=== PATIENT | male | born 1945 | race Caucasian/White ===

== ENCOUNTER 2021-05-08 09:06 | Outpatient (CLI) | payer MEDICARE, SELFPAY ==
[2021-05-08 12:09] LABS: Basophils % 0.2 %; Eosinophils # 0.1 10^3/uL (0.0-0.8); Eosinophils % 0.8 %; Lymphocytes # 1.7 10^3/uL (0.8-4.8); Lymphocytes % 17.9 %; Mean Corpuscular HGB Conc 31.6 g/dL (30.0-36.0); Mean Corpuscular Hemoglobin 34.8 pg (28.0-34.0); Mean Corpuscular Volume 110.1 fl (80-94); Mean Platelet Volume 11.7 fL (7.4-10.4); Monocytes # 0.9 10^3/uL (0.2-0.9); Monocytes % 9.6 %; Neutrophils # 6.79 10^3/uL (1.8-7.7); Neutrophils % 71.1 %; Nucleated Red Blood Cells % 0 %; Platelet Count 167 10^3/cmm (130-400); Red Blood Count 3.45 10^6/uL (4.1-5.3); Red Cell Distribution Width 13.3 % (12.1-15.1); Reticulocyte % 1.1 % (0.5-2.0); White Blood Count 9.6 10^3/uL (4.0-10.0)
[2021-05-08 12:31] LABS: Ferritin 80 ng/mL (30-400); Homocysteine 5.92; Iron 46 ug/dL (59-158); Lactate Dehydrogenase 130 U/L (135-225); Percent Saturation 13.1 % (20-50); Thyroid Stimulating Hormone 1.13 uIU/mL (0.27-4.20); Total Iron Binding Capacity 350 mcg/dl; Unsaturated Iron Binding 304 ug/dL (112-347)
[2021-05-08 12:39] LABS: Folate Level 14.7 ng/mL (4.5-32.2)
[2021-05-08 12:42] LABS: Alanine Aminotransferase 14 U/L (0-41); Albumin Level 4.4 g/dL (3.5-5.2); Alkaline Phosphatase 58 IU/L (40-130); Anion Gap 12.4 (5-19); Aspartate Amino Transferase 18 U/L (0-40); Blood Urea Nitrogen 19 mg/dL (8-23); Calcium 9.4 mg/dL (8.5-10.5); Carbon Dioxide 30 mmol/L (22-29); Chloride 104 mmol/L (98-107); Globulin 2.9 g/dL (1.3-4.6); Glucose 85 mg/dL (65-115); Osmolality Calculated 296 mOsm/kg (285-295); Potassium 4.4 mmol/L (3.5-5.1); Sodium 142 mmol/L (136-145); Total Bilirubin 0.2 mg/dL (0.15-1.2); Total Protein 7.3 g/dL (6.6-8.7); Vitamin B12 1746 pg/mL (232-1245)
[2021-05-08 12:51] LABS: LAB Peripheral Smear Sent for Review
--- NOTE | 2021-05-08 14:17 | ONC CON_ITS ---
Dr. Gregorio New Patient Note Patient: Sherwin Dalton Unit #: [id number]: 1945 Dicatated By: Ronny Gregorio M.D.Date of Visit: May 08, 2021 Onc MED New Patient/Consult Referring Physician: Dr. Pawel Ordoñez M.D. Chief Complaint: Anemia. History of Present Illness: This is a 75-year-old man with macrocytic anemia and mild leukocytosis. He has multiple medical illnesses including hypertension, hyperlipidemia, and coronary artery disease. He has had previous myocardial infarction, and he has had previous coronary artery bypass surgery and subsequent angioplasty/stent placement on 2 occasions. He has oxygen dependent COPD with associated chronic respiratory failure and pulmonary hypertension, and he also has degenerative arthritis. There is a reported history of B12 deficiency, for which he has been on and oral B12 supplement. He has been seeing Dr. Ordoñez for primary care. I am asked to see him in regard to macrocytic anemia and mild leukocytosis. The available records include CBC from 03/24/2021 which showed mildly decreased hemoglobin at 12.7 g with hematocrit 39.2%. The red cell indices were macrocytic with MCV 108.0 and MCH 35.0. The white blood cell count was 11,700 with the differential showing 76% neutrophils, 14% lymphocytes, and 8% monocytes. The platelet count was normal at 254,000. Comprehensive metabolic profile showed normal renal function with BUN 25 and creatinine 0.59 mg/dL. The bilirubin and liver enzymes were normal. The serum iron studies showed low serum iron at 37 mcg/dL with transferrin saturation also low at 14%. His B12 level was greater than 2000 pg/mL and the folate level was 23.1 ng/mL. He has felt generally weak and he has had very limited activity. His appetite had not been too good, though recently it has improved a little. He has had a significant weight loss. At one time he weighed as much is 240 pounds. Sometime during the past 1 to 2 years his weight was down to 160 lbs., and it has since then further declined to under 130 lbs. He has not had fever or night sweats. He is short of breath with activity, and he is on continuous oxygen. He does not complain of cough and he has not been having chest pain. He has no GI or complaints. He has bad arthritis, especially in the hips and knees. He also has lower back pain, which is chronic. He does not complain of headache or dizziness. He has numbness in a couple of fingers related to previous injury. He has no other focal neurologic symptoms. Past Medical History: His medical history includes chronic obstructive pulmonary disease, chronic respiratory failure, coronary artery disease, degenerative arthritis, hyperlipidemia, hypertension, pulmonary hypertension, and vitamin B12 deficiency. Past Surgical History: His surgical/procedural history includes bilateral cataract excisions, coronary angioplasty/stent placement x 2, and coronary artery bypass. Medications: Adult Aspirin Regimen 1 Tablet (of 81 mg) Tablet, enteric coated Oral daily, Albuterol Sulfate HFA 2 Puff(s) (of 108 (90 base) mcg/act) Aerosol, solution Inhalation q 6 hours PRN, amLODIPine Besylate 1 Tablet (of 5 mg) Oral daily, Atenolol 0.5 Tablet (of 25 mg) Oral daily, B-12 1 Tablet (of 500 mcg) Oral daily, Budesonide-Formoterol Fumarate 2 Puff(s) (of 160-4.5 mcg/act) Aerosol Inhalation b.i.d., Cholecalciferol Capsule Oral, Cyproheptadine HCl 0.5 Tablet (of 4 mg) Oral b.i.d., Ferrous Sulfate 1 Tablet (of 325 (65 fe) mg) Oral daily, Folic Acid 1 Tablet (of 800 mcg) Oral daily, Gemfibrozil 1 Tablet (of 600 mg) Oral b.i.d., oxyCODONE-Acetaminophen 1 Tablet (of 10-325 mg) Oral q 6 hours PRN, Pravastatin Sodium 1.5 Tablet (of 40 mg) Oral daily Allergies: Cyclobenzaprine HCl, Sulfa Antibiotics, and Tetracycline HCl. Social History: Mr. Dalton is . He has a history of smoking for 40 years, but within the past 1 to 2 years he cut down to just 1 cigarette/day. He chews a can of tobacco every 2 weeks. He currently does not drink alcohol. He has had some alcohol use in the past, but never heavy. Family History: Father of blood cancer , I suspect myelodysplastic syndrome, as he had been transfusion dependent. His mother, his brother, and his 4 sisters all with heart disease. A son with complications after surgery for colon or bladder cancer. Review Of Symptoms: Constitutional - He has generally weak and he has limited activity. His appetite has not been good. He has had gradual weight loss. He had previously weight is much is 240 pounds. Over the past year or 2 he has gone down from 160 pounds to under 130 pounds. He does not have fever or night sweats. ECOG score is 2, Eyes - He had cataract surgery in August, [facility] - No hearing loss or tinnitus. No sinus congestion, but he complains that his nose runs a lot. No mouth sores. No sore throat or difficulty swallowing, Hematologic/Lymphatic - He has easy bruising, Respiratory - He has shortness of breath with activity. He is on continuous oxygen. No cough. No pleuritic pain or hemoptysis, Cardiovascular - No angina pain. No palpitations, Gastrointestinal - No nausea or vomiting. No heartburn or acid reflux. No diarrhea or constipation. No blood in the stool or black stools. He has never had a colonoscopy, Genitourinary (M) - No dysuria or hematuria. No urinary frequency. No urgency or incontinence, Musculoskeletal - He has pretty bad arthritis, particularly in the hips and knees. He also complains that his lower back really hurts, but that is chronic, Integumentary - No skin rash or other skin changes, Neurologic - No headache. He has very occasional dizzy spells. He has numbness in his left ring finger and in his right middle finger. No other focal neurologic symptoms, Psychiatric - No anxiety or depression. No insomnia. Vital Signs: Performed on May 08, 2021 10:20: 6, 5, 18.41, 1.77 sq.m, 71 in, 93 % (LOW), 110 /min (HIGH), 20 /min, 163/78 mm(hg) (HIGH), 98.6 F, and 132 lbs (HIGH). Physical Examination: Constitutional - He appears chronically ill, Eyes - Sclerae nonicteric. Conjunctivae clear, ENMT - No lesions noted in the oral cavity, Neck - No mass or thyromegaly, Hematologic/Lymphatic - No cervical, clavicular, or axillary adenopathy, Respiratory - Lungs sound clear with diminished air movement bilaterally, Cardiovascular - Heart rhythm is regular. There is no murmur, gallop, or rub noted, Abdomen - Soft. Liver and spleen are not enlarged. There is no abdominal mass or ascites noted and there is no inguinal adenopathy, Back/Spine - No spine or CVA tenderness noted, Extremities - No edema. Posterior tibial pulses are palpable bilaterally, Integumentary - No rashes. No suspicious skin lesions noted, Neurologic - No focal neurologic deficits noted. Problem List: 1. Macrocytic anemia and mild leukocytosis. 2. Hypertension. 3. Hyperlipidemia. 4. Coronary artery disease. 5. COPD with chronic respiratory failure and pulmonary hypertension. 6. Degenerative arthritis. Problems Addressed with this Encounter and Plan: Patient with mild macrocytic anemia and mild leukocytosis. Based on the serum iron studies, he may have a component of iron deficiency contributing to the anemia, but that obviously would not be consistent with the other findings. The main concern would be the possibility of an underlying myeloproliferative/myelodysplastic disorder. The laboratory findings and clinical implications were reviewed with the patient. He will have additional laboratory studies today to include CBC, comprehensive metabolic profile, reticulocyte count, LDH level, haptoglobin level, serum iron studies and ferritin, sed rate, serum protein electrophoresis, and serum free light chain assay. I also will recheck the B12 and folate levels, and I will review the blood smear. He will have further evaluation as indicated. Ultimately, he may require bone marrow aspiration/biopsy. Signed By: Ronny Gregorio M.D. <<Signature on File>>
[2021-05-09 08:21] LABS: PROTEIN, TOTAL 6.8 g/dL (6.1-8.1)
[2021-05-11 11:04] LABS: Erythrocyte Sedimentation Rate 34 mm/hr (0-10)
[2021-05-11 14:58] LABS: ALPHA 1 GLOBULIN 0.4 g/dL (0.2-0.3); ALPHA 2 GLOBULIN 0.9 g/dL (0.5-0.9); BETA 1 GLOBULIN 0.4 g/dL (0.4-0.6); BETA 2 GLOBULIN 0.3 g/dL (0.2-0.5); GAMMA GLOBULIN 0.8 g/dL (0.8-1.7)
[2021-05-11 15:13] LABS: KAPPA LIGHT CHAIN, FREE, SERUM 38.8 mg/L (3.3-19.4); KAPPA/LAMBDA LIGHT CHAINS FREE 2.04 (0.26-1.65)
[2021-05-12 04:12] LABS: Methylmalonic Acid 235 nmol/L (87-318)
== END 2021-05-08 09:07 | disposition home or self-care (01) ==
LOC: ONCMED 09:11
PROVIDERS: PCP Family Medicine; Visit Provider Internal Medicine Medical Oncology
DX: D53.9 Nutritional anemia, unspecified (principal); D72.829 Elevated white blood cell count, unspecified; I10 Essential (primary) hypertension; E78.5 Hyperlipidemia, unspecified; I25.10 Atherosclerotic heart disease of native coronary artery without angina pectoris; M19.90 Unspecified osteoarthritis, unspecified site; Z79.899 Other long term (current) drug therapy; Z79.51 Long term (current) use of inhaled steroids; Z79.891 Long term (current) use of opiate analgesic
CPT/HCPCS: 36415; 80053; 82607; 82728; 82746; 83010; 83090; 83540; 83550; 83615; 83883; 83921; 84155; 84165; 84443; 85025; 85045; 85651; 99204

== ENCOUNTER 2021-06-15 14:19 | Outpatient (CLI) | payer MEDICARE, SELFPAY ==
[2021-06-15 14:53] LABS: Basophils # 0.1 10^3/uL (0.0-0.1); Basophils % 0.6 %; Eosinophils % 0.2 %; Hematocrit 40.2 % (42.0-52.0); Hemoglobin 12.6 g/dL (11.7-16.6); Lymphocytes # 2.5 10^3/uL (0.8-4.8); Lymphocytes % 28.5 %; Mean Corpuscular HGB Conc 31.3 g/dL (30.0-36.0); Mean Corpuscular Hemoglobin 34.5 pg (28.0-34.0); Mean Corpuscular Volume 110.1 fl (80-94); Mean Platelet Volume 10.9 fL (7.4-10.4); Monocytes # 0.8 10^3/uL (0.2-0.9); Monocytes % 9.7 %; Neutrophils # 5.27 10^3/uL (1.8-7.7); Neutrophils % 60.8 %; Nucleated Red Blood Cells % 0 %; Platelet Count 189 10^3/cmm (130-400); Red Blood Count 3.65 10^6/uL (4.1-5.3); Red Cell Distribution Width 12.8 % (12.1-15.1); White Blood Count 8.7 10^3/uL (4.0-10.0)
[2021-06-15 15:11] LABS: Alanine Aminotransferase 14 U/L (0-41); Albumin Level 4.5 g/dL (3.5-5.2); Alkaline Phosphatase 60 IU/L (40-130); Aspartate Amino Transferase 18 U/L (0-40); Blood Urea Nitrogen 18 mg/dL (8-23); Carbon Dioxide 32 mmol/L (22-29); Chloride 99 mmol/L (98-107); Ferritin 71 ng/mL (30-400); Globulin 2.9 g/dL (1.3-4.6); Glucose 90 mg/dL (65-115); Iron 62 ug/dL (59-158); Osmolality Calculated 291 mOsm/kg (285-295); Percent Saturation 19.7 % (20-50); Sodium 140 mmol/L (136-145); Total Bilirubin 0.2 mg/dL (0.15-1.2); Total Iron Binding Capacity 314 mcg/dl; Total Protein 7.4 g/dL (6.6-8.7); Unsaturated Iron Binding 252 ug/dL (112-347)
[2021-06-15 15:13] LABS: Anion Gap 13.1 (5-19); Potassium 4.1 mmol/L (3.5-5.1)
--- NOTE | 2021-06-19 18:42 | ONC FU_ITS ---
Dr. Gregorio Patient Follow-Up Note Patient: Sherwin Dalton Unit #: [id number]: 1945 Dicatated By: Ronny Gregorio M.D.Date of Visit:Jun 15, 2021 Onc Med Follow-up/Prog Note Chief Complaint: Anemia. History of Present Illness: This is a 75-year-old man with macrocytic anemia and mild leukocytosis. He has multiple medical illnesses including hypertension, hyperlipidemia, and coronary artery disease. He has had previous myocardial infarction, and he has had previous coronary artery bypass surgery and subsequent angioplasty/stent placement on 2 occasions. He has oxygen dependent COPD with associated chronic respiratory failure and pulmonary hypertension, and he also has degenerative arthritis. There is a reported history of B12 deficiency, for which he has been on and oral B12 supplement. He has been seeing Dr. Ordoñez for primary care. The available records included a CBC from 03/24/2021 which showed mildly decreased hemoglobin at 12.7 g with hematocrit 39.2%. The red cell indices were macrocytic with MCV 108.0 and MCH 35.0. The white blood cell count was 11,700 with the differential showing 76% neutrophils, 14% lymphocytes, and 8% monocytes. The platelet count was normal at 254,000. Comprehensive metabolic profile showed normal renal function with BUN 25 and creatinine 0.59 mg/dL. The bilirubin and liver enzymes were normal. The serum iron studies showed low serum iron at 37 mcg/dL with transferrin saturation also low at 14%. His B12 level was greater than 2000 pg/mL and the folate level was 23.1 ng/mL. I had seen him initially on 05/08/2021. His CBC showed hemoglobin borderline low at 12.0 g and hematocrit 38.0%. The red cell indices were significantly macrocytic with MCV 110 and MCH 34. The white blood cell count was normal at 9600 and the platelet count was 167,000. The uncorrected reticulocyte count was 1.1%. Haptoglobin was slightly elevated to 222.0 mg/L with LDH normal at 130 U/L. Sed rate was slightly elevated at 34 mm/h. Renal function was normal and the bilirubin and liver enzymes were normal. His serum iron studies showed low transferrin saturation at 13.1% with ferritin in normal range at 80 ng/mL. B12 level is again high at 1746 pg/mL. Methylmalonic acid and homocysteine levels were normal. His protein electrophoresis showed no monoclonal protein. The serum free light chain assay showed slightly elevated kappa/lambda ratio 2.04. Overall, the laboratory findings were nonspecific, though suggestive of possible iron deficiency. As his hemoglobin is just borderline low, I had just recommended observation/expectant management. He is seen now for a follow-up visit. He says his energy is fair. His activity, though, is very limited. He is up and around, he does not attempt any work activity. His ECOG score is 2. His appetite has been a little better. He has been drinking Ensure, and his weight is up 8 pounds. He does not have fever or night sweats. He is short of breath, and he is on continuous oxygen. He does not complain of cough and he has not been having chest pain. He has no GI or complaints. He has chronic pain in his back, hips, and legs. He does not complain of headache or dizziness, and he has no focal neurologic symptoms. Medications: Adult Aspirin Regimen 1 Tablet (of 81 mg) Tablet, enteric coated Oral daily, Albuterol Sulfate HFA 2 Puff(s) (of 108 (90 base) mcg/act) Aerosol, solution Inhalation q 6 hours PRN, amLODIPine Besylate 1 Tablet (of 5 mg) Oral daily, Atenolol 0.5 Tablet (of 25 mg) Oral daily, B-12 1 Tablet (of 500 mcg) Oral daily, Budesonide-Formoterol Fumarate 2 Puff(s) (of 160-4.5 mcg/act) Aerosol Inhalation b.i.d., Cholecalciferol Capsule Oral, Cyproheptadine HCl 0.5 Tablet (of 4 mg) Oral b.i.d., Ferrous Sulfate 1 Tablet (of 325 (65 fe) mg) Oral daily, Folic Acid 1 Tablet (of 800 mcg) Oral daily, Gemfibrozil 1 Tablet (of 600 mg) Oral b.i.d., oxyCODONE-Acetaminophen 1 Tablet (of 10-325 mg) Oral q 6 hours PRN, Pravastatin Sodium 1.5 Tablet (of 40 mg) Oral daily Allergies: Cyclobenzaprine HCl, Sulfa Antibiotics, and Tetracycline HCl. Vital Signs: Performed on Jun 15, 2021 15:49 Height - 71.00 in Weight - 140.2 lbs (HIGH) BSA - 1.81 sq.m BMI - 19.55 Temperature - 97.8 F (LOW) Pulse - 123 /min (HIGH) Respiration - 18 /min BP - 182/84 mm(hg) (HIGH) O2 Sat - 96 % Pain - 7 Fatigue - 8 Physical Examination: Constitutional - He appears chronically ill, Eyes - Sclerae nonicteric. Conjunctivae clear, ENMT - No lesions noted in the oral cavity, Hematologic/Lymphatic - No cervical, clavicular, or axillary adenopathy, Respiratory - Lungs sound clear with diminished air movement bilaterally, Cardiovascular - Heart rhythm is regular with tachycardia. There is no murmur, gallop, or rub noted, Abdomen - Soft. Liver and spleen are not enlarged. There is no abdominal mass or ascites noted and there is no inguinal adenopathy, Extremities - No edema, Neurologic - No focal neurologic deficits noted. Lab/Imaging: Test performed on Jun 15, 2021 14:41 Ferritin 71 ng/mL Iron 62 mcg/dL Sodium 140 mmol/L Iron Binding Capacity (TIBC) 314 mcg/dl Potassium 4.1 mmol/L % Iron Saturation 19.7 % Chloride 99 mmol/L CO2 32 mmol/L UIBC 252 mcg/dL Anion Gap 13.1 BUN 18 mg/dL Creatinine 0.5 mg/dL Cr Clearance (Est) 113.06 mL/min Glucose 90 mg/dL Osmolality - Calculated 291 mOsm/kg Calcium 9.0 mg/dL Protein, Total 7.4 g/dL Albumin 4.5 g/dL Globulin 2.9 g/dL Bilirubin, Total 0.2 mg/dL ALT (SGPT) 14 U/L AST (SGOT) 18 U/L Alkaline Phosphatase 60 IU/L WBC 8.7 10 3/uL RBC 3.65 10 6/uL HGB 12.6 g/dL HCT 40.2 % MCV 110.1 fl MCH 34.5 pg MCHC 31.3 g/dL RDW 12.8 % Platelet Count 189 10 3/cmm MPV 10.9 fL Neutrophils 5.27 10 3/uL Lymphocytes 2.5 10 3/uL Monocytes 0.8 10 3/uL Eosinophils 0.0 10 3/uL Basophils 0.1 10 3/uL Neutrophil % 60.8 % Lymphocyte % 28.5 % Monocyte % 9.7 % Eosinophil % 0.2 % Basophils % 0.6 % NRBC % 0 % Problem List: 1. Macrocytic anemia and mild leukocytosis. 2. Hypertension. 3. Hyperlipidemia. 4. Coronary artery disease. 5. COPD with chronic respiratory failure and pulmonary hypertension. 6. Degenerative arthritis. Problems Addressed with this Encounter and Plan: Patient with mild macrocytic anemia and mild leukocytosis. Based on the serum iron studies, he may have had a component of iron deficiency contributing to the anemia, but that obviously would not be consistent with the macrocytosis. The main concern otherwise was the possibility of an underlying myeloproliferative/myelodysplastic disorder. Since his initial visit, his CBC findings have basically been stable, other than his white blood cell count has been in the upper normal range. He continues to have significantly macrocytic red cell indices, but with just borderline low hemoglobin/hematocrit levels. In the absence of B12 or folate deficiency, this is concerning for a myelodysplastic syndrome. However, as long as his hemoglobin/hematocrit levels remain adequate, there would be no indication for treatment. As such, he will continue expectant management. At least for now, he prefers to continue his regular follow-up with Dr. Ordoñez. He would suggest checking blood counts every 3 to 6-month intervals. If there is a significant decline in his hemoglobin/hematocrit levels, he will need to undergo bone marrow aspiration/biopsy. I will plan to see him again as needed. Signed By: Ronny Gregorio M.D. <<Signature on File>>
== END 2021-06-15 14:20 | disposition home or self-care (01) ==
PROVIDERS: PCP Family Medicine; Visit Provider Internal Medicine Medical Oncology
DX: D50.9 Iron deficiency anemia, unspecified (principal); D70.9 Neutropenia, unspecified; D53.9 Nutritional anemia, unspecified
CPT/HCPCS: 36415; 80053; 82728; 83540; 83550; 85025; 99214

== ENCOUNTER 2022-01-16 02:02 | Emergency (ER) | payer MEDICARE, SELFPAY ==
[2022-01-16 02:07] VITALS: BP 130/61; PULSE 91; RESP 18; TEMP 36.6; O2SAT 95; BMI 19.5
--- NOTE | 2022-01-16 02:11 | ECG_ITS ---
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 Measurements Intervals [place] Rate: 92 P: 73 [place]: 168 QRS: 46 QRSD: 89 T: 65 QT: 322 QTc: 400 Interpretive Statements SINUS RHYTHM ST depression and T wave inversion leads V1 through V6, consider ischemia No previous ECG available for comparison Electronically Signed On 01-16-2022 9:23:39 CDT by Pj Chandra M.D. [id number]
--- NOTE | 2022-01-16 02:11 | XRR_ITS ---
PROCEDURE INFORMATION: Exam: XR Chest Exam date and time: 01/16/2022 2:20 AM Age: 76 years old Clinical indication: Chest pressure; Prior surgery; Surgery type: Cabg. Coronary stents. Patient HX: C/O chest pain. ; Additional info: Cp TECHNIQUE: Imaging protocol: XR of the chest. Views: 1 view. COMPARISON: No relevant prior studies available. FINDINGS: Lungs: Phase opacities in the mid right lung. Background of emphysema. Pleural spaces: Unremarkable. No pleural effusion. No pneumothorax. Heart/Mediastinum: Changes of prior CABG. Bones/joints: Unremarkable. XR/XR chest 1V portable [id number] IMPRESSION: Faint opacities in the mid right lung may reflect scarring or atelectasis, though infection is not entirely excluded.
[2022-01-16 02:22] LABS: Basophils % 0.2 %; Eosinophils # 0.2 10^3/uL (0.0-0.8); Eosinophils % 1.1 %; Hematocrit 34.2 % (42.0-52.0); Hemoglobin 10.9 g/dL (11.7-16.6); Lymphocytes # 1.1 10^3/uL (0.8-4.8); Lymphocytes % 6.3 %; Mean Corpuscular HGB Conc 31.9 g/dL (30.0-36.0); Mean Corpuscular Hemoglobin 34.5 pg (28.0-34.0); Mean Corpuscular Volume 108.2 fl (80-94); Mean Platelet Volume 10.7 fL (7.4-10.4); Monocytes # 1.5 10^3/uL (0.2-0.9); Monocytes % 8.3 %; Neutrophils # 14.97 10^3/uL (1.8-7.7); Neutrophils % 83.6 %; Nucleated Red Blood Cells % 0 %; Platelet Count 222 10^3/cmm (130-400); Red Blood Count 3.16 10^6/uL (4.1-5.3); Red Cell Distribution Width 13.1 % (12.1-15.1); White Blood Count 17.9 10^3/uL (4.0-10.0)
[2022-01-16 02:37] LABS: Troponin(5th) Baseline 13 ng/L (0-15)
[2022-01-16 02:39] VITALS: RESP 17
[2022-01-16] MEDS: ondansetron 2 mg/ML SDV 2 mL 4 MG IVP (02:39)
[2022-01-16] MEDS: morphine 4 mg/mL SDV 1 mL IVP (02:39)
[2022-01-16 02:46] LABS: Alanine Aminotransferase 8 U/L (0-41); Albumin Level 3.8 g/dL (3.5-5.2); Alkaline Phosphatase 61 IU/L (40-130); Aspartate Amino Transferase 11 U/L (0-40); Blood Urea Nitrogen 24 mg/dL (8-23); Calcium 8.6 mg/dL (8.5-10.5); Carbon Dioxide 30 mmol/L (22-29); Chloride 101 mmol/L (98-107); Creatine Phosphokinase 43 U/L (39-308); Globulin 2.4 g/dL (1.3-4.6); Glucose 162 mg/dL (65-115); NT Pro B Type Natriuretic Pept 532 pg/mL (0-450); Osmolality Calculated 302 mOsm/kg (285-295); Sodium 142 mmol/L (136-145); Total Bilirubin 0.2 mg/dL (0.15-1.2); Total Protein 6.2 g/dL (6.6-8.7)
[2022-01-16 02:59] LABS: INR 1.06 (0.8-1.2); Partial Thromboplastin Time 36.5 SECONDS (23.9-36.7)
[2022-01-16 05:33] LABS: Troponin 5 2HR 162.9 ng/L (0-15); Troponin 5 2HR Delta 149.9 ABS# (0-10)
--- NOTE | 2022-01-16 05:43 | ED_ITS ---
HPI - Chest Pain General: Chief Complaint: Chest Pain Stated Complaint: CP Time Seen by Provider: 01/16/22 02:11 History of Present Illness: 76-year-old gentleman with a history of coronary disease. He notes that he had a CABG in the , followed by stent placement in the early . No intervention since. He presents with chest pain since 11 PM or so. He was not active at the time. His nitroglycerin were . He has had 2 nitroglycerin via EMS, aspirin in route to the hospital. His pain is improved but not gone. He was short of breath with the discomfort. Course Vital Signs: Vital signs: Vital Signs Temperature 98 F 01/16/22 02:07 Pulse Rate 91 01/16/22 02:07 Respiratory Rate 17 01/16/22 02:39 Blood Pressure 130/61 01/16/22 02:07 Pulse Oximetry 95 01/16/22 02:07 MDM - Chest Pain Medical Decision Making 76-year-old gentleman with anginal type chest pain. His pain is resolved currently. Initial EKG showed ST depression in the anterior precordial leads. At 2 hours, with resolution of his pain, his ST segments are back to baseline, and his EKG looks essentially normal. However, his first troponin was 13, but with a delta of 150, confirming subendocardial injury. Discussed these findings with the patient. Discussed with him that he has had a heart attack, and will require admission to the hospital for a coronary angiogram. The patient adamantly refused the angiogram. He states maybe I will think about it for a few days and call and make an appointment . I stressed to him that with the changes in his EKG, and the rise in his troponin, that it would be necessary for him to be treated for his heart attack. I also stressed that if he goes home, and this happens again, that he could , and may not make it back to the hospital. He understands this. He still refuses. He will sign an AMA form. Lab Data : 01/16/22 02:11 01/16/22 02:11 Radiology Impressions Chest X-Ray 01/16/22 02:11 IMPRESSION: Faint opacities in the mid right lung may reflect scarring or atelectasis, though infection is not entirely excluded. Laboratory Results WBC 17.9 10^3/uL (4.0-10.0) H 01/16/22 02:11 RBC 3.16 10^6/uL (4.1-5.3) L 01/16/22 02:11 Hgb 10.9 g/dL (11.7-16.6) L 01/16/22 02:11 Hct 34.2 % (42.0-52.0) L 01/16/22 02:11 MCV 108.2 fl (80-94) H 01/16/22 02:11 MCH 34.5 pg (28.0-34.0) H 01/16/22 02:11 MCHC 31.9 g/dL (30.0-36.0) 01/16/22 02:11 RDW 13.1 % (12.1-15.1) 01/16/22 02:11 Plt Count 222 10^3/cmm (130-400) 01/16/22 02:11 MPV 10.7 fL (7.4-10.4) H 01/16/22 02:11 Neut % (Auto) 83.6 % 01/16/22 02:11 Lymph % (Auto) 6.3 % 01/16/22 02:11 [place] % (Auto) 8.3 % 01/16/22 02:11 Eos % (Auto) 1.1 % 01/16/22 02:11 Baso % (Auto) 0.2 % 01/16/22 02:11 Neut # (Auto) 14.97 10^3/uL (1.8-7.7) H 01/16/22 02:11 Lymph # (Auto) 1.1 10^3/uL (0.8-4.8) 01/16/22 02:11 [place] # (Auto) 1.5 10^3/uL (0.2-0.9) H 01/16/22 02:11 Eos # (Auto) 0.2 10^3/uL (0.0-0.8) 01/16/22 02:11 Baso # (Auto) 0.0 10^3/uL (0.0-0.1) 01/16/22 02:11 Nucleated RBC % (auto) 0 % 01/16/22 02:11 Nucleated RBCs # 0.0 /100WBC 01/16/22 02:11 PT 14.10 SECONDS (12.1-14.9) 01/16/22 02:30 INR 1.06 (0.8-1.2) 01/16/22 02:30 APTT 36.5 SECONDS (23.9-36.7) 01/16/22 02:30 Sodium 142 mmol/L (136-145) 01/16/22 02:11 Potassium 4.0 mmol/L (3.5-5.1) 01/16/22 02:11 Chloride 101 mmol/L (98-107) 01/16/22 02:11 Carbon Dioxide 30 mmol/L (22-29) H 01/16/22 02:11 Anion Gap 15.0 (5-19) 01/16/22 02:11 BUN 24 mg/dL (8-23) H 01/16/22 02:11 Creatinine 0.8 mg/dL (0.7-1.2) 01/16/22 02:11 GFR Calculation Not Reportable 01/16/22 02:11 Glucose 162 mg/dL (65-115) H 01/16/22 02:11 Calculated Osmolality 302 mOsm/kg (285-295) H 01/16/22 02:11 Calcium 8.6 mg/dL (8.5-10.5) 01/16/22 02:11 Total Bilirubin 0.2 mg/dL (0.15-1.2) 01/16/22 02:11 AST 11 U/L (0-40) 01/16/22 02:11 ALT 8 U/L (0-41) 01/16/22 02:11 Alkaline Phosphatase 61 IU/L (40-130) 01/16/22 02:11 Creatine Kinase 43 U/L (39-308) 01/16/22 02:11 Troponin T Baseline 13 ng/L (0-15) 01/16/22 02:11 Troponin T 120 Minute 162.9 ng/L (0-15) H 01/16/22 04:50 Delta Troponin T 149.9 ABS# (0-10) H* 01/16/22 04:50 NT-Pro-B Natriuret Pep 532 pg/mL (0-450) H 01/16/22 02:11 Total Protein 6.2 g/dL (6.6-8.7) L 01/16/22 02:11 Albumin 3.8 g/dL (3.5-5.2) 01/16/22 02:11 Globulin 2.4 g/dL (1.3-4.6) 01/16/22 02:11 Discharge Plan Discharge Patient Disposition: Left Against Medical Advice Clinical Impression: Chest pain, Non-ST elevated myocardial infarction (non-STEMI) Condition: Stable Prescriptions: New nitroglycerin 0.4 mg tablet, sublingual 0.4 mg sublingual Q5M PRN (Reason: chest pain) Qty: 10 0RF Rx Instructions: do not exceed 3 doses per episode Referrals: Pawel Ordoñez [Primary Care Provider] - Activity Restrictions/Additional Instructions: Your tests show that you have likely had a heart attack. You have chosen to not be admitted to the hospital, and have refused potential coronary angiogram and further treatment. Return for any return of your chest discomfort, shortness of breath, any other symptoms. Coding Level of Care Code ED Printing Services Coordinator for Taz Levine
[2022-01-16 05:46] VITALS: BP 141/60; PULSE 86; RESP 18; O2SAT 96
[2022-01-16 06:09] VITALS: BP 139/90; PULSE 78; RESP 18
--- NOTE | 2022-01-16 06:58 | PC.NURSE ---
I have explained to patient and family that it is very dangerous for him to leave the ER. I have explained to family that they need not be afraid to bring him back in if he is experiencing any pain or any other cardiac symptoms.
== END 2022-01-16 06:58 | disposition left against medical advice (07) ==
PROVIDERS: Emergency Provider Emergency Medicine; PCP Family Medicine
DX: I21.4 Non-ST elevation (NSTEMI) myocardial infarction (principal); Z53.29 Procedure and treatment not carried out because of patient's decision for other reasons; I25.10 Atherosclerotic heart disease of native coronary artery without angina pectoris; Z95.1 Presence of aortocoronary bypass graft; Z95.5 Presence of coronary angioplasty implant and graft
CPT/HCPCS: 71045; 80053; 82550; 83880; 84484; 85025; 85610; 85730; 93005; 96374; 96375; 99285; J2270; J2405

== ENCOUNTER 2022-01-16 12:14 | Inpatient (IN) | payer MEDICARE, SELFPAY ==
[2022-01-16] VITALS (58 sets, daily range): BP systolic 81–144; BP diastolic 46–74; PULSE 74–120; RESP 15–29; TEMP 36.7–36.8; O2SAT 3–100; BMI 18.9
--- NOTE | 2022-01-16 12:28 | ECG_ITS ---
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 Measurements Intervals [place] Rate: 112 P: 76 [place]: 132 QRS: 42 QRSD: 92 T: 54 QT: 338 QTc: 463 Interpretive Statements SINUS TACHYCARDIA NONSPECIFIC ST & T-WAVE ABNORMALITY ABNORMAL RHYTHM ECG Compared to ECG 01/16/2022 02:05:14 Sinus rhythm no longer present ST (T wave) deviation no longer present Possible ischemia no longer present T-wave abnormality still present Electronically Signed On 01-17-2022 9:20:04 CDT by Pj Chandra M.D. [id number] f
--- NOTE | 2022-01-16 12:28 | XRR_ITS ---
PROCEDURE INFORMATION: Exam: XR Chest Exam date and time: 01/16/2022 12:45 PM Age: 76 years old Clinical indication: Pain; Chest pressure; Additional info: Chest pain TECHNIQUE: Imaging protocol: XR of the chest. Views: 1 view. COMPARISON: CR (CHEST, ) 01/16/2022 2:20 AM FINDINGS: Lungs: Emphysematous changes with diffuse lung coarsening and scattered scarring with hyperinflation. No consolidation. Pleural spaces: No pleural effusion. No pneumothorax. Heart/Mediastinum: No cardiomegaly. Bones/joints: Sternotomy wires noted. Visualized osseous structures are intact. XR/XR chest 1V portable [id number] IMPRESSION: No acute findings.
[2022-01-16 12:56] LABS: Basophils % 0.2 %; Eosinophils # 0.1 10^3/uL (0.0-0.8); Eosinophils % 0.4 %; Hematocrit 35.7 % (42.0-52.0); Hemoglobin 11.2 g/dL (11.7-16.6); Lymphocytes # 0.8 10^3/uL (0.8-4.8); Lymphocytes % 3.8 %; Mean Corpuscular HGB Conc 31.4 g/dL (30.0-36.0); Mean Corpuscular Volume 111.6 fl (80-94); Mean Platelet Volume 10.8 fL (7.4-10.4); Monocytes # 1.2 10^3/uL (0.2-0.9); Monocytes % 5.8 %; Neutrophils # 17.59 10^3/uL (1.8-7.7); Neutrophils % 89.4 %; Nucleated Red Blood Cells % 0 %; Platelet Count 209 10^3/cmm (130-400); White Blood Count 19.7 10^3/uL (4.0-10.0)
--- NOTE | 2022-01-16 12:58 | PC.NURSE ---
While at bedside patient is resting in bed. Patient denies any needs at this time. Assumed care of patient.
--- NOTE | 2022-01-16 13:03 | PC.NURSE ---
While at bedside patient is on continuous SPO2, NIBP, and cardiac monitoring.
[2022-01-16 13:08] LABS: INR 1.05 (0.8-1.2)
[2022-01-16 13:10] LABS: Partial Thromboplastin Time 31.4 SECONDS (23.9-36.7)
--- NOTE | 2022-01-16 13:20 | USCV_ITS ---
Sha Sherwin Age: 76 Gender: M : 1945 Exam Date: 01/16/2022 15:50 Ordering Phys: Ministerio Johnson DO Technologist: DOMINGA Exam Location: [facility] Indication: Nstemi BP: 116 / 53 HR: 88 Rhythm: Sinus Technical Quality: Poor MEASUREMENTS (Male / Female) Normal Values 2D ECHO LV Diastolic Diameter PLAX 4.2 cm 4.2 - 5.9 / 3.9 - 5.3 cm LV Systolic Diameter PLAX 3.1 cm IVS Diastolic Thickness 1.3 cm 0.6 - 1.0 / 0.6 - 0.9 cm IVS Systolic Thickness 1.6 cm LVPW Diastolic Thickness 1.4 cm 0.6 - 1.0 / 0.6 - 0.9 cm LVPW Systolic Thickness 1.4 cm RV Chamber Size 1.7 cm LVOT Diameter 2.0 cm LV Ejection Fraction 2D Teich 52.8 % LV Ejection Fraction MOD 2C 62.8 % LV Ejection Fraction 2C AL 63.8 % LA Diameter 2.9 cm LA Width 2.9 cm LA Height 3.5 cm RA Width 2.4 cm RA Height 3.0 cm Aorta at Sinotubular Diameter 2.7 cm IVC Diameter 1.4 cm M-MODE Aortic Annulus Diameter 3.2 cm LA Ao Ratio MM 0.9 MV E Point Septal Separation 1.1 cm DOPPLER AV Peak Velocity 133.0 cm/s LVOT Peak Velocity 103.0 cm/s AV Area Cont Eq vti 2.1 cm squared AV Area Cont Eq pk 2.5 cm squared MV Area PHT 5.0 cm squared Mitral E to A Ratio 0.6 MV E' Velocity 28.0 cm/s Mitral E to MV E' Ratio 4.3 Mitral E to LV E' Lateral Ratio 4.8 Mitral E to LV E' Septal Ratio 3.9 TR Peak Velocity 329.7 cm/s TR Peak Gradient 43.5 mmHg Right Atrial Pressure 3.0 mmHg Pulmonary Artery Systolic Pressu 46.5 mmHg PV Peak Velocity 85.0 cm/s RV Acceleration Time 0.1 s RV Ejection Time 0.3 s RV AcT/ET 0.4 FINDINGS Left Ventricle The ventricle is poorly seen. The apical view is best. LV size is probably normal. Moderate global hypokinesis with EF about 35%. No obvious RWMA but no other view to corroborate. Grade II/IV diastolic dysfunction, moderately elevated filling pressures. Right Ventricle Normal right ventricular size and systolic function. Mild pulmonary hypertension, RVSP 46.5 mmHg. Right Atrium The right atrium is normal in size. Left Atrium The left atrium is normal in size. Mitral Valve Structurally normal mitral valve. Mitral valve not well visualized. Mild-moderate mitral valve regurgitation. Aortic Valve Structurally normal aortic valve without significant sclerosis or stenosis. There is no aortic regurgitation. Tricuspid Valve Tricuspid valve not well visualized. Mild tricuspid valve regurgitation. Pulmonic Valve Pulmonic valve not well visualized. Pericardium Normal pericardium without effusion. Aorta Normal ascending aorta dimension. IVC The inferior vena cava pulmonary and hepatic veins appear normal. CONCLUSIONS The ventricle is poorly seen. The apical view is best. LV size is probably normal. Moderate global hypokinesis with EF about 35%. No obvious RWMA but no other view to corroborate. Grade II/IV diastolic dysfunction, moderately elevated filling pressures. Normal right ventricular size and systolic function. Mild pulmonary hypertension, RVSP 46.5 mmHg. Structurally normal mitral valve. Mitral valve not well visualized. Mild-moderate mitral valve regurgitation. Dr. Pj Chandra MD (Electronically Signed) Final Date: 17 January 2022 07:14 S
[2022-01-16] MEDS: heparin 5,000 unit/mL INJ 1 mL IV (13:25)
[2022-01-16 13:27] LABS: Alanine Aminotransferase 15 U/L (0-41); Albumin Level 3.7 g/dL (3.5-5.2); Alkaline Phosphatase 58 IU/L (40-130); Anion Gap 16.9 (5-19); Aspartate Amino Transferase 81 U/L (0-40); Blood Urea Nitrogen 21 mg/dL (8-23); Carbon Dioxide 30 mmol/L (22-29); Chloride 100 mmol/L (98-107); Creatinine Clr Calc Pharmacy 67.4723; Globulin 3.3 g/dL (1.3-4.6); Glucose 129 mg/dL (65-115); NT Pro B Type Natriuretic Pept 2042 pg/mL (0-450); Osmolality Calculated 301 mOsm/kg (285-295); Potassium 3.9 mmol/L (3.5-5.1); Sodium 143 mmol/L (136-145); Total Bilirubin 0.2 mg/dL (0.15-1.2)
[2022-01-16] MEDS: heparin drip 25,000 UNIT/500 ML PREMIX 17.27 UNIT IV (13:31)
--- NOTE | 2022-01-16 13:32 | PC.NURSE ---
While at bedside patient condition is unchanged. Patient and family deny any needs at this time.
[2022-01-16 13:46] LABS: Troponin(5th) Baseline 1230 ng/L (0-15)
[2022-01-16 13:47] LABS: Creatine Phosphokinase 657 U/L (39-308)
--- NOTE | 2022-01-16 13:48 | PC.NURSE ---
Critical Troponin 1,230 and CK-[address] Johnson.
--- NOTE | 2022-01-16 13:55 | ED_ITS ---
HPI - Chest Pain General: Chief Complaint: Chest Pain Stated Complaint: CHEST PAIN; SOB Time Seen by Provider: 01/16/22 12:28 Source: patient Mode of arrival: EMS Limitations: no limitations History of Present Illness: 76-year-old male returns to the emergency room with worsening shortness of breath. Patient was seen earlier today and had a delta troponin of 150 however he refused to stay and left AMA. After returning home he became more more short of breath his insisted to him that he return for reevaluation ambulance was called and he returned to the emergency room he denies having any chest pain at this time. Earlier today he had evidence of subendocardial NV with ST depression in V2-6, as well as into 3 and aVF. This actually improved after nitrates. He was given nitrates in route which significantly lowered his blood pressure and then he was given albuterol and duo nebs which increased his heart rate on arrival here his heart rate is in the 130s blood pressure is in 83 systolic he is not having any chest discomfort yet however. MD complaint: chest heaviness and chest discomfort Pertinent past history: coronary artery disease Onset (ago): hour(s) Timing of current episode: episodic Prior episodes: Yes Onset: during rest Pain location: substernal and left chest Pain radiation: right arm, left arm and neck Quality: tightness and heaviness Relieving factors: nitroglycerin Associated symptoms: Reports diaphoresis and dyspnea; Deny abdominal pain, fever(s), leg edema, nausea, palpitations, sense of impending doom, syncope or vomiting Treatment prior to arrival: nitroglycerin Review of Systems Const: Reports: diaphoresis; Denies: fever(s) ENMT: Denies: throat pain, ear or mastoid pain, nasal discharge or nasal congestion Card: Denies: palpitations or syncope Resp: Reports: dyspnea GI: Denies: abdominal pain, nausea or vomiting : Denies: flank pain, dysuria, urinary frequency or urinary urgency Skin/Breast: Denies: rash or pruritus [facility] ED PFSH: Medical History Anemia CAD (coronary artery disease) Congestive heart failure due to cardiomyopathy Ischemic cardiomyopathy Surgical History Hx of CABG Physical Exam Const: COMMON NORMALS: no acute distress GENERAL APPEARANCE: cooperative and comfortable ORIENTATION/CONSCIOUSNESS: Yes awake, Yes oriented to person, Yes oriented to place and Yes oriented to time HENMT: COMMON NORMALS: normocephalic and atraumatic HEAD & SCALP: norm ocephalic and atraumatic Resp: AUSCULTATION: crackles Cardio: COMMON NORMALS: regular rhythm PALPATION: abnormal PMI (Displaced to the left upper chest, is visible on the chest wall) RATE: tachycardic RHYTHM: regular rhythm GI: COMMON NORMALS: Soft to palpation and No hepatosplenomegaly present AUSCULTATION: Yes normoactive bowel sounds PALPATION: Yes Soft to palpation, No Tenderness to palpation present (GI), No Guarding due to palpation present (GI) and Yes No hepatosplenomegaly present Extremity: COMMON NORMALS: normal to inspection, capillary refill normal and no calf tenderness GENERAL: Yes edema Neuro: SENSORIUM/ORIENTATION: Yes oriented to person, Yes oriented to place and Yes oriented to time Skin: COMMON NORMALS: no rashes or lesions noted GENERAL SKIN EXAM: no rashes or lesions noted Course Vital Signs: Vital signs: Vital Signs Temperature 98.4 F 01/20/22 14:49 Pulse Rate 64 01/20/22 14:49 Respiratory Rate 16 01/20/22 14:49 Blood Pressure 120/62 01/20/22 14:49 Pulse Oximetry 97 01/20/22 14:49 MDM - Chest Pain Medical Decision Making Patient returns after previously here this morning with a non-ST elevation NV he appears to be in florid congestive heart failure at this time. Cardiology consulted. Will admit orders written. Medical Records I reviewed the patient's medical records. Lab Data I reviewed the patient's lab results. : 01/18/22 04:43 01/20/22 02:57 Radiology Impressions Chest X-Ray 01/16/22 12:28 IMPRESSION: No acute findings. Abdomen/Pelvis CT 01/18/22 20:20 IMPRESSION: 1. Bilateral inguinal hernias are larger on the right and containing nonobstructed bowel. 2. No pneumatosis or perforation. 3. 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 4. Other chronic and incidental findings as described COMMENTS: Consistent with the [employer]'s Incidental Findings Committee white paper (J Am Angela Radiol 2018): Any incidental renal lesion less than 1 cm or classified as too small to characterize, or any incidental cystic renal lesion characterized as simple-appearing, is likely benign. No follow-up imaging is recommended for these lesions per consensus recommendations based on imaging criteria. Laboratory Results WBC 19.7 10^3/uL (4.0-10.0) H 01/16/22 12:35 RBC 3.20 10^6/uL (4.1-5.3) L 01/16/22 12:35 Hgb 11.2 g/dL (11.7-16.6) L 01/16/22 12:35 Hct 35.7 % (42.0-52.0) L 01/16/22 12:35 MCV 111.6 fl (80-94) H 01/16/22 12:35 MCH 35.0 pg (28.0-34.0) H 01/16/22 12:35 MCHC 31.4 g/dL (30.0-36.0) 01/16/22 12:35 RDW 13.0 % (12.1-15.1) 01/16/22 12:35 Plt Count 209 10^3/cmm (130-400) 01/16/22 12:35 MPV 10.8 fL (7.4-10.4) H 01/16/22 12:35 Neut % (Auto) 89.4 % 01/16/22 12:35 Lymph % (Auto) 3.8 % 01/16/22 12:35 Rice % (Auto) 5.8 % 01/16/22 12:35 Eos % (Auto) 0.4 % 01/16/22 12:35 Baso % (Auto) 0.2 % 01/16/22 12:35 Neut # (Auto) 17.59 10^3/uL (1.8-7.7) H 01/16/22 12:35 Lymph # (Auto) 0.8 10^3/uL (0.8-4.8) 01/16/22 12:35 Rice # (Auto) 1.2 10^3/uL (0.2-0.9) H 01/16/22 12:35 Eos # (Auto) 0.1 10^3/uL (0.0-0.8) 01/16/22 12:35 Baso # (Auto) 0.0 10^3/uL (0.0-0.1) 01/16/22 12:35 Nucleated RBC % (auto) 0 % 01/16/22 12:35 Nucleated RBCs # 0.0 /100WBC 01/16/22 12:35 PT 14.00 SECONDS (12.1-14.9) 01/16/22 12:35 INR 1.05 (0.8-1.2) 01/16/22 12:35 APTT 31.4 SECONDS (23.9-36.7) 01/16/22 12:35 Sodium 143 mmol/L (136-145) 01/16/22 12:35 Potassium 3.9 mmol/L (3.5-5.1) 01/16/22 12:35 Chloride 100 mmol/L (98-107) 01/16/22 12:35 Carbon Dioxide 30 mmol/L (22-29) H 01/16/22 12:35 Anion Gap 16.9 (5-19) 01/16/22 12:35 BUN 21 mg/dL (8-23) 01/16/22 12:35 Creatinine 0.6 mg/dL (0.7-1.2) L 01/16/22 12:35 GFR Calculation Not Reportable 01/16/22 12:35 Glucose 129 mg/dL (65-115) H 01/16/22 12:35 Estimat Average Glucose 103 01/16/22 12:35 Hemoglobin A1c 5.2 % (4.0-6.0) 01/16/22 12:35 Calculated Osmolality 301 mOsm/kg (285-295) H 01/16/22 12:35 Calcium 9.0 mg/dL (8.5-10.5) 01/16/22 12:35 Total Bilirubin 0.2 mg/dL (0.15-1.2) 01/16/22 12:35 AST 81 U/L (0-40) H 01/16/22 12:35 ALT 15 U/L (0-41) 01/16/22 12:35 Alkaline Phosphatase 58 IU/L (40-130) 01/16/22 12:35 Creatine Kinase 657 U/L (39-308) H* D 01/16/22 12:35 CK-MB (CK-2) 99.7 ng/mL (0-10.4) H 01/16/22 12:35 CK-MB (CK-2) Rel Index 15.1 % (0.0-5.3) H 01/16/22 12:35 Troponin T Baseline 1230 ng/L (0-15) H* 01/16/22 12:35 Troponin T 120 Minute 1093 ng/L (0-15) H 01/16/22 14:44 Delta Troponin T -137 ABS# (0-10) L 01/16/22 14:44 NT-Pro-B Natriuret Pep 2042 pg/mL (0-450) H 01/16/22 12:35 Total Protein 7.0 g/dL (6.6-8.7) 01/16/22 12:35 Albumin 3.7 g/dL (3.5-5.2) 01/16/22 12:35 Globulin 3.3 g/dL (1.3-4.6) 01/16/22 12:35 Triglycerides 67 mg/dL (0-150) 01/16/22 14:44 Cholesterol 163 mg/dL (0-200) 01/16/22 14:44 LDL Cholesterol, Calc 104 mg/dL (50-129) 01/16/22 14:44 HDL Cholesterol 46 mg/dL (60-100) L 01/16/22 14:44 LDL/HDL Ratio 2.26 RATIO (0.00-3.22) 01/16/22 14:44 Cholesterol/HDL Ratio 3.54 mg/dL (1.0-5.00) 01/16/22 14:44 TSH 0.26 uIU/mL (0.27-4.20) L 01/16/22 14:44 Discharge Plan Discharge Patient Disposition: Admitted As Inpatient Admit Provider: Kimberly Dow Clinical Impression: Non-ST elevation NV (NSTEMI), CAD (coronary artery disease), Congestive heart failure, Hypertension, COPD (chronic obstructive pulmonary disease) Condition: Stable Discharge Diet: Cardiac Discharge Activity: Resume usual activity and Oxygen as instructed Coding Level of Care Code ED Concrete Curer for Sangeetag Abner
[2022-01-16 14:28] LABS: CKMB 99.7 ng/mL (0-10.4); CKMB Relative Index 15.1 % (0.0-5.3)
--- NOTE | 2022-01-16 14:28 | ECG_ITS ---
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 Measurements Intervals [place] Rate: 97 P: 81 DC: 164 QRS: 38 QRSD: 85 T: 66 QT: 334 QTc: 425 Interpretive Statements SINUS RHYTHM NONSPECIFIC ST & T-WAVE ABNORMALITY Compared to ECG 01/16/2022 12:20:27 Sinus tachycardia no longer present T-wave abnormality still present Electronically Signed On 01-17-2022 9:25:51 CDT by Pj Chandra M.D. [id number]
--- NOTE | 2022-01-16 15:22 | P.HP_ITS ---
Providers/Chief Complaint Admitting Physician: Kimberly Dow MD Primary Care Provider: Pawel Ordoñez Chief Complaint: CHEST PAIN; SOB History of Present Illness Sherwin Dalton is a 76 year old male with past medical history of hypertension, hyperlipidemia, coronary artery disease, previous MS, CABG, PCI with stent placement x2, oxygen dependent COPD, pulmonary hypertension, degenerative arthritis presented to the hospital today initially with chest pain that started yesterday night around 11:00. He was not active at the time. Chest pain occurred at rest. His nitroglycerin tablets had and therefore he came to the hospital. He did get 2 nitroglycerin via EMS and aspirin in route to the hospital. He states the pain improved but was not completely gone. He was also short of breath with discomfort. Initial EKG showed ST depression in anterior precordial leads. 2 hours after resolution of pain ST segments back to baseline. Delta troponin 150 confirming subendocardial injury. Patient was advised to be admitted to the hospital for coronary angiogram. Patient refused angiogram and said that he will think about it for few days and call and make an appointment. 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 He came back to the hospital this afternoon with worsening shortness of breath. His insisted him to come to the hospital. EMS brought him in. He was given nitrates in route which significantly lowered his blood pressure and then he was given albuterol and DuoNeb which increases heart rate on arrival. Heart rate was 130s on presentation to ER and blood pressure 80 systolic. He denied having any chest discomfort or chest heaviness at that time. Cardiology was called who will see the patient. Patient was recommended admission to ICU for non-ST elevation MS. 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 Patient states that he is not really interested in an angiogram if it was offered at this point. And he feels fine at this time. He came to the hospital because his asked him to come in. Blood pressure now 112/62, respiratory 26, pulse 105, pulse ox 95% saturation. Patient was started on a heparin drip. Medications/Allergies Home Medications Medication Instructions Recorded Confirmed Last Taken Type aspirin 325 mg tablet 325 mg PO DAILY 01/16/22 01/16/22 01/15/22 History atenolol 25 mg tablet 25 mg PO DAILY 01/16/22 01/16/22 01/15/22 History gemfibrozil 600 mg tablet 600 mg PO BID 01/16/22 01/16/22 01/15/22 History nitroglycerin 0.4 mg sublingual 0.4 mg SUBLINGUAL Q5M PRN #10 tab 01/16/22 01/16/22 01/16/22 Rx tablet oxycodone-acetaminophen 10 mg-325 1 tab PO Q6H PRN 01/16/22 01/16/22 Unknown History mg tablet pravastatin 40 mg tablet 60 mg PO DAILY 01/16/22 01/16/22 01/15/22 History Allergies Allergy/AdvReac Type Severity Reaction Status Date / Time tetracycline Allergy ALGY-Rash Verified 01/16/22 12:30 PFSH Acute PFSH: Medical History Anemia CAD (coronary artery disease) Vitals/I&O/Wt Last Vital Signs Pulse 82 01/16/22 14:26 Resp 18 01/16/22 14:26 BP 107/57 01/16/22 14:26 Pulse Ox 100 01/16/22 14:26 Weight last 48 hrs Weight 61.689 kg Physical Exam Narrative: General: Alert oriented x3, patient seen laying in bed appearing comfortable on 3 L nasal cannula which is his baseline. HEENT: Normocephalic, atraumatic, EOMI, breathing normally no acute respiratory distress. Cardio: Regular rate rhythm, normal S1-S2, no murmurs rubs Respiratory: Good bilateral air entry, no wheezes no rhonchi appreciated, clear to auscultation GI: Abdomen soft, nontender, nondistended, bowel sounds + Very large right inguinal hernia going into the scrotum. Unable to visualize phallus. Nurses had trouble placing Cortez catheter. Behavior: Appropriate and cooperative Extremities: Pulses 2+, no edema, no cyanosis Data : 01/17/22 01:25 01/17/22 01:25 A&P Assessment and plan (1) Non-ST elevated myocardial infarction (non-STEMI): Status: Acute (2) Chest pain: Status: Acute (3) Hypertension: Status: Acute (4) Hyperlipidemia: Status: Acute (5) Hx of CABG: Status: Acute (6) History of coronary artery stent placement: Status: Acute (7) COPD (chronic obstructive pulmonary disease): Status: Acute (8) Pulmonary hypertension: Status: Acute (9) Arthritis: Status: Acute (10) Oxygen dependent: Status: Acute Plan #Non-ST elevation MS #History of coronary artery disease status post PCI x2, history of CABG early 1999 #Hypertension #Hyperlipidemia -Aspirin 81, atorvastatin 80. Continue heparin drip, Plavix 75 ? Pressures on soft side. We will hold off on starting lisinopril. -We will keep n.p.o. in case of angiogram today. Further management as per cardiology ? Check echo ? We will avoid Nitro since patient's blood pressure dropped a lot with tablet given in route. #COPD, oxygen dependent #Pulmonary hypertension #Degenerative arthritis -DuoNeb as needed ? Apply oxygen nasal cannula and titrate as needed #Large right inguinal hernia extending into the scrotum ? We will consult Dr. Gallego for Cortez catheter placement DVT prophylaxis: On heparin drip Attestations Medical Necessity Statement*: Will cross 48-hour stay for management of NSTEMI. Requires ICU level care. Coding Level of Care Code Acute Circular Gang Saw Operator for g Fwd Diagnoses Non-ST elevated myocardial infarction (non-STEMI) I21.4 Chest pain R07.9 Hypertension I10 Hyperlipidemia E78.5 Hx of CABG Z95.1 History of coronary artery stent placement Z95.5 COPD (chronic obstructive pulmonary disease) J44.9 Pulmonary hypertension I27.20 Arthritis M19.90 Oxygen dependent Z99.81
[2022-01-16 15:45] LABS: Troponin 5 2HR 1093 ng/L (0-15)
--- NOTE | 2022-01-16 15:48 | PM.CONSULT ---
Providers/Reason For Consult Consulting Physician/Specialty*: Cardiovascular medicine Reason for Consult*: Non-ST segment elevation [place] Requesting Physician: Hospitalist Attending Physician: Kimberly Dow MD Primary Care Provider: Pawel Ordoñez History of Present Illness History of Present Illness Sherwin Dalton is a 76 year old male who has a prior history of coronary artery disease. He had bypass surgery in [place] back in the early s. All he remembers is he had 4 vessels bypassed. Previously he was using the [facility] in [place] as his follow-up for cardiology. At the beginning of the COVID epidemic he stopped going. He has not seen anyone for at least 2 years. He also has a history of hypertension, COPD which is oxygen dependent, degenerative joint disease, dyslipidemia and mild pulmonary hypertension. He has chronic respiratory failure from COPD. He has seen Dr. Gregorio for anemia. He came into the emergency room last night because he could not breathe. He was having some mild chest discomfort. His EKG was abnormal with ST segment depression in leads V1 through V6. His troponin was elevated. The delta troponin was 163. It was suggested by the emergency room physician that he stay in the hospital but he declined and signed out AGAINST MEDICAL ADVICE. Was not long after he got home that he became more short of breath. He did not have any more chest pain but his apparently forced him to come back to the emergency room. His EKG has resolved and is now normal but his first troponin was 1230 and his second was 1093. His BNP is 2042. He states that he is comfortable at rest and is not short of breath. He is not having any chest pain at this time. He has been placed on heparin. He is also on aspirin and a statin. An echo has been ordered. Review of Systems Narrative: In general he states that he is doing okay and that his review of systems is negative. He is not very talkative. Medications/Allergies Home Medications Medication Instructions Recorded Confirmed Last Taken Type aspirin 325 mg tablet 325 mg PO DAILY 01/16/22 01/16/22 01/15/22 History atenolol 25 mg tablet 25 mg PO DAILY 01/16/22 01/16/22 01/15/22 History gemfibrozil 600 mg tablet 600 mg PO BID 01/16/22 01/16/22 01/15/22 History nitroglycerin 0.4 mg sublingual 0.4 mg SUBLINGUAL Q5M PRN #10 tab 01/16/22 01/16/22 01/16/22 Rx tablet oxycodone-acetaminophen 10 mg-325 1 tab PO Q6H PRN 01/16/22 01/16/22 Unknown History mg tablet pravastatin 40 mg tablet 60 mg PO DAILY 01/16/22 01/16/22 01/15/22 History Allergies Allergy/AdvReac Type Severity Reaction Status Date / Time tetracycline Allergy ALGY-Rash Verified 01/16/22 12:30 Current Medications Generic Name Dose Route Start Last Admin Trade Name Freq PRN Reason Stop Dose Admin Heparin Sodium (Porcine) 0 unit 01/16/22 13:04 01/16/22 13:25 Heparin 5,000 Unit/Ml Inj 1 Ml IV 4,000 unit PRN PRN Administration Heparin weight-base protocol Protocol Heparin Sodium/Sodium Chloride 25,000 unit in 500 mls @ 0 mls/hr 01/16/22 13:15 01/16/22 13:31 Heparin Drip IV 14 unit/kg/hr .Q0M JESSICA 17.27 mls/hr Administration Protocol Per Protocol PFSH Acute PFSH: Medical History (Updated 01/16/22 @ 15:56 by Pj Chandra MD) Anemia CAD (coronary artery disease) Vitals/I&O/Wt Last Vital Signs Temp 98.1 F 01/16/22 15:25 Pulse 90 01/16/22 15:30 Resp 20 H 01/16/22 15:30 BP 133/74 01/16/22 15:30 Pulse Ox 93 01/16/22 15:30 Weight last 48 hrs Weight 136 lb Physical Exam Narrative: GENERAL: In general he appears comfortable. He offers no complaint. HEENT: Exam within normal limits. NECK: Supple without jugular vein distention. The carotid upstroke is normal without bruits. BACK: Exam normal. LUNGS: Clear. HEART: Regular rate and rhythm. ABDOMEN: Benign without organomegaly or tenderness. He has a very large inguinal hernia which extends down into his scrotum. EXTREMITIES: No edema. NEUROLOGIC: Exam normal. SKIN: Unremarkable. Pale Data : 01/16/22 12:35 01/16/22 12:35 Micro: Microbiology 01/16/22 12:35 Blood Culture - Preliminary Blood SPECIMEN COLLECTED A&P Assessment and plan (1) Non-ST elevated myocardial infarction (non-STEMI): Status: Acute (2) Chest pain: Status: Acute (3) Hypertension: Status: Acute (4) Hyperlipidemia: Status: Acute (5) Hx of CABG: Status: Acute (6) History of coronary artery stent placement: Status: Acute (7) COPD (chronic obstructive pulmonary disease): Status: Acute (8) Pulmonary hypertension: Status: Acute (9) Arthritis: Status: Acute (10) Oxygen dependent: Status: Acute (11) CAD (coronary artery disease): Status: Acute (12) Anemia: Status: Acute Plan Currently stable. His EKG is back to normal. He is obviously had a non-ST segment elevation AZ. Under normal circumstances he would need coronary angiography. We will try to get the operative report from [place]. The inguinal hernia is going to make groin access difficult. We cannot use the wrist because of his bypass surgery. He told me that the last time somebody tried to go in there they could not get in on the right and struggled to get in on the left. Right now he is not interested in angiography and wants to try to treat this medically. We will see how things go. The echo is pending. Consult Attestations Medical Necessity Statement: Will need hospitalization for 48 hours and at a minimum for treatment of a non-ST segment elevation AZ. Coding Level of Care Code New Pt Acute Valve Machine Operator for dru Levine Patient Type New History Detailed Exam Detailed Medical Decision Making Moderate Complexity Diagnoses Non-ST elevated myocardial infarction (non-STEMI) I21.4 Chest pain R07.9 Hypertension I10 Hyperlipidemia E78.5 Hx of CABG Z95.1 History of coronary artery stent placement Z95.5 COPD (chronic obstructive pulmonary disease) J44.9 Pulmonary hypertension I27.20 Arthritis M19.90 Oxygen dependent Z99.81 CAD (coronary artery disease) I25.10 Anemia D64.9 Time Spent (min) 38
[2022-01-16 15:57] LABS: Chol HDL Ratio 3.54 mg/dL (1.0-5.00); Cholesterol 163 mg/dL (0-200); HDL Cholesterol 46 mg/dL (60-100); LDL Cholesterol Calculated 104 mg/dL (50-129); LDL HDL Ratio 2.26 RATIO (0.00-3.22); Thyroid Stimulating Hormone 0.26 uIU/mL (0.27-4.20); Triglycerides 67 mg/dL (0-150)
[2022-01-16 16:00] LABS: Estmated Average Glucose 103; Hemoglobin A1C 5.2 % (4.0-6.0)
[2022-01-16] MEDS: pantoprazole 40 mg SDV IVP (16:50)
--- NOTE | 2022-01-16 17:01 | PC.NURSE ---
Patient arrived to unit via stretcher with minimal c/o pain to lower back. Denies SOB or chest pain currently. Pulses good to bilateral radial and dorsalis. Left foot swollen and bruised from recent fall. Moisture damage to right groin with innerdry placed. Severe hernia to groin making damian placement difficulty. C/o of chills and is pale. and daughter at bedside. SCDs placed. Room clean and clutter free with call light in reach. Educated on frequent turns and telemetry. Patient wants to eat and declining angiogram to physician at bedside. Wears 2.5LNC baseline at home. Needs UA and Sputem culture still.
--- NOTE | 2022-01-16 18:07 | PM.CONSULT ---
Providers/Reason For Consult Consulting Physician/Specialty*: Gallego/urology Reason for Consult*: Inability to place Cortez catheter Requesting Physician: Hospitalist service: Dr. Dow Attending Physician: Kimberly Dow MD Primary Care Provider: Pawel Ordoñez History of Present Illness History of Present Illness Sherwin Dalton is a 76 year old male who I evaluated for the first time today at the request of Dr. Dow hospitalist service. Patient was admitted with a myocardial infarction. Initially he left AMA earlier today and returned later with increasing shortness of breath. Chart reviewed. Please see cardiology and admission notes. Patient was felt to require a Cortez catheter for volume management. Reasonable attempts by the nursing staff were unsuccessful in placing a catheter. I was consulted for evaluation and treatment. Patient has a history of a very large scrotal hernia that apparently has been chosen not to be repaired. He reports that his voiding at baseline is not bad although messy because of the hidden penis due to the large scrotal hernia. He denies transurethral section of the prostate gland previously. He believes that he has had catheters in the past with prior surgeries (had a CABG historically). His family is not aware of difficulty with catheter placement in the past. Physical findings revealed a large scrotal hernia. The phallus was hidden in the mass. Phallus was not able to be exposed. Creatinine 0.6 Procedure: Difficult Cortez catheter placement (altered anatomy) The large scrotal hernia was partially manually reduced to expose the phallus. The whole phallus could not be exposed but enough of the preputial skin could be retracted to see the meatus. Penis was then prepped and a 16 Dutch catheter was advanced. There was some narrowing in the fossa navicularis area but the catheter could be manipulated through this into the bladder. Clear urine was returned. Balloon inflated with 10 cc and the catheter placed to dependent drainage. He tolerated the procedure well. Turned back over to nursing staff for routine care. Catheter management per routine protocol for cardiac condition. No special care required. Review of Systems Const: Reports: fatigue and malaise; Denies: fever(s) or chills Eyes: Denies: eye discharge Resp: Reports: dyspnea; Denies: productive cough or stridor GI: Denies: abdominal pain, nausea or vomiting : Reports: scrotal swelling; Denies: flank pain Musc: Reports: muscle weakness Neuro: Denies: Slurred speech present Maurilio/Lymph: Denies: enlarged lymph nodes All/Imm: Denies: acute wheezing Medications/Allergies Home Medications Medication Instructions Recorded Confirmed Last Taken Type aspirin 325 mg tablet 325 mg PO DAILY 01/16/22 01/16/22 01/15/22 History atenolol 25 mg tablet 25 mg PO DAILY 01/16/22 01/16/22 01/15/22 History gemfibrozil 600 mg tablet 600 mg PO BID 01/16/22 01/16/22 01/15/22 History nitroglycerin 0.4 mg sublingual 0.4 mg SUBLINGUAL Q5M PRN #10 tab 01/16/22 01/16/22 01/16/22 Rx tablet oxycodone-acetaminophen 10 mg-325 1 tab PO Q6H PRN 01/16/22 01/16/22 Unknown History mg tablet pravastatin 40 mg tablet 60 mg PO DAILY 01/16/22 01/16/22 01/15/22 History Allergies Allergy/AdvReac Type Severity Reaction Status Date / Time tetracycline Allergy ALGY-Rash Verified 01/16/22 12:30 Current Medications Generic Name Dose Route Start Last Admin Trade Name Freq PRN Reason Stop Dose Admin Heparin Sodium (Porcine) 0 unit 01/16/22 13:04 01/16/22 13:25 Heparin 5,000 Unit/Ml Inj 1 Ml IV 4,000 unit PRN PRN Administration Heparin weight-base protocol Protocol Heparin Sodium/Sodium Chloride 25,000 unit in 500 mls @ 0 mls/hr 01/16/22 13:15 01/16/22 13:31 Heparin Drip IV 14 unit/kg/hr .Q0M JESSICA 17.27 mls/hr Administration Protocol Per Protocol Pantoprazole Sodium 40 mg 01/16/22 16:30 01/16/22 16:50 Pantoprazole 40 Mg Sdv IVP 40 mg Q24H JESSICA Administration PFSH Acute PFSH: Medical History Anemia CAD (coronary artery disease) Other PFSH information: Supplemental PFSH Information: No history of prostate surgery or urethral problems. Vitals/I&O/Wt Last Vital Signs Temp 98.3 F 01/16/22 16:10 Pulse 100 01/16/22 17:40 Resp 19 H 01/16/22 17:40 BP 110/52 01/16/22 17:40 Pulse Ox 93 01/16/22 17:40 01/16/22 01/16/22 01/16/22 06:59 14:59 22:59 Intake Total 240 / 240 Output Total 0 / 0 Balance 240 / 240 Weight last 48 hrs Weight 136 lb Physical Exam Const: COMMON NORMALS: no acute distress, alert and well nourished GENERAL APPEARANCE: well developed HENMT: COMMON NORMALS: normocephalic and atraumatic HEAD & SCALP: normocephalic and atraumatic Eye: COMMON NORMALS: conjunctivae normal and no scleral icterus CONJUNCTIVA: Yes conjunctivae normal Neck/C-Spine: COMMON NORMALS: full ROM GENERAL: Yes normal visual inspection Lymph: LYMPHATIC: no lymphadenopathy noted (No inguinal lymphadenopathy.) and no lymphedema noted Resp: COMMON NORMALS: normal respiratory effort EFFORT & INSPECTION: No labored and No Actively coughing GI: OTHER: Soft, nontender, bladder not distended. Large inguinal hernia on the right with massive extension into the scrotum. See HPI. Partially reducible. : OTHER: Huge scrotal swelling related to large right inguinal hernia. Phallus not readily visible but after exposure (see HPI) he had some phimosis but meatus could be exposed. Appear to be normal. Mild balanitis. Testicles were both palpable and felt normal. No perineal abnormality. Rectal exam not performed. 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 Status: Acute (2) Phimosis: Secondary to chronic balanitis but not severe. Status: Acute (3) Urethral stricture: Bypassable with catheter placement with mild restriction Status: Acute (4) Incomplete bladder emptying: Status: Acute (5) CAD (coronary artery disease): Status: Acute Consult Attestations Medical Necessity Statement: See attending Coding Level of Care Code Acute Database Administration Manager for Chg Fwd Diagnoses Phimosis N47.1 Urethral stricture N35.919 Incomplete bladder emptying R33.9 CAD (coronary artery disease) I25.10 Hidden penis Q55.64
[2022-01-16 18:18] LABS: Add Urine Microscopic? NO; Charge for UA Resulting for Rev
[2022-01-16 18:27] LABS: Bilirubin Urine 1+ (Negative); Blood Urine Neg (Negative); Glucose Urine UA Norm (Normal); Ketones Urine Negative (Negative); Leukocyte Esterase Urine Negative (Negative); Nitrate Urine Negative (Negative); Protein Urine Neg (Negative); Urine Appearance Clear (CLEAR); Urine Color Yellow (Yellow); Urobilinogen Urine Norm (Negative); pH Urine 5 (5-7)
--- NOTE | 2022-01-16 18:28 | ECG_ITS ---
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 Measurements Intervals [place] Rate: 97 P: 69 WA: 156 QRS: 36 QRSD: 86 T: 55 QT: 345 QTc: 438 Interpretive Statements SINUS RHYTHM NONSPECIFIC ST & T-WAVE ABNORMALITY Compared to ECG 01/16/2022 12:20:27 Sinus tachycardia no longer present T-wave abnormality still present Electronically Signed On 01-17-2022 9:25:55 CDT by Pj Chandra M.D. [id number]
[2022-01-16 19:24] LABS: Partial Thromboplastin Time 92.5 SECONDS (23.9-36.7)
--- NOTE | 2022-01-16 20:26 | PC.NURSE ---
At 1930 during shift assessment, it was noted that patient had chewing tobacco in his mouth, on his chin and chest, and cup with spit out chewing tobacco. It was explained to the patient and his son that he could not have that here in the hospital. It was also stated that the son would need to take the patient's wallet with large bills home when visiting hours have ended
[2022-01-16] MEDS: atorvastatin 40 mg Tablet 80 MG PO (21:15)
[2022-01-16] MEDS: acetaminophen 325 mg Tablet 650 MG PO (21:15)
[2022-01-16] MEDS: morphine 4 mg/mL SDV 1 mL 2 MG IVP (21:50)
[2022-01-17] VITALS (30 sets, daily range): BP systolic 86–163; BP diastolic 44–88; PULSE 61–109; RESP 15–27; TEMP 36.6–36.8; O2SAT 86–99
[2022-01-17] MEDS: oxyCODONE-APAP 10-325 mg Tablet 1 TAB PO ×4 (00:41→18:36)
[2022-01-17 01:46] LABS: Basophils % 0.1 %; Eosinophils # 0.1 10^3/uL (0.0-0.8); Eosinophils % 0.4 %; Hematocrit 28.2 % (42.0-52.0); Hemoglobin 9.1 g/dL (11.7-16.6); Lymphocytes # 0.7 10^3/uL (0.8-4.8); Lymphocytes % 5.4 %; Mean Corpuscular HGB Conc 32.3 g/dL (30.0-36.0); Mean Corpuscular Hemoglobin 34.5 pg (28.0-34.0); Mean Corpuscular Volume 106.8 fl (80-94); Mean Platelet Volume 11.6 fL (7.4-10.4); Monocytes # 0.9 10^3/uL (0.2-0.9); Monocytes % 6.3 %; Neutrophils # 11.99 10^3/uL (1.8-7.7); Neutrophils % 87.5 %; Nucleated Red Blood Cells % 0 %; Platelet Count 141 10^3/cmm (130-400); Red Blood Count 2.64 10^6/uL (4.1-5.3); White Blood Count 13.7 10^3/uL (4.0-10.0)
[2022-01-17 01:57] LABS: Partial Thromboplastin Time 45.8 SECONDS (23.9-36.7)
[2022-01-17 02:05] LABS: Blood Urea Nitrogen 24 mg/dL (8-23); Calcium 8.8 mg/dL (8.5-10.5); Carbon Dioxide 30 mmol/L (22-29); Chloride 105 mmol/L (98-107); Creatinine Clr Calc Pharmacy 67.4723; Glucose 99 mg/dL (65-115); Osmolality Calculated 300 mOsm/kg (285-295); Sodium 143 mmol/L (136-145)
[2022-01-17 02:06] LABS: Anion Gap 12.4 (5-19); Potassium 4.4 mmol/L (3.5-5.1)
[2022-01-17] MEDS: heparin 5,000 unit/mL INJ 1 mL 1200 UNIT IVP (02:29)
[2022-01-17] MEDS: morphine 4 mg/mL SDV 1 mL 2 MG IVP (04:40)
[2022-01-17 08:22] LABS: Partial Thromboplastin Time 108.7 SECONDS (23.9-36.7)
--- NOTE | 2022-01-17 08:26 | P.PN_ITS ---
Subjective Subjective: Sherwin is basically unchanged from yesterday. No chest pain. He is still short of breath but this is chronic. It has not worsened. His ejection fraction is about 35% by echo though it was a poor quality study. Dr. Gallego was consulted yesterday to place the Cortez due to the large hernia. Grant nathan has declined to have this repaired in the past. As of today, we have been unable to obtain the previous coronary bypass surgery report. The initial troponin was 1230, the second 1093 and the third 987. His EKG initially during his first emergency room admission showed significant ST segment depression in the anterior precordial leads, and the second EKG on his second ER admission yesterday morning had normalized. Vitals/I&O/Wt Last Vital Signs Temp 98.3 F 01/17/22 04:00 Pulse 80 01/17/22 05:36 Resp 20 H 01/17/22 07:55 BP 120/49 01/17/22 04:00 Pulse Ox 96 01/17/22 07:55 01/16/22 01/17/22 01/17/22 22:59 06:59 14:59 Intake Total 585.059 / 585.059 222.25 / 807.309 Output Total 780 / 780 150 / 930 Balance -194.941 / -194.941 72.25 / -122.691 Weight last 48 hrs Weight 136 lb Physical Exam Narrative: GENERAL: In general he looks comfortable but mildly short of breath at rest. No chest pain. HEENT: Exam within normal limits. NECK: Supple without jugular vein distention. The carotid upstroke is normal without bruits. BACK: Exam normal. LUNGS: Clear. HEART: Regular rate and rhythm. ABDOMEN: Benign without organomegaly or tenderness. There is a large inguinal hernia which extends down into the scrotum obscuring both femoral arteries. EXTREMITIES: No edema. NEUROLOGIC: Exam normal. SKIN: Unremarkable. Urinary Catheter Management: Cortez: Cath Placed During This Visit: yes Reason for Continuing Indwelling Catheter: Accurate Measurement of Urinary Output in Critically Ill Patients Urinary Catheter Date of Insertion: 01/16/22 Urinary Catheter Time of Insertion: 18:16 Data : 01/17/22 01:25 01/17/22 01:25 Micro: Microbiology 01/16/22 18:51 Blood Culture - Preliminary Blood SPECIMEN COLLECTED 01/16/22 12:35 Blood Culture - Preliminary Blood SPECIMEN COLLECTED A&P Assessment and plan (1) Chest pain: Status: Acute (2) Non-ST elevated myocardial infarction (non-STEMI): Status: Acute (3) Hypertension: Status: Acute (4) Hyperlipidemia: Status: Acute (5) Hx of CABG: Status: Acute (6) History of coronary artery stent placement: Status: Acute (7) COPD (chronic obstructive pulmonary disease): Status: Acute (8) Pulmonary hypertension: Status: Acute (9) Oxygen dependent: Status: Acute (10) CAD (coronary artery disease): Status: Acute (11) Anemia: Status: Acute Plan This remains a difficult situation. We are unable to use the wrist due to the history of bypass surgery. I am fearful of puncturing the bowel by trying to do the coronary angiography procedure via the groin. Therefore, for now we will try to treat him medically. If he remains stable we will continue in this fashion. Only if he were unstable would we have to try via the groin. I explained the risk to him and he agrees to medical treatment for now. I will adjust his medications today as necessary. Attestations Medical Necessity Statement*: Needs continued hospitalization for a non-ST segment elevation [place]. Coding Level of Care Code Acute Laborer/Grade Check for g Fwd History Detailed Exam Detailed Medical Decision Making Moderate Complexity Diagnoses Chest pain R07.9 Non-ST elevated myocardial infarction (non-STEMI) I21.4 Hypertension I10 Hyperlipidemia E78.5 Hx of CABG Z95.1 History of coronary artery stent placement Z95.5 COPD (chronic obstructive pulmonary disease) J44.9 Pulmonary hypertension I27.20 Oxygen dependent Z99.81 CAD (coronary artery disease) I25.10 Anemia D64.9
[2022-01-17] MEDS: aspirin 81 mg EC Tablet PO (08:41)
[2022-01-17] MEDS: enoxaparin 60 mg/0.6 mL Syringe SUBCUT ×2 (09:31→21:28)
[2022-01-17] MEDS: isosorbide mononitrate ER 30 mg Tablet PO (09:32)
[2022-01-17] MEDS: metoprolol tartrate 25 mg Tablet PO ×2 (09:33→17:41)
[2022-01-17] MEDS: acetaminophen 325 mg Tablet 650 MG PO ×2 (12:30→21:28)
--- NOTE | 2022-01-17 15:45 | PM.PN ---
Subjective Subjective: Seen this morning. Patient denies any chest pain, shortness of breath. He is resting comfortably in bed. No acute events overnight. Dr. Gallego was able to get a Cortez catheter placed yesterday evening. Family not present at bedside today. However they were updated yesterday at bedside by myself. Vitals/I&O/Wt Last Vital Signs Temp 98.3 F 01/17/22 04:00 Pulse 68 01/17/22 14:00 Resp 20 H 01/17/22 13:08 BP 117/57 01/17/22 12:00 Pulse Ox 99 01/17/22 13:08 01/17/22 01/17/22 01/17/22 06:59 14:59 22:59 Intake Total 222.25 / 807.309 610.15 / 610.15 Output Total 150 / 930 Balance 72.25 / -122.691 610.15 / 610.15 Weight last 48 hrs Weight 61.689 kg Physical Exam Narrative: General: Alert oriented x3, patient seen laying in bed appearing comfortable on 3 L nasal cannula which is his baseline. HEENT: Normocephalic, atraumatic, EOMI, breathing normally no acute respiratory distress. Cardio: Regular rate rhythm, normal S1-S2, no murmurs rubs Respiratory: Good bilateral air entry, no wheezes no rhonchi appreciated, clear to auscultation GI: Abdomen soft, nontender, nondistended, bowel sounds + Very large right inguinal hernia going into the scrotum.? Cortez catheter in place Behavior: Appropriate and cooperative Extremities: Pulses 2+, no edema, no cyanosis ? Urinary Catheter Management: Cortez: Cath Placed During This Visit: yes Reason for Continuing Indwelling Catheter: Accurate Measurement of Urinary Output in Critically Ill Patients Urinary Catheter Date of Insertion: 01/16/22 Urinary Catheter Time of Insertion: 18:16 Data : 01/17/22 01:25 01/17/22 01:25 Micro: Microbiology 01/16/22 12:35 Blood Culture - Preliminary Blood NEGATIVE TO DATE 01/16/22 18:51 Blood Culture - Preliminary Blood SPECIMEN COLLECTED A&P Assessment and plan (1) Chest pain: Status: Acute (2) Non-ST elevated myocardial infarction (non-STEMI): Status: Acute (3) Hypertension: Status: Acute (4) Hyperlipidemia: Status: Acute (5) Hx of CABG: Status: Acute (6) History of coronary artery stent placement: Status: Acute (7) COPD (chronic obstructive pulmonary disease): Status: Acute (8) Pulmonary hypertension: Status: Acute (9) Arthritis: Status: Acute (10) Oxygen dependent: Status: Acute (11) CAD (coronary artery disease): Status: Acute Plan #Non-ST elevation [place] #History of coronary artery disease status post PCI x2, history of CABG early 1999 #Hypertension #Hyperlipidemia -Aspirin 81, atorvastatin 80.? Continue Plavix 75. Add lisinopril, beta-mahnaz. Stop heparin drip. Continue on therapeutic Lovenox. -Due to large scrotal inguinal hernia angiogram could not be performed since there is higher risk of puncturing bowel. Patient is not interested in having hernia repaired upon his talk with cardiology and myself. ? Echo showed moderate global hypokinesis with EF 35%. Grade 3 x 4 diastolic dysfunction. Mild pulmonary hypertension. Mild to moderate mitral valve regurgitation. ? Cardiology following. Will follow recommendations. Patient is also not interested in angiogram at this time. We will continue to medically manage. -Awaiting on operative report from [facility]. CABG was done in 1991. Unsure if they have records. #COPD, oxygen dependent #Pulmonary hypertension #Degenerative arthritis -DuoNeb as needed ? Continue 3 to nasal cannula which is his baseline. #Large right inguinal hernia extending into the scrotum ? Dr. Gallego consulted for Cortez catheter placement. Appreciate him seeing the patient ? Patient not interested in any kind of surgery or intervention for his scrotal hernia at this time. DVT prophylaxis: On therapeutic Lovenox Attestations Medical Necessity Statement*: Continued on ACS protocol for NSTEMI. Will require another 24-hour stay. Coding Level of Care Code Acute Bakery Decorator for [facility] Fwd Diagnoses Chest pain R07.9 Non-ST elevated myocardial infarction (non-STEMI) I21.4 Hypertension I10 Hyperlipidemia E78.5 Hx of CABG Z95.1 History of coronary artery stent placement Z95.5 COPD (chronic obstructive pulmonary disease) J44.9 Pulmonary hypertension I27.20 Arthritis M19.90 Oxygen dependent Z99.81 CAD (coronary artery disease) I25.10
[2022-01-17] MEDS: pantoprazole 40 mg SDV IVP (16:21)
[2022-01-17] MEDS: atorvastatin 40 mg Tablet 80 MG PO (21:27)
[2022-01-18] VITALS (28 sets, daily range): BP systolic 97–164; BP diastolic 50–85; PULSE 69–117; RESP 16–27; TEMP 36.6–37; O2SAT 94–99
[2022-01-18] MEDS: oxyCODONE-APAP 10-325 mg Tablet 1 TAB PO ×4 (00:39→20:10)
[2022-01-18 05:16] LABS: Basophils # 0.1 10^3/uL (0.0-0.1); Basophils % 0.5 %; Eosinophils # 0.4 10^3/uL (0.0-0.8); Eosinophils % 4.1 %; Hematocrit 29.9 % (42.0-52.0); Hemoglobin 9.5 g/dL (11.7-16.6); Lymphocytes # 1.2 10^3/uL (0.8-4.8); Lymphocytes % 11.6 %; Mean Corpuscular HGB Conc 31.8 g/dL (30.0-36.0); Mean Corpuscular Hemoglobin 34.4 pg (28.0-34.0); Mean Corpuscular Volume 108.3 fl (80-94); Monocytes % 8.9 %; Neutrophils # 7.93 10^3/uL (1.8-7.7); Neutrophils % 74.5 %; Nucleated Red Blood Cells % 0 %; Platelet Count 182 10^3/cmm (130-400); Red Blood Count 2.76 10^6/uL (4.1-5.3); Red Cell Distribution Width 12.9 % (12.1-15.1); White Blood Count 10.6 10^3/uL (4.0-10.0)
[2022-01-18 05:30] LABS: Anion Gap 9.5 (5-19); Blood Urea Nitrogen 24 mg/dL (8-23); Calcium 8.7 mg/dL (8.5-10.5); Carbon Dioxide 32 mmol/L (22-29); Chloride 104 mmol/L (98-107); Glucose 91 mg/dL (65-115); Osmolality Calculated 298 mOsm/kg (285-295); Potassium 3.5 mmol/L (3.5-5.1); Sodium 142 mmol/L (136-145)
[2022-01-18 05:31] LABS: Creatinine Clr Calc Pharmacy 67.4723
--- NOTE | 2022-01-18 08:17 | PM.PN ---
Subjective Subjective: No problems overnight. Sherwin is fast asleep this morning. Still mildly short of breath with no chest pain. His heart rate is still running in the low 100s. I added a beta-mahnaz yesterday, stopped the heparin, added Lovenox and a long-acting nitrate, and added an SHANTA inhibitor. He is also on low-dose aspirin. Medications: Reviewed: Yes Vitals/I&O/Wt Last Vital Signs Temp 98.6 F 01/18/22 04:00 Pulse 95 01/18/22 07:30 Resp 18 01/18/22 07:41 BP 129/59 01/18/22 07:30 Pulse Ox 94 01/18/22 07:41 01/17/22 01/18/22 01/18/22 22:59 06:59 14:59 Intake Total 720 / 1330.15 240 / 1570.15 Output Total 400 / 400 200 / 600 Balance 320 / 930.15 40 / 970.15 Weight last 48 hrs Weight 136 lb Physical Exam Narrative: GENERAL: In general he is sleeping this morning. HEENT: Exam within normal limits. NECK: Supple without jugular vein distention. The carotid upstroke is normal without bruits. BACK: Exam normal. LUNGS: Clear. HEART: Regular rate and rhythm. ABDOMEN: Benign without organomegaly or tenderness. EXTREMITIES: No edema. NEUROLOGIC: Exam normal. SKIN: Unremarkable. Urinary Catheter Management: Cortez: Cath Placed During This Visit: yes Reason for Continuing Indwelling Catheter: Acute Urinary Retention or Obstruction Urinary Catheter Date of Insertion: 01/16/22 Urinary Catheter Time of Insertion: 18:16 Data : 01/18/22 04:43 01/18/22 04:43 Micro: Microbiology 01/16/22 18:51 Blood Culture - Preliminary Blood NEGATIVE TO DATE 01/16/22 12:35 Blood Culture - Preliminary Blood NEGATIVE TO DATE A&P Assessment and plan (1) Chest pain: Status: Acute (2) Non-ST elevated myocardial infarction (non-STEMI): Status: Acute (3) Hypertension: Status: Acute (4) Hyperlipidemia: Status: Acute (5) Hx of CABG: Status: Acute (6) History of coronary artery stent placement: Status: Acute (7) Pulmonary hypertension: Status: Acute (8) COPD (chronic obstructive pulmonary disease): Status: Acute (9) Oxygen dependent: Status: Acute (10) CAD (coronary artery disease): Status: Acute (11) H/O macrocytic anemia: Status: Acute Plan Given the large hernia and the inability to access his graft via the arm, we will continue to treat him medically. This is also his request. Attestations Medical Necessity Statement*: Could go out of the ICU. Needs hospital stay for management of acute [place]. Coding Level of Care Code Acute Associate Professor Of Music for g Fwd Diagnoses Chest pain R07.9 Non-ST elevated myocardial infarction (non-STEMI) I21.4 Hypertension I10 Hyperlipidemia E78.5 Hx of CABG Z95.1 History of coronary artery stent placement Z95.5 Pulmonary hypertension I27.20 COPD (chronic obstructive pulmonary disease) J44.9 Oxygen dependent Z99.81 CAD (coronary artery disease) I25.10 H/O macrocytic anemia Z86.2
[2022-01-18] MEDS: aspirin 81 mg EC Tablet PO (09:09)
[2022-01-18] MEDS: lisinopril 2.5 mg Tablet PO (09:09)
[2022-01-18] MEDS: enoxaparin 60 mg/0.6 mL Syringe SUBCUT ×2 (09:09→20:09)
[2022-01-18] MEDS: clopidogrel 75 mg Tablet PO (09:09)
[2022-01-18] MEDS: isosorbide mononitrate ER 30 mg Tablet PO (09:09)
[2022-01-18] MEDS: metoprolol tartrate 25 mg Tablet PO ×2 (09:09→17:09)
--- NOTE | 2022-01-18 10:05 | PC.CHAP ---
Pastoral Care Encounter/Spiritual Assessment Type of Contact [] Declined interior design coordinator visit [] Patient/Family/Request visit [] Outpatient visit [] Follow-up visit [] Physician referral [] Code/Alert [x] Routine visit [] Staff referral [] Actively dying [] Patient sleeping [x] Family support [] [] Out of room [] Palliative care [] [] Receiving care in room [] Pre-surgical visit [] Trauma [] Long length of stay [x] ICU visit [] Other: Relational/Emotional Strength [] Patient feels connected with others/family/visitors/staff [] Distress [] Loneliness/isolation [] Abandonment Spirituality of Patient [] Person of Brandy [] Attends Amish of their Brandy [] Believes in Prayer [] Reads Bible or Yarsani materials [] There are Spiritual issues to be addressed Wire Border Assembler Interventions [x] Prayer [x] Active listening [x] Non-anxious presence [x] Spiritual/emotional support [] Crisis/trauma care [] Spiritual counseling [] Bereavement support [] Provided bereavement packet [] Provided Bible/devotional materials [] Provided toy/stuffed animal, coloring book to patient or family member [] Provided Communion [] Anointing/[place] [] Salvation [x] Completed spiritual assessment [] Other: Impact on Illness or Injury [] Angry [] Fearful [] Anxious [] Often cries [] Exhaustion [] Unable to work [] Unable to attend hindu [] Unable to walk/stand [] Unable to read [] Unable to drive [] Unable to eat/drink [] Unable to sleep [] Unable to be with family [] Patient intubated [] Other: Summary patient is weak... didnt rest well. Time spent with patient 5 min
--- NOTE | 2022-01-18 15:21 | P.PN_ITS ---
Subjective Subjective: Seen this morning. He states that he would like to speak to a surgeon to discuss options regarding his inguinal hernia. Otherwise no chest pain or shortness of breath. He states that the hernia does not really bother him but it would not be a bad idea to see if it can be fixed. Vitals/I&O/Wt Last Vital Signs Temp 98.6 F 01/18/22 04:00 Pulse 105 H 01/18/22 11:00 Resp 19 H 01/18/22 14:03 BP 108/60 01/18/22 11:00 Pulse Ox 95 01/18/22 14:03 01/18/22 01/18/22 01/18/22 06:59 14:59 22:59 Intake Total 240 / 1570.15 480 / 480 Output Total 200 / 600 Balance 40 / 970.15 480 / 480 Physical Exam Narrative: General: Alert oriented x3, patient seen laying in bed appearing comfortable on 3 L nasal cannula which is his baseline. HEENT: Normocephalic, atraumatic, EOMI, breathing normally no acute respiratory distress. Cardio: Regular rate rhythm, normal S1-S2, no murmurs rubs Respiratory: Good bilateral air entry, no wheezes no rhonchi appreciated, clear to auscultation GI: Abdomen soft, nontender, nondistended, bowel sounds + Very large right inguinal hernia going into the scrotum.? Cortez catheter in place Behavior: Appropriate and cooperative Extremities: Pulses 2+, no edema, no cyanosis Urinary Catheter Management: Cortez: Cath Placed During This Visit: yes Reason for Continuing Indwelling Catheter: Acute Urinary Retention or Obstruction Urinary Catheter Date of Insertion: 01/16/22 Urinary Catheter Time of Insertion: 18:16 Data : 01/18/22 04:43 01/18/22 04:43 Micro: Microbiology 01/16/22 18:51 Blood Culture - Preliminary Blood NEGATIVE TO DATE 01/16/22 12:35 Blood Culture - Preliminary Blood NEGATIVE TO DATE A&P Assessment and plan (1) Chest pain: Status: Acute (2) Non-ST elevated myocardial infarction (non-STEMI): Status: Acute (3) Hypertension: Status: Acute (4) Hyperlipidemia: Status: Acute (5) Hx of CABG: Status: Acute (6) History of coronary artery stent placement: Status: Acute (7) COPD (chronic obstructive pulmonary disease): Status: Acute Plan #Non-ST elevation TN #History of coronary artery disease status post PCI x2, history of CABG early 1999 #Hypertension #Hyperlipidemia -Aspirin 81, atorvastatin 80.? Continue Plavix 75.? Add lisinopril, beta- mahnaz.? Stop heparin drip.? Continue on therapeutic Lovenox. -Due to large scrotal inguinal hernia angiogram could not be performed since there is higher risk of puncturing bowel.? Patient is not interested in having hernia repaired upon his talk with cardiology and myself. ? Echo showed moderate global hypokinesis with EF 35%.? Grade 3 x 4 diastolic dysfunction.? Mild pulmonary hypertension.? Mild to moderate mitral valve regurg itation. ? Cardiology following.? Will follow recommendations.? Patient is also not interested in angiogram at this time.? We will continue to medically manage. -Awaiting on operative report from [facility].? CABG was done in 1991.? Unsure if they have records. -Can transfer out of ICU today. #COPD, oxygen dependent #Pulmonary hypertension #Degenerative arthritis -DuoNeb as needed ? Continue 3 to nasal cannula which is his baseline. #Large right inguinal hernia extending into the scrotum ? Dr. Gallego consulted for Cortez catheter placement.? Appreciate him seeing the patient ? Patient not interested in any kind of surgery or intervention for his scrotal hernia at this time. -Consult general surgery. Patient would like to talk to the surgeon alone as I will want anyone else in the home and discussion regarding his hernia. DVT prophylaxis: On therapeutic Lovenox Attestations Medical Necessity Statement*: Possible discharge tomorrow possible discharge tomorrow. Continue to manage for NSTEMI in the hospital for another day and monitor patient. Coding Level of Care Code Acute Electrical Power Station Technician for g Fwd Diagnoses Chest pain R07.9 Non-ST elevated myocardial infarction (non-STEMI) I21.4 Hypertension I10 Hyperlipidemia E78.5 Hx of CABG Z95.1 History of coronary artery stent placement Z95.5 COPD (chronic obstructive pulmonary disease) J44.9
[2022-01-18] MEDS: pantoprazole 40 mg SDV IVP (15:57)
--- NOTE | 2022-01-18 18:11 | P.CONIM_ITS ---
Providers/Reason For Consult Consulting Physician/Specialty*: Dr. Yanick Jimenez, DO Reason for Consult*: Large Right inguinal hernia Attending Physician: Kimberly Dow MD Primary Care Provider: Pawel Ordoñez History of Present Illness History of Present Illness Sherwin Dalton is a 76 year old male who is currently in the hospital for a non- STEMI. He was found to have a large right inguinal hernia and general surgery was consulted for evaluation. He reports that he has had this hernia for at least 7 years. It does not really cause him any problems however. He denies significant pain at the site although he does get some dull constant pressure with long time standing. The pain does not radiate. Laying down makes the pain better. He is mostly asymptomatic however. Denies N, emesis, diarrhea, constipation, hematochezia or melena. He is a complicated cardiac history including this current NSTEMI as well as history of cardiac stents and CABG. Review of Systems General: Reports: 10 or more systems reviewed and unremarkable except in HPI and below Medications/Allergies Home Medications Medication Instructions Recorded Confirmed Last Taken Type aspirin 325 mg tablet 325 mg PO DAILY 01/16/22 01/16/22 01/15/22 History atenolol 25 mg tablet 25 mg PO DAILY 01/16/22 01/16/22 01/15/22 History gemfibrozil 600 mg tablet 600 mg PO BID 01/16/22 01/16/22 01/15/22 History nitroglycerin 0.4 mg sublingual 0.4 mg SUBLINGUAL Q5M PRN #10 tab 01/16/22 01/16/22 01/16/22 Rx tablet oxycodone-acetaminophen 10 mg-325 1 tab PO Q6H PRN 01/16/22 01/16/22 Unknown History mg tablet pravastatin 40 mg tablet 60 mg PO DAILY 01/16/22 01/16/22 01/15/22 History Allergies Allergy/AdvReac Type Severity Reaction Status Date / Time tetracycline Allergy ALGY-Rash Verified 01/16/22 12:30 Current Medications Generic Name Dose Route Start Last Admin Trade Name Freq PRN Reason Stop Dose Admin Acetaminophen 650 mg 01/16/22 14:31 01/17/22 21:28 Acetaminophen 325 Mg Tablet PO 650 mg Q6H PRN Administration Mild/Mod Pain Or Temp >/= 101 Aspirin 81 mg 01/17/22 09:00 01/18/22 09:09 Aspirin 81 Mg Ec Tablet PO 81 mg DAILY JESSICA Administration Atorvastatin Calcium 80 mg 01/16/22 21:00 01/17/22 21:27 Atorvastatin 40 Mg Tablet PO 80 mg BEDTIME JESSICA Administration Clopidogrel Bisulfate 75 mg 01/18/22 09:00 01/18/22 09:09 Clopidogrel 75 Mg Tablet PO 75 mg DAILY JESSICA Administration Enoxaparin Sodium 60 mg 01/17/22 09:30 01/18/22 09:09 Enoxaparin 60 Mg/0.6 Ml Syringe SUBCUT 60 mg Q12H JESSICA Administration Isosorbide Mononitrate 30 mg 01/17/22 09:00 01/18/22 09:09 Isosorbide Mononitrate Er 30 Mg Tablet PO 30 mg DAILY JESSICA Administration Lisinopril 2.5 mg 01/18/22 09:00 01/18/22 09:09 Lisinopril 2.5 Mg Tablet PO 2.5 mg DAILY JESSICA Administration Metoprolol Tartrate 25 mg 01/17/22 09:00 01/18/22 17:09 Metoprolol Tartrate 25 Mg Tablet PO 25 mg BID JESSICA Administration Morphine Sulfate 2 mg 01/16/22 14:31 01/17/22 04:40 Morphine 4 Mg/Ml Sdv 1 Ml IVP 2 mg Q4H PRN Administration SEVERE PAIN Oxycodone/Acetaminophen 1 tab 01/17/22 00:17 01/18/22 14:03 Oxycodone-Apap 10-325 Mg Tablet PO 1 tab Q6H PRN Administration MODERATE PAIN Pantoprazole Sodium 40 mg 01/16/22 16:30 01/18/22 15:57 Pantoprazole 40 Mg Sdv IVP 40 mg Q24H JESSICA Administration PFSH Acute PFSH: Medical History Anemia CAD (coronary artery disease) Surgical History Hx of CABG Vitals/I&O/Wt Last Vital Signs Temp 98.6 F 01/18/22 04:00 Pulse 93 01/18/22 15:00 Resp 20 H 01/18/22 15:00 BP 97/58 01/18/22 15:00 Pulse Ox 98 01/18/22 15:00 01/18/22 01/18/22 01/18/22 06:59 14:59 22:59 Intake Total 240 / 1570.15 480 / 480 Output Total 200 / 600 Balance 40 / 970.15 480 / 480 Physical Exam Narrative: General : Patient is well developed , no acute distress, oriented x3 Head : Normal cephalic, a-traumatic. Ears : Pinnae and external canal are normal. Hearing is normal. Eyes : PERRLA, Sclera and injection are normal. No conjunctival discharge. Nose : Mucous membranes are without erythema. Throat : buccal mucosa is normal, gums are without significant recession or hypertrophy. Lungs : Equal chest rise bilaterally, no use of accessory muscles, trachea is midline. Cor : Rate and rhythm are normal. Abdomen : Soft, ND, NT, no g/r/m there is a large reducible right inguinal hernia going down into his scrotum Extremities : No edema, no cyanosis or clubbing, dorsalis pedis pulses are present bilaterally, non-tender to palpation of calves. Upper extremities are normal bilaterally. Back : non-tender to palpation, no CVA tenderness. Neuro : CN II - XII intact, Upper and lower extremities have equal and full strength Urinary Catheter Management: Crotez: Cath Placed During This Visit: yes Reason for Continuing Indwelling Catheter: Acute Urinary Retention or Obstruction Urinary Catheter Date of Insertion: 01/16/22 Urinary Catheter Time of Insertion: 18:16 Data : 01/18/22 04:43 01/18/22 04:43 Micro: Microbiology 01/16/22 18:51 Blood Culture - Preliminary Blood NEGATIVE TO DATE 01/16/22 12:35 Blood Culture - Preliminary Blood NEGATIVE TO DATE A&P Assessment and plan (1) Hx of CABG: Status: Inactive (2) Non-ST elevated myocardial infarction (non-STEMI): Status: Acute (3) Inguinal hernia of right side without obstruction or gangrene: Status: Acute Plan CT of the abdomen pelvis with contrast to evaluate this hernia. He is mostly asymptomatic of his hernia and he is very high risk for surgery due to his cardiac status. He would like to avoid surgery at this time. However we will go forward with CT for now. Medical management per hospitalist Thank you for this consultation Coding Level of Care Code Acute Telephone Sex Worker for [facility] Fwsarah beth Diagnoses Hx of CABG Z95.1 Non-ST elevated myocardial infarction (non-STEMI) I21.4 Inguinal hernia of right side without obstruction or gangrene K40.90
[2022-01-18] MEDS: atorvastatin 40 mg Tablet 80 MG PO (20:10)
--- NOTE | 2022-01-18 20:20 | CTR_ITS ---
PROCEDURE INFORMATION: Exam: CT Abdomen And Pelvis With Contrast Exam date and time: 01/19/2022 12:36 AM Age: 76 years old Clinical indication: Other: Large right inguinal hernia into scrotum TECHNIQUE: Imaging protocol: Computed tomography of the abdomen and pelvis with contrast. Radiation optimization: All CT scans at this facility use at least one of these dose optimization techniques: automated exposure control; mA and/or kV adjustment per patient size (includes targeted exams where dose is matched to clinical indication); or iterative reconstruction. Contrast material: OMNI 300; Contrast volume: 95 ml; Contrast route: INTRAVENOUS (IV); COMPARISON: CR XR chest 1V portable [id number] 01/16/2022 12:45 PM RADIATION DOSE METRICS: Total DLP (mGy-cm): 809.26 FINDINGS: Tubes, catheters and devices: The urinary bladder is decompressed by a catheter. The bladder is decompressed but appears to have a thickened wall. Lungs: There is centrilobular emphysema in the lower lobes. Right basilar atelectasis or fibrosis. Liver: Normal. No mass. Gallbladder and bile ducts: Normal. No calcified stones. No ductal dilation. Pancreas: Normal. No ductal dilation. Spleen: Normal. No splenomegaly. Adrenal glands: Normal. No mass. Kidneys and ureters: Bilateral simple renal cysts measure up to 4.7 cm on the left. Stomach and bowel: Distal colonic diverticula are not inflamed. Moderate fecal loading throughout the colon without obstructive or inflammatory change. Appendix: No evidence of appendicitis. Intraperitoneal space: Unremarkable. No free air. No significant fluid collection. Vasculature: Extensive calcified plaque in the abdominal aorta and branch vessels. 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 The vessel reconstitutes in its midportion. 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 The right common femoral artery is occluded by calcified plaque but reconstitutes. Lymph nodes: Unremarkable. No enlarged lymph nodes. Urinary bladder: See Tubes, catheters and devices finding. Reproductive: Unremarkable as visualized. Bones/joints: There are chronic degenerative changes in both hips. Soft tissues: A large right inguinal hernia measures at least 14 cm and extends beyond the limits of the scan and extends into the scrotum. This hernia contains the cecum and terminal ileum but is not obstructed. A left inguinal hernia is smaller, measuring 6 cm and contains a nonobstructed loop of distal small bowel. CT/CT abdomen pelvis w con* [id number] IMPRESSION: 1. Bilateral inguinal hernias are larger on the right and containing nonobstructed bowel. 2. No pneumatosis or perforation. 3. 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 4. Other chronic and incidental findings as described COMMENTS: Consistent with the [employer]'s Incidental Findings Committee white paper (J Am Angela Radiol 2018): Any incidental renal lesion less than 1 cm or classified as too small to characterize, or any incidental cystic renal lesion characterized as simple-appearing, is likely benign. No follow-up imaging is recommended for these lesions per consensus recommendations based on imaging criteria.
[2022-01-18] MEDS: acetaminophen 325 mg Tablet 650 MG PO (20:59)
[2022-01-19] VITALS (28 sets, daily range): BP systolic 76–174; BP diastolic 42–82; PULSE 60–113; RESP 16–31; TEMP 36.6–36.8; O2SAT 89–100
[2022-01-19] MEDS: iohexol 300 mg/mL 100 mL Btl IV (00:36)
[2022-01-19] MEDS: oxyCODONE-APAP 10-325 mg Tablet 1 TAB PO ×4 (02:38→20:42)
[2022-01-19 04:36] LABS: Anion Gap 8.6 (5-19); Blood Urea Nitrogen 22 mg/dL (8-23); Calcium 8.8 mg/dL (8.5-10.5); Carbon Dioxide 34 mmol/L (22-29); Chloride 103 mmol/L (98-107); Glucose 87 mg/dL (65-115); Osmolality Calculated 297 mOsm/kg (285-295); Potassium 3.6 mmol/L (3.5-5.1); Sodium 142 mmol/L (136-145)
[2022-01-19 04:39] LABS: Creatinine Clr Calc Pharmacy 67.4723
--- NOTE | 2022-01-19 07:20 | P.PN_ITS ---
Subjective Subjective: He is unchanged from yesterday. He still is not very talkative. He says he is mildly short of breath at times. No chest pain. General surgery saw him yesterday. A CT scan was obtained which reveals the expected bilateral inguinal hernia. 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 His heart failure is compensated. He still declines cardiac catheterization and surgery for the hernia. Vitals/I&O/Wt Last Vital Signs Temp 97.8 F 01/19/22 03:00 Pulse 96 01/19/22 06:00 Resp 21 H 01/19/22 03:00 BP 91/53 01/19/22 03:00 Pulse Ox 96 01/19/22 03:00 01/18/22 01/19/22 01/19/22 22:59 06:59 14:59 Intake Total 240 / 720 Output Total 400 / 400 400 / 800 Balance -160 / 320 -400 / -80 Physical Exam Narrative: GENERAL: In general he is comfortable HEENT: Exam within normal limits. NECK: Supple without jugular vein distention. The carotid upstroke is normal without bruits. BACK: Exam normal. LUNGS: Clear. HEART: Regular rate and rhythm. ABDOMEN: Benign without organomegaly or tenderness. Large bilateral inguinal hernia reaching into the scrotum. EXTREMITIES: No edema. NEUROLOGIC: Exam normal. SKIN: Unremarkable. Urinary Catheter Management: Cortez: Cath Placed During This Visit: yes Reason for Continuing Indwelling Catheter: Accurate Measurement of Urinary Output in Critically Ill Patients Urinary Catheter Date of Insertion: 01/16/22 Urinary Catheter Time of Insertion: 18:16 Data : 01/18/22 04:43 01/19/22 03:09 A&P Assessment and plan (1) Chest pain: Status: Acute (2) Non-ST elevated myocardial infarction (non-STEMI): Status: Acute (3) Hypertension: Status: Acute (4) Hyperlipidemia: Status: Acute (5) History of coronary artery stent placement: Status: Acute (6) COPD (chronic obstructive pulmonary disease): Status: Acute (7) Pulmonary hypertension: Status: Acute (8) Oxygen dependent: Status: Acute (9) CAD (coronary artery disease): Status: Acute (10) Anemia: Status: Acute (11) Ischemic cardiomyopathy: Status: Acute (12) Congestive heart failure due to cardiomyopathy: Status: Acute Plan We continue to treat him medically. I would agree with general surgery he is high risk for any type of intra-abdominal procedure given his underlying coronary disease, left ventricular dysfunction and recent non-ST segment elev ation MS. His bypass surgery was way back in 1991 and he most certainly has disease of the grafts as his ejection fraction has declined over time. We still do not have access to the bypass surgery report. He also has underlying lung disease and is oxygen dependent increasing his surgical risk further. His heart rate is still running a little high. I will increase the beta-mahnaz. I am also going to discontinue the Lovenox. Attestations Medical Necessity Statement*: Hospitalization required to manage heart failure, acute MS. Coding Level of Care Code Established Pt Acute Dependency Counselor for Taz Levine Patient Type Established History Detailed Exam Detailed Medical Decision Making Moderate Complexity Diagnoses Chest pain R07.9 Non-ST elevated myocardial infarction (non-STEMI) I21.4 Hypertension I10 Hyperlipidemia E78.5 History of coronary artery stent placement Z95.5 COPD (chronic obstructive pulmonary disease) J44.9 Pulmonary hypertension I27.20 Oxygen dependent Z99.81 CAD (coronary artery disease) I25.10 Anemia D64.9 Ischemic cardiomyopathy I25.5 Congestive heart failure due to cardiomyopathy I50.9; I42.9
[2022-01-19] MEDS: clopidogrel 75 mg Tablet PO (08:04)
[2022-01-19] MEDS: aspirin 81 mg EC Tablet PO (08:04)
[2022-01-19] MEDS: metoprolol tartrate 25 mg Tablet PO (08:04)
[2022-01-19] MEDS: isosorbide mononitrate ER 30 mg Tablet PO (08:04)
[2022-01-19] MEDS: lisinopril 2.5 mg Tablet PO (08:04)
[2022-01-19] MEDS: enoxaparin 60 mg/0.6 mL Syringe SUBCUT (08:05)
--- NOTE | 2022-01-19 09:51 | PC.CHAP ---
Pastoral Care Encounter/Spiritual Assessment Type of Contact [] Declined gas systems worker visit [] Patient/Family/Request visit [] Outpatient visit [] Follow-up visit [] Physician referral [] Code/Alert [x] Routine visit [] Staff referral [] Actively dying [] Patient sleeping [x] Family support [] [] Out of room [] Palliative care [] [] Receiving care in room [] Pre-surgical visit [] Trauma [] Long length of stay [x] ICU visit [] Other: Relational/Emotional Strength [] Patient feels connected with others/family/visitors/staff [] Distress [] Loneliness/isolation [] Abandonment Spirituality of Patient [] Person of Brandy [] Attends Scientologist of their Brandy [] Believes in Prayer [] Reads Bible or Scientology materials [] There are Spiritual issues to be addressed Hospital Corpsman Interventions [x] Prayer [x] Active listening [x] Non-anxious presence [x] Spiritual/emotional support [] Crisis/trauma care [] Spiritual counseling [] Bereavement support [] Provided bereavement packet [] Provided Bible/devotional materials [] Provided toy/stuffed animal, coloring book to patient or family member [] Provided Communion [] Anointing/[place] [] Salvation [x] Completed spiritual assessment [] Other: Impact on Illness or Injury [] Angry [] Fearful [] Anxious [] Often cries [] Exhaustion [] Unable to work [] Unable to attend samaritan [] Unable to walk/stand [] Unable to read [] Unable to drive [] Unable to eat/drink [] Unable to sleep [] Unable to be with family [] Patient intubated [] Other: Summary patient coloring looked better.. still experiencing pain in back and hips... we prayed for healing and strength Time spent with patient 10min
--- NOTE | 2022-01-19 11:20 | PM.PN ---
Subjective Subjective: No new complaints. Positive BM/flatus. Reports no pain in his groin. Vitals/I&O/Wt Last Vital Signs Temp 98.1 F 01/19/22 07:28 Pulse 97 01/19/22 08:00 Resp 16 01/19/22 08:00 BP 125/50 01/19/22 07:28 Pulse Ox 97 01/19/22 08:00 01/18/22 01/19/22 01/19/22 22:59 06:59 14:59 Intake Total 240 / 720 Output Total 400 / 400 400 / 800 Balance -160 / 320 -400 / -80 Physical Exam Narrative: Gen: NAD, AAOx3 Abd: S, NT, ND, there are large reducible bilateral inguinal hernias down into the scrotum Urinary Catheter Management: Cortez: Cath Placed During This Visit: yes Reason for Continuing Indwelling Catheter: Accurate Measurement of Urinary Output in Critically Ill Patients Urinary Catheter Date of Insertion: 01/16/22 Urinary Catheter Time of Insertion: 18:16 Data : 01/18/22 04:43 01/19/22 03:09 A&P Assessment and plan (1) Hx of CABG: Status: Inactive (2) Non-ST elevated myocardial infarction (non-STEMI): Status: Acute (3) Inguinal hernia of right side without obstruction or gangrene: Status: Acute (4) Inguinal hernia of left side without obstruction or gangrene: Status: Acute Plan CT of the abdomen pelvis identified a 14 cm hernia defect in the right groin containing cecum and terminal ileum. There is also a large left inguinal hernia containing small bowel. CT also showed extensive vascular disease. He is mostly asymptomatic of his hernia and he is very high risk for surgery due to his cardiac status. He would like to avoid surgery at this time. Given his cardiac status, expectant management of these hernias is reasonable. If he desires repair I recommend general surgery consultation at a tertiary care facility No acute surgical intervention Medical management per hospitalist Attestations Medical Necessity Statement*: Further hospitalization per hospitalist Coding Level of Care Code Acute Health Plan Advisor for Chg Fwd Diagnoses Hx of CABG Z95.1 Non-ST elevated myocardial infarction (non-STEMI) I21.4 Inguinal hernia of right side without obstruction or gangrene K40.90 Inguinal hernia of left side without obstruction or gangrene K40.90
--- NOTE | 2022-01-19 16:50 | PM.PN ---
Subjective Subjective: Seen this AM. no acute events overnight. slightly tachy, BB dose increased by cards Vitals/I&O/Wt Last Vital Signs Temp 98.3 F 01/19/22 11:00 Pulse 97 01/19/22 11:00 Resp 16 01/19/22 11:00 BP 125/50 01/19/22 11:00 Pulse Ox 97 01/19/22 11:00 01/19/22 01/19/22 01/19/22 06:59 14:59 22:59 Output Total 400 / 800 Balance -400 / -80 Physical Exam Narrative: General: Alert oriented x3, patient seen laying in bed appearing comfortable on 3 L nasal cannula which is his baseline. HEENT: Normocephalic, atraumatic, EOMI, breathing normally no acute respiratory distress. Cardio: Regular rate rhythm, normal S1-S2, no murmurs rubs Respiratory: Good bilateral air entry, no wheezes no rhonchi appreciated, clear to auscultation GI: Abdomen soft, nontender, nondistended, bowel sounds + Very large right inguinal hernia going into the scrotum.? Damian catheter in place Behavior: Appropriate and cooperative Extremities: Pulses 2+, no edema, no cyanosis Urinary Catheter Management: Damian: Cath Placed During This Visit: yes Reason for Continuing Indwelling Catheter: Accurate Measurement of Urinary Output in Critically Ill Patients Urinary Catheter Date of Insertion: 01/16/22 Urinary Catheter Time of Insertion: 18:16 Data : 01/18/22 04:43 01/19/22 03:09 A&P Assessment and plan (1) Inguinal hernia of left side without obstruction or gangrene: Status: Acute (2) Congestive heart failure due to cardiomyopathy: Status: Acute (3) Ischemic cardiomyopathy: Status: Acute (4) Chest pain: Status: Acute (5) Non-ST elevated myocardial infarction (non-STEMI): Status: Acute (6) Hypertension: Status: Acute (7) Hyperlipidemia: Status: Acute (8) History of coronary artery stent placement: Status: Acute (9) COPD (chronic obstructive pulmonary disease): Status: Acute Plan #Non-ST elevation [place] #History of coronary artery disease status post PCI x2, history of CABG early 1999 #Hypertension #Hyperlipidemia -Aspirin 81, atorvastatin 80.? Continue Plavix 75.? Add lisinopril, beta-mahnaz.? Stop heparin drip.? Continue on therapeutic Lovenox. -Due to large scrotal inguinal hernia angiogram could not be performed since there is higher risk of puncturing bowel.? Patient is not interested in having hernia repaired upon his talk with cardiology and myself. ? Echo showed moderate global hypokinesis with EF 35%.? Grade 3 x 4 diastolic dysfunction.? Mild pulmonary hypertension.? Mild to moderate mitral valve regurgitation. ? Cardiology following.? Will follow recommendations.? Patient is also not interested in angiogram at this time.? We will continue to medically manage. -Awaiting on operative report from [facility].? CABG was done in 1991.? Unsure if they have records. -Can transfer out of ICU today.? - Continue on medical mgmt. DC in AM most likely if pt continues to do well. #COPD, oxygen dependent #Pulmonary hypertension #Degenerative arthritis -DuoNeb as needed ? Continue 3 to nasal cannula which is his baseline. #Large right inguinal hernia extending into the scrotum #Urinary retention ? Dr. Gallego consulted for Damian catheter placement.? Appreciate him seeing the patient ? Patient not interested in any kind of surgery or intervention for his scrotal hernia at this time. -Consult general surgery.? Patient would like to talk to the surgeon alone as I will want anyone else in the home and discussion regarding his hernia. - Pt high risk for surgery. After discussion with gen surg, we declined any intervention at time. - Will send on damian. Will need to follow with dr gallego as outpt DVT prophylaxis: lovenox 40 daily Attestations Medical Necessity Statement*: continue medical mgmt of NSTEmi monitor in hospital today. dC in AM Coding Level of Care Code Acute Seating And Mobility Technologist for Chg Fwd Diagnoses Inguinal hernia of left side without obstruction or gangrene K40.90 Congestive heart failure due to cardiomyopathy I50.9; I42.9 Ischemic cardiomyopathy I25.5 Chest pain R07.9 Non-ST elevated myocardial infarction (non-STEMI) I21.4 Hypertension I10 Hyperlipidemia E78.5 History of coronary artery stent placement Z95.5 COPD (chronic obstructive pulmonary disease) J44.9
--- NOTE | 2022-01-19 16:51 | PC.SOCIAL ---
IMM Update pg 2 of IMM updated and reviewed w/ patient. Copy provided and Copy placed in chart.
[2022-01-19] MEDS: acetaminophen 325 mg Tablet 650 MG PO (17:32)
[2022-01-19] MEDS: metoprolol tartrate 50 mg Tablet PO (17:32)
[2022-01-19] MEDS: pantoprazole 40 mg SDV IVP (17:32)
[2022-01-19] MEDS: atorvastatin 40 mg Tablet 80 MG PO (20:42)
[2022-01-20] VITALS (12 sets, daily range): BP systolic 97–159; BP diastolic 48–70; PULSE 57–101; RESP 15–24; TEMP 36.9; O2SAT 95–99
[2022-01-20] MEDS: morphine 4 mg/mL SDV 1 mL 2 MG IVP ×2 (00:17→06:17)
[2022-01-20] MEDS: oxyCODONE-APAP 10-325 mg Tablet 1 TAB PO ×3 (03:00→15:10)
[2022-01-20 04:21] LABS: Anion Gap 10.7 (5-19); Blood Urea Nitrogen 27 mg/dL (8-23); Calcium 8.7 mg/dL (8.5-10.5); Carbon Dioxide 32 mmol/L (22-29); Chloride 104 mmol/L (98-107); Glucose 87 mg/dL (65-115); Magnesium 2.2 mg/dL (1.7-2.3); Osmolality Calculated 300 mOsm/kg (285-295); Potassium 3.7 mmol/L (3.5-5.1); Sodium 143 mmol/L (136-145)
[2022-01-20 04:22] LABS: Creatinine Clr Calc Pharmacy 67.4723
--- NOTE | 2022-01-20 06:45 | P.PN_ITS ---
Subjective Subjective: Sherwin is complaining of bilateral hip pain this morning. It seems worse today than it has been. Cardiac acosta, he is doing okay. No chest pain. His shortness of breath is unchanged. I increased his beta-mahnaz yesterday. His heart rate is now in the high 90s. I also discontinued the Lovenox. Vitals/I&O/Wt Last Vital Signs Temp 98.3 F 01/19/22 15:00 Pulse 84 01/20/22 06:00 Resp 23 H 01/20/22 06:00 BP 120/62 01/20/22 06:00 Pulse Ox 98 01/20/22 06:00 01/19/22 01/19/22 01/20/22 14:59 22:59 06:59 Intake Total 240 / 240 Output Total 800 / 800 Balance -560 / -560 Physical Exam Narrative: GENERAL: In general he is somewhat uncomfortable laying on his side. HEENT: Exam within normal limits. NECK: Supple without jugular vein distention. The carotid upstroke is normal without bruits. BACK: Exam normal. LUNGS: Clear. HEART: Regular rate and rhythm. ABDOMEN: Benign without organomegaly or tenderness. EXTREMITIES: No edema. NEUROLOGIC: Exam normal. SKIN: Unremarkable. Urinary Catheter Management: Cortez: Cath Placed During This Visit: yes Reason for Continuing Indwelling Catheter: Accurate Measurement of Urinary Output in Critically Ill Patients Urinary Catheter Date of Insertion: 01/16/22 Urinary Catheter Time of Insertion: 18:16 Data : 01/18/22 04:43 01/20/22 02:57 A&P Assessment and plan (1) Congestive heart failure due to cardiomyopathy: Status: Acute (2) Ischemic cardiomyopathy: Status: Acute (3) Inguinal hernia of right side without obstruction or gangrene: Status: Acute (4) Chest pain: Status: Acute (5) Non-ST elevated myocardial infarction (non-STEMI): Status: Acute (6) Hypertension: Status: Acute (7) Hyperlipidemia: Status: Acute (8) History of coronary artery stent placement: Status: Acute (9) COPD (chronic obstructive pulmonary disease): Status: Acute (10) Pulmonary hypertension: Status: Acute (11) Oxygen dependent: Status: Acute (12) CAD (coronary artery disease): Status: Acute (13) Anemia: Status: Acute Plan No changes for today. Medical therapy. I am not sure this fellow can go home safely. We probably should have a physical therapy evaluation to see if he will be safe in the home. I do not think his is all that capable either. Attestations Medical Necessity Statement*: Hospital care for management of non-ST segment elevation [place]. 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
[2022-01-20] MEDS: acetaminophen 325 mg Tablet 650 MG PO ×2 (07:06→12:39)
[2022-01-20] MEDS: clopidogrel 75 mg Tablet PO (08:47)
[2022-01-20] MEDS: metoprolol tartrate 50 mg Tablet PO (08:47)
[2022-01-20] MEDS: isosorbide mononitrate ER 30 mg Tablet PO (08:47)
[2022-01-20] MEDS: lisinopril 2.5 mg Tablet PO (08:47)
[2022-01-20] MEDS: aspirin 81 mg EC Tablet PO (08:47)
--- NOTE | 2022-01-20 10:08 | PC.CHAP ---
Pastoral Care Encounter/Spiritual Assessment Type of Contact [] Declined makeup artistry instructor visit [] Patient/Family/Request visit [] Outpatient visit [] Follow-up visit [] Physician referral [] Code/Alert [x] Routine visit [] Staff referral [] Actively dying [] Patient sleeping [] Family support [] [] Out of room [] Palliative care [] [x] Receiving care in room [] Pre-surgical visit [] Trauma [] Long length of stay [x] ICU visit [x] Other: physical therapy Relational/Emotional Strength [] Patient feels connected with others/family/visitors/staff [] Distress [] Loneliness/isolation [] Abandonment Spirituality of Patient [] Person of Brandy [] Attends Rastafarian of their Brandy [] Believes in Prayer [] Reads Bible or Lutheran materials [] There are Spiritual issues to be addressed Emergency Medicine Nurse Practitioner Interventions [x] Prayer [x] Active listening [x] Non-anxious presence [x] Spiritual/emotional support [] Crisis/trauma care [] Spiritual counseling [] Bereavement support [] Provided bereavement packet [] Provided Bible/devotional materials [] Provided toy/stuffed animal, coloring book to patient or family member [] Provided Communion [] Anointing/[place] [] Salvation [x] Completed spiritual assessment [] Other: Impact on Illness or Injury [] Angry [] Fearful [] Anxious [] Often cries [] Exhaustion [] Unable to work [] Unable to attend caodaism [] Unable to walk/stand [] Unable to read [] Unable to drive [] Unable to eat/drink [] Unable to sleep [] Unable to be with family [] Patient intubated [] Other: Summary Time spent with patient
--- NOTE | 2022-01-20 12:56 | P.DS_ITS ---
Discharge Providers Date of Admission: 01/16/22 15:08 Date of Discharge: January 20, 2022 Attending Provider at Admission: Kimberly Dow MD Attending Provider at Discharge: Kimberly Dow MD Primary Care Provider: Pawel Ordoñez Diagnoses at Discharge Discharge Diagnosis (1) Congestive heart failure due to cardiomyopathy: Status: Acute (2) Ischemic cardiomyopathy: Status: Acute (3) Inguinal hernia of right side without obstruction or gangrene: Status: Acute (4) Chest pain: Status: Resolved (5) Non-ST elevated myocardial infarction (non-STEMI): Status: Resolved (6) Hypertension: Status: Acute (7) Hyperlipidemia: Status: Acute (8) History of coronary artery stent placement: Status: Acute (9) COPD (chronic obstructive pulmonary disease): Status: Acute (10) Pulmonary hypertension: Status: Acute (11) Oxygen dependent: Status: Acute (12) CAD (coronary artery disease): Status: Acute (13) Anemia: Status: Resolved Reason for Visit Reason for Visit: CHEST PAIN; SOB Brief History: Sherwin Dalton is a 76 year old male with past medical history of hypertension, hyperlipidemia, coronary artery disease, previous [place], CABG, PCI with stent placement x2, oxygen dependent COPD, pulmonary hypertension, degenerative arthritis presented to the hospital today initially with chest pain that started yesterday night around 11:00.? He was not active at the time.? Chest pain occurred at rest.? His nitroglycerin tablets had and therefore he came to the hospital.? He did get 2 nitroglycerin via EMS and aspirin in route to the hospital.? He states the pain improved but was not completely gone.? He was also short of breath with discomfort.? Initial EKG showed ST depression in anterior precordial leads.? 2 hours after resolution of pain ST segments back to baseline.? Delta troponin 150 confirming subendocardial injury.? Patient was advised to be admitted to the hospital for coronary angiogram.? Patient refused angiogram and said that he will think about it for few days and call and make an appointment.? 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 He came back to the hospital this afternoon with worsening shortness of breath.? His insisted him to come to the hospital.? EMS brought him in.? He was given nitrates in route which significantly lowered his blood pressure and then he was given albuterol and DuoNeb which increases heart rate on arrival.? Heart rate was 130s on presentation to ER and blood pressure 80 systolic.? He denied having any chest discomfort or chest heaviness at that time.? Cardiology was called who will see the patient.? Patient was recommended admission to ICU for non-ST elevation [place].? BNP 2000, baseline troponin 1200 at this time with a delta of 1000 compared to his troponin when he left the hospital process environmental technician today.? Patient states that he is not really interested in an angiogram if it was offered at this point.? And he feels fine at this time.? He came to the hospital because his asked him to come in. Blood pressure now 112/62, respiratory 26, pulse 105, pulse ox 95% saturation.? Patient was started on a heparin drip. Hospital Course Hospital Course Patient was admitted for NSTEMI. He also had a large scrotal inguinal hernia therefore angiogram could not be performed since there was high risk of puncturing bowel. He was also not interested in having hernia repaired. It was decided to manage patient medically. Also we were unable to obtain his CABG report from 1991. He was monitored in the ICU and then discharged home safely. Dr. Gallego was also consulted during hospital stay for urinary retention and difficult Cortez placement by nurses. Dr. Gallego placed a Cortez. Patient was sent home with Cortez catheter to follow-up with Dr. Gallego as an outpatient. Patient was seen by physical therapy day of discharge and needed further evaluation. He was sent home in stable condition with family. was updated over the phone. He will follow-up with primary care and cardiology as an outpatient. Physical Exam Narrative: General: Alert oriented x3, patient seen laying in bed appearing comfortable on 3 L nasal cannula which is his baseline. HEENT: Normocephalic, atraumatic, EOMI, breathing normally no acute respiratory distress. Cardio: Regular rate rhythm, normal S1-S2, no murmurs rubs Respiratory: Good bilateral air entry, no wheezes no rhonchi appreciated, clear to auscultation GI: Abdomen soft, nontender, nondistended, bowel sounds + Very large right inguinal hernia going into the scrotum.? Cortez catheter in place Behavior: Appropriate and cooperative Extremities: Pulses 2+, no edema, no cyanosis Urinary Catheter Management: Cortez: Cath Placed During This Visit: yes Reason for Continuing Indwelling Catheter: Accurate Measurement of Urinary Output in Critically Ill Patients Urinary Catheter Date of Insertion: 01/16/22 Urinary Catheter Time of Insertion: 18:16 Discharge Data Studies Completed and Pending Completed Studies During Hospitalization Category Date Time Status CT abdomen pelvis w con* [id number] Routine Cat Scan 01/18/22 20:20 Completed XR chest 1V portable [id number] Stat Exams 01/16/22 12:28 Completed US echo complete [CV. echo complete* [id number]] Routine Ultrasound 01/16/22 13:20 Completed Pending at discharge Category Date Time Status Blood Culture Stat Lab 01/16/22 18:51 Results Sputum Culture and Gram Stain Stat Lab 01/16/22 15:35 Uncollected Radiology Impressions Chest X-Ray 01/16/22 12:28 IMPRESSION: No acute findings. Abdomen/Pelvis CT 01/18/22 20:20 IMPRESSION: 1. Bilateral inguinal hernias are larger on the right and containing nonobstructed bowel. 2. No pneumatosis or perforation. 3. 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 4. Other chronic and incidental findings as described COMMENTS: Consistent with the [employer]'s Incidental Findings Committee white paper (J Am Angela Radiol 2018): Any incidental renal lesion less than 1 cm or classified as too small to characterize, or any incidental cystic renal lesion characterized as simple-appearing, is likely benign. No follow-up imaging is recommended for these lesions per consensus recommendations based on imaging criteria. Laboratory Results WBC 10.6 10^3/uL (4.0-10.0) H 01/18/22 04:43 RBC 2.76 10^6/uL (4.1-5.3) L 01/18/22 04:43 Hgb 9.5 g/dL (11.7-16.6) L 01/18/22 04:43 Hct 29.9 % (42.0-52.0) L 01/18/22 04:43 MCV 108.3 fl (80-94) H 01/18/22 04:43 MCH 34.4 pg (28.0-34.0) H 01/18/22 04:43 MCHC 31.8 g/dL (30.0-36.0) 01/18/22 04:43 RDW 12.9 % (12.1-15.1) 01/18/22 04:43 Plt Count 182 10^3/cmm (130-400) 01/18/22 04:43 MPV 11.0 fL (7.4-10.4) H 01/18/22 04:43 Neut % (Auto) 74.5 % 01/18/22 04:43 Lymph % (Auto) 11.6 % 01/18/22 04:43 [place] % (Auto) 8.9 % 01/18/22 04:43 Eos % (Auto) 4.1 % 01/18/22 04:43 Baso % (Auto) 0.5 % 01/18/22 04:43 Neut # (Auto) 7.93 10^3/uL (1.8-7.7) H 01/18/22 04:43 Lymph # (Auto) 1.2 10^3/uL (0.8-4.8) 01/18/22 04:43 [place] # (Auto) 1.0 10^3/uL (0.2-0.9) H 01/18/22 04:43 Eos # (Auto) 0.4 10^3/uL (0.0-0.8) 01/18/22 04:43 Baso # (Auto) 0.1 10^3/uL (0.0-0.1) 01/18/22 04:43 Nucleated RBC % (auto) 0 % 01/18/22 04:43 Nucleated RBCs # 0.0 /100WBC 01/18/22 04:43 PT 14.00 SECONDS (12.1-14.9) 01/16/22 12:35 INR 1.05 (0.8-1.2) 01/16/22 12:35 APTT 108.7 SECONDS (23.9-36.7) H D 01/17/22 07:53 Sodium 143 mmol/L (136-145) 01/20/22 02:57 Potassium 3.7 mmol/L (3.5-5.1) 01/20/22 02:57 Chloride 104 mmol/L (98-107) 01/20/22 02:57 Carbon Dioxide 32 mmol/L (22-29) H 01/20/22 02:57 Anion Gap 10.7 (5-19) 01/20/22 02:57 BUN 27 mg/dL (8-23) H 01/20/22 02:57 Creatinine 0.5 mg/dL (0.7-1.2) L 01/20/22 02:57 GFR Calculation Not Reportable 01/20/22 02:57 Glucose 87 mg/dL (65-115) 01/20/22 02:57 Estimat Average Glucose 103 01/16/22 12:35 Hemoglobin A1c 5.2 % (4.0-6.0) 01/16/22 12:35 Calculated Osmolality 300 mOsm/kg (285-295) H 01/20/22 02:57 Calcium 8.7 mg/dL (8.5-10.5) 01/20/22 02:57 Magnesium 2.2 mg/dL (1.7-2.3) 01/20/22 02:57 Total Bilirubin 0.2 mg/dL (0.15-1.2) 01/16/22 12:35 AST 81 U/L (0-40) H 01/16/22 12:35 ALT 15 U/L (0-41) 01/16/22 12:35 Alkaline Phosphatase 58 IU/L (40-130) 01/16/22 12:35 Creatine Kinase 657 U/L (39-308) H* D 01/16/22 12:35 CK-MB (CK-2) 99.7 ng/mL (0-10.4) H 01/16/22 12:35 CK-MB (CK-2) Rel Index 15.1 % (0.0-5.3) H 01/16/22 12:35 Troponin T Baseline 1230 ng/L (0-15) H* 01/16/22 12:35 Troponin T 120 Minute 1093 ng/L (0-15) H 01/16/22 14:44 Delta Troponin T -137 ABS# (0-10) L 01/16/22 14:44 Troponin T Hi Sens 6Hr 987.0 ng/L (0-15) H 01/16/22 18:51 Troponin T Hi Sens 6Hr Delta -243.0 ng/L (0-12) L 01/16/22 18:51 NT-Pro-B Natriuret Pep 2042 pg/mL (0-450) H 01/16/22 12:35 Total Protein 7.0 g/dL (6.6-8.7) 01/16/22 12:35 Albumin 3.7 g/dL (3.5-5.2) 01/16/22 12:35 Globulin 3.3 g/dL (1.3-4.6) 01/16/22 12:35 Triglycerides 67 mg/dL (0-150) 01/16/22 14:44 Cholesterol 163 mg/dL (0-200) 01/16/22 14:44 LDL Cholesterol, Calc 104 mg/dL (50-129) 01/16/22 14:44 HDL Cholesterol 46 mg/dL (60-100) L 01/16/22 14:44 LDL/HDL Ratio 2.26 RATIO (0.00-3.22) 01/16/22 14:44 Cholesterol/HDL Ratio 3.54 mg/dL (1.0-5.00) 01/16/22 14:44 TSH 0.26 uIU/mL (0.27-4.20) L 01/16/22 14:44 Urine Color Yellow (Yellow) 01/16/22 18:10 Urine Appearance Clear (CLEAR) 01/16/22 18:10 Urine pH 5 (5-7) 01/16/22 18:10 Ur Specific [place] 1.020 (1.005-1.030) 01/16/22 18:10 Urine Protein Neg (Negative) 01/16/22 18:10 Urine Glucose (UA) Norm (Normal) 01/16/22 18:10 Urine Ketones Negative (Negative) 01/16/22 18:10 Urine Blood Neg (Negative) 01/16/22 18:10 Urine Nitrate Negative (Negative) 01/16/22 18:10 Urine Bilirubin 1+ (Negative) H 01/16/22 18:10 Urine Urobilinogen Norm mg/dL (Negative) 01/16/22 18:10 Ur Leukocyte Esterase Negative (Negative) 01/16/22 18:10 Vitals Last Vital Signs Temp 98.4 F 01/20/22 10:00 Pulse 64 01/20/22 10:00 Resp 16 01/20/22 10:00 BP 120/62 01/20/22 10:00 Pulse Ox 97 01/20/22 10:00 Discharge Plan Discharge Patient Disposition: Home Condition: Stable Prescriptions: New atorvastatin 40 mg Tablet 80 mg PO BEDTIME 30 Days Qty: 30 0RF isosorbide mononitrate 30 mg Tablet Extended Release 24 Hr 30 mg PO DAILY 30 Days Qty: 30 0RF clopidogrel 75 mg Tablet 75 mg PO DAILY 30 Days Qty: 30 0RF aspirin 81 mg Tablet,Delayed Release (Dr/Ec) 81 mg PO DAILY 30 Days Qty: 30 0RF metoprolol tartrate 50 mg Tablet 50 mg PO BID 30 Days Qty: 60 0RF lisinopril 2.5 mg Tablet 2.5 mg PO DAILY 30 Days Qty: 30 0RF Continued oxycodone-acetaminophen 10-325 mg tablet 1 tab PO Q6H PRN (Reason: Pain) 0RF nitroglycerin 0.4 mg tablet, sublingual 0.4 mg sublingual Q5M PRN (Reason: chest pain) 30 Days Qty: 10 0RF Rx Instructions: do not exceed 3 doses per episode Discontinued aspirin 325 mg Tablet 325 mg PO DAILY 0RF pravastatin 40 mg tablet 60 mg PO DAILY 0RF atenolol 25 mg tablet 25 mg PO DAILY 0RF gemfibrozil 600 mg tablet 600 mg PO BID 0RF Discharge Orders: Discharge Order (Routine); Ordered 01/20/22 Ordered By: Kimberly Dow Referrals: [facility] [Outside] jP Chandra MD [Physician] - 2 weeks ( appointment February at time of 12:15 pm) Sergio Gallego MD [Physician] - 1 week (This appointment has been called in to clinic ,Clinic will respond back with appointment time and date . Will contact you .) Pawel Ordoñez [Primary Care Provider] - 4-7 days (This appointment has been scheduled for following date of Tuesday at time of 11:00 am ) Yuni Barillas FNP [Nurse Practitioner] - 1 week (Yuni Barillas appointment Saturday January 29, 2022 at time of 09:45 am ) Discharge Diet: Cardiac Discharge Activity: Resume usual activity and Oxygen as instructed Patient Instructions: Metoprolol (By mouth), Lisinopril (By mouth), Aspirin (By mouth), Isosorbide Mononitrate (By mouth), Atorvastatin (By mouth), Heart Attack (DC), Heart Healthy Diet (DC), Cortez Catheter Placement and Care (DC), CHF Stoplight, COPD Stoplight, Opioid Safety, Post Heart Attack Stoplight Activity Restrictions/Additional Instructions: Please follow-up with urology for management of your Cortez catheter. Please follow-up with your primary care doctor within 4 to 7 days of discharge. Follow-up with cardiology outpatient as well. If you have chest pain again, increasing shortness of breath, lightheadedness please come back to the ER for evaluation. Discharge Attestations Time Spent in Discharge Care*: other Quality Metrics Clinical Quality Measures [ Acute Myocardial Infaction { Clinical Trial Participant: No; Contraindication to aspirin: None; Aspirin prescribed; Contraindication to statin: None; Statin prescribed; Contraindication to PCI: Refusal of treatment by patient;}] Coding Level of Care Code Acute Chg FW DC note Diagnoses Congestive heart failure due to cardiomyopathy I50.9; I42.9 Ischemic cardiomyopathy I25.5 Inguinal hernia of right side without obstruction or gangrene K40.90 Chest pain R07.9 Non-ST elevated myocardial infarction (non-STEMI) I21.4 Hypertension I10 Hyperlipidemia E78.5 History of coronary artery stent placement Z95.5 COPD (chronic obstructive pulmonary disease) J44.9 Pulmonary hypertension I27.20 Oxygen dependent Z99.81 CAD (coronary artery disease) I25.10 Anemia D64.9
== END 2022-01-20 17:14 | disposition home health service (06) | DRG 280 ==
LOC: ER 13:59 → ICU 14:27
PROVIDERS: Family Medicine; Admitting Provider Internal Medicine; Emergency Provider Family Medicine; PCP Family Medicine; Visit Provider Internal Medicine
DX: I21.4 Non-ST elevation (NSTEMI) myocardial infarction (principal); K55.069 Acute infarction of intestine, part and extent unspecified; I50.23 Acute on chronic systolic (congestive) heart failure; I11.0 Hypertensive heart disease with heart failure; E78.5 Hyperlipidemia, unspecified; I25.10 Atherosclerotic heart disease of native coronary artery without angina pectoris; Z95.1 Presence of aortocoronary bypass graft; Z95.5 Presence of coronary angioplasty implant and graft; I25.2 Old myocardial infarction; Z99.81 Dependence on supplemental oxygen; J44.9 Chronic obstructive pulmonary disease, unspecified; I27.20 Pulmonary hypertension, unspecified; M19.90 Unspecified osteoarthritis, unspecified site; K40.20 Bilateral inguinal hernia, without obstruction or gangrene, not specified as recurrent; D53.9 Nutritional anemia, unspecified; N47.1 Phimosis; N48.1 Balanitis; N35.919 Unspecified urethral stricture, male, unspecified site; R33.9 Retention of urine, unspecified; Z79.891 Long term (current) use of opiate analgesic; M25.552 Pain in left hip; M25.551 Pain in right hip; I25.5 Ischemic cardiomyopathy
CPT/HCPCS: 36415; 51702; 71045; 74177; 80048; 80053; 80061; 81003; 82550; 82553; 83036; 83735; 83880; 84443; 84484; 85025; 85610; 85730; 87040; 93005; 93306; 94664; 96365; 96372; 96374; 96375; 97110; 97161; 99285; C9113; J1644; J1650; J2270; J2405; Q9967

== ENCOUNTER → 2022-01-29 09:02 | Outpatient (BNVA) | payer MEDICARE, SELFPAY | PROVIDERS: PCP Family Medicine; Visit Provider Nurse Practitioner Family | DX: I25.2 Old myocardial infarction (principal); Z95.1 Presence of aortocoronary bypass graft; Z87.891 Personal history of nicotine dependence; Z79.82 Long term (current) use of aspirin | CPT/HCPCS: 99213 ==

== ENCOUNTER → 2022-02-08 08:59 | Outpatient (BNVA) | payer MEDICARE, SELFPAY | PROVIDERS: PCP Family Medicine; Visit Provider Nurse Practitioner Family | DX: R33.9 Retention of urine, unspecified (principal); N35.919 Unspecified urethral stricture, male, unspecified site; N47.1 Phimosis; N40.1 Benign prostatic hyperplasia with lower urinary tract symptoms | CPT/HCPCS: 99213 ==

== ENCOUNTER → 2022-02-17 11:10 | Outpatient (BNVA) | payer MEDICARE, SELFPAY | PROVIDERS: PCP Family Medicine; Visit Provider Internal Medicine Cardiovascular Disease | DX: Z09 Encounter for follow-up examination after completed treatment for conditions other than malignant neoplasm (principal); I11.0 Hypertensive heart disease with heart failure; I50.9 Heart failure, unspecified; E78.5 Hyperlipidemia, unspecified; Z95.5 Presence of coronary angioplasty implant and graft; J44.9 Chronic obstructive pulmonary disease, unspecified; I27.20 Pulmonary hypertension, unspecified; Z99.81 Dependence on supplemental oxygen; I25.10 Atherosclerotic heart disease of native coronary artery without angina pectoris; I25.5 Ischemic cardiomyopathy; K40.90 Unilateral inguinal hernia, without obstruction or gangrene, not specified as recurrent; I25.2 Old myocardial infarction; Z95.1 Presence of aortocoronary bypass graft; Z87.891 Personal history of nicotine dependence | CPT/HCPCS: 99214 ==

== ENCOUNTER → 2022-05-18 16:48 | Outpatient (BNVA) | payer MEDICARE, SELFPAY | PROVIDERS: PCP Family Medicine; Visit Provider Internal Medicine | DX: Z53.9 Procedure and treatment not carried out, unspecified reason (principal) | CPT/HCPCS: 99213 ==

== ENCOUNTER 2022-12-09 20:15 | Inpatient (IN) | payer MEDICARE, SELFPAY ==
[2022-12-09 20:22] VITALS: BP 131/107; PULSE 128; RESP 20; TEMP 36.6; O2SAT 80; BMI 17.5
--- NOTE | 2022-12-09 20:28 | PC.NURSE ---
Addendum entered by Afshan Barker RN 12/09/22 20:30: PROVIDER NOTIFIED. Original Note: PATIENT SATURATION 82% ON RA. PATIENT PLACED ON NASAL CANNULA AT 6 L IMPROVED TO 90%.
--- NOTE | 2022-12-09 20:31 | XRR_ITS ---
PROCEDURE INFORMATION: Exam: XR Chest Exam date and time: 12/09/2022 8:56 PM Age: 77 years old Clinical indication: Shortness of breath; Additional info: SOB TECHNIQUE: Imaging protocol: Radiologic exam of the chest. Views: 1 view. COMPARISON: CR XR chest 1V portable [id number] 01/16/2022 12:45 PM FINDINGS: Lungs: Stable marked emphysematous changes with hyperinflation in the lungs. No focal consolidation. No pulmonary edema. 2 new irregular nodular opacities in the lateral right upper lobe, pulmonary nodules cannot be ruled out. Pleural spaces: No pleural effusion. No pneumothorax. Heart/Mediastinum: The cardiac silhouette and mediastinal contours are unremarkable. Vasculature: Stable vascular calcifications in the aorta. Bones/joints: Unremarkable for age. XR/XR chest 1V portable [id number] IMPRESSION: 1. 2 new irregular nodular opacities in the lateral right upper lobe, pulmonary nodules cannot be ruled out. CT scan of the chest with contrast on a nonemergent basis is recommended for further evaluation. 2. No acute cardiopulmonary process. 3. Incidental/nonacute findings are listed in the report.
--- NOTE | 2022-12-09 20:49 | W.ED.SOB ---
HPI - SOB/Dyspnea General: Chief Complaint: Shortness of Breath/Dyspnea Stated Complaint: RESP DISTRESS Time Seen by Provider: 12/09/22 20:22 Source: patient and EMS Mode of arrival: EMS Limitations: no limitations History of Present Illness: HPI Narrative: 77-year-old male has a history of COPD along with CHF he is on 3 L of oxygen at baseline states for last 4 days he had increasing shortness of breath he is requiring 6 L currently he has had a slight cough he has had some wheezing he denies any chest pain denies any fevers has not had any sick contacts. Associated symptoms: Deny abdominal pain, chest pain, fever(s), nausea or vomiting Review of Systems Const: Denies: fever(s), chills, body aches or change in appetite Eyes: Denies: eye discomfort ENMT: Denies: throat pain or dental pain Card: Denies: chest pain Resp: Reports: dyspnea and non-productive cough GI: Denies: abdominal pain, nausea, vomiting or diarrhea : Denies: dysuria Musc: Denies: neck pain or back pain Skin/Breast: Denies: rash Neuro: Denies: headache(s) PFSH ED PFSH: Medical History Anemia BPH loc w urin obs/LUTS CAD (coronary artery disease) Congestive heart failure due to cardiomyopathy Ischemic cardiomyopathy Surgical History Hx of CABG Family History Father , AT 94 Cancer Mother , AT 83 Heart disease Social History Smoking and tobacco status: former smoker (7-8 years ago) Alcohol intake: former Substance/Drug Use: never Marital status: Single Current occupational status: retired and disabled Physical Exam Const: COMMON NORMALS: patient oriented x3 GENERAL APPEARANCE: ill appearing HENMT: COMMON NORMALS: normocephalic and atraumatic HEAD & SCALP: normocephalic and atraumatic Eye: COMMON NORMALS: conjunctivae normal CONJUNCTIVA: Yes conjunctivae normal Neck/C-Spine: COMMON NORMALS: full ROM and supple Chest: COMMONS NORMALS: normal inspection of the chest and normal palpation of entire chest wall Resp: COMMON NORMALS: No retractions and No use of accessory muscles AUSCULTATION: rales and wheezes Cardio: COMMON NORMALS: regular rhythm and No murmurs present (Cardio) RATE: tachycardic RHYTHM: regular rhythm GI: COMMON NORMALS: Normal to inspection, nondistended, normoactive bowel sounds present, Soft to palpation, non-tender and no masses PALPATION: Yes Soft to palpation Extremity: COMMON NORMALS: normal to inspection and full ROM Neuro: COMMON NORMALS: patient oriented x3, moves all extremities and no focal motor deficits Psych: COMMON NORMALS: mental status grossly normal, Normal thought process present and cooperative THOUGHT PROCESS: Normal thought process present Skin: COMMON NORMALS: no rashes or lesions noted and no wounds GENERAL SKIN EXAM: no rashes or lesions noted Course Vital Signs: Vital signs: Vital Signs Temperature 97.9 F 12/09/22 20:22 Pulse Rate 110 H 12/09/22 23:59 Respiratory Rate 22 H 12/09/22 23:03 Blood Pressure 131/107 12/09/22 20:22 Pulse Oximetry 97 12/09/22 23:59 Oxygen Delivery Me thod Nasal Cannula 12/09/22 23:03 Oxygen Flow Rate 5 12/09/22 23:03 Fraction of Inspir ed Oxygen 45 12/09/22 23:59 MDM - SOB/Dyspnea Medical Decision Making Patient presents here with shortness of breath he does have hypercapnia with respiratory failure he does have a pneumonia as well placed him on BiPAP due to his hypercarbia. Placed on antibiotics as well spoke with the hospitalist and will admit to the ICU at this point. Lab Data 12/09/22 21:04 12/09/22 21:04 Labs/Radiology: Radiology Impressions Chest X-Ray 12/09/22 20:31 IMPRESSION: 1. 2 new irregular nodular opacities in the lateral right upper lobe, pulmonary nodules cannot be ruled out. CT scan of the chest with contrast on a nonemergent basis is recommended for further evaluation. 2. No acute cardiopulmonary process. 3. Incidental/nonacute findings are listed in the report. ADDENDUM: 12/09/222129 Results were discussed with ASHLEY Dobbins on 12/09/2022 at 9:28 PM CDT. Chest CTA 12/09/22 22:14 IMPRESSION: 1. Bronchial wall thickening diffusely in both lungs with reticulonodular interstitial thickening in the right and left lower lobes. Findings are suspicious for bronchopneumonia, including atypical organisms. Recommend clinical correlation. Recommend followup chest imaging to insure resolution of these findings. 2. No evidence for pulmonary embolism. 3. Debris layering in the mid/distal trachea. This may represent bronchial secretions. 4. Marked centrilobular and paraseptal emphysematous changes in the lungs with bulla formation in the right upper lobe. 5. Multiple areas of pleural-parenchymal scarring in the lateral right lung, the 2 largest areas appear to correspond to the findings on the prior chest radiograph. 6. Noncalcified nodules in both lungs. For patients at low risk (minimal or absent history of smoking and of other known risk factors), recommend CT Chest at 3-6 months, then consider CT Chest at 18-24 months. For patients at high risk (history of smoking or of other known risk factors), recommend CT Chest at 3-6 months, then CT Chest at 18-24 months. (Reference: Tosha) 7. Nonobstructing left renal stone. 8. Interval development of diffuse enlargement of the visualized right and left adrenal glands that may be due to the an acute illness. 9. Incidental/nonacute findings are listed in the report. COMMENTS: Consistent with the [employer]'s Incidental Findings Committee white paper (J Am Angela Radiol 2018): Any incidental renal lesion less than 1 cm or classified as too small to characterize, or any incidental cystic renal lesion characterized as simple-appearing, is likely benign. No follow-up imaging is recommended for these lesions per consensus recommendations based on imaging criteria. REFERENCES: Tosha Parra, et al. Guidelines for Management of Incidental Pulmonary Nodules Detected on CT Images: From the Fleischner Society 2017. Radiology. 2017;284(1):228-243. Laboratory Results WBC 10.1 10^3/uL (4.0-10.0) H 12/09/22 21:04 RBC 2.87 10^6/uL (4.1-5.3) L 12/09/22 21:04 Hgb 10.1 g/dL (11.7-16.6) L 12/09/22 21:04 Hct 33.0 % (42.0-52.0) L 12/09/22 21:04 MCV 115.0 fl (80-94) H 12/09/22 21:04 MCH 35.2 pg (28.0-34.0) H 12/09/22 21:04 MCHC 30.6 g/dL (30.0-36.0) 12/09/22 21:04 RDW 13.6 % (12.1-15.1) 12/09/22 21:04 Plt Count 144 10^3/cmm (130-400) 12/09/22 21:04 MPV 10.7 fL (7.4-10.4) H 12/09/22 21:04 Neut % (Auto) 84.8 % 12/09/22 21:04 Lymph % (Auto) 2.7 % 12/09/22 21:04 [place] % (Auto) 11.0 % 12/09/22 21:04 Eos % (Auto) 0.0 % 12/09/22 21:04 Baso % (Auto) 0.8 % 12/09/22 21:04 Neut # (Auto) 8.57 10^3/uL (1.8-7.7) H 12/09/22 21:04 Lymph # (Auto) 0.3 10^3/uL (0.8-4.8) L 12/09/22 21:04 [place] # (Auto) 1.1 10^3/uL (0.2-0.9) H 12/09/22 21:04 Eos # (Auto) 0.0 10^3/uL (0.0-0.8) 12/09/22 21:04 Baso # (Auto) 0.1 10^3/uL (0.0-0.1) 12/09/22 21:04 Nucleated RBC % (auto) 0 % 12/09/22 21:04 Nucleated RBCs # 0.0 /100WBC 12/09/22 21:04 PT 13.20 SECONDS (12.1-14.9) 12/09/22 21:04 INR 0.97 (0.8-1.2) 12/09/22 21:04 Specimen Type Arterial 12/09/22 23:05 Sample Site Brachial, left 12/09/22 23:05 ABG pH 7.24 (7.35-7.45) L 12/09/22 23:05 ABG pCO2 79.6 mmHg (35-45) H* 12/09/22 23:05 ABG pO2 84.5 mmHg (80.0-100.0) 12/09/22 23:05 ABG HCO3 34.3 mmol/L (22-26) H 12/09/22 23:05 ABG Base Excess 5.1 mmol/L (-2.0-2.0) H 12/09/22 23:05 Mohit Test N/a 12/09/22 23:05 Hematocrit 32.6 % (42-52) L 12/09/22 23:05 Hgb O2 Saturation 92.9 % (95-100) L 12/09/22 23:05 Carboxyhemoglobin 0.7 %THgb (0.4-20.1) 12/09/22 23:05 Methemoglobin 1.0 % (0.4-1.5) 12/09/22 23:05 Total Hemoglobin 10.6 g/dL (14-18) L 12/09/22 23:05 O2 Delivery Device Nc 12/09/22 23:05 O2 Liters/Min 5.0 % 12/09/22 23:05 FiO2 40.0 % 12/09/22 23:05 Art Glass Designer ID Alewe 12/09/22 23:05 Sodium 141 mmol/L (136-145) 12/09/22 21:04 Potassium 4.7 mmol/L (3.5-5.1) 12/09/22 21:04 Chloride 98 mmol/L (98-107) 12/09/22 21:04 Carbon Dioxide 34 mmol/L (22-29) H 12/09/22 21:04 Anion Gap 13.7 (5-19) 12/09/22 21:04 BUN 33 mg/dL (8-23) H 12/09/22 21:04 Creatinine 0.5 mg/dL (0.7-1.2) L 12/09/22 21:04 GFR Calculation Not Reportable 12/09/22 21:04 Glucose 153 mg/dL (65-115) H 12/09/22 21:04 Calculated Osmolality 302 mOsm/kg (285-295) H 12/09/22 21:04 Calcium 9.3 mg/dL (8.5-10.5) 12/09/22 21:04 Total Bilirubin 0.2 mg/dL (0.15-1.2) 12/09/22 21:04 AST 20 U/L (0-40) 12/09/22 21:04 ALT 15 U/L (0-41) 12/09/22 21:04 Alkaline Phosphatase 51 U/L (40-130) 12/09/22 21:04 Troponin T Baseline 77 ng/L (0-15) H 12/09/22 21:04 NT-Pro-B Natriuret Pep 1894 pg/mL (0-450) H 12/09/22 21:04 Total Protein 7.1 g/dL (6.6-8.7) 12/09/22 21:04 Albumin 3.6 g/dL (3.5-5.2) 12/09/22 21:04 Globulin 3.5 g/dL (1.3-4.6) 12/09/22 21:04 Coronavirus 229E (PCR) Not detected (NOT DETECT) 12/09/22 20:57 SARS-CoV-2 (PCR) Not detected (NOT DETECT) 12/09/22 20:57 Critical Care Time Critical Care Time: Critical Care Time: Yes Total Critical Care Time: 50 Attestation: The high probability of a clinically significant, sudden or life threatening deterioration of the patient's resp system(s) required my full and direct attention, intervention and personal management. The critical care time is as shown. This time is in addition to time spent performing any reported procedures but includes the following: [x] Data and vital sign review and interpretation [x] Patient assessment, examination and intervention [x] Documentation [x] Medication orders and management Discharge Plan Discharge Patient Disposition: Admitted As Inpatient Clinical Impression: Community acquired pneumonia, Acute exacerbation of chronic obstructive airways disease, Acute respiratory failure with hypoxemia Condition: Stable Prescriptions: No Action albuterol sulfate [Proventil HFA] 90 mcg/actuation HFA aerosol inhaler 2 puff inhalation Q6H PRN vitamin B79-rmaib acid 500-400 mcg tablet 1 tab PO DAILY Rx Instructions: administer with a meal tamsulosin 0.4 mg capsule 0.4 mg PO .at bedtime Qty: 30 12RF cholecalciferol (vitamin D3) 1,250 mcg (50,000 unit) capsule PO roflumilast 250 mcg tablet 250 mcg PO DAILY oxycodone-acetaminophen 10-325 mg tablet 1 tab PO Q6H PRN (Reason: Pain) nitroglycerin 0.4 mg tablet, sublingual 0.4 mg sublingual Q5M PRN (Reason: chest pain) 30 Days Qty: 10 0RF Rx Instructions: do not exceed 3 doses per episode Referrals: Pawel Ordoñez [Primary Care Provider] - Coding Level of Care Code ED Commercial Announcer for Taz Levine
[2022-12-09 21:14] LABS: Basophils # 0.1 10^3/uL (0.0-0.1); Basophils % 0.8 %; Hemoglobin 10.1 g/dL (11.7-16.6); Lymphocytes # 0.3 10^3/uL (0.8-4.8); Lymphocytes % 2.7 %; Mean Corpuscular HGB Conc 30.6 g/dL (30.0-36.0); Mean Corpuscular Hemoglobin 35.2 pg (28.0-34.0); Mean Platelet Volume 10.7 fL (7.4-10.4); Monocytes # 1.1 10^3/uL (0.2-0.9); Neutrophils # 8.57 10^3/uL (1.8-7.7); Neutrophils % 84.8 %; Nucleated Red Blood Cells % 0 %; Platelet Count 144 10^3/cmm (130-400); Red Blood Count 2.87 10^6/uL (4.1-5.3); Red Cell Distribution Width 13.6 % (12.1-15.1); White Blood Count 10.1 10^3/uL (4.0-10.0)
--- NOTE | 2022-12-09 21:18 | ECG_ITS ---
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 Measurements Intervals [place] Rate: 114 P: 70 IN: 161 QRS: 58 QRSD: 81 T: 69 QT: 275 QTc: 379 Interpretive Statements SINUS TACHYCARDIA NONSPECIFIC ST & T-WAVE ABNORMALITY ABNORMAL RHYTHM ECG Compared to ECG 01/16/2022 15:38:12 Sinus rhythm no longer present T-wave abnormality still present Electronically Signed On 12-11-2022 16:29:55 CDT by Kalyani Lawrence M.D. [email or web address]/store/[id number]
[2022-12-09 21:24] LABS: INR 0.97 (0.8-1.2)
[2022-12-09] MEDS: HYDROcodone-acetaminophen 5-325 mg Tablet 1 TAB PO (21:35)
[2022-12-09 21:36] LABS: Slide Review Slide Review Perform
[2022-12-09 21:39] LABS: Alanine Aminotransferase 15 U/L (0-41); Albumin Level 3.6 g/dL (3.5-5.2); Alkaline Phosphatase 51 U/L (40-130); Aspartate Amino Transferase 20 U/L (0-40); Blood Urea Nitrogen 33 mg/dL (8-23); Calcium 9.3 mg/dL (8.5-10.5); Carbon Dioxide 34 mmol/L (22-29); Chloride 98 mmol/L (98-107); Globulin 3.5 g/dL (1.3-4.6); Glucose 153 mg/dL (65-115); NT Pro B Type Natriuretic Pept 1894 pg/mL (0-450); Osmolality Calculated 302 mOsm/kg (285-295); Sodium 141 mmol/L (136-145); Total Bilirubin 0.2 mg/dL (0.15-1.2); Total Protein 7.1 g/dL (6.6-8.7)
[2022-12-09] MEDS: sodium chloride 0.9% 1,000 ML 999 ML IV (21:39)
[2022-12-09 21:42] LABS: Anion Gap 13.7 (5-19); Potassium 4.7 mmol/L (3.5-5.1)
--- NOTE | 2022-12-09 22:14 | CTR_ITS ---
PROCEDURE INFORMATION: Exam: CTA Chest With Contrast Exam date and time: 12/09/2022 10:29 PM Age: 77 years old Clinical indication: Shortness of breath; Prior surgery; Surgery type: Cabg; Patient HX: SOB with hypoxia. TECHNIQUE: Imaging protocol: Computed tomographic angiography of the chest with contrast. 3D rendering (Not supervised by radiologist): MIP and/or 3D reconstructed images were created by the technologist. Radiation optimization: All CT scans at this facility use at least one of these dose optimization techniques: automated exposure control; mA and/or kV adjustment per patient size (includes targeted exams where dose is matched to clinical indication); or iterative reconstruction. Contrast material: OMNI 350; Contrast volume: 64 ml; Contrast route: INTRAVENOUS (IV); REPORTING DATA: Count of CT and Cardiac NM exams in prior 12 months: This patient has received [address] and 0 known cardiac nuclear medicine studies in the 12 months prior to the current study. COMPARISON: CR (CHEST, ) 12/09/2022 8:56 PM RADIATION DOSE METRICS: Total DLP (mGy-cm): 217.14 FINDINGS: Pulmonary arteries: No filling defects in the pulmonary arteries to suggest pulmonary embolism. Aorta: Moderate atherosclerotic changes in the visualized arteries. No evidence for aortic aneurysm or aortic dissection. Tracheobronchial tree: Debris layering in the mid/distal trachea. This may represent bronchial secretions. Lungs: Marked centrilobular and paraseptal emphysematous changes in the lungs with bulla formation in the right upper lobe. Bronchial wall thickening diffusely in both lungs with reticulonodular interstitial thickening in the right and left lower lobes. Multiple areas of pleural-parenchymal scarring in the lateral right lung, the 2 largest areas appear to correspond to the findings on the prior chest radiograph. Noncalcified nodule in the right lower lobe with an average measurement of 5 mm (series 8, image 480). Three noncalcified nodules in the left lower lobe, the larger has an average measurement of 7 mm (series 8, images 434, 441, and 451). Scattered calcified granulomas in both lungs.Multilevel degenerative changes of varying severity in the visualized spine. Pleural spaces: See Lungs finding. Heart: Mild enlargement of the heart. Coronary arteries: Extensive atherosclerotic calcification in the coronary arteries. Mediastinal space: No mediastinal hematoma. No pneumomediastinum. Lymph nodes: No lymphadenopathy. Liver: Multiple calcified granulomas in the liver. Gallbladder and bile ducts: No dilatation of the visualized bile ducts. Spleen: Multiple calcified granulomas in the spleen. The visualized spleen is unremarkable. Adrenal glands: Interval development of diffuse enlargement of the visualized right and left adrenal glands that may be due to an acute illness. Kidneys and ureters: Multiple cysts in the visualized left kidney. The largest parapelvic cyst is partially visualized and measures at least 5.5 cm. Nonobstructing stone in the left kidney measuring 2.9 mm. The visualized right kidney is unremarkable. Bones/joints: Calcification of the anterior longitudinal ligament at multiple levels in the thoracic spine, possibly representing diffuse idiopathic skeletal hyperostosis (DISH). Poststernotomy changes in the chest. Soft tissues: Sebaceous cyst in the left chest wall measuring 1.5 cm. No acute abnormality in the extrathoracic soft tissues. CT/CT angio chest PE protcl [id number] IMPRESSION: 1. Bronchial wall thickening diffusely in both lungs with reticulonodular interstitial thickening in the right and left lower lobes. Findings are suspicious for bronchopneumonia, including atypical organisms. Recommend clinical correlation. Recommend followup chest imaging to insure resolution of these findings. 2. No evidence for pulmonary embolism. 3. Debris layering in the mid/distal trachea. This may represent bronchial secretions. 4. Marked centrilobular and paraseptal emphysematous changes in the lungs with bulla formation in the right upper lobe. 5. Multiple areas of pleural-parenchymal scarring in the lateral right lung, the 2 largest areas appear to correspond to the findings on the prior chest radiograph. 6. Noncalcified nodules in both lungs. For patients at low risk (minimal or absent history of smoking and of other known risk factors), recommend CT Chest at 3-6 months, then consider CT Chest at 18-24 months. For patients at high risk (history of smoking or of other known risk factors), recommend CT Chest at 3-6 months, then CT Chest at 18-24 months. (Reference: Tosha) 7. Nonobstructing left renal stone. 8. Interval development of diffuse enlargement of the visualized right and left adrenal glands that may be due to the an acute illness. 9. Incidental/nonacute findings are listed in the report. COMMENTS: Consistent with the [employer] [employer]'s Incidental Findings Committee white paper (J Am Angela Radiol 2018): Any incidental renal lesion less than 1 cm or classified as too small to characterize, or any incidental cystic renal lesion characterized as simple-appearing, is likely benign. No follow-up imaging is recommended for these lesions per consensus recommendations based on imaging criteria. REFERENCES: Tosha Parra, et al. Guidelines for Management of Incidental Pulmonary Nodules Detected on CT Images: From the Fleischner Society 2017. Radiology. 2017;284(1):228-243.
--- NOTE | 2022-12-09 22:44 | ECG_ITS ---
[facility] Test Date: 2022-12-09 Pat Name: Sherwin Dalton Department: Room: Gender: Male Director Child: : 1945 Requested By: Shiv Weaver Order Number: [id number] Bhumi MD: Kalyani Lawrence M.D. Measurements Intervals [place] Rate: 118 P: 77 AL: 161 QRS: 61 QRSD: 93 T: 259 QT: 278 QTc: 390 Interpretive Statements SINUS TACHYCARDIA SEPTAL MYOCARDIAL INFARCTION , PROBABLY OLD [40+ ms Q WAVE IN V1/V2] ST DEVIATION AND MODERATE T-WAVE ABNORMALITY, CONSIDER LATERAL ISCHEMIA [-0.1+ mV T-WAVE IN I/aVL/V5/V6] ST DEVIATION AND MODERATE T-WAVE ABNORMALITY, CONSIDER INFERIOR ISCHEMIA [-0.1+ mV T-WAVE IN II/aVF] Compared to ECG 12/09/2022 21:18:12 Myocardial infarct finding now present Possible ischemia now present T-wave abnormality still present Electronically Signed On 12-11-2022 16:30:06 CDT by Kalyani Lawrence M.D. [id number]
[2022-12-09] MEDS: iohexol 350 mg/mL 500 mL Btl (per mL) IV (22:47)
[2022-12-09 22:49] LABS: Adenovirus Not Detected (NOT DETECT); Chlamydia Pneumoniae Not Detected (NOT DETECT); Coronavirus 229E,HKU1,NL63,OC4 Not Detected (NOT DETECT); Human Metapneumovirus Not Detected (NOT DETECT); Human Rhinovirus/Enterovirus Not Detected (NOT DETECT); Influenza A Not Detected (NOT DETECT); Influenza A H1 Not Detected (NOT DETECT); Influenza A H1-2009 Not Detected (NOT DETECT); Influenza A H3 Not Detected (NOT DETECT); Influenza B Not Detected (NOT DETECT); Mycoplasma Pneumoniae Not Detected (NOT DETECT); Parainfluenza Virus Type 1 Not Detected (NOT DETECT); Parainfluenza Virus Type 2 Not Detected (NOT DETECT); Parainfluenza Virus Type 3 Not Detected (NOT DETECT); Parainfluenza Virus Type 4 Not Detected (NOT DETECT); Respiratory Syncytial Virus A Not Detected (NOT DETECT); Respiratory Syncytial Virus B Not Detected (NOT DETECT); SARS-COV-2 Not Detected (NOT DETECT)
[2022-12-09] MEDS: albuterol 2.5 mg/3 mL Neb INHALATION (22:56)
[2022-12-09] MEDS: ipratropium 0.5 mg/2.5 mL Neb INHALATION (22:56)
[2022-12-09 22:57] VITALS: PULSE 118; RESP 21; O2SAT 97
[2022-12-09] MEDS: morphine 4 mg/mL SDV 1 mL IVP (23:00)
[2022-12-09] MEDS: ondansetron 2 mg/ML SDV 2 mL 4 MG IVP (23:01)
[2022-12-09 23:03] VITALS: PULSE 118; RESP 22; O2SAT 95
[2022-12-09 23:03] LABS: Troponin(5th) Baseline 77 ng/L (0-15)
[2022-12-09] MEDS: aspirin 81 mg Chew Tablet 324 MG PO (23:08)
[2022-12-09] MEDS: nitroglycerin 0.4 mg sublingual Tablet SUBLINGUAL (23:09)
[2022-12-09 23:18] LABS: ABG PCO2 79.6 mmHg (35-45); ABG PH Result 7.24 (7.35-7.45); Arterial Blood Gas Hematocrit 32.6 % (42-52); Base Excess ABG 5.1 mmol/L (-2.0-2.0); Blood Gas Sample Site Brachial, left; Blood Gas Sample Type Arterial; Carboxyhemoglobin 0.7 %THgb (0.4-20.1); HCO3 ABG 34.3 mmol/L (22-26); HGB O2 Sat 92.9 % (95-100); Oxygen Device NC; PO2 ABG 84.5 mmHg (80.0-100.0); Total Hemoglobin 10.6 g/dL (14-18)
[2022-12-09] MEDS: LORazepam 2 mg/mL INJ 1 mL 0.5 MG IVP (23:46)
[2022-12-09 23:59] VITALS: PULSE 110; RESP 19; O2SAT 97
[2022-12-10] VITALS (95 sets, daily range): BP systolic 90–157; BP diastolic 47–105; PULSE 69–152; RESP 15–39; TEMP 36.6–37.2; O2SAT 71–100; BMI 16.7
[2022-12-10 00:57] LABS: Troponin 5 2HR 65.36 ng/L (0-15)
[2022-12-10 01:03] LABS: Troponin 5 2HR Delta -11.64 ABS# (0-10)
--- NOTE | 2022-12-10 01:04 | ECG_ITS ---
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 Measurements Intervals [place] Rate: 109 P: 69 SD: 132 QRS: 61 QRSD: 85 T: -58 QT: 311 QTc: 420 Interpretive Statements SINUS TACHYCARDIA NONSPECIFIC ST & T-WAVE ABNORMALITY Compared to ECG 12/09/2022 22:51:00 Myocardial infarct finding no longer present Possible ischemia no longer present T-wave abnormality still present Electronically Signed On 12-11-2022 16:48:31 CDT by Kalyani Lawrence M.D. [id number]
[2022-12-10] MEDS: cefTRIAXone 1,000 MG in sodium chloride 0.9% (plus) 50 ML 100 MG IV (01:07)
[2022-12-10] MEDS: sodium chloride 0.9% 1,000 ML 999 ML IV (01:08)
--- NOTE | 2022-12-10 01:10 | P.HP_ITS ---
Providers/Chief Complaint Admitting Physician: Dameon Garcia MD Primary Care Provider: Pawel Ordoñez Chief Complaint: RESP DISTRESS History of Present Illness Sherwin Dalton is a 77 year old male presenting to the emergency department with complaints of productive cough, increasing shortness of breath over the last 4 to 5 days. He has known severe lung disease, and is on chronic oxygen at 3 L. He has vomited on occasion. No diarrhea. No fever. Overall his health is decl ined with his lung disease greatly in the last 6 months. I obtained this history from the ER physician, as well as patient's family. Patient himself is on BiPAP, received Ativan, and cannot give me history currently. Review of Systems General: Reports: ROS unobtainable due to mental status Medications/Allergies Home Medications Medication Instructions Recorded Confirmed Last Taken Type oxycodone-acetaminophen 10 mg-325 1 tab PO Q6H PRN Pain 01/16/22 11/15/22 Unknown History mg tablet nitroglycerin 0.4 mg sublingual 0.4 mg sublingual Q5M PRN chest 01/20/22 11/15/22 Unknown Rx tablet pain 30 days #10 tabs albuterol sulfate 90 mcg/actuation 2 puff inhalation Q6H PRN 02/08/22 11/15/22 Unknown History aerosol inhaler (Proventil HFA) tamsulosin 0.4 mg capsule 0.4 mg PO .at bedtime #30 caps 02/08/22 11/15/22 Unknown Rx vitamin B12 500 mcg-folic acid 400 1 tab PO DAILY 02/08/22 11/15/22 Unknown History mcg tablet cholecalciferol (vitamin D3) 1,250 PO 05/17/22 11/15/22 Unknown History mcg (50,000 unit) capsule roflumilast 250 mcg tablet 250 mcg PO DAILY 11/15/22 11/15/22 Unknown History Allergies Allergy/AdvReac Type Severity Reaction Status Date / Time tetracycline Allergy ALGY-Rash Verified 12/09/22 20:28 PFSH Acute PFSH: Medical History Anemia BPH loc w urin obs/LUTS CAD (coronary artery disease) Congestive heart failure due to cardiomyopathy COPD (chronic obstructive pulmonary disease) Ischemic cardiomyopathy Scrotal hernia Surgical History Hx of CABG Family History Father , AT 94 Cancer Mother , AT 83 Heart disease Social History Smoking and tobacco status: former smoker (7-8 years ago) Alcohol intake: former Substance/Drug Use: never Marital status: Single Current occupational status: retired and disabled Vitals/I&O/Wt Last Vital Signs Temp 97.9 F 12/09/22 20:22 Pulse 110 H 12/09/22 23:59 Resp 22 H 12/09/22 23:03 BP 131/107 12/09/22 20:22 Pulse Ox 97 12/09/22 23:59 O2 Del Method Nasal Cannula 12/09/22 23:03 O2 Flow Rate 5 12/09/22 23:03 FiO2 45 12/09/22 23:59 Weight last 48 hrs Weight 57.153 kg Physical Exam Narrative: General exam is a white male, sleepy, on BiPAP with an oxygen saturation of 94%. Settings reviewed. Current FiO2 around 55%. HEENT: Atraumatic and normocephalic. BiPAP is noted Neck is supple no lymphadenopathy thyromegaly Cardiovascular slightly tachycardic, no murmur Lungs markedly diminished breath sounds bilaterally. Occasional faint expiratory wheeze Abdomen is soft nontender. No obvious hepatosplenomegaly exam demonstrates a right inguinal hernia, reducible Extremities no cyanosis clubbing edema, cap refill brisk Skin no rash Neuro no obvious focal deficits Data 12/09/22 21:04 12/09/22 21:04 Other Labs: INR 0.97 ABG demonstrates pH 7.24, PCO2 of 80, PO2 of 84 on 40% FiO2 at that time by juan carlos al cannula Calcium 9.3 LFTs normal Troponin 77 with repeat of 65 BNP of 1894 COVID PCR negative Chest x-ray COPD. No obvious infiltrate. I reviewed this myself CTA demonstrates no PE. Bronchopneumonia is noted. Marked emphysematous changes Blood cultures were collected EKG which I reviewed demonstrates sinus tachycardia, normal axis, significant flipped ST waves inferior and precordial. Repeat EKG shows improvement Echocardiogram in January demonstrated an EF of 35%, moderate global hypokinesis, mild pulmonary hypertension, 2/4 diastolic dysfunction Micro: Microbiology 12/09/22 00:44 Blood Culture - Preliminary Blood SPECIMEN COLLECTED 12/09/22 00:40 Blood Culture - Preliminary Blood SPECIMEN COLLECTED A&P Assessment and plan (1) Pneumonia: Patient with evidence of pneumonia per CT Initiate vancomycin and Zosyn Sputum culture and blood culture Wean BiPAP as tolerated Check MRSA PCR COVID PCR negative (2) COPD with acute exacerbation: Solu-Medrol 60 mg every 8 hours IV DuoNeb every 4 hours Budesonide twice daily (3) Elevated troponin: EKG is abnormal. Patient with elevated troponin, though no significant trend. Continue to follow closely Aspirin Statin Note that he was evaluated previously by cardiology in January 2022, for his ischemic cardiomyopathy. Secondary to issues with access it was thought to treated medically at that time. Consider full anticoagulation if develops chest discomfort, or significant troponin trend (4) Acute respiratory failure with hypoxia and hypercapnia: Continue BiPAP See notations above Wean BiPAP as tolerated Plan Multiple other medical problems as outlined in past medical history Full code currently although family is considering if he should be made allow natural Lovenox for DVT prophylaxis Attestations Medical Necessity Statement*: Will require greater than 2 midnight stay for evaluation and treatment of acute COPD exacerbation with pneumonia and respiratory failure. Critical Care Time: The high probability of a clinically significant, sudden or life threatening deterioration of the patient's [pulmonary, cardiac] system(s) required my full and direct attention, intervention and personal management. The critical care time is as shown. This time is in addition to time spent performing any reported procedures but includes the following: [x] Data and vital sign review and interpretation [x] Patient assessment, examination and intervention [x] Documentation [x] Medication orders and management Critical Care Time (min): 62 Coding Level of Care Code Critical Care >/= 30 minutes Diagnoses Pneumonia J18.9 COPD with acute exacerbation J44.1 Elevated troponin R77.8 Acute respiratory failure with hypoxia and hypercapnia J96.01; J96.02 Time Spent (min) 62
[2022-12-10 02:56] LABS: ABG PH Result 7.27 (7.35-7.45); Arterial Blood Gas Hematocrit 30.5 % (42-52); Base Excess ABG 7.1 mmol/L (-2.0-2.0); Blood Gas Sample Site Brachial, right; Blood Gas Sample Type Arterial; HCO3 ABG 35.9 mmol/L (22-26); Oxygen Device BIPAP
[2022-12-10 02:58] LABS: ABG PCO2 78.7 mmHg (35-45)
[2022-12-10] MEDS: azithromycin 500 MG in sodium chloride 0.9% 250 ML 250 MG IV (03:36)
[2022-12-10 03:49] LABS: Troponin 5 6HR 70.98 ng/L (0-15)
[2022-12-10 03:50] LABS: Troponin 5 6HR Delta -6.02 ng/L (0-12)
--- NOTE | 2022-12-10 04:18 | PC.PHAR ---
Initial Vanc Dosing Goal Vanc Trough: 15-20 (High trough requested) Plan: Initial dose of 1000 mg Q12H Vanc trough to be scheduled for prior to 4th dose and will reassess
[2022-12-10] MEDS: ipratropium-albuterol 3 mL Neb INHALATION ×5 (04:35→19:48)
--- NOTE | 2022-12-10 04:44 | ECG_ITS ---
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 Measurements Intervals [place] Rate: 119 P: 77 TX: 146 QRS: 57 QRSD: 87 T: -23 QT: 286 QTc: 403 Interpretive Statements Multifocal atrial tachycardia LEFT VENTRICULAR HYPERTROPHY AND ST-T CHANGE [VOLTAGE CRITERIA PLUS ST/T ABNORMALITY] Compared to ECG 12/10/2022 01:04:29 Left ventricular hypertrophy now present ST (T wave) deviation now present T-wave abnormality no longer present Electronically Signed On 12-11-2022 16:49:41 CDT by Kalyani Lawrence M.D. [id number]
[2022-12-10] MEDS: vancomycin 1,000 MG in sodium chloride 0.9% 250 ML 250 MG IV ×2 (05:31→17:04)
[2022-12-10] MEDS: piperacillin-tazobactam 3.375 GM in sodium chloride 0.9% (plus) 50 ML IV ×3 (05:32→19:37)
[2022-12-10] MEDS: enoxaparin 40 mg/0.4 mL Syringe SUBCUT (05:32)
[2022-12-10] MEDS: ondansetron 2 mg/ML SDV 2 mL 4 MG IVP (06:32)
[2022-12-10 06:44] LABS: Blood Urine Trace (Negative); Glucose Urine UA Norm (Normal); Ketones Urine Negative (Negative); Protein Urine 1+ (Negative); Urine Appearance Clear (CLEAR); Urine Color Yellow (Yellow); pH Urine 5 (5-7)
[2022-12-10 06:45] LABS: Bilirubin Urine Neg (Negative); Leukocyte Esterase Urine Trace (Negative); Nitrate Urine Negative (Negative); Urobilinogen Urine Neg (Negative)
[2022-12-10 06:54] LABS: Add Urine Culture? No; Amorphous Sediment Urine TRACE /hpf; Bacteria Urine TRACE /hpf; Hyaline Casts Urine 0-4 /lpf; Mucus Urine TRACE /hpf; RBC Urine 0-4 /hpf (0-2); Squamous Epithelial Cell Urine 0-4 /hpf (0-5)
[2022-12-10 07:44] LABS: Blood Gas Allen Test Pos; Blood Gas Operator Identificat CAK; Blood Gas Sample Type Arterial; Ionized Calcium Level - ABG 1.3 mmol/L (1.1-1.4); Oxygen Device BIPAP
[2022-12-10 07:53] LABS: ABG PH Result 7.33 (7.35-7.45); Alveolar-Arterial Oxygen Gradi 17.2 mmHg (5-10); Base Excess ABG 6.5 mmol/L (-2.0-2.0); Blood Gas Sample Site Brachial, left; Carboxyhemoglobin 0.3 %THgb (0.4-20.1); HCO3 ABG 33.8 mmol/L (22-26); HGB O2 Sat 96.1 % (95-100); Oxygen Saturation ABG 97.4; Potassium Level - ABG 4.5 mmol/L (3.5-5.0); Total Hemoglobin 9.8 g/dL (14-18)
[2022-12-10 07:54] LABS: ABG PCO2 64.3 mmHg (35-45)
[2022-12-10] MEDS: oxyCODONE-APAP 5-325 mg Tablet 1 TAB PO ×3 (07:54→21:39)
[2022-12-10] MEDS: dilTIAZem 30 mg Tablet PO ×3 (07:54→19:37)
[2022-12-10] MEDS: budesonide 0.5 mg/2 mL Neb INHALATION ×2 (08:06→19:49)
[2022-12-10] MEDS: pantoprazole 40 mg SDV IVP (09:47)
[2022-12-10] MEDS: aspirin 325 mg Tablet PO (09:48)
--- NOTE | 2022-12-10 11:14 | PM.MISC ---
Miscellaneous Note Note: This patient carries history of coronary disease, CABG, PCI with stent placement, oxygen dependent COPD primary hypertension, lives with her son at home presented with COPD exacerbation with pneumonia This morning patient is on BiPAP Tidal volume 600 Able to follow commands Awake and alert Sinus tachycardia Abdomen soft Cachectic, malnourished Muscle mass loss Inguinal hernia Plan Requested another ABG which showed improvement in PCO2 Hypercapnia improving I have asked patient to stay on BiPAP for at least 2-3 more hours and then we will give him a break for meals I have tried to get in touch with his son and :- it is going straight to voicemail Please note patient could not go for coronary angiogram because of hernia in the past Patient has a loop recorder to detect irregular heart rhythm for his palpitations For now he is in sinus tachycardia Reduced ejection fraction grade 2 diastolic dysfunction EF 35% no acute congestive heart failure/decompensated signs Patient is losing weight Muscle mass loss He is full code Continue antibiotics for pneumonia I will let him have mechanical soft diet She has received ceftriaxone and azithromycin in the ER, currently on vancomycin and Zosyn Might be able to de-escalate antibiotics by tomorrow if he remains clinically stable, will follow up with MRSA nares Troponin trending down No active chest pain Patient carries guarded prognosis
[2022-12-10] MEDS: roflumilast 500 mcg Tablet 250 MCG PO (12:04)
[2022-12-10] MEDS: morphine 4 mg/mL SDV 1 mL 2 MG IVP (12:40)
--- NOTE | 2022-12-10 12:48 | ECG_ITS ---
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 Measurements Intervals [place] Rate: 122 P: 79 [place]: 149 QRS: 47 QRSD: 90 T: 89 QT: 260 QTc: 371 Interpretive Statements SINUS TACHYCARDIA WITH OCCASIONAL VENTRICULAR PREMATURE COMPLEXES LEFT VENTRICULAR HYPERTROPHY AND ST-T CHANGE [VOLTAGE CRITERIA PLUS ST/T ABNORMALITY] POSSIBLE SEPTAL MYOCARDIAL INFARCTION , PROBABLY OLD [30 ms Q WAVE IN V1/V2] Compared to ECG 12/10/2022 04:46:28 Ventricular premature complex(es) now present Myocardial infarct finding now present ST (T wave) deviation still present Electronically Signed On 12-11-2022 16:32:37 CDT by Kalyani Lawrence M.D. [id number]
[2022-12-10] MEDS: ketorolac 30 mg/mL INJ 15 MG IVP (13:08)
[2022-12-10] MEDS: lidocaine 2% viscous 15 ML, aluminum-mag hydrox-simethicon 30 ML, sucralfate oral liq 1 GM PO (13:13)
--- NOTE | 2022-12-10 13:52 | PC.NURSE ---
At 1240, patient started reporting chest pain, 7/10. NUrse alerted Dr hanson and recived orders for an EKG and 2mg morphine. After morphine adminstration, patient did not get any pain relief, reports pain now 10/10 and radiating to arms. Nurse received additional orders for toradol, GO cocktail and increase lovenox dose.
--- NOTE | 2022-12-10 15:16 | USCV_ITS ---
Sherwin Dalton Age: 77 Gender: M : 1945 Exam Date: 12/10/2022 19:02 Ordering Phys: Markus Case MD Technologist: CORINNE [place] [facility] [place]ST [place]IN BP: 123 / 59 HR: 105 Rhythm: Atrial fibrillation Technical Quality: Suboptimal MEASUREMENTS (Male / Female) Normal Values 2D ECHO LVOT Diameter 2.0 cm LV Ejection Fraction MOD 2C 21.6 % LV Ejection Fraction 2C AL 22.7 % LA Diameter 2.9 cm LA Width 3.1 cm LA Height 3.3 cm RA Width 2.7 cm RA Height 3.1 cm Aorta at Sinotubular Diameter 2.9 cm IVC Diameter 1.3 cm M-MODE Aortic Annulus Diameter 3.2 cm LA Ao Ratio MM 0.8 MV E Point Septal Separation 0.7 cm DOPPLER AV Peak Velocity 146.0 cm/s LVOT Peak Velocity 92.0 cm/s AV Area Cont Eq vti 2.3 cm squared AV Area Cont Eq pk 1.9 cm squared MV Peak Velocity 137.0 cm/s MV Area PHT 6.3 cm squared MV E' Velocity 66.0 cm/s Mitral E to MV E' Ratio 6.8 Mitral E to LV E' Lateral Ratio 6.9 Mitral E to LV E' Septal Ratio 6.7 TR Peak Velocity 214.1 cm/s TR Peak Gradient 18.3 mmHg TR Mean Velocity 182.1 cm/s TR Mean Gradient 13.7 mmHg TR Velocity Time Integral 67.5 cm TV Peak E Velocity 72.0 cm/s Right Atrial Pressure 3.0 mmHg Pulmonary Artery Systolic Pressu 21.3 mmHg RV Acceleration Time 0.1 s RV Ejection Time 0.3 s RV AcT/ET 0.2 FINDINGS Left Ventricle Mildly increased left ventricular cavity size. Severe diffuse hypokinesia of the septum, anteroseptum and the left-ventricular apex. LV ejection fraction is around 28%( MOD 4 Chamber) Right Ventricle Normal right ventricular size and systolic function. Right Atrium The right atrium is normal in size. Left Atrium The left atrium is normal in size. Mitral Valve Mild mitral valve regurgitation. Mild-moderate mitral valve regurgitation. Aortic Valve Thickened aortic valve. Tricuspid Valve Mild tricuspid valve regurgitation. Pulmonic Valve No gross abnormalities noted Pericardium No pericardial effusion. Aorta Normal aortic annulus size. IVC The inferior vena cava appears normal. CONCLUSIONS Mildly increased left ventricular cavity size. Severe diffuse hypokinesia of the septum, anteroseptum and the left-ventricular apex. LV ejection fraction is around 28%( MOD 4 Chamber). Mild mitral valve regurgitation. Mild-moderate mitral valve regurgitation. Thickened aortic valve. Mild tricuspid valve regurgitation. Estimated pulmonary artery peak systolic pressure 21 mmHg. There is no pericardial effusion. There are no intracardiac masses. Compared to the study from 01/16/2022, there is no worsening of the LV systolic function from 35% to 28% Dr Kalyani Lawrence MD [facility] (Electronically Signed) Final Date: 11 December 2022 08:52 S
[2022-12-10] MEDS: enoxaparin 60 mg/0.6 mL Syringe 50 MG SUBCUT (15:34)
[2022-12-10 16:13] LABS: Troponin(5th) Baseline 198 ng/L (0-15)
[2022-12-10 16:48] LABS: Blood Gas Allen Test Pos; Blood Gas Operator Identificat CAK; Blood Gas Sample Site Brachial, left; Blood Gas Sample Type Arterial; Oxygen Device BIPAP
[2022-12-10 16:50] LABS: ABG PCO2 36.6 mmHg (35-45); Arterial Blood Gas Hematocrit 23.6 % (42-52); Base Excess ABG 11.3 mmol/L (-2.0-2.0); HCO3 ABG 34.1 mmol/L (22-26)
[2022-12-10 16:52] LABS: ABG PH Result 7.58 (7.35-7.45)
--- NOTE | 2022-12-10 17:39 | PC.NURSE ---
Addendum entered by Shreyas Lechuga RN 12/10/22 17:59: Shift SUmmary: Patient has rested in bed throughout the day, refused to get up to the chair but agreed to try tommorow. Off of bipap for meals. Around 1pm, patient experienced radiating chest pain rated 10/10. experienced relief after morphine, toradol, and a gi cocktail. Lovenox dosing increased. EKG was unremarkable. Dr hanson will follow up with cardiology due to baseline troponin of 198 Original Note: Shift SUmmary: Patient has rested in bed throughout the day, refused to get up to the chair but agreed to try tommorow. Off of bipap for meals. Around 1pm, patient experienced radiating chest pain rated 10/10. experienced relief after morphine, toradol, and a gi cocktail. EKG was unremarkable. Dr hanson will follow up with cardiology due to baseline troponin of 198
[2022-12-10 18:02] LABS: Troponin 5 2HR 302.5 ng/L (0-15); Troponin 5 2HR Delta 104.5 ABS# (0-10)
[2022-12-10] MEDS: atorvastatin 40 mg Tablet PO (19:57)
[2022-12-10 21:52] LABS: Troponin 5 6HR 364.3 ng/L (0-15); Troponin 5 6HR Delta 166.3 ng/L (0-12)
[2022-12-11] VITALS (82 sets, daily range): BP systolic 93–159; BP diastolic 47–82; PULSE 63–130; RESP 9–255; TEMP 36.5; O2SAT 82–99
[2022-12-11] MEDS: ipratropium-albuterol 3 mL Neb INHALATION ×6 (00:03→19:50)
[2022-12-11] MEDS: dilTIAZem 30 mg Tablet PO ×4 (01:25→19:32)
[2022-12-11] MEDS: oxyCODONE-APAP 5-325 mg Tablet 1 TAB PO ×4 (03:29→19:32)
[2022-12-11] MEDS: vancomycin 1,000 MG in sodium chloride 0.9% 250 ML 250 MG IV ×2 (03:30→17:14)
[2022-12-11] MEDS: enoxaparin 60 mg/0.6 mL Syringe 50 MG SUBCUT ×2 (03:31→17:14)
[2022-12-11] MEDS: piperacillin-tazobactam 3.375 GM in sodium chloride 0.9% (plus) 50 ML IV ×3 (04:32→19:32)
[2022-12-11 04:50] LABS: Hematocrit 28.5 % (42.0-52.0); Hemoglobin 8.6 g/dL (11.7-16.6); Mean Corpuscular HGB Conc 30.2 g/dL (30.0-36.0); Mean Corpuscular Hemoglobin 34.4 pg (28.0-34.0); Mean Platelet Volume 11.4 fL (7.4-10.4); Platelet Count 143 10^3/cmm (130-400); Red Cell Distribution Width 13.7 % (12.1-15.1); White Blood Count 10.3 10^3/uL (4.0-10.0)
[2022-12-11 05:02] LABS: Alanine Aminotransferase 19 U/L (0-41); Albumin Level 3.1 g/dL (3.5-5.2); Alkaline Phosphatase 43 U/L (40-130); Anion Gap 11.5 (5-19); Aspartate Amino Transferase 54 U/L (0-40); Blood Urea Nitrogen 33 mg/dL (8-23); Calcium 9.1 mg/dL (8.5-10.5); Carbon Dioxide 33 mmol/L (22-29); Chloride 103 mmol/L (98-107); Glucose 129 mg/dL (65-115); Magnesium 2.3 mg/dL (1.7-2.3); Osmolality Calculated 305 mOsm/kg (285-295); Potassium 4.5 mmol/L (3.5-5.1); Sodium 143 mmol/L (136-145); Total Bilirubin 0.2 mg/dL (0.15-1.2); Total Protein 6.1 g/dL (6.6-8.7)
[2022-12-11 05:03] LABS: Creatinine Clr Calc Pharmacy 58.5889
[2022-12-11] MEDS: nitroglycerin 0.4 mg sublingual Tablet SUBLINGUAL ×2 (08:00→08:15)
--- NOTE | 2022-12-11 08:00 | PC.NURSE ---
Chest Pain 10/10, nitro sublingual given at 0800. HR 131, 150/112, RR 30, [address] Swartz notified.
--- NOTE | 2022-12-11 08:15 | PM.PN ---
Subjective Subjective: Patient is reporting chest pain this morning. Was given nitro and his symptoms have been improving. He does have a cardiology consult pending. He is tachycardic and somewhat short of breath this morning. His pressures have been a little bit high this morning. Vitals/I&O/Wt Last Vital Signs Temp 98.9 F 12/10/22 17:30 Pulse 130 H 12/11/22 08:00 Resp 33 H 12/11/22 08:00 BP 121/53 12/11/22 08:00 Pulse Ox 98 12/11/22 08:00 O2 Del Method Nasal Cannula 12/11/22 08:00 O2 Flow Rate 4 12/11/22 08:00 FiO2 4 12/11/22 08:00 12/10/22 12/11/22 12/11/22 22:59 06:59 14:59 Intake Total 790 / 840 420 / 1260 Output Total 250 / 700 Balance 790 / 390 170 / 560 Weight last 48 hrs Weight 125 lb 10.616 oz Weight 120 lb Weight 120 lb 2.431 oz Weight 126 lb Physical Exam Narrative: General: Cooperative patient in no apparent distress. Mildly tachypneic. HEENT: Normocephalic, Atraumatic. External ears normal. Nasal passages patent without drainage. MMM. Heart: Tachycardic. Resp: Diminished air movement throughout the lungs. There are mild wheezes and fine crackles present Abd: Soft, non-tender. Non-distended. Very large inguinal hernia. Extremities: No edema or clubbing. Skin: No rash or lesions on exposed areas. Neuro: No focal motor or sensory deficits. Data 12/11/22 04:05 12/11/22 04:05 Micro: Microbiology 12/09/22 00:44 Blood Culture - Preliminary Blood 12/09/22 00:40 Blood Culture - Preliminary Blood NEGATIVE TO DATE A&P Assessment and plan (1) Pneumonia: Patient with evidence of pneumonia per CT Continue vancomycin and Zosyn empirically at this time. Sputum culture and blood culture pending. Blood cultures +1/4 bottles with GPC in clusters. Wean BiPAP as tolerated. Check MRSA PCR -pending. COVID PCR negative (2) COPD with acute exacerbation: Solu-Medrol 60 mg every 8 hours IV DuoNeb every 4 hours Budesonide twice daily (3) Elevated troponin: Having chest pain this morning. Did improve with administration of nitro. Cardiology is consulted. He had a delta troponin yesterday of over 100. He was started on ACS protocol with Lovenox, Plavix, aspirin, statin, O2. He does wish to remain full code. Note that he was evaluated previously by cardiology in January 2022, for his ischemic cardiomyopathy. Secondary to issues with access it was thought to treated medically at that time. (4) Acute respiratory failure with hypoxia and hypercapnia: Continue BiPAP as needed. See notations above. Wean BiPAP as tolerated Plan Code Status: Full IVF: None DVT PPx: Lovenox GI PPx: Protonix ABx: Vanco, Zosyn Diet: Soft mechanical Discharge plan: TBD Attestations Medical Necessity Statement*: Will need continued inpatient monitoring for IV antibiotics, cultures, cardiac work-up. Coding Level of Care Code Critical Care >/= 30 minutes Diagnoses Pneumonia J18.9 COPD with acute exacerbation J44.1 Elevated troponin R77.8 Acute respiratory failure with hypoxia and hypercapnia J96.01; J96.02
[2022-12-11 08:57] LABS: Absolute Segmented Neutrophil 5.9 10/cmm (1.6-7.1); Anisocytosis 1+; Band Neutrophils Absolute 3.5 10^3/cmm (0.0-1.2); Eosinophils 0 %; Lymphocytes 6 %; Lymphocytes Absolute 0.6 10^3/cmm (1.2-3.4); Macrocytosis 1+; Monocytes Absolute 0.2 10^3/cmm (0.1-0.6); Segmented Neutrophils 57 %; Total Cells Counted 100 (0-100)
[2022-12-11 08:58] LABS: Absolute Neutrophil 9.4 10^3/cmm (1.4-6.5); Platelet Estimate Normal (Normal); Smudge Cells Trace
--- NOTE | 2022-12-11 09:00 | PM.CONSULT ---
Providers/Reason For Consult Consulting Physician/Specialty*: EDINSON Lawrence MD/cardiology Reason for Consult*: Patient with a history of coronary disease, coronary artery bypass surgery, presenting with a COPD exacerbation. Elevated troponin T suggesting non-ST elevation myocardial infarction Requesting Physician: Dr. Pawel Maier Attending Physician: Pawel Swartz DO Primary Care Provider: Pawel Ordoñez History of Present Illness History of Present Illness Sherwin Dalton is a 77 year old male with history of coronary artery disease, severe COPD, ischemic cardiomyopathy, was admitted to hospital yesterday with complaints of progressive shortness of breath. He is being treated for COPD exacerbation and pneumonia. He started complaining of increasing episodes of chest pain since the hospital admission. He is complaining of pain in the mid substernal area, radiating across the chest. Intensity is moderate. Sublingual nitroglycerin seems to be helping the pain. He was found to have elevated troponin T with a significant delta. Cardiology consult is requested for further cardiac evaluation recommendations. This patient is known to have coronary artery disease and apparently had a four-vessel coronary artery bypass surgery in 1991 at the [facility]. He used to be followed by a shell trim tool setter in [place] up until couple of years ago. He had few angiograms and PCI's since the bypass surgery. But the details are not known. He has been taking Plavix chronically. In January of last year, he was admitted to the hospital with a COPD exacerbation. He had a markedly elevated troponin T in the 1000 range. He was evaluated by my cardiology colleague at that time. Patient apparently has a large bilateral inguinal hernia. 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 The decision was to pursue a non- invasive/non interventional approach because of the patient's very fragile condition, difficulty in arterial access and the patient's desire not to undergo through any aggressive measures. So it was decided to optimize medical treatment. According the patient, for the last few months, he was having increasing shortness of breath and also increasing episodes of chest pains. He may have chest pains once or twice a week. Usually responds to 1 sublingual nitro. According to the patient, if there is any delay in taking the sublingual nitro, the pain may linger around for longer.. His requirement for oxygen was increasing. He used to be taking 2 L of oxygen by nasal cannula. Prior to the hospital admission, his requirement went up to 5 L/min by nasal cannula. Currently he has no fever or chills. Has a cough. Denies any palpitation, dizziness or syncopal episodes. Review of Systems Narrative: CONSTITUTIONAL: No fever or chills. EYES: No blurring of vision or other visual disturbances lately. ENT: No hoarseness of voice, auditory disturbances or sore throat. CARDIOVASCULAR: As mentioned above. RESPIRATORY: Cough and shortness of breath as mentioned above GASTROINTESTINAL: History of constipation and mesenteric ischemia? Occlusion of the SMA GENITOURINARY: No dysuria or hematuria. INTEGUMENTARY: No skin rashes or history of skin cancer. NEURO: No transient ischemic attacks or amaurosis. PSYCHIATRIC: No history of psychosis or major depression. HEMATOLOGIC: Chronic anemia ENDOCRINE: No history of polyuria or polydipsia. MUSCULOSKELETAL: No recent joint pain or swelling. ALLERGY/IMMUNOLOGY: As mentioned above. Medications/Allergies Home Medications Medication Instructions Recorded Confirmed Last Taken Type oxycodone-acetaminophen 10 mg-325 1 tab PO Q6H PRN Pain 01/16/22 12/10/22 Unknown History mg tablet nitroglycerin 0.4 mg sublingual 0.4 mg sublingual Q5M PRN chest 01/20/22 12/10/22 Unknown Rx tablet pain 30 days #10 tabs albuterol sulfate 90 mcg/actuation 2 puff inhalation Q6H PRN unknown 02/08/22 12/10/22 Unknown History aerosol inhaler (Proventil HFA) tamsulosin 0.4 mg capsule 0.4 mg PO .at bedtime #30 caps 02/08/22 12/10/22 Unknown Rx vitamin B12 500 mcg-folic acid 400 1 tab PO DAILY 02/08/22 12/10/22 Unknown History mcg tablet cholecalciferol (vitamin D3) 1,250 1,250 mcg PO DAILY PRN unknown 05/17/22 12/10/22 Unknown History mcg (50,000 unit) capsule roflumilast 250 mcg tablet 250 mcg PO DAILY 11/15/22 12/10/22 Unknown History aspirin 81 mg tablet,delayed 81 mg PO DAILY 12/10/22 12/10/22 Unknown History release atorvastatin 80 mg tablet 80 mg PO DAILY 12/10/22 12/10/22 Unknown History clopidogrel 75 mg tablet 75 mg PO DAILY 12/10/22 12/10/22 Unknown History isosorbide mononitrate 30 mg 30 mg PO DAILY 12/10/22 12/10/22 Unknown History tablet,extended release 24 hr lisinopril 2.5 mg tablet 2.5 mg PO DAILY 12/10/22 12/10/22 Unknown History Allergies Allergy/AdvReac Type Severity Reaction Status Date / Time tetracycline Allergy ALGY-Rash Verified 12/09/22 20:28 Current Medications Generic Name Dose Route Start [facility] Admin [facility] Reason Stop Dose Admin Albuterol/Ipratropium 3 ml 12/10/22 04:08 12/11/22 04:09 Ipratropium-Albuterol 3 Ml Neb INHALATION 3 ml Q4H JESSICA Administration Atorvastatin Calcium 40 mg 12/10/22 21:00 12/10/22 19:57 Atorvastatin 40 Mg Tablet PO 40 mg BEDTIME JESSICA Administration Budesonide 0.5 mg 12/10/22 20:00 12/10/22 19:49 Budesonide 0.5 Mg/2 Ml Neb INHALATION 0.5 mg BID JESSICA Administration Diltiazem HCl 30 mg 12/10/22 07:45 12/11/22 07:53 Diltiazem 30 Mg Tablet PO 30 mg Q6H JESSICA Administration Enoxaparin Sodium 50 mg 12/10/22 16:00 12/11/22 03:31 Enoxaparin 60 Mg/0.6 Ml Syringe SUBCUT 50 mg Q12H JESSICA Administration Piperacillin Sod/Tazobactam 50 mls @ 12.5 mls/hr 12/10/22 04:15 12/11/22 04:32 Sod 3.375 gm/ Sodium Chloride IV 12.5 mls/hr Q8H JESSICA Administration Vancomycin HCl 1,000 mg/ 250 mls @ 250 mls/hr 12/10/22 04:30 12/11/22 04:30 Sodium Chloride IV Infused Q12H JESSICA Infusion Methylprednisolone Sodium Succinate 60 mg 12/10/22 06:00 12/11/22 05:29 Methylprednisolone Sod Succ 125 Mg/2 Ml Inj IVP 60 mg Q8H JESSICA Administration Nitroglycerin 0.4 mg 12/11/22 07:58 12/11/22 08:15 Nitroglycerin 0.4 Mg Sublingual Tablet SUBLINGUAL 0.4 mg Q5M PRN Administration CHEST PAIN Ondansetron HCl 4 mg 12/10/22 04:08 12/10/22 06:32 Ondansetron 2 Mg/Ml Sdv 2 Ml IVP 4 mg Q6H PRN Administration NAUSEA AND VOMITING Oxycodone/Acetaminophen 1 tab 12/10/22 21:01 12/11/22 07:52 Oxycodone-Apap 5-325 Mg Tablet PO 1 tab Q6H PRN Administration MODERATE PAIN Pantoprazole Sodium 40 mg 12/10/22 09:00 12/10/22 09:47 Pantoprazole 40 Mg Sdv IVP 40 mg DAILY JESSICA Administration Roflumilast 250 mcg 12/10/22 09:00 12/10/22 12:04 Roflumilast 500 Mcg Tablet PO 250 mcg DAILY JESSICA Administration PFSH Acute PFSH: Medical History Anemia BPH loc w urin obs/LUTS CAD (coronary artery disease) Congestive heart failure due to cardiomyopathy COPD (chronic obstructive pulmonary disease) Ischemic cardiomyopathy Scrotal hernia Surgical History Hx of CABG Family History Father , AT 94 Cancer Mother , AT 83 Heart disease Social History Smoking and tobacco status: former smoker (7-8 years ago) Alcohol intake: former Substance/Drug Use: never Marital status: Single Current occupational status: retired and disabled Vitals/I&O/Wt Last Vital Signs Temp 97.7 F 12/11/22 08:19 Pulse 130 H 12/11/22 08:00 Resp 33 H 12/11/22 08:00 BP 121/53 12/11/22 08:00 Pulse Ox 98 12/11/22 08:00 O2 Del Method Nasal Cannula 12/11/22 08:00 O2 Flow Rate 4 12/11/22 08:00 FiO2 4 12/11/22 08:00 12/10/22 12/11/22 12/11/22 22:59 06:59 14:59 Intake Total 790 / 840 420 / 1260 Output Total 250 / 700 Balance 790 / 390 170 / 560 Weight last 48 hrs Weight 125 lb 10.616 oz Weight 120 lb Weight 120 lb 2.431 oz Weight 126 lb Physical Exam Narrative: GENERAL: The patient is alert and oriented times three. Not in any acute distress. Chronically ill looking HEENT: Moderate pallor with no icterus or lymphadenopathy.Oral cavity: There are no mucous membrane lesions. NECK: Trachea appears to be central. No masses noted. No JVD or thyromegaly appreciated. RESPIRATORY: Chest is symmetrical. No intercostals muscle retraction or any accessory muscle activation. There is no chest wall tenderness. Breath sounds are heard bilaterally. Bilateral scattered coarse crackles. Bronchovesicular breath sounds in the right base. Occasional expiratory wheezing. BREASTS: Deferred. [] HEART: The heart sounds are normal. No S3 or S4. Short systolic murmur in the lower sternal border. No diastolic murmurs. No pericardial rub ABDOMEN: Large bilateral inguinal hernia, right worse than the left extending into the scrotum. : Deferred. [] RECTAL: Deferred. [] LYMPHATIC: No lymphadenopathy noted in the neck. EXTREMITIES: The dorsalis pedis and posterior pulse are extremely weak bilaterally. No cyanosis. MUSCULOSKELETAL: No acute joint deformities or swelling. Patient has generalized wasting of muscles. Has some flexion deformity of the proximities SKIN: There are no significant rashes or ecchymosis NEUROPSYCHIATRIC: The patient is alert and oriented x3. Appears to be in a good mood. No tremors or rigidity noted. [] Data 12/11/22 04:05 12/11/22 04:05 Other Labs: Laboratory Last Values WBC 10.3 10^3/uL (4.0-10.0) H 12/11/22 04:05 RBC 2.50 10^6/uL (4.1-5.3) L 12/11/22 04:05 Hgb 8.6 g/dL (11.7-16.6) L 12/11/22 04:05 Hct 28.5 % (42.0-52.0) L 12/11/22 04:05 MCV 114.0 fl (80-94) H 12/11/22 04:05 MCH 34.4 pg (28.0-34.0) H 12/11/22 04:05 MCHC 30.2 g/dL (30.0-36.0) 12/11/22 04:05 RDW 13.7 % (12.1-15.1) 12/11/22 04:05 Plt Count 143 10^3/cmm (130-400) 12/11/22 04:05 MPV 11.4 fL (7.4-10.4) H 12/11/22 04:05 Neut % (Auto) 84.8 % 12/09/22 21:04 Lymph % (Auto) Not Reportable 12/11/22 04:05 [place] % (Auto) Not Reportable 12/11/22 04:05 Eos % (Auto) 0.0 % 12/09/22 21:04 Baso % (Auto) 0.8 % 12/09/22 21:04 Neut # (Auto) 8.57 10^3/uL (1.8-7.7) H 12/09/22 21:04 Lymph # (Auto) Not Reportable 12/11/22 04:05 [place] # (Auto) Not Reportable 12/11/22 04:05 Eos # (Auto) 0.0 10^3/uL (0.0-0.8) 12/09/22 21:04 Baso # (Auto) 0.1 10^3/uL (0.0-0.1) 12/09/22 21:04 Nucleated RBC % (auto) 0 % 12/09/22 21:04 Total Counted 100 (0-100) 12/11/22 04:05 Atypical Lymphs % 0.0 % (0-5) 12/11/22 04:05 Absolute Neutrophils 9.4 10^3/cmm (1.4-6.5) H 12/11/22 04:05 Segmented Neutrophils 57 % 12/11/22 04:05 Abs Segm Neuts (Man) 5.9 10/cmm (1.6-7.1) 12/11/22 04:05 Band Neutrophils 34.0 % 12/11/22 04:05 Abs Band Neuts (Man) 3.5 10^3/cmm (0.0-1.2) H 12/11/22 04:05 Absolute Lymphocytes 0.6 10^3/cmm (1.2-3.4) L 12/11/22 04:05 Lymphocytes (Manual) 6 % 12/11/22 04:05 Monocytes (Manual) 2.0 % 12/11/22 04:05 Absolute Monocytes 0.2 10^3/cmm (0.1-0.6) 12/11/22 04:05 Eosinophils (Manual) 0 % 12/11/22 04:05 Absolute Eosinophils 0.0 10^3/cmm (0.0-0.7) 12/11/22 04:05 Basophils (Manual) 0.0 % 12/11/22 04:05 Absolute Basophils 0.0 10^3/cmm (0.0-0.2) 12/11/22 04:05 Metamyelocytes 1.0 % 12/11/22 04:05 Nucleated RBCs # 0.0 /100WBC 12/09/22 21:04 Smudge Cells Trace 12/11/22 04:05 Platelet Estimate Normal (Normal) 12/11/22 04:05 Anisocytosis 1+ H 12/11/22 04:05 Macrocytosis 1+ H 12/11/22 04:05 PT 13.20 SECONDS (12.1-14.9) 12/09/22 21:04 INR 0.97 (0.8-1.2) 12/09/22 21:04 Specimen Type Arterial 12/10/22 16:36 Sample Site Brachial, left 12/10/22 16:36 ABG pH 7.58 (7.35-7.45) H* 12/10/22 16:36 ABG pCO2 36.6 mmHg (35-45) 12/10/22 16:36 ABG pO2 155.0 mmHg (80.0-100.0) H 12/10/22 16:36 ABG HCO3 34.1 mmol/L (22-26) H 12/10/22 16:36 ABG O2 Saturation 97.4 12/10/22 07:32 ABG Base Excess 11.3 mmol/L (-2.0-2.0) H 12/10/22 16:36 Mohit Test Pos 12/10/22 16:36 A-a O2 Gradient 17.2 mmHg (5-10) H 12/10/22 07:32 Hematocrit 23.6 % (42-52) L 12/10/22 16:36 Hgb O2 Saturation 96.1 % (95-100) 12/10/22 07:32 Carboxyhemoglobin 0.3 %THgb (0.4-20.1) L 12/10/22 07:32 Methemoglobin 1.0 % (0.4-1.5) 12/10/22 07:32 Total Hemoglobin 9.8 g/dL (14-18) L 12/10/22 07:32 Sodium 146.0 mmol/L (131-143) H 12/10/22 07:32 Potassium 4.5 mmol/L (3.5-5.0) 12/10/22 07:32 Glucose 144.0 mg/dL (70-115) H 12/10/22 07:32 Ionized Calcium 1.3 mmol/L (1.1-1.4) 12/10/22 07:32 O2 Delivery Device Bipap 12/10/22 16:36 O2 Liters/Min 5.0 % 12/09/22 23:05 FiO2 35.0 % 12/10/22 16:36 Highway Maintainer ID Cak 12/10/22 16:36 Sodium 143 mmol/L (136-145) 12/11/22 04:05 Potassium 4.5 mmol/L (3.5-5.1) 12/11/22 04:05 Chloride 103 mmol/L (98-107) 12/11/22 04:05 Carbon Dioxide 33 mmol/L (22-29) H 12/11/22 04:05 Anion Gap 11.5 (5-19) 12/11/22 04:05 BUN 33 mg/dL (8-23) H 12/11/22 04:05 Creatinine 0.5 mg/dL (0.7-1.2) L 12/11/22 04:05 GFR Calculation Not Reportable 12/11/22 04:05 Glucose 129 mg/dL (65-115) H 12/11/22 04:05 Calculated Osmolality 305 mOsm/kg (285-295) H 12/11/22 04:05 Calcium 9.1 mg/dL (8.5-10.5) 12/11/22 04:05 Magnesium 2.3 mg/dL (1.7-2.3) 12/11/22 04:05 Total Bilirubin 0.2 mg/dL (0.15-1.2) 12/11/22 04:05 AST 54 U/L (0-40) H 12/11/22 04:05 ALT 19 U/L (0-41) 12/11/22 04:05 Alkaline Phosphatase 43 U/L (40-130) 12/11/22 04:05 Troponin T Baseline 198 ng/L (0-15) H* 12/10/22 15:38 Troponin T 120 Minute 302.5 ng/L (0-15) H 12/10/22 17:09 Delta Troponin T 104.5 ABS# (0-10) H* 12/10/22 17:09 Troponin T Hi Sens 6Hr 364.3 ng/L (0-15) H 12/10/22 21:22 Troponin T Hi Sens 6Hr Delta 166.3 ng/L (0-12) H* 12/10/22 21:22 NT-Pro-B Natriuret Pep 1894 pg/mL (0-450) H 12/09/22 21:04 Total Protein 6.1 g/dL (6.6-8.7) L 12/11/22 04:05 Albumin 3.1 g/dL (3.5-5.2) L 12/11/22 04:05 Globulin 3.0 g/dL (1.3-4.6) 12/11/22 04:05 Urine Color Yellow (Yellow) 12/10/22 05:42 Urine Appearance Clear (CLEAR) 12/10/22 05:42 Urine pH 5 (5-7) 12/10/22 05:42 Ur Specific Tiff 1.010 (1.005-1.030) 12/10/22 05:42 Urine Protein 1+ (Negative) H 12/10/22 05:42 Urine Glucose (UA) Norm (Normal) 12/10/22 05:42 Urine Ketones Negative (Negative) 12/10/22 05:42 Urine Blood Trace (Negative) H 12/10/22 05:42 Urine Nitrate Negative (Negative) 12/10/22 05:42 Urine Bilirubin Neg (Negative) 12/10/22 05:42 Urine Urobilinogen Neg mg/dL (Negative) 12/10/22 05:42 Ur Leukocyte Esterase Trace (Negative) H 12/10/22 05:42 Urine RBC 0-4 /hpf (0-2) H 12/10/22 05:42 Urine WBC 5-10 /hpf (0-5) H 12/10/22 05:42 Ur Squamous Epith Cells 0-4 /hpf (0-5) H 12/10/22 05:42 Amorphous Sediment Trace /hpf 12/10/22 05:42 Urine Bacteria Trace /hpf (NONE) 12/10/22 05:42 Hyaline Casts 0-4 /lpf H 12/10/22 05:42 Urine Mucus Trace /hpf 12/10/22 05:42 Coronavirus 229E (PCR) Not detected (NOT DETECT) 12/09/22 20:57 SARS-CoV-2 (PCR) Not detected (NOT DETECT) 12/09/22 20:57 Micro: Microbiology 12/09/22 00:44 Blood Culture - Preliminary Blood 12/09/22 00:40 Blood Culture - Preliminary Blood NEGATIVE TO DATE CT Chest: Radiologist's impression: 1. ? Bronchial wall thickening diffusely in both lungs with reticulonodular interstitial thickening in the right and left lower lobes. Findings are suspicious for bronchopneumonia, including atypical organisms. Recommend clinical correlation. Recommend followup chest imaging to insure resolution of these findings. 2. ? No evidence for pulmonary embolism. 3. ? Debris layering in the mid/distal trachea. This may represent bronchial secretions. 4. ? Marked centrilobular and paraseptal emphysematous changes in the lungs with bulla formation in the right upper lobe. 5. ? Multiple areas of pleural-parenchymal scarring in the lateral right lung, the 2 largest areas appear to correspond to the findings on the prior chest radiograph. 6. ? Noncalcified nodules in both lungs. For patients at low risk (minimal or absent history of smoking and of other known risk factors), recommend CT Chest at 3-6 months, then consider CT Chest at 18-24 months. For patients at high risk (history of smoking or of other known risk factors), recommend CT Chest at 3-6 months, then CT Chest at 18-24 months. (Reference: [place]) 7. ? Nonobstructing left renal stone. 8. ? Interval development of diffuse enlargement of the visualized right and left adrenal glands that may be due to the an acute illness. 9. ? Incidental/nonacute findings are listed in the report. CXR: Radiologist's impression: 1. ? 2 new irregular nodular opacities in the lateral right upper lobe, pulmonary nodules cannot be ruled out. CT scan of the chest with contrast on a nonemergent basis is recommended for further evaluation. 2. ? No acute cardiopulmonary process. 3. ? Incidental/nonacute findings are listed in the report. ? CT Abd/Pel: Radiologist's impression: 01/19/22 1. Bilateral inguinal hernias are larger on the right and containing nonobstructed bowel. 2. No pneumatosis or perforation. 3. 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 4. Other chronic and incidental findings as described Echo: My impression: 12/10/2022 ?mildly increased left ventricular cavity size.? Severe diffuse ?hypokinesia of the septum, anteroseptum and the left-ventricular ?apex.? LV ejection fraction is around 28%( MOD 4 Chamber). ?Mild mitral valve regurgitation. Mild-moderate mitral valve ?regurgitation. ?Thickened aortic valve. ?Mild tricuspid valve regurgitation. ?Estimated pulmonary artery peak systolic pressure 21 mmHg. ?There is no pericardial effusion. ?There are no intracardiac masses. ?Compared to the study from 01/16/2022, there is no worsening of ?the LV systolic function from 35% to 28% EKG 1: My Interpretation: Multifocal atrial tachycardia with a heart rate of [address]-T changes. Possible old septal ND. Frequent PVCs. Nonspecific IVCD. Voltage criteria for VH. A&P Assessment and plan (1) Atherosclerotic heart disease of [place] coronary artery with unstable angina pectoris: The patient's symptoms may suggest unstable angina. The EKG changes are nonspecific. At this point, I may start him on IV nitroglycerin. The dose may be gradually titrated up for chest pain. In view of the drop in the hemoglobin, I may hold off on the therapeutic dose of heparin. (2) Acute respiratory failure with hypoxia and hypercapnia: Management as per the primary/pulmonary service. (3) Non-ST elevation ND (NSTEMI): Patient requires a cardiac catheterization, to further evaluate his coronary status as well as the graft status. But because of his large bilateral inguinal hernia and also possibly occluded iliac artery on the left side the angiogram will be technically very challenging. I will be discussing this once again with the patient's family. If they have a change of mind on invasive/interventional procedures, then this need to be done with surgical backup. (4) Hyperlipidemia: May continue on the current medications. (5) Ischemic cardiomyopathy: Please has a significant drop in the LV ejection fraction from 35% to 28%. Also need to discuss about defibrillator. (6) Bilateral inguinal hernia without obstruction or gangrene: Patient was deemed not to be a surgical candidate. This also need to be clarified. (7) Peripheral arterial disease: Seems to have bilateral peripheral artery disease. Arterial Doppler examination/ANIYA would be appropriate to further evaluate. Plan Other problems are Moderate anemia Generalized emaciation ? 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 twice daily. Also started on IV nitroglycerin 5 mics per minute and may gradually go up on the dose. May continue on those medications as the disease Patient on the patient clinical progress, further recommendations will be made. Coding Level of Care Code 27168 Diagnoses Atherosclerotic heart disease of [place] coronary artery with unstable angina pectoris I25.110 Acute respiratory failure with hypoxia and hypercapnia J96.01; J96.02 Non-ST elevation ND (NSTEMI) I21.4 Hyperlipidemia E78.5 Ischemic cardiomyopathy I25.5 Bilateral inguinal hernia without obstruction or gangrene K40.20 Peripheral arterial disease I73.9
[2022-12-11] MEDS: budesonide 0.5 mg/2 mL Neb INHALATION ×2 (09:02→19:50)
--- NOTE | 2022-12-11 09:28 | PC.NURSE ---
Family, Patient request nurse to call son. Son called and notified.
[2022-12-11] MEDS: nitroglycerin drip 50 MG/250 ML PREMIX IV (09:58)
[2022-12-11] MEDS: pantoprazole 40 mg SDV IVP (09:58)
[2022-12-11] MEDS: roflumilast 500 mcg Tablet 250 MCG PO (09:58)
[2022-12-11] MEDS: clopidogrel 75 mg Tablet PO (09:58)
[2022-12-11] MEDS: aspirin 81 mg EC Tablet PO (09:58)
--- NOTE | 2022-12-11 11:19 | USCV_ITS ---
Sherwin Dalton Age: 77 Gender: M : 1945 Exam Date: 12/11/2022 11:33 Ordering Phys: Kalyani Lawrence MD ([email or web address]) Technologist: Juan J Parikh Exam Location: [facility] Indication: pad weak pulses Risk Factors: Previous Vascular Surgery: RIGHT LEFT BP: 138.0 / 73.00 BP: 135.0/ 72.00 0 0 Waveform Velocity (cm/s) Velocity (cm/s) Waveform Monophasic 61.4 Iliac Prox 89.3 Triphasic Monophasic 66.8 Iliac Mid 123.5 Triphasic Monophasic 66.0 Iliac Distal 93.7 Biphasic Monophasic 51.3 STILL PHOTOGRAPHER 121.3 Biphasic Monophasic 60.6 SFA Prox 132.3 Biphasic Monophasic 62.1 SFA Mid 132.1 Biphasic Monophasic 55.9 SFA Dist 127.4 Biphasic Monophasic 33.4 POP 54.4 Biphasic Monophasic 35.0 TURBINE INSPECTOR 85.4 Biphasic Monophasic 32.0 DPA 99.9 Biphasic 0.5 ANIYA 1.0 FINDINGS Resting ANIYA of 0.5 on the right and 1.0 on the left Monophasic waveforms in the iliac, femoral, popliteal and infrapopliteal vessels. The posterior tibial waveform was found to be monophasic and continuous. Mild diffuse plaques were noted in the iliac, femoral and popliteal vessels. Biphasic waveforms throughout the left side CONCLUSIONS 1. Abnormal resting ANIYA and arterial Doppler waveforms, suggestive of moderate to severe peripheral arterial disease possibly at the iliofemoral level. Features of collateral filling in the posterior tibial artery. 2. Normal resting ANIYA on the left side with a biphasic arterial Doppler waveforms suggesting no significant arterial obstruction. No similar previous studies are available for comparison Dr Kalyani Lawrence MD [facility] (Electronically Signed) Final Date: 11 December 2022 21:37 S
[2022-12-11] MEDS: acetaminophen 325 mg Tablet 650 MG PO (12:14)
[2022-12-11] MEDS: ranolazine (12HR) 500 mg Tablet PO (17:13)
[2022-12-11 18:09] LABS: Vancomycin Trough 10.8 ug/mL (10-15)
--- NOTE | 2022-12-11 19:18 | PC.PHAR ---
Vanc trough dose change Vanc trough: 10.8 Trough goal: 15-20 (High trough requested) Plan: Change dose to 1250 mg Q12H Vanc trough to be scheduled for prior to 4th dose and will reassess
[2022-12-11] MEDS: atorvastatin 40 mg Tablet PO (21:02)
[2022-12-12] VITALS (94 sets, daily range): BP systolic 87–162; BP diastolic 47–92; PULSE 64–121; RESP 12–32; TEMP 36.6–37; O2SAT 84–100
[2022-12-12] MEDS: ipratropium-albuterol 3 mL Neb INHALATION ×6 (00:21→21:16)
[2022-12-12] MEDS: dilTIAZem 30 mg Tablet PO ×4 (01:23→20:07)
[2022-12-12] MEDS: oxyCODONE-APAP 5-325 mg Tablet 1 TAB PO ×4 (01:23→18:19)
[2022-12-12] MEDS: vancomycin 1,250 MG/250 ML PIGGYBACK 250 MG IV (03:37)
[2022-12-12] MEDS: enoxaparin 60 mg/0.6 mL Syringe 50 MG SUBCUT ×2 (03:37→16:00)
[2022-12-12 04:34] LABS: Basophils % 0.1 %; Hemoglobin 8.5 g/dL (11.7-16.6); Lymphocytes # 0.3 10^3/uL (0.8-4.8); Lymphocytes % 2.8 %; Mean Corpuscular HGB Conc 30.4 g/dL (30.0-36.0); Mean Corpuscular Hemoglobin 34.6 pg (28.0-34.0); Mean Corpuscular Volume 113.8 fl (80-94); Mean Platelet Volume 11.6 fL (7.4-10.4); Monocytes # 0.4 10^3/uL (0.2-0.9); Neutrophils # 8.87 10^3/uL (1.8-7.7); Neutrophils % 92.4 %; Nucleated Red Blood Cells % 0 %; Platelet Count 153 10^3/cmm (130-400); Red Blood Count 2.46 10^6/uL (4.1-5.3); Red Cell Distribution Width 13.9 % (12.1-15.1); White Blood Count 9.6 10^3/uL (4.0-10.0)
[2022-12-12] MEDS: piperacillin-tazobactam 3.375 GM in sodium chloride 0.9% (plus) 50 ML IV ×2 (04:37→11:34)
[2022-12-12 04:50] LABS: Alanine Aminotransferase 20 U/L (0-41); Albumin Level 3.2 g/dL (3.5-5.2); Alkaline Phosphatase 45 U/L (40-130); Aspartate Amino Transferase 34 U/L (0-40); Blood Urea Nitrogen 31 mg/dL (8-23); Calcium 9.1 mg/dL (8.5-10.5); Carbon Dioxide 30 mmol/L (22-29); Chloride 102 mmol/L (98-107); Globulin 2.9 g/dL (1.3-4.6); Glucose 137 mg/dL (65-115); Osmolality Calculated 303 mOsm/kg (285-295); Sodium 142 mmol/L (136-145); Total Bilirubin 0.2 mg/dL (0.15-1.2); Total Protein 6.1 g/dL (6.6-8.7)
--- NOTE | 2022-12-12 08:07 | P.PN_ITS ---
Subjective Subjective: The patient had an episode of chest pain last night. This morning he seems to be doing okay. He is currently on 30 mics of nitro. No fever or chills. Medications: Medication Review Details: Current Medications Acetaminophen (Acetaminophen 325 Mg Tablet) 650 mg PO Q6H PRN PRN Reason: MILD PAIN Last Admin: 12/11/22 12:14 Dose: 650 mg Albuterol/Ipratropium (Ipratropium-Albuterol 3 Ml Neb) 3 ml INHALATION Q4H [facility] Last Admin: 12/12/22 03:10 Dose: 3 ml Aspirin (Aspirin 81 Mg Ec Tablet) 81 mg PO DAILY [facility] Last Admin: 12/11/22 09:58 Dose: 81 mg Atorvastatin Calcium (Atorvastatin 40 Mg Tablet) 40 mg PO BEDTIME [facility] Last Admin: 12/11/22 21:02 Dose: 40 mg Budesonide (Budesonide 0.5 Mg/2 Ml Neb) 0.5 mg INHALATION BID [facility] Last Admin: 12/11/22 19:50 Dose: 0.5 mg Clopidogrel Bisulfate (Clopidogrel 75 Mg Tablet) 75 mg PO DAILY [facility] Last Admin: 12/11/22 09:58 Dose: 75 mg Diltiazem HCl (Diltiazem 30 Mg Tablet) 30 mg PO Q6H [facility] Last Admin: 12/12/22 07:16 Dose: 30 mg Enoxaparin Sodium (Enoxaparin 60 Mg/0.6 Ml Syringe) 50 mg SUBCUT Q12H [facility] Last Admin: 12/12/22 03:37 Dose: 50 mg Piperacillin Sod/Tazobactam (Sod 3.375 gm/ Sodium Chloride) 50 mls @ 12.5 mls/hr IV Q8H [facility] Last Admin: 12/12/22 04:37 Dose: 12.5 mls/hr Nitroglycerin/Dextrose (Nitroglycerin Drip) 50 mg in 250 mls @ 0 mls/hr IV .Q0M [facility]; Protocol Last Titration: 12/11/22 17:27 Dose: 40 mcg/min, 12 mls/hr Vancomycin/PEG/NADA/Lysine/Water (Vancocin) 1,250 mg in 250 mls @ 250 mls/hr IV Q12H [facility] Last Infusion: 12/12/22 04:37 Dose: Infused Isosorbide Mononitrate (Isosorbide Mononitrate Er 30 Mg Tablet) 30 mg PO DAILY [facility] Last Admin: 12/11/22 09:42 Dose: Not Given Methylprednisolone Sodium Succinate (Methylprednisolone Sod Succ 125 Mg/2 Ml Inj) 60 mg IVP Q8H [facility] Last Admin: 12/12/22 05:17 Dose: 60 mg Nitroglycerin (Nitroglycerin 0.4 Mg Sublingual Tablet) 0.4 mg SUBLINGUAL Q5M PRN PRN Reason: CHEST PAIN Last Admin: 12/11/22 08:15 Dose: 0.4 mg Ondansetron HCl (Ondansetron 2 Mg/Ml Sdv 2 Ml) 4 mg IVP Q6H PRN PRN Reason: NAUSEA AND VOMITING Last Admin: 12/10/22 06:32 Dose: 4 mg Oxycodone/Acetaminophen (Oxycodone-Apap 5-325 Mg Tablet) 1 tab PO Q6H PRN PRN Reason: MODERATE PAIN Last Admin: 12/12/22 07:16 Dose: 1 tab Pantoprazole Sodium (Pantoprazole 40 Mg Sdv) 40 mg IVP DAILY [facility] Last Admin: 12/11/22 09:58 Dose: 40 mg Ranolazine (Ranolazine (12hr) 500 Mg Tablet) 500 mg PO BID [facility] Last Admin: 12/11/22 17:13 Dose: 500 mg Roflumilast (Roflumilast 500 Mcg Tablet) 250 mcg PO DAILY [facility] Last Admin: 12/11/22 09:58 Dose: 250 mcg Tamsulosin HCl (Tamsulosin 0.4 Mg Capsule) 0.4 mg PO .at bedtime [facility] Vitals/I&O/Wt Last Vital Signs Temp 97.7 F 12/11/22 08:19 Pulse 89 12/12/22 07:53 Resp 20 H 12/12/22 07:47 BP 153/74 12/12/22 06:00 Pulse Ox 98 12/12/22 07:47 O2 Del Method Nasal Cannula 12/12/22 07:47 O2 Flow Rate 4 12/12/22 07:47 FiO2 4 12/12/22 05:51 12/11/22 12/12/22 12/12/22 22:59 06:59 14:59 Intake Total 716.9 / 1252.875 300 / 1552.875 Output Total 640 / 840 300 / 300 Balance 76.9 / 412.875 300 / 712.875 -300 / -300 Weight last 48 hrs Weight 121 lb 4.068 oz Weight 125 lb 10.616 oz Physical Exam Narrative: GENERAL: The patient is alert and oriented times three. Not in any acute distres s. Chronically ill looking HEENT: Moderate pallor with no icterus or lymphadenopathy.Oral cavity: There are no mucous membrane lesions. NECK: Trachea appears to be central. No masses noted. No JVD or thyromegaly appreciated. RESPIRATORY: Chest is symmetrical. No intercostals muscle retraction or any accessory muscle activation. There is no chest wall tenderness. Breath sounds are heard bilaterally. Bilateral scattered coarse crackles. Bronchovesicular breath sounds in the right base. Occasional expiratory wheezing. BREASTS: Deferred. HEART: The heart sounds are normal. No S3 or S4. Short systolic murmur in the lower sternal border. No diastolic murmurs. No pericardial rub ABDOMEN: Large bilateral inguinal hernia, right worse than the left extending into the scrotum. : Deferred. RECTAL: Deferred. LYMPHATIC: No lymphadenopathy noted in the neck. EXTREMITIES: The dorsalis pedis and posterior pulse are extremely weak bilaterally. No cyanosis. MUSCULOSKELETAL: No acute joint deformities or swelling. Patient has generalized wasting of muscles. SKIN: There are no significant rashes or ecchymosis NEUROPSYCHIATRIC: The patient is alert and oriented x3. Appears to be in a good mood. No tremors or rigidity noted. Data 12/12/22 03:45 12/12/22 03:45 Other Labs: Laboratory Last Values WBC 9.6 10^3/uL (4.0-10.0) 12/12/22 03:45 RBC 2.46 10^6/uL (4.1-5.3) L 12/12/22 03:45 Hgb 8.5 g/dL (11.7-16.6) L 12/12/22 03:45 Hct 28.0 % (42.0-52.0) L 12/12/22 03:45 MCV 113.8 fl (80-94) H 12/12/22 03:45 MCH 34.6 pg (28.0-34.0) H 12/12/22 03:45 MCHC 30.4 g/dL (30.0-36.0) 12/12/22 03:45 RDW 13.9 % (12.1-15.1) 12/12/22 03:45 Plt Count 153 10^3/cmm (130-400) 12/12/22 03:45 MPV 11.6 fL (7.4-10.4) H 12/12/22 03:45 Neut % (Auto) 92.4 % 12/12/22 03:45 Lymph % (Auto) 2.8 % 12/12/22 03:45 [place] % (Auto) 4.0 % 12/12/22 03:45 Eos % (Auto) 0.0 % 12/12/22 03:45 Baso % (Auto) 0.1 % 12/12/22 03:45 Neut # (Auto) 8.87 10^3/uL (1.8-7.7) H 12/12/22 03:45 Lymph # (Auto) 0.3 10^3/uL (0.8-4.8) L 12/12/22 03:45 [place] # (Auto) 0.4 10^3/uL (0.2-0.9) 12/12/22 03:45 Eos # (Auto) 0.0 10^3/uL (0.0-0.8) 12/12/22 03:45 Baso # (Auto) 0.0 10^3/uL (0.0-0.1) 12/12/22 03:45 Nucleated RBC % (auto) 0 % 12/12/22 03:45 Total Counted 100 (0-100) 12/11/22 04:05 Atypical Lymphs % 0.0 % (0-5) 12/11/22 04:05 Absolute Neutrophils 9.4 10^3/cmm (1.4-6.5) H 12/11/22 04:05 Segmented Neutrophils 57 % 12/11/22 04:05 Abs Segm Neuts (Man) 5.9 10/cmm (1.6-7.1) 12/11/22 04:05 Band Neutrophils 34.0 % 12/11/22 04:05 Abs Band Neuts (Man) 3.5 10^3/cmm (0.0-1.2) H 12/11/22 04:05 Absolute Lymphocytes 0.6 10^3/cmm (1.2-3.4) L 12/11/22 04:05 Lymphocytes (Manual) 6 % 12/11/22 04:05 Monocytes (Manual) 2.0 % 12/11/22 04:05 Absolute Monocytes 0.2 10^3/cmm (0.1-0.6) 12/11/22 04:05 Eosinophils (Manual) 0 % 12/11/22 04:05 Absolute Eosinophils 0.0 10^3/cmm (0.0-0.7) 12/11/22 04:05 Basophils (Manual) 0.0 % 12/11/22 04:05 Absolute Basophils 0.0 10^3/cmm (0.0-0.2) 12/11/22 04:05 Metamyelocytes 1.0 % 12/11/22 04:05 Nucleated RBCs # 0.0 /100WBC 12/12/22 03:45 Smudge Cells Trace 12/11/22 04:05 Platelet Estimate Normal (Normal) 12/11/22 04:05 Anisocytosis 1+ H 12/11/22 04:05 Macrocytosis 1+ H 12/11/22 04:05 PT 13.20 SECONDS (12.1-14.9) 12/09/22 21:04 INR 0.97 (0.8-1.2) 12/09/22 21:04 Specimen Type Arterial 12/10/22 16:36 Sample Site Brachial, left 12/10/22 16:36 ABG pH 7.58 (7.35-7.45) H* 12/10/22 16:36 ABG pCO2 36.6 mmHg (35-45) 12/10/22 16:36 ABG pO2 155.0 mmHg (80.0-100.0) H 12/10/22 16:36 ABG HCO3 34.1 mmol/L (22-26) H 12/10/22 16:36 ABG O2 Saturation 97.4 12/10/22 07:32 ABG Base Excess 11.3 mmol/L (-2.0-2.0) H 12/10/22 16:36 Mohit Test Pos 12/10/22 16:36 A-a O2 Gradient 17.2 mmHg (5-10) H 12/10/22 07:32 Hematocrit 23.6 % (42-52) L 12/10/22 16:36 Hgb O2 Saturation 96.1 % (95-100) 12/10/22 07:32 Carboxyhemoglobin 0.3 %THgb (0.4-20.1) L 12/10/22 07:32 Methemoglobin 1.0 % (0.4-1.5) 12/10/22 07:32 Total Hemoglobin 9.8 g/dL (14-18) L 12/10/22 07:32 Sodium 146.0 mmol/L (131-143) H 12/10/22 07:32 Potassium 4.5 mmol/L (3.5-5.0) 12/10/22 07:32 Glucose 144.0 mg/dL (70-115) H 12/10/22 07:32 Ionized Calcium 1.3 mmol/L (1.1-1.4) 12/10/22 07:32 O2 Delivery Device Bipap 12/10/22 16:36 O2 Liters/Min 5.0 % 12/09/22 23:05 FiO2 35.0 % 12/10/22 16:36 Assurance Sourcing Manager ID Cak 12/10/22 16:36 Sodium 142 mmol/L (136-145) 12/12/22 03:45 Potassium 4.0 mmol/L (3.5-5.1) 12/12/22 03:45 Chloride 102 mmol/L (98-107) 12/12/22 03:45 Carbon Dioxide 30 mmol/L (22-29) H 12/12/22 03:45 Anion Gap 14.0 (5-19) 12/12/22 03:45 BUN 31 mg/dL (8-23) H 12/12/22 03:45 Creatinine 0.6 mg/dL (0.7-1.2) L 12/12/22 03:45 GFR Calculation Not Reportable 12/12/22 03:45 Glucose 137 mg/dL (65-115) H 12/12/22 03:45 Calculated Osmolality 303 mOsm/kg (285-295) H 12/12/22 03:45 Calcium 9.1 mg/dL (8.5-10.5) 12/12/22 03:45 Magnesium 2.3 mg/dL (1.7-2.3) 12/11/22 04:05 Total Bilirubin 0.2 mg/dL (0.15-1.2) 12/12/22 03:45 AST 34 U/L (0-40) 12/12/22 03:45 ALT 20 U/L (0-41) 12/12/22 03:45 Alkaline Phosphatase 45 U/L (40-130) 12/12/22 03:45 Troponin T Baseline 198 ng/L (0-15) H* 12/10/22 15:38 Troponin T 120 Minute 302.5 ng/L (0-15) H 12/10/22 17:09 Delta Troponin T 104.5 ABS# (0-10) H* 12/10/22 17:09 Troponin T Hi Sens 6Hr 364.3 ng/L (0-15) H 12/10/22 21:22 Troponin T Hi Sens 6Hr Delta 166.3 ng/L (0-12) H* 12/10/22 21:22 NT-Pro-B Natriuret Pep 1894 pg/mL (0-450) H 12/09/22 21:04 Total Protein 6.1 g/dL (6.6-8.7) L 12/12/22 03:45 Albumin 3.2 g/dL (3.5-5.2) L 12/12/22 03:45 Globulin 2.9 g/dL (1.3-4.6) 12/12/22 03:45 Urine Color Yellow (Yellow) 12/10/22 05:42 Urine Appearance Clear (CLEAR) 12/10/22 05:42 Urine pH 5 (5-7) 12/10/22 05:42 Ur Specific [place] 1.010 (1.005-1.030) 12/10/22 05:42 Urine Protein 1+ (Negative) H 12/10/22 05:42 Urine Glucose (UA) Norm (Normal) 12/10/22 05:42 Urine Ketones Negative (Negative) 12/10/22 05:42 Urine Blood Trace (Negative) H 12/10/22 05:42 Urine Nitrate Negative (Negative) 12/10/22 05:42 Urine Bilirubin Neg (Negative) 12/10/22 05:42 Urine Urobilinogen Neg mg/dL (Negative) 12/10/22 05:42 Ur Leukocyte Esterase Trace (Negative) H 12/10/22 05:42 Urine RBC 0-4 /hpf (0-2) H 12/10/22 05:42 Urine WBC 5-10 /hpf (0-5) H 12/10/22 05:42 Ur Squamous Epith Cells 0-4 /hpf (0-5) H 12/10/22 05:42 Amorphous Sediment Trace /hpf 12/10/22 05:42 Urine Bacteria Trace /hpf (NONE) 12/10/22 05:42 Hyaline Casts 0-4 /lpf H 12/10/22 05:42 Urine Mucus Trace /hpf 12/10/22 05:42 Vancomycin Trough 10.8 ug/mL (10-15) 12/11/22 17:13 Coronavirus 229E (PCR) Not detected (NOT DETECT) 12/09/22 20:57 SARS-CoV-2 (PCR) Not detected (NOT DETECT) 12/09/22 20:57 Micro: Microbiology 12/10/22 12:15 MRSA Culture - Final Nose Other data: The ANIYA on the right zero 0.5 and on the left side it was 1.0 A&P Assessment and plan (1) Atherosclerotic heart disease of [place] coronary artery with unstable angina pectoris: The patient's symptoms may suggest unstable angina. The EKG changes are nonspecific. Patient seems to be responding to the IV nitroglycerin. We will continue to optimize the medication. (2) Acute respiratory failure with hypoxia and hypercapnia: Management as per the primary/pulmonary service. (3) Non-ST elevation [place] (NSTEMI): Patient requires a cardiac catheterization, to further evaluate his coronary status as well as the graft status. Patient may require to come down to perform the cardiac catheterization. His ANIYA on the left side is 1.0 and that on the right is 0.5. But according to the patient, the angiogram attempt from the right groin was unsuccessful. Patient is not wanting any invasive/interventional procedures at this point. We will continue to optimize the medical treatment. (4) Hyperlipidemia: May continue on the current medications. (5) Ischemic cardiomyopathy: Please has a significant drop in the LV ejection fraction from 35% to 28%. Patient is not interested in a defibrillator at this point. I will be discuss ing this with the family as well. (6) Bilateral inguinal hernia without obstruction or gangrene: Patient was deemed not to be a surgical candidate. This also need to be pallavi fied. (7) Peripheral arterial disease: ANIYA findings as mentioned above. Plan Other problems are Moderate anemia Generalized emaciation ? 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 Seems to be tolerating medication so far well Attestations Medical Necessity Statement*: Patient requires continued hospital stay for close monitoring and further management Coding Level of Care Code 52737 Diagnoses Atherosclerotic heart disease of [place] coronary artery with unstable angina pectoris I25.110 Acute respiratory failure with hypoxia and hypercapnia J96.01; J96.02 Non-ST elevation [place] (NSTEMI) I21.4 Hyperlipidemia E78.5 Ischemic cardiomyopathy I25.5 Bilateral inguinal hernia without obstruction or gangrene K40.20 Peripheral arterial disease I73.9
[2022-12-12] MEDS: nitroglycerin drip 50 MG/250 ML PREMIX 12 MG IV (08:18)
[2022-12-12] MEDS: clopidogrel 75 mg Tablet PO (08:19)
[2022-12-12] MEDS: pantoprazole 40 mg SDV IVP (08:19)
[2022-12-12] MEDS: isosorbide mononitrate ER 30 mg Tablet PO (08:19)
[2022-12-12] MEDS: aspirin 81 mg EC Tablet PO (08:19)
[2022-12-12] MEDS: ranolazine (12HR) 500 mg Tablet PO ×2 (08:19→18:20)
[2022-12-12] MEDS: roflumilast 500 mcg Tablet 250 MCG PO (08:20)
[2022-12-12] MEDS: budesonide 0.5 mg/2 mL Neb INHALATION ×2 (08:33→21:16)
--- NOTE | 2022-12-12 12:03 | P.PN_ITS ---
Subjective Subjective: Plan for coronary angiogram, however because of inguinal hernia that was not possible to go through his groin last time, will touch this with cardiology to further clarify This needs to be further discussed with the family as well Currently patient is on nitroglycerin drip, no active chest pain Currently on 3 L Patient is under the impression that he might not be able to go for any kind of coronary intervention, he is asking us to release him after discharge [facility] tomorrow if there is no plan for intervention Vitals/I&O/Wt Last Vital Signs Temp 97.8 F 12/12/22 08:45 Pulse 99 12/12/22 11:11 Resp 18 12/12/22 11:05 BP 153/65 12/12/22 10:00 Pulse Ox 98 12/12/22 11:05 O2 Del Method Nasal Cannula 12/12/22 11:05 O2 Flow Rate 3 12/12/22 11:05 FiO2 4 12/12/22 05:51 12/11/22 12/12/22 12/12/22 22:59 06:59 14:59 Intake Total 716.9 / 1252.875 300 / 1552.875 496.0 / 496.0 Output Total 640 / 840 300 / 300 Balance 76.9 / 412.875 300 / 712.875 196.0 / 196.0 Weight last 48 hrs Weight 55 kg Weight 57 kg Physical Exam Narrative: Awake and alert Euvolemic GCS 15 Currently on 2 L Abdomen soft S1, S2 Lower extremity no edema Pleasant and cooperative Data 12/12/22 03:45 12/12/22 03:45 Micro: Microbiology 12/10/22 12:15 MRSA Culture - Final Nose A&P Assessment and plan (1) Peripheral arterial disease: (2) Bilateral inguinal hernia without obstruction or gangrene: (3) Acute respiratory failure with hypoxia and hypercapnia: (4) COPD with acute exacerbation: (5) Pneumonia: (6) COPD (chronic obstructive pulmonary disease): (7) Scrotal hernia: (8) Hx of CABG: (9) History of coronary artery stent placement: (10) Pulmonary hypertension: (11) Oxygen dependent: (12) H/O macrocytic anemia: (13) Non-ST elevation [place] (NSTEMI): (14) Community acquired pneumonia: (15) Acute exacerbation of chronic obstructive airways disease: Plan NSTEMI: Cardiology consulted History of CABG and stent placement with pulmonary hypertension Community-acquired pneumonia MRSA nares negative I will switch patient to IV ceftriaxone and azithromycin Chronic hypoxia patient requires 3 L of oxygen at baseline Currently on 3 L Acute COPD exacerbation related to pneumonia, hypercapnia improved with use of BiPAP Significant muscle mass loss Lives with her son History of CABG and coronary disease No active chest pain Currently on nitroglycerin drip Full code I will switch patient to cardiac diet N.p.o. after midnight in case he goes for angiogram Can transfer out of ICU Attestations Medical Necessity Statement*: Out of ICU today Diagnoses Peripheral arterial disease I73.9 Bilateral inguinal hernia without obstruction or gangrene K40.20 Acute respiratory failure with hypoxia and hypercapnia J96.01; J96.02 COPD with acute exacerbation J44.1 Pneumonia J18.9 COPD (chronic obstructive pulmonary disease) J44.9 Scrotal hernia K40.90 Hx of CABG Z95.1 History of coronary artery stent placement Z95.5 Pulmonary hypertension I27.20 Oxygen dependent Z99.81 H/O macrocytic anemia Z86.2 Non-ST elevation [place] (NSTEMI) I21.4 Community acquired pneumonia J18.9 Acute exacerbation of chronic obstructive airways disease J44.1
--- NOTE | 2022-12-12 15:12 | PC.NURSE ---
Patient transferred to [facility] 111-2. CSU nurse at bedside with family. All belongings with patient at time of transfer. Patient resting in bed, denies chest pain. Respiratory at bedside with Bipap to set up. Patient had no complaints at time of transfer. Chart and sublingual nitro left with staff at nurses station.
--- NOTE | 2022-12-12 15:45 | PC.NURSE ---
Received patient into 111-02 in wheelchair from the ICU. Patient was able to ambulate into bed from wheelchair. Nitro gtt was connected to patient but was not infusing. Nitro gtt left on hold and disconnected from IV. Patient was instructed to notify the nurse if he develops any chest pain. Patient is complaining of pain and wanting his pain pill. RN informed patient that it will not be due until this evening at 1820. Patient's event monitor came with patient from the ICU. Device was plugged into an outlet and givne back to the patient. Patient connected to bedside monitor. Please see physical assessment and vital sign flowsheets for details.
[2022-12-12] MEDS: atorvastatin 40 mg Tablet PO (20:08)
[2022-12-13] VITALS (44 sets, daily range): BP systolic 136–149; BP diastolic 61–84; PULSE 61–122; RESP 15–32; TEMP 36.4–36.7; O2SAT 87–99
[2022-12-13] MEDS: dilTIAZem 30 mg Tablet PO ×3 (00:32→13:32)
[2022-12-13] MEDS: oxyCODONE-APAP 5-325 mg Tablet 1 TAB PO ×3 (00:32→13:32)
[2022-12-13] MEDS: ipratropium-albuterol 3 mL Neb INHALATION ×4 (00:55→11:16)
[2022-12-13 04:05] LABS: Basophils % 0.2 %; Hematocrit 27.7 % (42.0-52.0); Hemoglobin 8.4 g/dL (11.7-16.6); Lymphocytes % 8.6 %; Mean Corpuscular HGB Conc 30.3 g/dL (30.0-36.0); Mean Corpuscular Hemoglobin 34.1 pg (28.0-34.0); Mean Corpuscular Volume 112.6 fl (80-94); Mean Platelet Volume 11.4 fL (7.4-10.4); Monocytes # 0.8 10^3/uL (0.2-0.9); Monocytes % 7.3 %; Neutrophils # 9.22 10^3/uL (1.8-7.7); Neutrophils % 83.1 %; Nucleated Red Blood Cells % 0 %; Platelet Count 169 10^3/cmm (130-400); Red Blood Count 2.46 10^6/uL (4.1-5.3); White Blood Count 11.1 10^3/uL (4.0-10.0)
[2022-12-13] MEDS: enoxaparin 60 mg/0.6 mL Syringe 50 MG SUBCUT (04:25)
[2022-12-13 04:27] LABS: Blood Urea Nitrogen 29 mg/dL (8-23); Calcium 9.2 mg/dL (8.5-10.5); Carbon Dioxide 34 mmol/L (22-29); Chloride 102 mmol/L (98-107); Glucose 82 mg/dL (65-115); Osmolality Calculated 299 mOsm/kg (285-295); Sodium 142 mmol/L (136-145)
[2022-12-13] MEDS: budesonide 0.5 mg/2 mL Neb INHALATION (07:36)
[2022-12-13] MEDS: lisinopril 2.5 mg Tablet PO (08:42)
[2022-12-13] MEDS: azithromycin 250 mg Tablet 500 MG PO (08:42)
[2022-12-13] MEDS: clopidogrel 75 mg Tablet PO (08:42)
[2022-12-13] MEDS: aspirin 81 mg EC Tablet PO (08:42)
[2022-12-13] MEDS: ranolazine (12HR) 500 mg Tablet PO (08:42)
[2022-12-13] MEDS: isosorbide mononitrate ER 30 mg Tablet PO (08:42)
[2022-12-13] MEDS: pantoprazole 40 mg SDV IVP (08:42)
[2022-12-13] MEDS: cefTRIAXone 1,000 MG in sodium chloride 0.9% (plus) 50 ML 100 MG IV (08:42)
[2022-12-13] MEDS: roflumilast 500 mcg Tablet 250 MCG PO (09:36)
--- NOTE | 2022-12-13 10:47 | PM.DCS ---
Discharge Providers Date of Admission: 12/10/22 04:08 Date of Discharge: December 13, 2022 Attending Provider at Admission: Dameon Garcia MD Attending Provider at Discharge: Markus Case MD Primary Care Provider: Pawel Ordoñez Diagnoses at Discharge Discharge Diagnosis (1) Atherosclerotic heart disease of [place] coronary artery with unstable angina pectoris: Status: Acute (2) Acute respiratory failure with hypoxia and hypercapnia: Status: Acute (3) Non-ST elevation [place] (NSTEMI): Status: Acute (4) Hyperlipidemia: Status: Acute (5) Ischemic cardiomyopathy: Status: Acute (6) Bilateral inguinal hernia without obstruction or gangrene: Status: Acute (7) Peripheral arterial disease: Status: Acute Reason for Visit Reason for Visit: RESP DISTRESS Hospital Course Hospital Course Rest [id number] male who carries history of coronary disease, CABG, 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 Graff and Dr. Lawrence both recommended medical management, optimization of medicine for his unstable angina, patient is agreeable for left radial coronary angiogram if his symptoms recur at home, his EF has reduced from before, we will discharge him with a LifeVest, patient does not want coronary angiogram at this point and agreeable with above-mentioned plan EF is 28% with severe dyskinesia and hypokinesia of septum anterior septum left ventricle apex. Cultures remain negative, MRSA nares negative blood culture showing contamination. Patient remains full code high risk for readmissions and recurrent angina. If he gets readmitted then cardiology should be consulted from the ER for cardiac catheterization from left radial artery Discharge Data Studies Completed and Pending Completed Studies During Hospitalization Category Date Time Status CTA chest [CT angio chest PE protcl [id number]] Stat Cat Scan 12/09/22 22:14 Completed XR chest 1V portable [id number] Stat Exams 12/09/22 20:31 [place] [id number] Routine Ultrasound 12/11/22 11:19 Completed CV. echo complete* [id number] Routine Ultrasound 12/10/22 15:16 Completed Pending at discharge Category Date Time Status Blood Culture Stat Lab 12/09/22 00:44 Results Sputum Culture and Gram Stain Routine Lab 12/10/22 04:08 Uncollected Radiology Impressions Chest X-Ray 12/09/22 20:31 IMPRESSION: 1. 2 new irregular nodular opacities in the lateral right upper lobe, pulmonary nodules cannot be ruled out. CT scan of the chest with contrast on a nonemergent basis is recommended for further evaluation. 2. No acute cardiopulmonary process. 3. Incidental/nonacute findings are listed in the report. ADDENDUM: 12/09/222129 Results were discussed with ASHLEY Dobbins on 12/09/2022 at 9:28 PM CDT. Chest CTA 12/09/22 22:14 IMPRESSION: 1. Bronchial wall thickening diffusely in both lungs with reticulonodular interstitial thickening in the right and left lower lobes. Findings are suspicious for bronchopneumonia, including atypical organisms. Recommend clinical correlation. Recommend followup chest imaging to insure resolution of these findings. 2. No evidence for pulmonary embolism. 3. Debris layering in the mid/distal trachea. This may represent bronchial secretions. 4. Marked centrilobular and paraseptal emphysematous changes in the lungs with bulla formation in the right upper lobe. 5. Multiple areas of pleural-parenchymal scarring in the lateral right lung, the 2 largest areas appear to correspond to the findings on the prior chest radiograph. 6. Noncalcified nodules in both lungs. For patients at low risk (minimal or absent history of smoking and of other known risk factors), recommend CT Chest at 3-6 months, then consider CT Chest at 18-24 months. For patients at high risk (history of smoking or of other known risk factors), recommend CT Chest at 3-6 months, then CT Chest at 18-24 months. (Reference: Tosha) 7. Nonobstructing left renal stone. 8. Interval development of diffuse enlargement of the visualized right and left adrenal glands that may be due to the an acute illness. 9. Incidental/nonacute findings are listed in the report. COMMENTS: Consistent with the [employer]'s Incidental Findings Committee white paper (J Am Angela Radiol 2018): Any incidental renal lesion less than 1 cm or classified as too small to characterize, or any incidental cystic renal lesion characterized as simple-appearing, is likely benign. No follow-up imaging is recommended for these lesions per consensus recommendations based on imaging criteria. REFERENCES: Tosha Parra, et al. Guidelines for Management of Incidental Pulmonary Nodules Detected on CT Images: From the Fleischner Society 2017. Radiology. 2017;284(1):228-243. Laboratory Results WBC 11.1 10^3/uL (4.0-10.0) H 12/13/22 02:58 RBC 2.46 10^6/uL (4.1-5.3) L 12/13/22 02:58 Hgb 8.4 g/dL (11.7-16.6) L 12/13/22 02:58 Hct 27.7 % (42.0-52.0) L 12/13/22 02:58 MCV 112.6 fl (80-94) H 12/13/22 02:58 MCH 34.1 pg (28.0-34.0) H 12/13/22 02:58 MCHC 30.3 g/dL (30.0-36.0) 12/13/22 02:58 RDW 14.0 % (12.1-15.1) 12/13/22 02:58 Plt Count 169 10^3/cmm (130-400) 12/13/22 02:58 MPV 11.4 fL (7.4-10.4) H 12/13/22 02:58 Neut % (Auto) 83.1 % 12/13/22 02:58 Lymph % (Auto) 8.6 % 12/13/22 02:58 [place] % (Auto) 7.3 % 12/13/22 02:58 Eos % (Auto) 0.0 % 12/13/22 02:58 Baso % (Auto) 0.2 % 12/13/22 02:58 Neut # (Auto) 9.22 10^3/uL (1.8-7.7) H 12/13/22 02:58 Lymph # (Auto) 1.0 10^3/uL (0.8-4.8) 12/13/22 02:58 [place] # (Auto) 0.8 10^3/uL (0.2-0.9) 12/13/22 02:58 Eos # (Auto) 0.0 10^3/uL (0.0-0.8) 12/13/22 02:58 Baso # (Auto) 0.0 10^3/uL (0.0-0.1) 12/13/22 02:58 Nucleated RBC % (auto) 0 % 12/13/22 02:58 Total Counted 100 (0-100) 12/11/22 04:05 Atypical Lymphs % 0.0 % (0-5) 12/11/22 04:05 Absolute Neutrophils 9.4 10^3/cmm (1.4-6.5) H 12/11/22 04:05 Segmented Neutrophils 57 % 12/11/22 04:05 Abs Segm Neuts (Man) 5.9 10/cmm (1.6-7.1) 12/11/22 04:05 Band Neutrophils 34.0 % 12/11/22 04:05 Abs Band Neuts (Man) 3.5 10^3/cmm (0.0-1.2) H 12/11/22 04:05 Absolute Lymphocytes 0.6 10^3/cmm (1.2-3.4) L 12/11/22 04:05 Lymphocytes (Manual) 6 % 12/11/22 04:05 Monocytes (Manual) 2.0 % 12/11/22 04:05 Absolute Monocytes 0.2 10^3/cmm (0.1-0.6) 12/11/22 04:05 Eosinophils (Manual) 0 % 12/11/22 04:05 Absolute Eosinophils 0.0 10^3/cmm (0.0-0.7) 12/11/22 04:05 Basophils (Manual) 0.0 % 12/11/22 04:05 Absolute Basophils 0.0 10^3/cmm (0.0-0.2) 12/11/22 04:05 Metamyelocytes 1.0 % 12/11/22 04:05 Nucleated RBCs # 0.0 /100WBC 12/13/22 02:58 Smudge Cells Trace 12/11/22 04:05 Platelet Estimate Normal (Normal) 12/11/22 04:05 Anisocytosis 1+ H 12/11/22 04:05 Macrocytosis 1+ H 12/11/22 04:05 PT 13.20 SECONDS (12.1-14.9) 12/09/22 21:04 INR 0.97 (0.8-1.2) 12/09/22 21:04 Specimen Type Arterial 12/10/22 16:36 Sample Site Brachial, left 12/10/22 16:36 ABG pH 7.58 (7.35-7.45) H* 12/10/22 16:36 ABG pCO2 36.6 mmHg (35-45) 12/10/22 16:36 ABG pO2 155.0 mmHg (80.0-100.0) H 12/10/22 16:36 ABG HCO3 34.1 mmol/L (22-26) H 12/10/22 16:36 ABG O2 Saturation 97.4 12/10/22 07:32 ABG Base Excess 11.3 mmol/L (-2.0-2.0) H 12/10/22 16:36 Mohit Test Pos 12/10/22 16:36 A-a O2 Gradient 17.2 mmHg (5-10) H 12/10/22 07:32 Hematocrit 23.6 % (42-52) L 12/10/22 16:36 Hgb O2 Saturation 96.1 % (95-100) 12/10/22 07:32 Carboxyhemoglobin 0.3 %THgb (0.4-20.1) L 12/10/22 07:32 Methemoglobin 1.0 % (0.4-1.5) 12/10/22 07:32 Total Hemoglobin 9.8 g/dL (14-18) L 12/10/22 07:32 Sodium 146.0 mmol/L (131-143) H 12/10/22 07:32 Potassium 4.5 mmol/L (3.5-5.0) 12/10/22 07:32 Glucose 144.0 mg/dL (70-115) H 12/10/22 07:32 Ionized Calcium 1.3 mmol/L (1.1-1.4) 12/10/22 07:32 O2 Delivery Device Bipap 12/10/22 16:36 O2 Liters/Min 5.0 % 12/09/22 23:05 FiO2 35.0 % 12/10/22 16:36 Mis Manager ID Cak 12/10/22 16:36 Sodium 142 mmol/L (136-145) 12/13/22 02:58 Potassium 4.0 mmol/L (3.5-5.1) 12/13/22 02:58 Chloride 102 mmol/L (98-107) 12/13/22 02:58 Carbon Dioxide 34 mmol/L (22-29) H 12/13/22 02:58 Anion Gap 10.0 (5-19) 12/13/22 02:58 BUN 29 mg/dL (8-23) H 12/13/22 02:58 Creatinine 0.5 mg/dL (0.7-1.2) L 12/13/22 02:58 GFR Calculation Not Reportable 12/13/22 02:58 Glucose 82 mg/dL (65-115) 12/13/22 02:58 Calculated Osmolality 299 mOsm/kg (285-295) H 12/13/22 02:58 Calcium 9.2 mg/dL (8.5-10.5) 12/13/22 02:58 Magnesium 2.3 mg/dL (1.7-2.3) 12/11/22 04:05 Total Bilirubin 0.2 mg/dL (0.15-1.2) 12/12/22 03:45 AST 34 U/L (0-40) 12/12/22 03:45 ALT 20 U/L (0-41) 12/12/22 03:45 Alkaline Phosphatase 45 U/L (40-130) 12/12/22 03:45 Troponin T Baseline 198 ng/L (0-15) H* 12/10/22 15:38 Troponin T 120 Minute 302.5 ng/L (0-15) H 12/10/22 17:09 Delta Troponin T 104.5 ABS# (0-10) H* 12/10/22 17:09 Troponin T Hi Sens 6Hr 364.3 ng/L (0-15) H 12/10/22 21:22 Troponin T Hi Sens 6Hr Delta 166.3 ng/L (0-12) H* 12/10/22 21:22 NT-Pro-B Natriuret Pep 1894 pg/mL (0-450) H 12/09/22 21:04 Total Protein 6.1 g/dL (6.6-8.7) L 12/12/22 03:45 Albumin 3.2 g/dL (3.5-5.2) L 12/12/22 03:45 Globulin 2.9 g/dL (1.3-4.6) 12/12/22 03:45 Urine Color Yellow (Yellow) 12/10/22 05:42 Urine Appearance Clear (CLEAR) 12/10/22 05:42 Urine pH 5 (5-7) 12/10/22 05:42 Ur Specific [place] 1.010 (1.005-1.030) 12/10/22 05:42 Urine Protein 1+ (Negative) H 12/10/22 05:42 Urine Glucose (UA) Norm (Normal) 12/10/22 05:42 Urine Ketones Negative (Negative) 12/10/22 05:42 Urine Blood Trace (Negative) H 12/10/22 05:42 Urine Nitrate Negative (Negative) 12/10/22 05:42 Urine Bilirubin Neg (Negative) 12/10/22 05:42 Urine Urobilinogen Neg mg/dL (Negative) 12/10/22 05:42 Ur Leukocyte Esterase Trace (Negative) H 12/10/22 05:42 Urine RBC 0-4 /hpf (0-2) H 12/10/22 05:42 Urine WBC 5-10 /hpf (0-5) H 12/10/22 05:42 Ur Squamous Epith Cells 0-4 /hpf (0-5) H 12/10/22 05:42 Amorphous Sediment Trace /hpf 12/10/22 05:42 Urine Bacteria Trace /hpf (NONE) 12/10/22 05:42 Hyaline Casts 0-4 /lpf H 12/10/22 05:42 Urine Mucus Trace /hpf 12/10/22 05:42 Vancomycin Trough 10.8 ug/mL (10-15) 12/11/22 17:13 Coronavirus 229E (PCR) Not detected (NOT DETECT) 12/09/22 20:57 SARS-CoV-2 (PCR) Not detected (NOT DETECT) 12/09/22 20:57 Vitals Last Vital Signs Temp 98.1 F 12/13/22 08:00 Pulse 111 H 12/13/22 08:00 Resp 22 H 12/13/22 08:00 BP 149/84 12/13/22 08:00 Pulse Ox 90 12/13/22 08:00 O2 Del Method Nasal Cannula 12/13/22 08:00 O2 Flow Rate 1.5 12/13/22 07:38 FiO2 4 12/12/22 05:51 Discharge Plan Discharge Patient Disposition: Home Condition: Stable Prescriptions: New losartan 25 mg tablet 25 mg PO DAILY Qty: 60 3RF isosorbide dinitrate 10 mg tablet 10 mg PO BID Qty: 60 2RF Rx Instructions: allow nitrate-free interval of 12-14 hrs per 24-hr period levofloxacin 750 mg tablet 750 mg PO DAILY 7 Days Qty: 7 0RF spironolactone 25 mg tablet 25 mg PO DAILY Qty: 90 3RF Continued albuterol sulfate [Proventil HFA] 90 mcg/actuation HFA aerosol inhaler 2 puff inhalation Q6H PRN (Reason: unknown) vitamin V40-qnbcu acid 500-400 mcg tablet 1 tab PO DAILY Rx Instructions: administer with a meal tamsulosin 0.4 mg capsule 0.4 mg PO .at bedtime Qty: 30 12RF cholecalciferol (vitamin D3) 1,250 mcg (50,000 unit) capsule 1,250 mcg PO DAILY PRN (Reason: unknown) roflumilast 250 mcg tablet 250 mcg PO DAILY oxycodone-acetaminophen 10-325 mg tablet 1 tab PO Q6H PRN (Reason: Pain) nitroglycerin 0.4 mg tablet, sublingual 0.4 mg sublingual Q5M PRN (Reason: chest pain) 30 Days Qty: 10 0RF Rx Instructions: do not exceed 3 doses per episode aspirin 81 mg tablet,delayed release (DR/EC) 81 mg PO DAILY Qty: 60 3RF atorvastatin 80 mg tablet 80 mg PO DAILY Qty: 30 0RF clopidogrel 75 mg tablet 75 mg PO DAILY Qty: 60 3RF Discontinued lisinopril 2.5 mg tablet 2.5 mg PO DAILY No Action isosorbide mononitrate 30 mg tablet extended release 24 hr 30 mg PO DAILY Discharge Orders: Discharge Order (Routine); Ordered 12/13/22 Ordered By: Markus Case Referrals: Pawel Ordoñez [Primary Care Provider] - Patient Instructions: Opioid Safety Discharge Attestations Time Spent in Discharge Care*: greater than 30 min Quality Metrics Clinical Quality Measures [ No reported AMI, CVA or VTE this stay] Coding Level of Care Code Acute Code for Chg Fwd Diagnoses Atherosclerotic heart disease of [place] coronary artery with unstable angina pectoris I25.110 Acute respiratory failure with hypoxia and hypercapnia J96.01; J96.02 Non-ST elevation [place] (NSTEMI) I21.4 Hyperlipidemia E78.5 Ischemic cardiomyopathy I25.5 Bilateral inguinal hernia without obstruction or gangrene K40.20 Peripheral arterial disease I73.9
--- NOTE | 2022-12-13 11:25 | PC.SOCIAL ---
Pg 2 IMM Explained to pt Pg 2 IMM. No questions voiced. Provided pt a copy. Initialed, dated, & timed a copy & placed in chart.
--- NOTE | 2022-12-13 13:18 | PM.PN ---
Subjective Subjective: Patient is feeling well. Denies chest pain Vitals/I&O/Wt Last Vital Signs Temp 98.1 F 12/13/22 08:00 Pulse 96 12/13/22 11:30 Resp 20 H 12/13/22 11:16 BP 149/84 12/13/22 08:00 Pulse Ox 92 12/13/22 11:16 O2 Del Method Nasal Cannula 12/13/22 11:16 O2 Flow Rate 1 12/13/22 11:16 FiO2 4 12/12/22 05:51 12/12/22 12/13/22 12/13/22 22:59 06:59 14:59 Intake Total 781.800 / 1397.800 410 / 410 Balance 781.800 / 947.800 410 / 410 Weight last 48 hrs Weight 124 lb 12.8 oz Weight 121 lb 4.068 oz Physical Exam Narrative: GENERAL: Patient is alert, awake and oriented x3. [] NECK: No jugular vein distension. [] HEENT: No cyanosis. No icterus. No pallor. [] HEART: Regular S1 and S2. No murmur, rub or gallop. [] LUNGS: Clear to auscultate bilaterally. [] CENTRAL NERVOUS SYSTEM: Grossly nonfocal. [] EXTREMITIES: Lower extremities with 1+ edema bilaterally. Pulses palpable in the lower extremities, both dorsalis pedis and posterior tibial. [] Data 12/13/22 02:58 12/13/22 02:58 Micro: Microbiology 12/09/22 00:44 Blood Culture - Final Blood Staphylococcus epidermidis A&P Assessment and plan (1) Atherosclerotic heart disease of [place] coronary artery with unstable angina pectoris: (2) Acute respiratory failure with hypoxia and hypercapnia: (3) Non-ST elevation [place] (NSTEMI): (4) Hyperlipidemia: (5) Ischemic cardiomyopathy: (6) Bilateral inguinal hernia without obstruction or gangrene: (7) Peripheral arterial disease: Plan Had a detailed discussion with patient and family regarding all options. Patient wants medical therapy. He has limited access options for coronary angiogram however left left radial artery can be used. Also discussed with LifeVest. He wants to wait. Continue current medications including aspirin and plavix. Thank you for involving us with care of this patient. Please call with questions. Attestations Medical Necessity Statement*: Care expected to cross 2 midnights. Coding Level of Care Code Acute Code for Chg Fwd Diagnoses Atherosclerotic heart disease of [place] coronary artery with unstable angina pectoris I25.110 Acute respiratory failure with hypoxia and hypercapnia J96.01; J96.02 Non-ST elevation [place] (NSTEMI) I21.4 Hyperlipidemia E78.5 Ischemic cardiomyopathy I25.5 Bilateral inguinal hernia without obstruction or gangrene K40.20 Peripheral arterial disease I73.9
--- NOTE | 2022-12-13 16:26 | PC.NURSE ---
All vitals within normal limits, IV removed. Patient and family/caregiver was given verbal and written education on medications and scheduled appointments, verbalized understanding. Life vest appointment was scheduled for 12/14 at 2-2:30pm for life vest used equipment sales representative to come set up vest at home, patient said that the appointment would not work. The appointment was then rescheduled for patient on 12/16, the only day that the patient was available. Patient taken out via wheelchair, left facility with family/caregiver.
== END 2022-12-13 16:20 | disposition home health service (06) | DRG 193 ==
LOC: ER 12-10 00:50 → ICU 12-10 02:38 → CSU 12-12 16:21 → ICU 12-13 06:48
PROVIDERS: Family Medicine; Admitting Provider Internal Medicine; Emergency Provider Emergency Medicine; PCP Family Medicine; Visit Provider Internal Medicine
DX: J18.9 Pneumonia, unspecified organism (principal); I21.4 Non-ST elevation (NSTEMI) myocardial infarction; J96.01 Acute respiratory failure with hypoxia; J96.02 Acute respiratory failure with hypercapnia; J44.0 Chronic obstructive pulmonary disease with (acute) lower respiratory infection; J44.1 Chronic obstructive pulmonary disease with (acute) exacerbation; I25.110 Atherosclerotic heart disease of native coronary artery with unstable angina pectoris; R64 Cachexia; Z68.1 Body mass index [BMI] 19.9 or less, adult; E46 Unspecified protein-calorie malnutrition; I11.0 Hypertensive heart disease with heart failure; I50.9 Heart failure, unspecified; N40.1 Benign prostatic hyperplasia with lower urinary tract symptoms; K40.20 Bilateral inguinal hernia, without obstruction or gangrene, not specified as recurrent; E78.5 Hyperlipidemia, unspecified; I25.5 Ischemic cardiomyopathy; I73.9 Peripheral vascular disease, unspecified; D53.9 Nutritional anemia, unspecified; M62.50 Muscle wasting and atrophy, not elsewhere classified, unspecified site; Z95.1 Presence of aortocoronary bypass graft; Z87.891 Personal history of nicotine dependence; Z99.81 Dependence on supplemental oxygen; Z95.5 Presence of coronary angioplasty implant and graft
CPT/HCPCS: 36415; 36600; 71045; 71275; 80048; 80051; 80053; 80202; 81001; 82330; 82803; 82805; 83735; 83880; 84484; 85007; 85025; 85610; 87040; 87077; 87150; 87186; 87205; 87635; 87641; 93005; 93306; 93925; 94640; 94660; 96365; 96367; 96372; 96375; 96376; 99291; C9113; J0456; J0696; J1650; J1885; J2060; J2270; J2405; J2543; J2930; J3370; J3490; J7030; J7050; J7613; J7626; J7644; Q0144; Q9967

== ENCOUNTER 2024-02-28 01:05 | Emergency (ER) | payer MEDICARE, SELFPAY ==
[2024-02-28] VITALS (38 sets, daily range): BP systolic 92–167; BP diastolic 49–95; PULSE 79–131; RESP 14–26; TEMP 36.7; O2SAT 88–100; BMI 18.1
--- NOTE | 2024-02-28 01:15 | XRR_ITS ---
PROCEDURE INFORMATION: Exam: XR Chest Exam date and time: 02/28/2024 1:23 AM Age: 78 years old Clinical indication: Dyspnea; Prior surgery; Surgery date: 6+ months; Surgery type: Cabg TECHNIQUE: Imaging protocol: Radiologic exam of the chest. Views: 1 view. COMPARISON: 1. CT angio chest PE protcl [id number] 12/09/2022 10:29 PM, chest x-ray 12/09/2022 2. The lungs are hyperinflated. Persistent somewhat nodular opacity is seen within the right mid lung similar to slightly improved when compared to prior exam. No acute appearing infiltrates are identified. 3. There appears to be a retrocardiac hiatal hernia. FINDINGS: Lungs: Unremarkable. No consolidation. Pleural spaces: Unremarkable. No pleural effusion. No pneumothorax. Heart/Mediastinum: Heart size is normal. There is calcified plaque involving the aorta. There are sternal wires present from prior cardiac surgery. Bones/joints: Unremarkable. XR/XR chest 1V portable [id number] IMPRESSION: 1. Lung hyperinflation. 2. Somewhat nodular opacity involving the peripheral right mid lung slightly improved when compared to prior exam. Please see report from CT thorax exam 12/09/2022. 3. Retrocardiac hiatal hernia.
--- NOTE | 2024-02-28 01:20 | ED_ITS ---
HPI - SOB/Dyspnea 2 General: Chief Complaint: Shortness of Breath/Dyspnea Stated Complaint: respiratory distress Time Seen by Provider: 02/28/24 01:06 History of Present Illness: HPI Narrative: Patient presents to the ER with complaints of shortness of breath. Shortness of breath started earlier today. Patient is normally on 4 L of oxygen per nasal cannula all the time. Patient did receive 1 breathing treatment on route via the ambulance. Patient denies any fever or chills or any known sick contacts. Review of Systems 2 General: Reports: 10 or more systems reviewed and unremarkable except in HPI and below PFSH ED 2 PFSH: Medical History Peripheral arterial disease Bilateral inguinal hernia without obstruction or gangrene Atherosclerotic heart disease of [place] coronary artery with unstable angina pectoris Acute respiratory failure with hypoxia and hypercapnia Elevated troponin COPD with acute exacerbation Pneumonia Acute respiratory failure with hypoxemia Acute exacerbation of chronic obstructive airways disease Community acquired pneumonia Scrotal hernia BPH loc w urin obs/LUTS Non-ST elevation [place] (NSTEMI) Congestive heart failure due to cardiomyopathy Ischemic cardiomyopathy H/O macrocytic anemia Anemia CAD (coronary artery disease) Oxygen dependent Pulmonary hypertension COPD (chronic obstructive pulmonary disease) Hyperlipidemia Surgical History History of coronary artery stent placement Hx of CABG Family History Father , AT 94 Cancer Mother , AT 83 Heart disease Social History Smoking and tobacco/nicotine status: former use of tobacco/nicotine (7-8 years ago) Alcohol intake: former Substance/Drug Use: never Marital status: Single Current occupational status: retired and disabled Physical Exam 2 Const: COMMON NORMALS: no acute distress, average body habitus, patient oriented x3, no limitations, healthy appearing, alert and well nourished HENMT: COMMON NORMALS: normocephalic, atraumatic, hearing grossly normal bilaterally, external ears normal, Normal external nose present and moist oral mucous membranes HEAD & SCALP: normocephalic and atraumatic NOSE: Normal external nose present EXTERNAL EAR: Yes external ears normal Neck/C-Spine: COMMON NORMALS: no JVD Chest: COMMONS NORMALS: normal inspection of the chest and normal palpation of entire chest wall Resp: COMMON NORMALS: normal respiratory effort, No retractions, No use of accessory muscles and clear to auscultation bilaterally (Decreased breath sounds bilaterally) AUSCULTATION: clear to auscultation bilaterally (Decreased breath sounds bilaterally) Cardio: COMMON NORMALS: no JVD, regular rate, regular rhythm, S1 normal heart sound present, S2 normal heart sound present, No gallops present (Cardio), No clicks present (Cardio), No murmurs present (Cardio) and No rub (Cardio) R ATE: regular rate RHYTHM: regular rhythm HEART SOUNDS: S1 normal heart sound present and S2 normal heart sound present GI: COMMON NORMALS: Normal to inspection, nondistended, normoactive bowel sounds present, Soft to palpation, non-tender, No hepatosplenomegaly present and no masses PALPATION: Yes Soft to palpation and Yes No hepatosplenomegaly present Neuro: COMMON NORMALS: patient oriented x3 SENSORIUM/ORIENTATION: Yes alert Course 2 Vital Signs: Vital signs: Vital Signs Temperature 98.0 F 02/28/24 01:06 Pulse Rate 105 H 02/28/24 03:30 Respiratory Rate 18 02/28/24 03:30 Blood Pressure 119/62 02/28/24 03:30 Pulse Oximetry 97 02/28/24 03:30 Oxygen Delivery Me thod Room Air 02/28/24 01:06 MDM - SOB/Dyspnea Medical Decision Making Patient lab work included CBC CMP BNP chest x-ray all of which was essentially benign serial troponins, BNP was 486, white count was 10.2, chest x-ray was negative for acute changes, patient was given 1 dose of Rocephin here in the ER and was adamant about getting sent home on antibiotic. Patient will be sent home on Augmentin. Differential Diagnosis Likely acute exacerbation of chronic obstructive airways disease Medical Records I reviewed the patient's medical records. Lab Data I reviewed the patient's lab results. 02/28/24 00:20 02/28/24 00:20 Labs/Radiology: Radiology Impressions Chest X-Ray 02/28/24 01:15 IMPRESSION: 1. Lung hyperinflation. 2. Somewhat nodular opacity involving the peripheral right mid lung slightly improved when compared to prior exam. Please see report from CT thorax exam 12/09/2022. 3. Retrocardiac hiatal hernia. Laboratory Results WBC 10.27 10^3/uL (3.29-11.43) 02/28/24 00:20 RBC 3.36 10^6/uL (3.85-5.65) L 02/28/24 00:20 Hgb 11.50 g/dL (11.27-16.99) 02/28/24 00:20 Hct 36.5 % (37-53) L 02/28/24 00:20 MCV 108.6 fl (82-101) H 02/28/24 00:20 MCH 34.2 pg (27-33) H 02/28/24 00:20 MCHC 31.5 g/dL (30-55) 02/28/24 00:20 RDW 13.5 % (12.1-15.1) 02/28/24 00:20 Plt Count 212 10^3/cmm (157-399) 02/28/24 00:20 MPV 10.3 fL (7.4-10.4) 02/28/24 00:20 Neut % (Auto) 64.6 % 02/28/24 00:20 Lymph % (Auto) 25.7 % 02/28/24 00:20 [place] % (Auto) 8.7 % 02/28/24 00:20 Eos % (Auto) 0.4 % 02/28/24 00:20 Baso % (Auto) 0.3 % 02/28/24 00:20 Neut # (Auto) 6.64 10^3/uL (1.8-7.7) 02/28/24 00:20 Lymph # (Auto) 2.6 10^3/uL (0.8-4.8) 02/28/24 00:20 [place] # (Auto) 0.9 10^3/uL (0.2-0.9) 02/28/24 00:20 Eos # (Auto) 0.0 10^3/uL (0.0-0.8) 02/28/24 00:20 Baso # (Auto) 0.0 10^3/uL (0.0-0.1) 02/28/24 00:20 Nucleated RBC % (auto) 0 % 02/28/24 00:20 Nucleated RBCs # 0.0 /100WBC 02/28/24 00:20 Sodium 145 mmol/L (136-145) 02/28/24 00:20 Potassium 3.7 mmol/L (3.5-5.1) 02/28/24 00:20 Chloride 99 mmol/L (98-107) 02/28/24 00:20 Carbon Dioxide 30 mmol/L (22-29) H 02/28/24 00:20 Anion Gap 19.7 (5-19) H 02/28/24 00:20 BUN 23 mg/dL (8-23) 02/28/24 00:20 Creatinine 0.5 mg/dL (0.7-1.2) L 02/28/24 00:20 GFR Calculation Not Reportable 02/28/24 00:20 Glucose 112 mg/dL (65-115) 02/28/24 00:20 Calculated Osmolality 304 mOsm/kg (285-295) H 02/28/24 00:20 Calcium 9.4 mg/dL (8.5-10.5) 02/28/24 00:20 Total Bilirubin 0.2 mg/dL (0.15-1.2) 02/28/24 00:20 AST 18 U/L (0-40) 02/28/24 00:20 ALT 21 U/L (0-41) 02/28/24 00:20 Alkaline Phosphatase 63 U/L (40-130) 02/28/24 00:20 Troponin T Baseline 15 ng/L (0-15) 02/28/24 00:20 Troponin T 120 Minute 13.97 ng/L (0-15) 02/28/24 02:15 Delta Troponin T -1.03 ABS# (0-10) L 02/28/24 02:15 NT-Pro-B Natriuret Pep 486 pg/mL (0-450) H 02/28/24 00:20 Total Protein 6.4 g/dL (6.6-8.7) L 02/28/24 00:20 Albumin 4.0 g/dL (3.5-5.2) 02/28/24 00:20 Globulin 2.4 g/dL (1.3-4.6) 02/28/24 00:20 Influenza Type A Ag negative (Negative) 02/28/24 01:30 Influenza Type B Ag negative (Negative) 07/16/24 01:30 SARS-CoV-2 Ag (Rapid) negative (Negative) 02/28/24 01:30 All radiology interpretation(s) finalized by discharge EKG Data EKG 1: I personally reviewed and interpreted this EKG as follows: EKG Interpretation Date: 02/28/24 EKG interpretation time: 01:21 Interpretation: Rate 118 bpm, MT interval 164, QRS duration 88, QTc of 495, sinus tachycardia Discharge Plan Discharge Patient Disposition: Home Clinical Impression: Acute exacerbation of chronic obstructive airways disease Condition: Stable Prescriptions: New amoxicillin-pot clavulanate 875-125 mg tablet 1 tab PO Q12H Qty: 20 0RF No Action albuterol sulfate [Proventil HFA] 90 mcg/actuation HFA aerosol inhaler 2 puff inhalation Q6H PRN (Reason: unknown) vitamin H90-lkzhq acid 500-400 mcg tablet 1 tab PO DAILY Rx Instructions: administer with a meal tamsulosin 0.4 mg capsule 0.4 mg PO .at bedtime Qty: 30 12RF cholecalciferol (vitamin D3) 1,250 mcg (50,000 unit) capsule 1,250 mcg PO DAILY PRN (Reason: unknown) roflumilast 250 mcg tablet 250 mcg PO DAILY oxycodone-acetaminophen 10-325 mg tablet 1 tab PO Q6H PRN (Reason: Pain) nitroglycerin 0.4 mg tablet, sublingual 0.4 mg sublingual Q5M PRN (Reason: chest pain) 30 Days Qty: 10 0RF Rx Instructions: do not exceed 3 doses per episode spironolactone 25 mg tablet 25 mg PO DAILY Qty: 90 3RF losartan 25 mg tablet 25 mg PO DAILY Qty: 60 3RF atorvastatin 80 mg tablet 80 mg PO DAILY Qty: 30 0RF clopidogrel 75 mg tablet 75 mg PO DAILY Qty: 60 3RF aspirin 81 mg tablet,delayed release (DR/EC) 81 mg PO DAILY Qty: 60 3RF isosorbide dinitrate 10 mg tablet 10 mg PO BID Qty: 60 2RF Rx Instructions: allow nitrate-free interval of 12-14 hrs per 24-hr period Discharge Orders: Discharge ED (Routine); Ordered 02/28/24 Ordered By: Sherwin Ellis Referrals: Pawel Ordoñez [Primary Care Provider] - 1 week Patient Instructions: COPD (Chronic Obstructive Pulmonary Disease) (DC) Activity Restrictions/Additional Instructions: Thank you for choosing [facility] for your healthcare needs today. Please realize that you were seen in the emergency department and that we are providing you with an emergency medical screening exam and this may not be a complete and all exclusive of all testing and/or medical workup we may need to determine your element or severity of your illness. It is very important that you follow-up as instructed with your primary care provider or specialist for the additional evaluation and to discuss your medical treatment plan. You may return to the emergency department should you have concerns or if your condition changes or worsens in any way. Coding Level of Care Code ED Car Rental Clerk for Taz Levine
--- NOTE | 2024-02-28 01:21 | ECG_ITS ---
[facility] Test Date: 2024-02-28 Pat Name: Sherwin Dalton Department: Room: Gender: Male Digital Watch Assembler: : 1945 Requested By: Sherwin Ellis Order Number: [id number] Bhumi MD: Kalyani Lawrence M.D. Measurements Intervals [place] Rate: 118 P: 75 MT: 164 QRS: 50 QRSD: 88 T: 76 QT: 425 QTc: 597 Interpretive Statements SINUS TACHYCARDIA NONSPECIFIC ST & T-WAVE ABNORMALITY ABNORMAL RHYTHM ECG Compared to ECG 12/10/2022 12:48:23 T-wave abnormality now present Ventricular premature complex(es) no longer present Left ventricular hypertrophy no longer present ST (T wave) deviation no longer present Myocardial infarct finding no longer present Electronically Signed On 02-28-2024 21:25:19 CDT by Kalyani Lawrence M.D. [id number]
[2024-02-28 01:29] LABS: Basophils % 0.3 %; Eosinophils % 0.4 %; Hematocrit 36.5 % (37-53); Lymphocytes # 2.6 10^3/uL (0.8-4.8); Lymphocytes % 25.7 %; Mean Corpuscular HGB Conc 31.5 g/dL (30-55); Mean Corpuscular Hemoglobin 34.2 pg (27-33); Mean Corpuscular Volume 108.6 fl (82-101); Mean Platelet Volume 10.3 fL (7.4-10.4); Monocytes # 0.9 10^3/uL (0.2-0.9); Monocytes % 8.7 %; Neutrophils # 6.64 10^3/uL (1.8-7.7); Neutrophils % 64.6 %; Nucleated Red Blood Cells % 0 %; Platelet Count 212 10^3/cmm (157-399); Red Blood Count 3.36 10^6/uL (3.85-5.65); Red Cell Distribution Width 13.5 % (12.1-15.1); White Blood Count 10.27 10^3/uL (3.29-11.43)
[2024-02-28 01:51] LABS: Influenza A by IFA negative (Negative); Influenza B by IFA negative (Negative); SARS Covid-2 Antigen negative (Negative)
[2024-02-28 01:52] LABS: Troponin(5th) Baseline 15 ng/L (0-15)
[2024-02-28 01:57] LABS: Alanine Aminotransferase 21 U/L (0-41); Alkaline Phosphatase 63 U/L (40-130); Anion Gap 19.7 (5-19); Aspartate Amino Transferase 18 U/L (0-40); Blood Urea Nitrogen 23 mg/dL (8-23); Calcium 9.4 mg/dL (8.5-10.5); Carbon Dioxide 30 mmol/L (22-29); Chloride 99 mmol/L (98-107); Creatinine Clr Calc Pharmacy 62.4477; Globulin 2.4 g/dL (1.3-4.6); Glucose 112 mg/dL (65-115); Osmolality Calculated 304 mOsm/kg (285-295); Potassium 3.7 mmol/L (3.5-5.1); Sodium 145 mmol/L (136-145); Total Bilirubin 0.2 mg/dL (0.15-1.2); Total Protein 6.4 g/dL (6.6-8.7)
[2024-02-28] MEDS: sodium chloride 0.9% 1,000 ML 999 ML IV (01:59)
[2024-02-28 02:00] LABS: NT Pro B Type Natriuretic Pept 486 pg/mL (0-450)
[2024-02-28 02:43] LABS: Troponin 5 2HR 13.97 ng/L (0-15)
[2024-02-28 02:56] LABS: Troponin 5 2HR Delta -1.03 ABS# (0-10)
--- NOTE | 2024-02-28 02:59 | ECG_ITS ---
[facility] Test Date: 2024-02-28 Pat Name: Sherwin Dalton Department: Room: Gender: Male Day Care Supervisor: : 1945 Requested By: Sherwin Ellis Order Number: [id number] Bhumi MD: Kalyani Lawrence M.D. Measurements Intervals [place] Rate: 114 P: 71 [place]: 166 QRS: 51 QRSD: 90 T: 50 QT: 348 QTc: 479 Interpretive Statements SINUS TACHYCARDIA NONSPECIFIC ST & T-WAVE ABNORMALITY ABNORMAL RHYTHM ECG Compared to ECG 02/28/2024 01:21:42 No significant changes Electronically Signed On 02-28-2024 21:35:17 CDT by Kalyani Lawrence M.D. [id number]
[2024-02-28] MEDS: cefTRIAXone 1,000 mg SDV 1000 MG IVP (03:39)
[2024-02-28] MEDS: oxyCODONE-APAP 5-325 mg Tablet 1 TAB PO (04:04)
== END 2024-02-28 06:12 | disposition home or self-care (01) ==
PROVIDERS: Emergency Provider Emergency Medicine; PCP Family Medicine
DX: J44.1 Chronic obstructive pulmonary disease with (acute) exacerbation (principal); Z79.02 Long term (current) use of antithrombotics/antiplatelets; Z79.82 Long term (current) use of aspirin; R00.0 Tachycardia, unspecified; Z11.52 Encounter for screening for COVID-19; Z87.891 Personal history of nicotine dependence; I25.10 Atherosclerotic heart disease of native coronary artery without angina pectoris; I25.2 Old myocardial infarction; I25.5 Ischemic cardiomyopathy; I11.0 Hypertensive heart disease with heart failure; I50.9 Heart failure, unspecified; Z99.81 Dependence on supplemental oxygen; E78.5 Hyperlipidemia, unspecified; Z95.1 Presence of aortocoronary bypass graft
CPT/HCPCS: 36415; 71045; 80053; 83880; 84484; 85025; 87040; 87426; 87804; 93005; 96361; 96374; 99285; J0696; J7030

== ENCOUNTER 2024-03-18 05:18 | Observation (INO) | payer MEDICARE, SELFPAY ==
[2024-03-18] VITALS (23 sets, daily range): BP systolic 124–151; BP diastolic 63–75; PULSE 103–135; RESP 16–27; TEMP 36.6–37; O2SAT 84–98; BMI 19.5; BMI 17.5
--- NOTE | 2024-03-18 05:29 | XRR_ITS ---
PROCEDURE INFORMATION: Exam: XR Chest Exam date and time: 03/18/2024 5:32 AM Age: 78 years old Clinical indication: Shortness of breath; Prior surgery; Surgery date: 6+ months; Surgery type: Cabg. Coronary stents. Patient HX: C/O SOB. History of copd and chf. TECHNIQUE: Imaging protocol: Radiologic exam of the chest. Views: 1 view. COMPARISON: CR (CHEST, ) 02/28/2024 1:23 AM FINDINGS: Lungs: There is a background of emphysema and pulmonary fibrosis. There is slight improvement in aeration the right upper hemithorax compared with 02/28/2024. There are some strandy opacities superimposed over the left hemidiaphragm most likely representing atelectasis. Pleural spaces: Unremarkable. No pleural effusion. No pneumothorax. Heart/Mediastinum: Unremarkable. No cardiomegaly. Bones/joints: Unremarkable. Soft tissues: A hernia is again seen in the retrocardiac region. XR/XR chest 1V portable [id number] IMPRESSION: 1. Background of emphysema and pulmonary fibrosis. 2. Improving aeration in the right upper hemithorax compared with 02/28/2024. 3. Hiatal hernia again seen. 4. Strandy opacities are seen overlying the left hemidiaphragm likely representing atelectasis.
--- NOTE | 2024-03-18 05:36 | W.ED.SOB ---
Documented by User: Fan Conn MD 03/18/24 06:03 HPI - SOB/Dyspnea General: Chief Complaint: Shortness of Breath/Dyspnea Stated Complaint: resp distress Time Seen by Provider: 03/18/24 05:29 History of Present Illness: HPI Narrative: 38-year-old male with a history of COPD presents emerged part with complaint of shortness of breath. Has been getting more short of breath over the last 12 hours. Is normally on 4 L of oxygen at home. EMS states that he is 94% when they arrived to his house on 5 L but then with any movement he dropped down into the 80s. They did give him DuoNeb treatment but his heart rate increased significantly which patient states is normal for him when he gets albuterol. He quit smoking about a year ago. Denies any chest pain. [facility] ED PFSH: Medical History (Updated 03/18/24 @ 07:13 by Ministerio Johnson DO) COPD (chronic obstructive pulmonary disease) Peripheral arterial disease Bilateral inguinal hernia without obstruction or gangrene Atherosclerotic heart disease of [place] coronary artery with unstable angina pectoris Acute respiratory failure with hypoxia and hypercapnia Elevated troponin COPD with acute exacerbation Pneumonia Acute respiratory failure with hypoxemia Acute exacerbation of chronic obstructive airways disease Community acquired pneumonia Scrotal hernia BPH loc w urin obs/LUTS Non-ST elevation [place] (NSTEMI) Congestive heart failure due to cardiomyopathy Ischemic cardiomyopathy H/O macrocytic anemia Anemia CAD (coronary artery disease) Oxygen dependent Pulmonary hypertension Hyperlipidemia Surgical History History of coronary artery stent placement Hx of CABG Family History Father , AT 94 Cancer Mother , AT 83 Heart disease Social History Smoking and tobacco/nicotine status: former use of tobacco/nicotine (7-8 years ago) Alcohol intake: former Substance/Drug Use: never Marital status: Single Current occupational status: retired and disabled Physical Exam HENMT: COMMON NORMALS: normocephalic and atraumatic HEAD & SCALP: normocephalic and atraumatic Resp: EFFORT & INSPECTION: Yes tachypneic AUSCULTATION: wheezes Cardio: COMMON NORMALS: regular rhythm RATE: tachycardic RHYTHM: regular rhythm Extremity: COMMON NORMALS: normal to inspection Course Vital Signs: Vital signs: Vital Signs Temperature 97.9 F 03/18/24 05:20 Pulse Rate 123 H 03/18/24 06:04 Respiratory Rate 22 H 03/18/24 06:04 Blood Pressure 124/68 03/18/24 06:04 Pulse Oximetry 94 03/18/24 06:04 Oxygen Delivery Me thod Nasal Cannula 03/18/24 06:04 Oxygen Flow Rate 5 03/18/24 06:04 MDM - SOB/Dyspnea Medical Decision Making Care turned over to incoming physician Lab Data 03/18/24 05:34 03/18/24 05:34 Labs/Radiology: Radiology Impressions Chest X-Ray 03/18/24 05:29 IMPRESSION: 1. Background of emphysema and pulmonary fibrosis. 2. Improving aeration in the right upper hemithorax compared with 02/28/2024. 3. Hiatal hernia again seen. 4. Strandy opacities are seen overlying the left hemidiaphragm likely representing atelectasis. Laboratory Results WBC 16.55 10^3/uL (3.29-11.43) H 03/18/24 05:34 RBC 3.62 10^6/uL (3.85-5.65) L 03/18/24 05:34 Hgb 12.00 g/dL (11.27-16.99) 03/18/24 05:34 Hct 39.4 % (37-53) 03/18/24 05:34 MCV 108.8 fl (82-101) H 03/18/24 05:34 MCH 33.1 pg (27-33) H 03/18/24 05:34 MCHC 30.5 g/dL (30-55) 03/18/24 05:34 RDW 13.6 % (12.1-15.1) 03/18/24 05:34 Plt Count 216 10^3/cmm (157-399) 03/18/24 05:34 MPV 10.3 fL (7.4-10.4) 03/18/24 05:34 Neut % (Auto) 84.4 % 03/18/24 05:34 Lymph % (Auto) 6.3 % 03/18/24 05:34 [place] % (Auto) 8.6 % 03/18/24 05:34 Eos % (Auto) 0.1 % 03/18/24 05:34 Baso % (Auto) 0.2 % 03/18/24 05:34 Neut # (Auto) 13.96 10^3/uL (1.8-7.7) H 03/18/24 05:34 Lymph # (Auto) 1.0 10^3/uL (0.8-4.8) 03/18/24 05:34 [place] # (Auto) 1.4 10^3/uL (0.2-0.9) H 03/18/24 05:34 Eos # (Auto) 0.0 10^3/uL (0.0-0.8) 03/18/24 05:34 Baso # (Auto) 0.0 10^3/uL (0.0-0.1) 03/18/24 05:34 Nucleated RBC % (auto) 0 % 03/18/24 05:34 Nucleated RBCs # 0.0 /100WBC 03/18/24 05:34 Sodium 142 mmol/L (136-145) 03/18/24 05:34 Potassium 3.8 mmol/L (3.5-5.1) 03/18/24 05:34 Chloride 99 mmol/L (98-107) 03/18/24 05:34 Carbon Dioxide 31 mmol/L (22-29) H 03/18/24 05:34 Anion Gap 15.8 (5-19) 03/18/24 05:34 BUN 25 mg/dL (8-23) H 03/18/24 05:34 Creatinine 0.6 mg/dL (0.7-1.2) L 03/18/24 05:34 GFR Calculation Not Reportable 03/18/24 05:34 Glucose 127 mg/dL (65-115) H 03/18/24 05:34 Calculated Osmolality 300 mOsm/kg (285-295) H 03/18/24 05:34 Calcium 9.5 mg/dL (8.5-10.5) 03/18/24 05:34 Total Bilirubin 0.2 mg/dL (0.15-1.2) 03/18/24 05:34 AST 14 U/L (0-40) 03/18/24 05:34 ALT 12 U/L (0-41) 03/18/24 05:34 Alkaline Phosphatase 62 U/L (40-130) 03/18/24 05:34 Total Protein 7.5 g/dL (6.6-8.7) 03/18/24 05:34 Albumin 4.4 g/dL (3.5-5.2) 03/18/24 05:34 Globulin 3.1 g/dL (1.3-4.6) 03/18/24 05:34 SARS-CoV-2 Ag (Rapid) positive (Negative) H 03/18/24 05:50 All radiology interpretation(s) finalized by discharge Discharge Plan Discharge Patient Disposition: Admitted As Inpatient Admit Provider: Yaron Kennedy Clinical Impression: COPD (chronic obstructive pulmonary disease), Acute exacerbation of chronic obstructive airways disease Condition: Stable Sign Out Sign Out Data: Patient Sign Out occurred on 03/18/24 at 06:10. Patient's care was discussed, and care was transferred from Fan Conn MD to Ministerio Johnson DO. Coding Level of Care Code ED Telephone Switchboard Operator for Chg Fwd Documented by User: Ministerio Johnson DO 03/18/24 07:13 HPI - SOB/Dyspnea General: Chief Complaint: Shortness of Breath/Dyspnea Stated Complaint: resp distress Time Seen by Provider: 03/18/24 05:29 [facility] ED PFSH: Medical History (Updated 03/18/24 @ 07:13 by Ministerio Johnson DO) COPD (chronic obstructive pulmonary disease) Peripheral arterial disease Bilateral inguinal hernia without obstruction or gangrene Atherosclerotic heart disease of [place] coronary artery with unstable angina pectoris Acute respiratory failure with hypoxia and hypercapnia Elevated troponin COPD with acute exacerbation Pneumonia Acute respiratory failure with hypoxemia Acute exacerbation of chronic obstructive airways disease Community acquired pneumonia Scrotal hernia BPH loc w urin obs/LUTS Non-ST elevation [place] (NSTEMI) Congestive heart failure due to cardiomyopathy Ischemic cardiomyopathy H/O macrocytic anemia Anemia CAD (coronary artery disease) Oxygen dependent Pulmonary hypertension Hyperlipidemia Surgical History History of coronary artery stent placement Hx of CABG Family History Father , AT 94 Cancer Mother , AT 83 Heart disease Social History Smoking and tobacco/nicotine status: former use of tobacco/nicotine (7-8 years ago) Alcohol intake: former Substance/Drug Use: never Marital status: Single Current occupational status: retired and disabled Course Vital Signs: Vital signs: Vital Signs Temperature 97.9 F 03/18/24 05:20 Pulse Rate 123 H 03/18/24 06:04 Respiratory Rate 22 H 03/18/24 06:04 Blood Pressure 124/68 03/18/24 06:04 Pulse Oximetry 94 03/18/24 06:04 Oxygen Delivery Me thod Nasal Cannula 03/18/24 06:04 Oxygen Flow Rate 5 03/18/24 06:04 MDM - SOB/Dyspnea Medical Decision Making Care turned over to incoming physician 03/18/2024 7:12 AM Care assumed at change of shift patient has COPD exacerbation complicated by COVID. He is his increased oxygen need and is quite tachycardic after single nebulizer. Subsequent nebulizer given by Xopenex. Given his age underlying COPD difficulty using nebulizer and increased oxygen need will admit for COPD exacerbation and COVID-19. Discussed with hospitalist initial inpatient orders written Lab Data 03/18/24 05:34 03/18/24 05:34 Labs/Radiology: Radiology Impressions Chest X-Ray 03/18/24 05:29 IMPRESSION: 1. Background of emphysema and pulmonary fibrosis. 2. Improving aeration in the right upper hemithorax compared with 02/28/2024. 3. Hiatal hernia again seen. 4. Strandy opacities are seen overlying the left hemidiaphragm likely representing atelectasis. Laboratory Results WBC 16.55 10^3/uL (3.29-11.43) H 03/18/24 05:34 RBC 3.62 10^6/uL (3.85-5.65) L 03/18/24 05:34 Hgb 12.00 g/dL (11.27-16.99) 03/18/24 05:34 Hct 39.4 % (37-53) 03/18/24 05:34 MCV 108.8 fl (82-101) H 03/18/24 05:34 MCH 33.1 pg (27-33) H 03/18/24 05:34 MCHC 30.5 g/dL (30-55) 03/18/24 05:34 RDW 13.6 % (12.1-15.1) 03/18/24 05:34 Plt Count 216 10^3/cmm (157-399) 03/18/24 05:34 MPV 10.3 fL (7.4-10.4) 03/18/24 05:34 Neut % (Auto) 84.4 % 03/18/24 05:34 Lymph % (Auto) 6.3 % 03/18/24 05:34 [place] % (Auto) 8.6 % 03/18/24 05:34 Eos % (Auto) 0.1 % 03/18/24 05:34 Baso % (Auto) 0.2 % 03/18/24 05:34 Neut # (Auto) 13.96 10^3/uL (1.8-7.7) H 03/18/24 05:34 Lymph # (Auto) 1.0 10^3/uL (0.8-4.8) 03/18/24 05:34 [place] # (Auto) 1.4 10^3/uL (0.2-0.9) H 03/18/24 05:34 Eos # (Auto) 0.0 10^3/uL (0.0-0.8) 03/18/24 05:34 Baso # (Auto) 0.0 10^3/uL (0.0-0.1) 03/18/24 05:34 Nucleated RBC % (auto) 0 % 03/18/24 05:34 Nucleated RBCs # 0.0 /100WBC 03/18/24 05:34 Sodium 142 mmol/L (136-145) 03/18/24 05:34 Potassium 3.8 mmol/L (3.5-5.1) 03/18/24 05:34 Chloride 99 mmol/L (98-107) 03/18/24 05:34 Carbon Dioxide 31 mmol/L (22-29) H 03/18/24 05:34 Anion Gap 15.8 (5-19) 03/18/24 05:34 BUN 25 mg/dL (8-23) H 03/18/24 05:34 Creatinine 0.6 mg/dL (0.7-1.2) L 03/18/24 05:34 GFR Calculation Not Reportable 03/18/24 05:34 Glucose 127 mg/dL (65-115) H 03/18/24 05:34 Calculated Osmolality 300 mOsm/kg (285-295) H 03/18/24 05:34 Calcium 9.5 mg/dL (8.5-10.5) 03/18/24 05:34 Total Bilirubin 0.2 mg/dL (0.15-1.2) 03/18/24 05:34 AST 14 U/L (0-40) 03/18/24 05:34 ALT 12 U/L (0-41) 03/18/24 05:34 Alkaline Phosphatase 62 U/L (40-130) 03/18/24 05:34 Total Protein 7.5 g/dL (6.6-8.7) 03/18/24 05:34 Albumin 4.4 g/dL (3.5-5.2) 03/18/24 05:34 Globulin 3.1 g/dL (1.3-4.6) 03/18/24 05:34 SARS-CoV-2 Ag (Rapid) positive (Negative) H 03/18/24 05:50 Discharge Plan Discharge Patient Disposition: Admitted As Inpatient Admit Provider: Yaron Kennedy Clinical Impression: COPD (chronic obstructive pulmonary disease), Acute exacerbation of chronic obstructive airways disease Condition: Stable Sign Out Sign Out Data: Patient Sign Out occurred on 03/18/24 at 06:10. Patient's care was discussed, and care was transferred from Fan Conn MD to Ministerio Johnson DO. Coding Level of Care Code ED Telephone Switchboard Operator for Taz Levine
--- NOTE | 2024-03-18 05:39 | ECG_ITS ---
[facility] Test Date: 2024-03-18 Pat Name: Sherwin Dalton Department: Room: Gender: Male Placement Assistant: : 1945 Requested By: Fan Conn Order Number: [id number] Bhumi MD: Pj Chandra M.D. Measurements Intervals [place] Rate: 126 P: 76 [place]: 164 QRS: 70 QRSD: 74 T: 116 QT: 335 QTc: 486 Interpretive Statements SINUS TACHYCARDIA SEPTAL MYOCARDIAL INFARCTION , PROBABLY OLD [40+ ms Q WAVE IN V1/V2] MODERATE T-WAVE ABNORMALITY, CONSIDER LATERAL ISCHEMIA [-0.1+ mV T-WAVE IN I/aVL/V5/V6] Compared to ECG 02/28/2024 02:59:45 Myocardial infarct finding now present Possible ischemia now present T-wave abnormality still present Electronically Signed On 03-18-2024 7:58:56 CDT by Pj Chandra M.D. [id number]
[2024-03-18 05:43] LABS: Basophils % 0.2 %; Eosinophils % 0.1 %; Hematocrit 39.4 % (37-53); Lymphocytes % 6.3 %; Mean Corpuscular HGB Conc 30.5 g/dL (30-55); Mean Corpuscular Hemoglobin 33.1 pg (27-33); Mean Corpuscular Volume 108.8 fl (82-101); Mean Platelet Volume 10.3 fL (7.4-10.4); Monocytes # 1.4 10^3/uL (0.2-0.9); Monocytes % 8.6 %; Neutrophils # 13.96 10^3/uL (1.8-7.7); Neutrophils % 84.4 %; Nucleated Red Blood Cells % 0 %; Platelet Count 216 10^3/cmm (157-399); Red Blood Count 3.62 10^6/uL (3.85-5.65); Red Cell Distribution Width 13.6 % (12.1-15.1); White Blood Count 16.55 10^3/uL (3.29-11.43)
[2024-03-18] MEDS: methylPREDNISolone sod succ 125 mg/2 mL INJ IVP (05:46)
[2024-03-18] MEDS: levalbuterol 1.25 mg/3 mL Neb INHALATION (05:52)
[2024-03-18 06:05] LABS: Alanine Aminotransferase 12 U/L (0-41); Albumin Level 4.4 g/dL (3.5-5.2); Alkaline Phosphatase 62 U/L (40-130); Anion Gap 15.8 (5-19); Aspartate Amino Transferase 14 U/L (0-40); Blood Urea Nitrogen 25 mg/dL (8-23); Calcium 9.5 mg/dL (8.5-10.5); Carbon Dioxide 31 mmol/L (22-29); Chloride 99 mmol/L (98-107); Creatinine Clr Calc Pharmacy 74.7475; Globulin 3.1 g/dL (1.3-4.6); Glucose 127 mg/dL (65-115); Osmolality Calculated 300 mOsm/kg (285-295); Potassium 3.8 mmol/L (3.5-5.1); Sodium 142 mmol/L (136-145); Total Bilirubin 0.2 mg/dL (0.15-1.2); Total Protein 7.5 g/dL (6.6-8.7)
[2024-03-18 06:23] LABS: SARS Covid-2 Antigen positive (Negative)
[2024-03-18] MEDS: oxyCODONE-APAP 5-325 mg Tablet 1 TAB PO (06:28)
--- NOTE | 2024-03-18 06:48 | PM.HP ---
Providers/Chief Complaint Primary Care Provider: Pawel Ordoñez Chief Complaint: resp distress History of Present Illness Sherwin Dalton is a 78 year old male with a past medical history significant for COPD, chronic hypoxic respiratory failure on 4 L baseline, benign prostatic hypertrophy, coronary artery disease, heart failure, ischemic cardiomyopathy, and multiple other comorbidities who presents with shortness of breath x 1 day. Patient endorses associated cough. Describes as slightly productive. Reports exertion worsens symptoms. Reports rest improves. Denies nausea, vomiting, fevers or chills. In the emergency department, patient was found to have sinus tachycardia. Labs revealed leukocytosis. He was found to have COVID-19. Chest x-ray showed background emphysema and pulmonary fibrosis. Showed improved variation in the right upper lung. Review of Systems Narrative: A complete review of systems was obtained and is negative except as stated in HPI. Medications/Allergies Home Medications Medication Instructions Recorded Confirmed Last Taken Type oxycodone-acetaminophen 10 mg-325 1 tab PO Q6H PRN Pain 01/16/22 12/10/22 Unknown History mg tablet nitroglycerin 0.4 mg sublingual 0.4 mg sublingual Q5M PRN chest 01/20/22 12/10/22 Unknown Rx tablet pain 30 days #10 tabs albuterol sulfate 90 mcg/actuation 2 puff inhalation Q6H PRN unknown 02/08/22 12/10/22 Unknown History aerosol inhaler (Proventil HFA) tamsulosin 0.4 mg capsule 0.4 mg PO .at bedtime #30 caps 02/08/22 12/10/22 Unknown Rx vitamin B12 500 mcg-folic acid 400 1 tab PO DAILY 02/08/22 12/10/22 Unknown History mcg tablet cholecalciferol (vitamin D3) 1,250 1,250 mcg PO DAILY PRN unknown 05/17/22 12/10/22 Unknown History mcg (50,000 unit) capsule roflumilast 250 mcg tablet 250 mcg PO DAILY 11/15/22 12/10/22 Unknown History aspirin 81 mg tablet,delayed 81 mg PO DAILY #60 tabs 12/13/22 12/10/22 Unknown Rx release atorvastatin 80 mg tablet 80 mg PO DAILY #30 tabs 12/13/22 12/10/22 Unknown Rx clopidogrel 75 mg tablet 75 mg PO DAILY #60 tabs 05/01/23 04/28/23 Unknown Rx isosorbide dinitrate 10 mg tablet 10 mg PO BID #60 tabs 12/13/22 Unknown Rx losartan 25 mg tablet 25 mg PO DAILY #60 tabs 12/13/22 Unknown Rx spironolactone 25 mg tablet 25 mg PO DAILY #90 tabs 12/13/22 Unknown Rx amoxicillin 875 mg-potassium 1 tab PO Q12H #20 tabs 02/28/24 Unknown Rx clavulanate 125 mg tablet Allergies Allergy/AdvReac Type Severity Reaction Status Date / Time tetracycline Allergy ALGY-Rash Verified 02/28/24 01:14 PFSH Acute PFSH: Medical History (Updated 03/18/24 @ 06:52 by Yaron Kennedy MD) COPD (chronic obstructive pulmonary disease) Peripheral arterial disease Bilateral inguinal hernia without obstruction or gangrene Atherosclerotic heart disease of [place] coronary artery with unstable angina pectoris Acute respiratory failure with hypoxia and hypercapnia Elevated troponin COPD with acute exacerbation Pneumonia Acute respiratory failure with hypoxemia Acute exacerbation of chronic obstructive airways disease Community acquired pneumonia Scrotal hernia BPH loc w urin obs/LUTS Non-ST elevation NM (NSTEMI) Congestive heart failure due to cardiomyopathy Ischemic cardiomyopathy H/O macrocytic anemia Anemia CAD (coronary artery disease) Oxygen dependent Pulmonary hypertension Hyperlipidemia Surgical History History of coronary artery stent placement Hx of CABG Family History Father , AT 94 Cancer Mother , AT 83 Heart disease Social History Smoking and tobacco/nicotine status: former use of tobacco/nicotine (7-8 years ago) Alcohol intake: former Substance/Drug Use: never Marital status: Single Current occupational status: retired and disabled Vitals/I&O/Wt Last Vital Signs Temp 97.9 F 03/18/24 05:20 Pulse 123 H 03/18/24 06:04 Resp 22 H 03/18/24 06:04 BP 124/68 03/18/24 06:04 Pulse Ox 94 03/18/24 06:04 O2 Del Method Nasal Cannula 03/18/24 06:04 O2 Flow Rate 5 03/18/24 06:04 Weight last 48 hrs Weight 63.503 kg Physical Exam Narrative: General: Patient is awake. Chronically ill-appearing. Head: Normocephalic. Atraumatic. EOM intact. Dry mucous membranes. Neck: No JVD. Cardiovascular: Tachycardic. No gallops. No murmurs. No peripheral edema. Lungs: Poor air movement. Prolonged expiratory phase. Very faint end expiratory wheeze. On supplemental support. Skin: No jaundice. No rashes. Abdomen: Normal bowel sounds, abdomen soft and nontender. Genito Urinary: Genital exam not performed since complaints not related. Rectal: Rectal exam not performed since no symptoms indicated blood loss. Extremities: No cyanosis or clubbing. Musculoskeletal: No swollen or erythematous joints. Neurological: Moves all 4 extremities. No myoclonus. Data 03/18/24 05:34 03/18/24 05:34 A&P Assessment and plan (1) COVID-19: COVID-19 precautions Start IV dexamethasone Breathing treatments Supportive care (2) COPD (chronic obstructive pulmonary disease): COPD with acute exacerbation with chronic hypoxic respiratory failure Start systemic steroids as above Pulmicort Scheduled DuoNebs (3) Leukocytosis: No infiltrate on chest x-ray Check procalcitonin Sputum culture (4) CAD (coronary artery disease): Continue aspirin Continue Plavix Continue statin (5) BPH loc w urin obs/LUTS: Continue Flomax (6) Arthritis: Continue home analgesics (7) Hypertension: Continue formulary ARB Continue Aldactone Plan DVT prophylaxis: Lovenox Attestations Medical Necessity Statement*: Patient presents with shortness of breath, found to have COVID-19 and acute COPD exacerbation with expected hospitalization not to cross 2 midnights for IV steroids, breathing treatments and supportive care. Coding Level of Care Code [facility] Diagnoses COVID-19 U07.1 COPD (chronic obstructive pulmonary disease) J44.9 Leukocytosis D72.829 CAD (coronary artery disease) I25.10 BPH loc w urin obs/LUTS N40.1 Arthritis M19.90 Hypertension I10
[2024-03-18 07:23] LABS: Procalcitonin 0.05 ng/mL (0-0.5)
[2024-03-18] MEDS: budesonide 0.5 mg/2 mL Neb INHALATION ×2 (08:35→19:56)
[2024-03-18] MEDS: ipratropium-albuterol 3 mL Neb INHALATION ×5 (08:35→23:31)
[2024-03-18] MEDS: enoxaparin 40 mg/0.4 mL Syringe SUBCUT (08:49)
[2024-03-18] MEDS: roflumilast 500 mcg Tablet 250 MCG PO (08:49)
[2024-03-18] MEDS: losartan 50 mg Tablet 25 MG PO (08:49)
[2024-03-18] MEDS: atorvastatin 40 mg Tablet 80 MG PO (08:50)
[2024-03-18] MEDS: clopidogrel 75 mg Tablet PO (08:51)
[2024-03-18] MEDS: aspirin 81 mg EC Tablet PO (08:51)
[2024-03-18] MEDS: dexamethasone 10 mg/mL INJ 6 MG IVP (08:51)
[2024-03-18] MEDS: spironolactone 25 mg Tablet PO (08:51)
[2024-03-18] MEDS: isosorbide dinitrate 20 mg Tablet 10 MG PO ×2 (08:56→17:55)
--- NOTE | 2024-03-18 09:04 | PC.NURSE ---
Patient wanted to talk to [employer] his son, but no answer; message left to call back. I let the patient know that when his son calls we will transfer it to him.
--- NOTE | 2024-03-18 13:48 | PM.MISC ---
Miscellaneous Note Note: Seen this morning. Continue management as per H&P
[2024-03-18] MEDS: oxyCODONE-APAP 10-325 mg Tablet 1 TAB PO ×2 (14:48→21:22)
[2024-03-18] MEDS: nitroglycerin 0.4 mg sublingual Tablet SUBLINGUAL (17:14)
[2024-03-18] MEDS: docusate sodium 100 mg Capsule PO (17:55)
[2024-03-18] MEDS: amoxicillin-clav 875-125 mg Tablet 1 TAB PO (17:55)
[2024-03-18] MEDS: bisacodyl 5 mg Tablet 20 MG PO (17:55)
[2024-03-18] MEDS: tamsulosin 0.4 mg Capsule PO (20:01)
[2024-03-19] VITALS (21 sets, daily range): BP systolic 97–153; BP diastolic 57–70; PULSE 94–131; RESP 17–25; TEMP 36.3–37; O2SAT 95–99
[2024-03-19] MEDS: oxyCODONE-APAP 10-325 mg Tablet 1 TAB PO ×4 (03:24→22:07)
[2024-03-19] MEDS: ipratropium-albuterol 3 mL Neb INHALATION ×5 (03:30→20:01)
[2024-03-19 06:31] LABS: Basophils % 0.2 %; Eosinophils % 0.1 %; Lymphocytes # 1.2 10^3/uL (0.8-4.8); Lymphocytes % 6.7 %; Mean Corpuscular HGB Conc 31.1 g/dL (30-55); Mean Corpuscular Hemoglobin 33.6 pg (27-33); Mean Platelet Volume 10.6 fL (7.4-10.4); Monocytes # 1.7 10^3/uL (0.2-0.9); Monocytes % 9.5 %; Neutrophils # 15.18 10^3/uL (1.8-7.7); Neutrophils % 83.1 %; Nucleated Red Blood Cells % 0 %; Platelet Count 200 10^3/cmm (157-399); Red Blood Count 3.24 10^6/uL (3.85-5.65); Red Cell Distribution Width 13.6 % (12.1-15.1); White Blood Count 18.25 10^3/uL (3.29-11.43)
[2024-03-19 06:48] LABS: Alanine Aminotransferase 9 U/L (0-41); Albumin Level 3.8 g/dL (3.5-5.2); Alkaline Phosphatase 47 U/L (40-130); Anion Gap 13.9 (5-19); Aspartate Amino Transferase 14 U/L (0-40); Blood Urea Nitrogen 21 mg/dL (8-23); Calcium 9.1 mg/dL (8.5-10.5); Carbon Dioxide 30 mmol/L (22-29); Chloride 101 mmol/L (98-107); Creatinine Clr Calc Pharmacy 58.9413; Globulin 2.8 g/dL (1.3-4.6); Glucose 95 mg/dL (65-115); Magnesium 1.9 mg/dL (1.7-2.3); Osmolality Calculated 295 mOsm/kg (285-295); Phosphorus 2.6 mg/dL (2.5-4.5); Potassium 3.9 mmol/L (3.5-5.1); Sodium 141 mmol/L (136-145); Total Bilirubin 0.3 mg/dL (0.15-1.2); Total Protein 6.6 g/dL (6.6-8.7)
--- NOTE | 2024-03-19 08:37 | CTR_ITS ---
PROCEDURE INFORMATION: Exam: CTA Chest With Contrast Exam date and time: 03/19/2024 6:26 PM Age: 78 years old Clinical indication: Other: Hypoxia; Additional info: Covid hypoxia TECHNIQUE: Imaging protocol: Computed tomographic angiography of the chest with contrast. Exam focused on the arteries. 3D rendering (Not supervised by radiologist): MIP and/or 3D reconstructed images were created by the technologist. Radiation optimization: All CT scans at this facility use at least one of these dose optimization techniques: automated exposure control; mA and/or kV adjustment per patient size (includes targeted exams where dose is matched to clinical indication); or iterative reconstruction. Contrast material: OMNI 350; Contrast volume: 64 ml; Contrast route: INTRAVENOUS (IV); COMPARISON: CT angio chest PE protcl [id number] 12/09/2022 10:29 PM RADIATION DOSE METRICS: Total DLP (mGy-cm): 289 FINDINGS: Pulmonary arteries: No pulmonary emboli. Aorta: No aortic aneurysm. No aortic dissection. Severe diffuse atherosclerotic calcifications. Lungs: Small amount of secretions within distal trachea and right mainstem bronchus. Consolidation within the posterior lung bases concerning for aspiration or pneumonia. Severe emphysema. Scattered calcified granulomas. Pleural spaces: Biapical pleural-parenchymal scarring. Heart: Unremarkable. No cardiomegaly. No pericardial effusion. Coronary arteries: Coronary artery calcifications. Lymph nodes: Calcified mediastinal lymph nodes. Spleen: Calcified granulomas in the spleen. Kidneys and ureters: Small bilateral simple renal cysts, no follow-up needed. Intestine: Gaseous distension of the colon measuring up to 7.5 cm. Bones/joints: Median sternotomy wires. Chronic right rib fractures. Soft tissues: Unremarkable. CT/CT angio chest PE protcl [id number] IMPRESSION: 1. No pulmonary embolus. 2. Small amount of secretions within distal trachea and right mainstem bronchus. 3. Consolidation within the posterior lung bases concerning for aspiration or pneumonia. 4. Severe emphysema. COMMENTS: Consistent with the [employer]'s Incidental Findings Committee white paper (J Am Angela Radiol 2018): Any incidental renal lesion less than 1 cm or classified as too small to characterize, or any incidental cystic renal lesion characterized as simple-appearing, is likely benign. No follow-up imaging is recommended for these lesions per consensus recommendations based on imaging criteria.
[2024-03-19] MEDS: budesonide 0.5 mg/2 mL Neb INHALATION ×2 (09:00→20:01)
[2024-03-19] MEDS: amoxicillin-clav 875-125 mg Tablet 1 TAB PO ×2 (09:19→17:55)
[2024-03-19] MEDS: spironolactone 25 mg Tablet PO (09:19)
[2024-03-19] MEDS: roflumilast 500 mcg Tablet 250 MCG PO (09:19)
[2024-03-19] MEDS: bisacodyl 5 mg Tablet 20 MG PO ×2 (09:19→17:55)
[2024-03-19] MEDS: clopidogrel 75 mg Tablet PO (09:20)
[2024-03-19] MEDS: atorvastatin 40 mg Tablet 80 MG PO (09:22)
[2024-03-19] MEDS: losartan 50 mg Tablet 25 MG PO (09:22)
[2024-03-19] MEDS: docusate sodium 100 mg Capsule PO ×2 (09:24→17:55)
[2024-03-19] MEDS: aspirin 81 mg EC Tablet PO (09:24)
[2024-03-19] MEDS: enoxaparin 40 mg/0.4 mL Syringe SUBCUT (09:33)
[2024-03-19] MEDS: sodium chloride 0.9% 1,000 ML 75 ML IV (10:57)
[2024-03-19] MEDS: isosorbide dinitrate 20 mg Tablet PO ×2 (10:57→17:56)
--- NOTE | 2024-03-19 12:20 | P.PN_ITS ---
Subjective 2 Subjective: Patient is stating that he has not felt worse since yesterday, still tachycardic, stating that he is has not eaten well, poor p.o. intake started IV fluids till 3 PM Requested CTA chest rule out PE Patient is okay going home tomorrow if white count trends down discontinue steroids today patient stated that his symptoms started 2 weeks ago I do not think he will need quarantine but I have advised mask Vitals/I&O/Wt Last Vital Signs Temp 98.3 F 03/19/24 08:00 Pulse 112 H 03/19/24 11:33 Resp 18 03/19/24 11:25 BP 137/69 03/19/24 08:00 Pulse Ox 96 03/19/24 11:25 O2 Del Method Nasal Cannula 03/19/24 11:25 O2 Flow Rate 4 03/19/24 11:25 03/18/24 03/19/24 03/19/24 22:59 06:59 14:59 Output Total 300 / 300 Balance -300 / 60 Weight last 48 hrs Weight 55.656 kg Weight 57.153 kg Weight 63.503 kg Physical Exam 2 Narrative: Awake and alert Dehydrated Bilateral breath sound no audible rhonchi wheezing or crackles GCS 15 pleasant cooperative Currently on 4 L Nonfocal neuroexam GCS 15 Data 03/19/24 04:56 03/19/24 04:56 A&P Assessment and plan (1) Hypertension: (2) Incomplete bladder emptying: (3) Leukocytosis: (4) COVID-19: (5) COPD (chronic obstructive pulmonary disease): (6) Acute exacerbation of chronic obstructive airways disease: Plan Acute on chronic hypoxia Patient at baseline uses 4 to 4.5 L Currently he is doing well at 4 L Will request CTA chest rule out PE Discontinue Decadron Clinically patient looks dehydrated I will do gentle fluid hydration till 3 PM with normal saline Continue Augmentin Plan to discharge tomorrow if white count trends down No fever noted Patient is from home. Lives with his who is not suffering with similar symptoms. Patient is full code DVT prophylaxis covered with Lovenox Attestations 2 Medical Necessity Statement*: Possible discharge tomorrow if white count trending down Diagnoses Hypertension I10 Incomplete bladder emptying R33.9 Leukocytosis D72.829 COVID-19 U07.1 COPD (chronic obstructive pulmonary disease) J44.9 Acute exacerbation of chronic obstructive airways disease J44.1
--- NOTE | 2024-03-19 12:35 | ECG_ITS ---
[facility] Test Date: 2024-03-19 Pat Name: Sherwin Dalton Department: Room: 272 Gender: Male [employer]: : 1945 Requested By: Markus Case Order Number: [id number] Bhumi MD: Catrachito Otero M.D. Measurements Intervals [place] Rate: 89 P: 71 ND: 164 QRS: 52 QRSD: 90 T: 64 QT: 355 QTc: 434 Interpretive Statements SINUS RHYTHM POSSIBLE LEFT ATRIAL ENLARGEMENT [-0.1mV P-WAVE IN V1/V2] NONSPECIFIC T-WAVE ABNORMALITY Compared to ECG 03/18/2024 05:39:41 Sinus tachycardia no longer present Myocardial infarct finding no longer present Possible ischemia no longer present T-wave abnormality still present Electronically Signed On 03-20-2024 7:51:33 CDT by Catrachito Otero M.D. [id number]
--- NOTE | 2024-03-19 12:38 | USCV_ITS ---
Sha Sherwin Age: 78 Gender: M : 1945 Exam Date: 03/19/2024 18:13 Ordering Phys: Markus Case MD Technologist: CRUZ Exam Location: [facility] [place] Indication: History of Low EF, History of COPD, O2-dependent 4L. s/p CABG 1991 BP: 107 / 61 HR: 94 Rhythm: Atrial fibrillation Technical Quality: Adequate MEASUREMENTS (Male / Female) Normal Values 2D ECHO LV Diastolic Diameter PLAX 4.4 cm 4.2 - 5.9 / 3.9 - 5.3 cm IVS Diastolic Thickness 1.5 cm 0.6 - 1.0 / 0.6 - 0.9 cm IVS Systolic Thickness 1.5 cm LVPW Diastolic Thickness 1.3 cm 0.6 - 1.0 / 0.6 - 0.9 cm LVPW Systolic Thickness 1.2 cm LVOT Diameter 2.2 cm LV Ejection Fraction 2D Teich 19.8 % LV Ejection Fraction MOD 4C 35.8 % LV Ejection Fraction MOD 2C 43.0 % LV Ejection Fraction 2C AL 42.3 % LA Diameter 4.1 cm Aorta at Sinotubular Diameter 2.8 cm IVC Diameter 1.8 cm M-MODE LA Ao Ratio MM 0.9 AV Cusp Separation MM 2.1 cm DOPPLER AV Peak Velocity 121.0 cm/s LVOT Peak Velocity 66.0 cm/s AV Area Cont Eq vti 2.8 cm squared AV Area Cont Eq pk 2.0 cm squared MV Peak Velocity 131.0 cm/s MV Area PHT 3.4 cm squared Mitral E to A Ratio 0.0 TV Peak E Velocity 45.0 cm/s PV Peak Velocity 95.0 cm/s FINDINGS Left Ventricle Left ventricle is normal in size. LV systolic function is moderate to severely reduced with EF of 30 - 35%. Moderate to severe global hypokinesis is seen. Right Ventricle Normal in size and function Right Atrium Normal in size Left Atrium Normal in size Mitral Valve Structurally normal mitral valve. Mild mitral regurgitation. Aortic Valve Grossly normal. No significant stenosis or regurgitation. Tricuspid Valve Insufficient TR jet to calculate RVSP Pulmonic Valve Not well visualized Pericardium Normal Aorta Normal in size IVC Appears to be normal CONCLUSIONS LV systolic function is moderate to severely reduced with EF of 30 to 35%. Mild mitral regurgitation. Compared to prior echocardiogram from 2022, no significant change is seen Catrachito Otero MD (Electronically Signed) Final Date: 20 March 2024 10:40 S
[2024-03-19] MEDS: metoprolol tartrate 25 mg Tablet 12.5 MG PO ×2 (13:03→21:10)
[2024-03-19] MEDS: iohexol 350 mg/mL 500 mL Btl (per mL) IV (18:36)
[2024-03-19] MEDS: tamsulosin 0.4 mg Capsule PO (21:10)
[2024-03-19] MEDS: enoxaparin 60 mg/0.6 mL Syringe SUBCUT (21:10)
[2024-03-20] VITALS (12 sets, daily range): BP systolic 116–134; BP diastolic 61–69; PULSE 78–107; RESP 16–24; TEMP 36.6–36.9; O2SAT 96–99
[2024-03-20] MEDS: ipratropium-albuterol 3 mL Neb INHALATION ×2 (00:30→08:32)
[2024-03-20 03:03] LABS: Basophils % 0.3 %; Eosinophils % 0.3 %; Hematocrit 31.5 % (37-53); Lymphocytes # 1.3 10^3/uL (0.8-4.8); Lymphocytes % 10.6 %; Mean Corpuscular HGB Conc 31.7 g/dL (30-55); Mean Corpuscular Hemoglobin 34.2 pg (27-33); Mean Corpuscular Volume 107.9 fl (82-101); Mean Platelet Volume 10.1 fL (7.4-10.4); Monocytes # 1.3 10^3/uL (0.2-0.9); Monocytes % 10.8 %; Neutrophils # 9.32 10^3/uL (1.8-7.7); Neutrophils % 77.6 %; Nucleated Red Blood Cells % 0 %; Platelet Count 172 10^3/cmm (157-399); Red Blood Count 2.92 10^6/uL (3.85-5.65); Red Cell Distribution Width 13.6 % (12.1-15.1)
[2024-03-20 03:29] LABS: Anion Gap 11.9 (5-19); Blood Urea Nitrogen 19 mg/dL (8-23); Calcium 8.9 mg/dL (8.5-10.5); Carbon Dioxide 30 mmol/L (22-29); Chloride 101 mmol/L (98-107); Creatinine Clr Calc Pharmacy 58.9413; Glucose 93 mg/dL (65-115); Osmolality Calculated 290 mOsm/kg (285-295); Potassium 3.9 mmol/L (3.5-5.1); Sodium 139 mmol/L (136-145)
[2024-03-20] MEDS: oxyCODONE-APAP 10-325 mg Tablet 1 TAB PO ×2 (04:18→10:46)
[2024-03-20] MEDS: budesonide 0.5 mg/2 mL Neb INHALATION (08:32)
[2024-03-20] MEDS: atorvastatin 40 mg Tablet 80 MG PO (09:37)
[2024-03-20] MEDS: isosorbide dinitrate 20 mg Tablet PO (09:37)
[2024-03-20] MEDS: roflumilast 500 mcg Tablet 250 MCG PO (09:37)
[2024-03-20] MEDS: spironolactone 25 mg Tablet PO (09:38)
[2024-03-20] MEDS: amoxicillin-clav 875-125 mg Tablet 1 TAB PO ×2 (09:38→12:52)
[2024-03-20] MEDS: losartan 50 mg Tablet 25 MG PO (09:38)
[2024-03-20] MEDS: metoprolol tartrate 25 mg Tablet 12.5 MG PO (09:38)
[2024-03-20] MEDS: clopidogrel 75 mg Tablet PO (09:39)
[2024-03-20] MEDS: aspirin 81 mg EC Tablet PO (09:39)
[2024-03-20] MEDS: enoxaparin 60 mg/0.6 mL Syringe SUBCUT (09:39)
[2024-03-20] MEDS: docusate sodium 100 mg Capsule PO (09:39)
[2024-03-20] MEDS: bisacodyl 5 mg Tablet 20 MG PO (09:39)
--- NOTE | 2024-03-20 09:48 | XR_ITS ---
WS: [id number] XR lumbar spine 2-3V* [id number] REASON FOR EXAM: back pain FINDINGS: Moderate decrease in bone density. Mild rotatory levoscoliosis. Straightening of the normal lordosis. No vertebral body lesion. Mild compression deformities of L1 and L2. The compression deformities appe ar unchanged compared to the lumbar spine on the CT scan of the abdomen 01/19/2022. The intervertebral disc spaces are intact and relatively well preserved with mild narrowing of the L4 -L5 and L5-S1 disc spaces. Moderate osteophytosis of the lumbar vertebral bodies L1-L5. Significant distention of colon and small bowel. XR/XR lumbar spine 2-3V* [id number] IMPRESSION: Degenerative spondylosis of the lumbar spine without acute abnormality. Lumbar spine is stable compared to a CT scan of the abdomen of 01/19/2022.
--- NOTE | 2024-03-20 10:25 | PM.DCS ---
Discharge Providers Date of Admission: 03/18/24 06:26 Date of Discharge: March 20, 2024 Attending Provider at Admission: Yaron Kennedy MD Attending Provider at Discharge: Markus Case MD Primary Care Provider: Pawel Ordoñez Diagnoses at Discharge Discharge Diagnosis (1) Hypertension: Status: Acute (2) Incomplete bladder emptying: Status: Acute (3) Leukocytosis: Status: Acute (4) COVID-19: Status: Acute (5) COPD (chronic obstructive pulmonary disease): Status: Acute (6) Acute exacerbation of chronic obstructive airways disease: Status: Acute Reason for Visit Reason for Visit: resp distress Hospital Course Hospital Course 78-year-old male with history of ischemic cardiomyopathy EF 28%, echo showed severe hypokinesia on last admission patient was managed medically & was discharged with a LifeVest, carries history of COPD uses 4 to 4.5 L at baseline, lives with family, known to have coronary artery disease and apparently had a four-vessel coronary artery bypass surgery in 1991 at the [facility]. Patient admitted this time for COVID-19 pneumonia, he was put on Decadron which worsened his leukocytosis, patient is complaining of back pain no signs of cauda equina. His ox requirement did not worsen during hospitalization he remained at 4 L which is his baseline. CTA chest rule out PE. Patient is wanting to go home, he is well aware that he has multiple comorbid conditions and patient is stating that he is not able to afford LifeVest after first 90 days and he has an appointment to follow-up with a button tufting machine operator to get referral for an AICD. Physical Exam Narrative: Clinically not fluid overloaded Euvolemic Currently on 4 L [place] No active chest pain No significant wheezing Mild rhonchi noted Discharge Data Studies Completed and Pending Completed Studies During Hospitalization Category Date Time Status CTA PE [CT angio chest PE protcl [id number]] Routine Cat Scan 03/19/24 08:37 Completed CXRP [XR chest 1V portable [id number]] Stat Exams 03/18/24 05:29 Completed Pending at discharge Category Date Time Status XR lumbar spine 2-3V* [id number] Routine Exams 03/20/24 09:48 Taken Sputum Culture and Gram Stain Routine Lab 03/18/24 15:28 Results CV. echo complete* [id number] Routine Ultrasound 03/19/24 12:38 Taken Radiology Impressions Chest X-Ray 03/18/24 05:29 IMPRESSION: 1. Background of emphysema and pulmonary fibrosis. 2. Improving aeration in the right upper hemithorax compared with 02/28/2024. 3. Hiatal hernia again seen. 4. [place]andy opacities are seen overlying the left hemidiaphragm likely representing atelectasis. Chest CTA 03/19/24 08:37 IMPRESSION: 1. No pulmonary embolus. 2. Small amount of secretions within distal trachea and right mainstem bronchus. 3. Consolidation within the posterior lung bases concerning for aspiration or pneumonia. 4. Severe emphysema. COMMENTS: Consistent with the [employer]'s Incidental Findings Committee white paper (J Am Angela Radiol 2018): Any incidental renal lesion less than 1 cm or classified as too small to characterize, or any incidental cystic renal lesion characterized as simple-appearing, is likely benign. No follow-up imaging is recommended for these lesions per consensus recommendations based on imaging criteria. Laboratory Results WBC 12.00 10^3/uL (3.29-11.43) H 03/20/24 02:48 RBC 2.92 10^6/uL (3.85-5.65) L 03/20/24 02:48 Hgb 10.00 g/dL (11.27-16.99) L 03/20/24 02:48 Hct 31.5 % (37-53) L 03/20/24 02:48 MCV 107.9 fl (82-101) H 03/20/24 02:48 MCH 34.2 pg (27-33) H 03/20/24 02:48 MCHC 31.7 g/dL (30-55) 03/20/24 02:48 RDW 13.6 % (12.1-15.1) 03/20/24 02:48 Plt Count 172 10^3/cmm (157-399) 03/20/24 02:48 MPV 10.1 fL (7.4-10.4) 03/20/24 02:48 Neut % (Auto) 77.6 % 03/20/24 02:48 Lymph % (Auto) 10.6 % 03/20/24 02:48 Gray % (Auto) 10.8 % 03/20/24 02:48 Eos % (Auto) 0.3 % 03/20/24 02:48 Baso % (Auto) 0.3 % 03/20/24 02:48 Neut # (Auto) 9.32 10^3/uL (1.8-7.7) H 03/20/24 02:48 Lymph # (Auto) 1.3 10^3/uL (0.8-4.8) 03/20/24 02:48 Gray # (Auto) 1.3 10^3/uL (0.2-0.9) H 03/20/24 02:48 Eos # (Auto) 0.0 10^3/uL (0.0-0.8) 03/20/24 02:48 Baso # (Auto) 0.0 10^3/uL (0.0-0.1) 03/20/24 02:48 Nucleated RBC % (auto) 0 % 03/20/24 02:48 Nucleated RBCs # 0.0 /100WBC 03/20/24 02:48 Sodium 139 mmol/L (136-145) 03/20/24 02:48 Potassium 3.9 mmol/L (3.5-5.1) 03/20/24 02:48 Chloride 101 mmol/L (98-107) 03/20/24 02:48 Carbon Dioxide 30 mmol/L (22-29) H 03/20/24 02:48 Anion Gap 11.9 (5-19) 03/20/24 02:48 BUN 19 mg/dL (8-23) 03/20/24 02:48 Creatinine 0.5 mg/dL (0.7-1.2) L 03/20/24 02:48 GFR Calculation Not Reportable 03/20/24 02:48 Glucose 93 mg/dL (65-115) 03/20/24 02:48 Calculated Osmolality 290 mOsm/kg (285-295) 03/20/24 02:48 Calcium 8.9 mg/dL (8.5-10.5) 03/20/24 02:48 Phosphorus 2.6 mg/dL (2.5-4.5) 03/19/24 04:56 Magnesium 1.9 mg/dL (1.7-2.3) 03/19/24 04:56 Total Bilirubin 0.3 mg/dL (0.15-1.2) 03/19/24 04:56 AST 14 U/L (0-40) 03/19/24 04:56 ALT 9 U/L (0-41) 03/19/24 04:56 Alkaline Phosphatase 47 U/L (40-130) 03/19/24 04:56 Total Protein 6.6 g/dL (6.6-8.7) 03/19/24 04:56 Albumin 3.8 g/dL (3.5-5.2) 03/19/24 04:56 Globulin 2.8 g/dL (1.3-4.6) 03/19/24 04:56 Procalcitonin 0.05 ng/mL (0-0.5) 03/18/24 05:34 SARS-CoV-2 Ag (Rapid) positive (Negative) H 03/18/24 05:50 Vitals Last Vital Signs Temp 97.8 F 03/20/24 07:37 Pulse 105 H 03/20/24 08:43 Resp 16 03/20/24 08:33 BP 134/68 03/20/24 09:38 Pulse Ox 98 03/20/24 08:33 O2 Del Method Nasal Cannula 03/20/24 08:33 O2 Flow Rate 4 03/20/24 08:33 Discharge Plan Discharge Patient Disposition: Home Condition: Stable Prescriptions: New amoxicillin-pot clavulanate 875-125 mg Tablet 1 tab PO BID Qty: 6 0RF ipratropium-albuterol 0.5 mg-3 mg(2.5 mg base)/3 mL solution for nebulization 3 ml inhalation Q6H PRN (Reason: shortness of breath or wheezing) Qty: 90 3RF metoprolol tartrate 25 mg Tablet 25 mg PO BID@0900,2100 Qty: 120 3RF Continued vitamin [id number] acid 500-400 mcg tablet 1 tab PO DAILY Rx Instructions: administer with a meal tamsulosin 0.4 mg capsule 0.4 mg PO .at bedtime Qty: 30 12RF roflumilast 250 mcg tablet 250 mcg PO DAILY oxycodone-acetaminophen 10-325 mg tablet 1 tab PO Q6H PRN (Reason: Pain) nitroglycerin 0.4 mg tablet, sublingual 0.4 mg sublingual Q5M PRN (Reason: chest pain) 30 Days Qty: 10 0RF Rx Instructions: do not exceed 3 doses per episode losartan 25 mg tablet 25 mg PO DAILY Qty: 60 3RF atorvastatin 80 mg tablet 80 mg PO DAILY Qty: 30 0RF clopidogrel 75 mg tablet 75 mg PO DAILY Qty: 60 3RF aspirin 81 mg tablet,delayed release (DR/EC) 81 mg PO DAILY Qty: 60 3RF isosorbide dinitrate 10 mg tablet 10 mg PO BID Qty: 60 2RF Rx Instructions: allow nitrate-free interval of 12-14 hrs per 24-hr period Biscolax 5 mg Tablet,Delayed Release (Dr/Ec) 20 mg PO BID Colace 100 mg Capsule 200 mg PO BID Discontinued spironolactone 25 mg tablet 25 mg PO DAILY Qty: 90 3RF Discharge Orders: Discharge Order (Routine); Ordered 03/20/24 Ordered By: Markus Case Other Ambulatory Orders: DME: Nebulizer with Neb Kit (Order) Location: None Selected Ordered By: Markus Case Referrals: Pawle Ordoñez [Primary Care Provider] - 4-7 days Discharge Diet: Cardiac Discharge Activity: Increase activity as tolerated Patient Instructions: Opioid Safety Activity Restrictions/Additional Instructions: You can use DuoNeb's nebulizer on as-needed basis every 6 hours for shortness of breath or wheezing please do not use DuoNeb if your heart rate is above 110 because DuoNeb can increase heart rate Please follow-up with your button tufting machine operator for an AICD(defibrillator) referral/evaluation Please wear a mask for at least next 5 days and avoid close contact with children Discharge Attestations Time Spent in Discharge Care*: greater than 30 min Quality Metrics Clinical Quality Measures [ No reported AMI, CVA or VTE this stay] Coding Level of Care Code Acute Code for Chg Fwd Diagnoses Hypertension I10 Incomplete bladder emptying R33.9 Leukocytosis D72.829 COVID-19 U07.1 COPD (chronic obstructive pulmonary disease) J44.9 Acute exacerbation of chronic obstructive airways disease J44.1
--- NOTE | 2024-03-20 13:01 | PC.NURSE ---
Patient has signed discharge paperwork and is awaiting transportation.
== END 2024-03-20 14:25 | disposition home or self-care (01) ==
LOC: ER 06:22 → MEDSURG 06:56
PROVIDERS: Emergency Medicine; Admitting Provider Internal Medicine; Emergency Provider Family Medicine; PCP Family Medicine; Visit Provider Internal Medicine
DX: U07.1 COVID-19 (principal); J12.82 Pneumonia due to coronavirus disease 2019; R33.9 Retention of urine, unspecified; D72.829 Elevated white blood cell count, unspecified; J44.1 Chronic obstructive pulmonary disease with (acute) exacerbation; Z99.81 Dependence on supplemental oxygen; I25.10 Atherosclerotic heart disease of native coronary artery without angina pectoris; Z95.1 Presence of aortocoronary bypass graft; N40.1 Benign prostatic hyperplasia with lower urinary tract symptoms; N13.8 Other obstructive and reflux uropathy; I11.0 Hypertensive heart disease with heart failure; I50.9 Heart failure, unspecified; E78.5 Hyperlipidemia, unspecified; Z95.5 Presence of coronary angioplasty implant and graft; Z87.891 Personal history of nicotine dependence
CPT/HCPCS: 36415; 71045; 71275; 72100; 80048; 80053; 83735; 84100; 84145; 85025; 87070; 87077; 87186; 87205; 87426; 93005; 93306; 94640; 94664; 96372; 96374; 96375; 99285; G0378; J1100; J1650; J2919; J7030; J7614; J7626; Q9967

== ENCOUNTER 2024-04-01 12:55 | Inpatient (IN) | payer MEDICARE, SELFPAY ==
[2024-04-01] VITALS (22 sets, daily range): BP systolic 119–154; BP diastolic 60–78; PULSE 84–110; RESP 18–28; TEMP 36.4–36.9; O2SAT 91–98; BMI 16.9; BMI 16.6
--- NOTE | 2024-04-01 13:15 | XRR_ITS ---
PROCEDURE INFORMATION: Exam: XR Chest Exam date and time: 04/01/2024 1:45 PM Age: 78 years old Clinical indication: Shortness of breath; Prior surgery; Surgery date: 6+ months; Surgery type: Cabg TECHNIQUE: Imaging protocol: Radiologic exam of the chest. Views: 1 view. COMPARISON: CT angio chest PE protcl [id number] 03/19/2024 6:26 PM FINDINGS: Lungs: Hyperinflated emphysematous lungs. Scattered calcified granulomas. There are right mid lung zone infiltrates. Pleural spaces: Unremarkable. No pleural effusion. No pneumothorax. Heart/Mediastinum: Post CABG. Bones/joints: Moderate degenerative bilateral acromioclavicular joints. Mild degenerative of the left glenohumeral joint. XR/XR chest 1V portable [id number] IMPRESSION: Right mid lung zone infiltrates.
--- NOTE | 2024-04-01 13:15 | ECG_ITS ---
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 Measurements Intervals [place] Rate: 109 P: 78 ID: [id number] QRS: 55 QRSD: 85 T: 0 QT: 329 QTc: 444 Interpretive Statements SINUS TACHYCARDIA WITH OCCASIONAL VENTRICULAR PREMATURE COMPLEXES WITH OCCASIONAL SUPRAVENTRICULAR PREMATURE COMPLEXES LEFT VENTRICULAR HYPERTROPHY AND ST-T CHANGE [VOLTAGE CRITERIA PLUS ST/T ABNORMALITY] Compared to ECG 03/19/2024 14:51:00 Ventricular premature complex(es) now present Left ventricular hypertrophy now present ST (T wave) deviation now present Sinus rhythm no longer present T-wave abnormality no longer present Electronically Signed On 04-01-2024 20:07:10 CDT by Catrachito Otero M.D. [id number]
--- NOTE | 2024-04-01 13:18 | ED_ITS ---
HPI - SOB/Dyspnea 2 General: Chief Complaint: Shortness of Breath/Dyspnea Stated Complaint: SOB Time Seen by Provider: 04/01/24 12:59 History of Present Illness: HPI Narrative: 78-year-old male brought [facility] by [facility] for shortness of breath. He reports it has been getting worse for the last several days. Patient was most recently discharged from the hospital on 03/20/2024. The following discharge summary was reviewed providing some background into his recent illness. 78-year-old male with history of ischemic cardiomyopathy EF 28%, echo showed severe hypokinesia on last admission patient was managed medically & was discharged with a LifeVest, carries history of COPD uses 4 to 4.5 L at baseline, lives with family, known to have coronary artery disease and apparently had a four-vessel coronary artery bypass surgery in 1991 at the [facility]. Patient admitted this time for COVID-19 pneumonia, he was put on Decadron which worsened his leukocytosis, patient is complaining of back pain no signs of cauda equina. His ox requirement did not worsen during hospitalization he remained at 4 L which is his baseline. CTA chest rule out PE. Patient is wanting to go home, he is well aware that he has multiple comorbid conditions and patient is stating that he is not able to afford LifeVest after first 90 days and he has an appointment to follow-up with a community association manager to get referral for an AICD. Patient tells me that he really does no activity. He has an aide that helps him with almost everything. He does do some transfers. He tells me that his shortness of breath has gotten worse over the last few days. He uses a 30 foot line to deliver 4 to 4-1/2 L of oxygen per minute. He reports just putting his feet down and moving around in bed can drop his oxygen into the 80s. No chest pain, sputum production, fever, chills, extremity swelling, medication change. He was given 2 breathing treatments en route 1 albuterol and 1 DuoNeb. He reports now he is feeling a little bit better but still not back to his baseline. Associated symptoms: Deny abdominal pain, chest pain, fever(s), nausea, syncope or vomiting Related Data Home Medications Medication Instructions Recorded Confirmed oxycodone-acetaminophen 10 mg-325 1 tab PO Q6H PRN Pain 01/16/22 03/19/24 mg tablet vitamin B12 500 mcg-folic acid 400 1 tab PO DAILY 02/08/22 03/19/24 mcg tablet roflumilast 250 mcg tablet 250 mcg PO DAILY 11/15/22 03/19/24 bisacodyl 5 mg tablet,delayed 20 mg PO BID 03/18/24 03/18/24 release docusate sodium 100 mg capsule 200 mg PO BID 03/19/24 03/19/24 (Colace) Previous Rx's Medication Instructions Recorded nitroglycerin 0.4 mg sublingual 0.4 mg sublingual Q5M PRN chest 01/20/22 tablet pain 30 days #10 tabs tamsulosin 0.4 mg capsule 0.4 mg PO .at bedtime #30 caps 02/08/22 aspirin 81 mg tablet,delayed 81 mg PO DAILY #60 tabs 12/13/22 release atorvastatin 80 mg tablet 80 mg PO DAILY #30 tabs 12/13/22 clopidogrel 75 mg tablet 75 mg PO DAILY #60 tabs 12/13/22 isosorbide dinitrate 10 mg tablet 10 mg PO BID #60 tabs 12/13/22 losartan 25 mg tablet 25 mg PO DAILY #60 tabs 12/13/22 amoxicillin 875 mg-potassium 1 tab PO BID #6 tabs 03/20/24 clavulanate 125 mg tablet ipratropium 0.5 mg-albuterol 3 mg 3 ml inhalation Q6H PRN shortness 03/20/24 (2.5 mg base)/3 mL nebulization of breath or wheezing #90 mL soln metoprolol tartrate 25 mg tablet 25 mg PO BID@0900,2100 #120 tabs 03/20/24 Allergies Allergy/AdvReac Type Severity Reaction Status Date / Time tetracycline Allergy ALGY-Rash Verified 04/01/24 13:04 Review of Systems 2 General: Reports: 10 or more systems reviewed and unremarkable except in HPI and below Narrative: Review of systems is also positive for bilateral foot numbness which she has been experiencing for some time and is progressively worsening. It makes it hard for him to get feedback when he is trying to walk. He also reports ongoing low back pain. Const: Denies: fever(s), chills or body aches Eyes: Denies: change in vision ENMT: Denies: throat pain Card: Denies: chest pain, edema or syncope Resp: Denies: productive cough GI: Denies: abdominal pain, nausea, vomiting or diarrhea : Denies: flank pain, dysuria or urinary frequency Musc: Denies: neck pain or extremity swelling Skin/Breast: Denies: rash or erythema Neuro: Denies: headache(s), weakness in extremities or lack of coordination PFSH ED 2 PFSH: Medical History (Updated 04/01/24 @ 14:51 by Armond Dillon MD) Acute exacerbation of chronic obstructive airways disease Leukocytosis COVID-19 Incomplete bladder emptying Arthritis Hypertension COPD (chronic obstructive pulmonary disease) Peripheral arterial disease Bilateral inguinal hernia without obstruction or gangrene Atherosclerotic heart disease of [place] coronary artery with unstable angina pectoris Acute respiratory failure with hypoxia and hypercapnia Elevated troponin COPD with acute exacerbation Pneumonia Acute respiratory failure with hypoxemia Acute exacerbation of chronic obstructive airways disease Community acquired pneumonia Scrotal hernia BPH loc w urin obs/LUTS Non-ST elevation DE (NSTEMI) Congestive heart failure due to cardiomyopathy Ischemic cardiomyopathy H/O macrocytic anemia Anemia CAD (coronary artery disease) Oxygen dependent Pulmonary hypertension Hyperlipidemia Surgical History History of coronary artery stent placement Hx of CABG Family History Father , AT 94 Cancer Mother , AT 83 Heart disease Social History Smoking and tobacco/nicotine status: former use of tobacco/nicotine (7-8 years ago) Alcohol intake: former Substance/Drug Use: never Marital status: Single Current occupational status: retired and disabled Physical Exam 2 Narrative: EXAM NARRATIVE: This is an ill-appearing 78-year-old male who actually appears somewhat older than his stated age. He is barrel chested. He is tachypneic with moderate respiratory distress. He has accessory muscle use. He has diminished breath sounds bilaterally, worse on the left. There is an end expiratory wheeze. There is a prolonged expiratory phase. No lower extremity edema. Mild JVD is present. The patient is pale and deconditioned. His heart rate is elevated and irregular. Abdomen soft nontender. He has pain when I move him in his low back but not any pain on direct palpation. Const: COMMON NORMALS: no limitations and alert EXAM LIMITATIONS: no altered mental status HENMT: COMMON NORMALS: normocephalic, atraumatic and external ears normal H EAD & SCALP: normocephalic and atraumatic EXTERNAL EAR: Yes external ears normal MOUTH: no muffled voice Eye: COMMON NORMALS: EOMs intact bilaterally, conjunctivae normal and no scleral icterus CONJUNCTIVA: Yes conjunctivae normal Neck/C-Spine: GENERAL: Yes normal visual inspection and Yes trachea midline GI: COMMON NORMALS: Soft to palpation and non-tender PALPATION: Yes Soft to palpation and No Guarding due to palpation present (GI) Extremity: COMMON NORMALS: normal to inspection Neuro: COMMON NORMALS: moves all extremities and no focal motor deficits S ENSORIUM/ORIENTATION: Yes alert SPEECH: speech normal Psych: COMMON NORMALS: mental status grossly normal, Normal thought process present, cooperative, normal affect and speech normal SPEECH: Yes normal speech THOUGHT PROCESS: Normal thought process present Skin: COMMON NORMALS: no rashes or lesions noted, turgor normal and no jaundice GENERAL SKIN EXAM: no rashes or lesions noted and turgor normal O THER: Pale skin. Course 2 ED course: EKG my interpretation. Sinus tachycardia with PVCs, normal axis, QRS 85 ms, there are some ST depressions most notable in the lateral leads, no concerning ST segment elevations. P waves slightly enlarged suggesting left atrial enlargement. Troponin elevated. He has had elevated troponins in the past but is also had normal in the past. Difficult to know how to interpret this. I will go ahead and give him some aspirin. No chest pain although his shortness of breath could be an anginal equivalent. Discussed with the hospitalist and we are going to hold off on heparin at this time. The patient's chest x-ray was reviewed by me. He is very hyper inflated. He has chronic lung disease. It makes it difficult to exclude any infiltrate, especially on 1 view. Leukocytosis was present. She has had this in the past but it is up a little bit. He has been given some steroids here. We are debating on whether to start antibiotics or monitor. For now, I have ordered a procalcitonin and a D-dimer to help us determine whether he needs to have a CT scan of the chest. He did just have 1 at his last admission; so we are trying to be judicious with our ordering. Patient having frequent PVCs. He has a EF less than 30%. He has severe irreversible lung disease. He is in poor health. The patient does want to be full code. Based on this conversation as well as context of her other conversations, I do not think he is ready for hospice care or comfort care. Case was discussed with Dr. Roman who has requested the patient be put on MedSurg. Vital Signs: Vital signs: Vital Signs Temperature 97.6 F 04/01/24 12:57 Pulse Rate 108 H 04/01/24 13:35 Respiratory Rate 27 H 04/01/24 14:45 Blood Pressure 119/60 04/01/24 13:34 Pulse Oximetry 96 04/01/24 14:45 Oxygen Delivery Me thod Nasal Cannula 04/01/24 13:35 Oxygen Flow Rate 5 04/01/24 13:35 MDM - SOB/Dyspnea Medical Decision Making Differential diagnosis includes COPD exacerbation, congestive heart failure exacerbation, atypical ACS, anemia, pneumonia, effusion, pneumothorax, pulmonary hypertension, combination of these, post COVID pneumonitis, arrhythmia, other. Lab Data 04/01/24 13:27 04/01/24 13:27 Labs/Radiology: Radiology Impressions Chest X-Ray 04/01/24 13:15 IMPRESSION: Right mid lung zone infiltrates. Laboratory Results WBC 14.25 10^3/uL (3.29-11.43) H 04/01/24 13:27 RBC 2.92 10^6/uL (3.85-5.65) L 04/01/24 13:27 Hgb 9.70 g/dL (11.27-16.99) L 04/01/24 13:27 Hct 32.8 % (37-53) L 04/01/24 13:27 MCV 112.3 fl (82-101) H 04/01/24 13:27 MCH 33.2 pg (27-33) H 04/01/24 13:27 MCHC 29.6 g/dL (30-55) L 04/01/24 13:27 RDW 13.7 % (12.1-15.1) 04/01/24 13:27 Plt Count 150 10^3/cmm (157-399) L 04/01/24 13:27 MPV 10.5 fL (7.4-10.4) H 04/01/24 13:27 Neut % (Auto) 88.0 % 04/01/24 13:27 Lymph % (Auto) 4.5 % 04/01/24 13:27 Butts % (Auto) 6.9 % 04/01/24 13:27 Eos % (Auto) 0.1 % 04/01/24 13:27 Baso % (Auto) 0.1 % 04/01/24 13:27 Neut # (Auto) 12.54 10^3/uL (1.8-7.7) H 04/01/24 13:27 Lymph # (Auto) 0.6 10^3/uL (0.8-4.8) L 04/01/24 13:27 Butts # (Auto) 1.0 10^3/uL (0.2-0.9) H 04/01/24 13:27 Eos # (Auto) 0.0 10^3/uL (0.0-0.8) 04/01/24 13:27 Baso # (Auto) 0.0 10^3/uL (0.0-0.1) 04/01/24 13:27 Nucleated RBC % (auto) 0 % 04/01/24 13: Nucleated RBCs # 0.0 /100WBC 04/01/24 13:27 D-Dimer 1.48 ug/mLFEU (0-0.59) H 04/01/24 13:27 Specimen Type Arterial 04/01/24 13:25 Sample Site Radial, left 04/01/24 13:25 ABG pH 7.41 (7.35-7.45) 04/01/24 13:25 ABG pCO2 56.9 mmHg (35-45) H 04/01/24 13:25 ABG pO2 74.4 mmHg (80.0-100.0) L 04/01/24 13:25 ABG PO2/FiO2 Ratio 195 04/01/24 13:25 ABG HCO3 36.1 mmol/L (22-26) H 04/01/24 13:25 ABG Base Excess 10.0 mmol/L (-2.0-2.0) H 04/01/24 13:25 Mohit Test Pos 04/01/24 13:25 Hematocrit 29.7 % (42-52) L 04/01/24 13:25 Hgb O2 Saturation 93.0 % (95-100) L 04/01/24 13:25 Carboxyhemoglobin 0.9 %THgb (0.4-20.1) 04/01/24 13:25 Methemoglobin 1.4 % (0.4-1.5) 04/01/24 13:25 Total Hemoglobin 9.7 g/dL (14-18) L 04/01/24 13:25 O2 Delivery Device Nc 04/01/24 13:25 O2 Liters/Min 4.5 % 04/01/24 13:25 FiO2 38.0 % 04/01/24 13:25 Refurbish Technician ID Cak 04/01/24 13:25 Sodium 144 mmol/L (136-145) 04/01/24 13:27 Potassium 4.1 mmol/L (3.5-5.1) 04/01/24 13:27 Chloride 101 mmol/L (98-107) 04/01/24 13:27 Carbon Dioxide 31 mmol/L (22-29) H 04/01/24 13:27 Anion Gap 16.1 (5-19) 04/01/24 13:27 BUN 18 mg/dL (8-23) 04/01/24 13:27 Creatinine 0.5 mg/dL (0.7-1.2) L 04/01/24 13:27 GFR Calculation Not Reportable 04/01/24 13:27 Glucose 109 mg/dL (65-115) 04/01/24 13:27 Calculated Osmolality 300 mOsm/kg (285-295) H 04/01/24 13:27 Lactic Acid 2.0 mmol/L (0.5-2.2) 04/01/24 13:27 Calcium 8.6 mg/dL (8.5-10.5) 04/01/24 13:27 Total Bilirubin 0.3 mg/dL (0.15-1.2) 04/01/24 13:27 AST 17 U/L (0-40) 04/01/24 13:27 ALT 13 U/L (0-41) 04/01/24 13:27 Alkaline Phosphatase 50 U/L (40-130) 04/01/24 13:27 Troponin T Baseline 137 ng/L (0-15) H* 04/01/24 13:27 NT-Pro-B Natriuret Pep 947 pg/mL (0-450) H 04/01/24 13:27 Total Protein 6.0 g/dL (6.6-8.7) L 04/01/24 13:27 Albumin 3.6 g/dL (3.5-5.2) 04/01/24 13:27 Globulin 2.4 g/dL (1.3-4.6) 04/01/24 13:27 Procalcitonin 0.06 ng/mL (0-0.5) 04/01/24 13:27 All radiology interpretation(s) finalized by discharge Discharge Plan Discharge Patient Disposition: Admitted As Inpatient Clinical Impression: Emphysema/COPD, CHF (congestive heart failure), Acute on chronic respiratory failure with hypoxia and hypercapnia, Elevated troponin, Leukocytosis Condition: Stable Coding Level of Care Code ED Clinical Assistant Professor for Taz Levine
[2024-04-01] MEDS: methylPREDNISolone sod succ 125 mg/2 mL INJ IV (13:32)
[2024-04-01 13:36] LABS: ABG PCO2 56.9 mmHg (35-45); ABG PH Result 7.41 (7.35-7.45); Arterial Blood Gas Hematocrit 29.7 % (42-52); Blood Gas Allen Test Pos; Blood Gas LPM 4.5 %; Blood Gas Operator Identificat CAK; Blood Gas Sample Site Radial, left; Blood Gas Sample Type Arterial; Carboxyhemoglobin 0.9 %THgb (0.4-20.1); HCO3 ABG 36.1 mmol/L (22-26); Methemoglobin 1.4 % (0.4-1.5); Oxygen Device NC; PO2 ABG 74.4 mmHg (80.0-100.0); PO2 FiO2 Ratio Arterial Blood 195; Total Hemoglobin 9.7 g/dL (14-18)
[2024-04-01 13:47] LABS: Basophils % 0.1 %; Eosinophils % 0.1 %; Hematocrit 32.8 % (37-53); Lymphocytes # 0.6 10^3/uL (0.8-4.8); Lymphocytes % 4.5 %; Mean Corpuscular HGB Conc 29.6 g/dL (30-55); Mean Corpuscular Hemoglobin 33.2 pg (27-33); Mean Corpuscular Volume 112.3 fl (82-101); Mean Platelet Volume 10.5 fL (7.4-10.4); Monocytes % 6.9 %; Neutrophils # 12.54 10^3/uL (1.8-7.7); Nucleated Red Blood Cells % 0 %; Platelet Count 150 10^3/cmm (157-399); Red Blood Count 2.92 10^6/uL (3.85-5.65); Red Cell Distribution Width 13.7 % (12.1-15.1); White Blood Count 14.25 10^3/uL (3.29-11.43)
[2024-04-01 14:16] LABS: Troponin(5th) Baseline 137 ng/L (0-15)
[2024-04-01 14:21] LABS: Alanine Aminotransferase 13 U/L (0-41); Albumin Level 3.6 g/dL (3.5-5.2); Alkaline Phosphatase 50 U/L (40-130); Anion Gap 16.1 (5-19); Aspartate Amino Transferase 17 U/L (0-40); Blood Urea Nitrogen 18 mg/dL (8-23); Calcium 8.6 mg/dL (8.5-10.5); Carbon Dioxide 31 mmol/L (22-29); Chloride 101 mmol/L (98-107); Globulin 2.4 g/dL (1.3-4.6); Glucose 109 mg/dL (65-115); NT Pro B Type Natriuretic Pept 947 pg/mL (0-450); Osmolality Calculated 300 mOsm/kg (285-295); Potassium 4.1 mmol/L (3.5-5.1); Sodium 144 mmol/L (136-145); Total Bilirubin 0.3 mg/dL (0.15-1.2)
[2024-04-01 14:22] LABS: Creatinine Clr Calc Pharmacy 57.6439
[2024-04-01 14:43] LABS: Procalcitonin 0.06 ng/mL (0-0.5)
[2024-04-01] MEDS: oxyCODONE-APAP 10-325 mg Tablet 1 TAB PO ×2 (14:45→20:52)
[2024-04-01] MEDS: aspirin 81 mg Chew Tablet 324 MG PO (14:46)
[2024-04-01 14:51] LABS: D Dimer 1.48 ug/mLFEU (0-0.59)
--- NOTE | 2024-04-01 15:18 | ECG_ITS ---
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 Measurements Intervals [place] Rate: 104 P: 81 FL: 156 QRS: 56 QRSD: 88 T: 76 QT: 344 QTc: 454 Interpretive Statements SINUS TACHYCARDIA LEFT VENTRICULAR HYPERTROPHY AND ST-T CHANGE [VOLTAGE CRITERIA PLUS ST/T ABNORMALITY] POSSIBLE SEPTAL MYOCARDIAL INFARCTION , PROBABLY OLD [30 ms Q WAVE IN V1/V2] Compared to ECG 04/01/2024 13:21:14 Myocardial infarct finding now present Ventricular premature complex(es) no longer present ST (T wave) deviation still present Electronically Signed On 04-01-2024 20:10:21 CDT by Catrachito Otero M.D. [email or web address] [id number]
--- NOTE | 2024-04-01 16:07 | P.HP_ITS ---
Providers/Chief Complaint 2 Admitting Physician: Julio Salguero Primary Care Provider: Pawel Ordoñez Chief Complaint: SOB History of Present Illness Pleasant 78-year-old gentleman with history of emphysema, COPD, normally on 4 and half liters of oxygen, CAD, CABG, stenting, balloon angioplasty, peripheral arterial disease, CHF, pulmonary hypertension, HTN, HLD, arthritis, BPH, lives by himself, has aides coming in during the day and another 1 overnight to help him. Recently hospitalized, discharged 03/20 after acute on chronic hypoxia, COVID-19. At home has been getting more dyspneic with minimal exertion, just sitting up to the edge of the bed saturation drops into the low 80s. In ER satting mid 90s on 5 L at rest. Noted worsening leukocytosis 14.25. Sinus tachycardia 110. Chest x-ray with hyperinflated, emphysematous lungs, right midlung zone infiltrates. Baseline troponin 137, troponin back in February was 15. NT-proBNP 947. He reports mild chronic chest pain centrally which she states has been going on for a long time. He has mild/intermittent cough without much sputum production. Procalcitonin 0.06. D-dimer 1.48. He has never discussed and does not feel ready for hospice. Review of Systems 2 Const: Denies: fever(s), chills, body aches or malaise ENMT: Denies: throat pain Card: Reports: chest pain and dyspnea on exertion; Denies: edema or pre-syncope Resp: Reports: dyspnea and non-productive cough (mild); Denies: productive cough, change in phlegm color or hemoptysis GI: Denies: abdominal pain, nausea, vomiting, diarrhea, constipation, hematochezia or melena : Denies: flank pain, difficulty urinating, urinary frequency or hematuria Musc: Denies: back pain, joint swelling or joint redness Skin/Breast: Denies: rash or new lesions Neuro: Denies: headache(s) Medications/Allergies Home Medications Medication Instructions Recorded Confirmed Last Taken Type oxycodone-acetaminophen 10 mg-325 1 tab PO Q6H PRN Pain 01/16/22 03/19/24 Unknown History mg tablet nitroglycerin 0.4 mg sublingual 0.4 mg sublingual Q5M PRN chest 01/20/22 03/19/24 Unknown Rx tablet pain 30 days #10 tabs tamsulosin 0.4 mg capsule 0.4 mg PO .at bedtime #30 caps 02/08/22 03/19/24 Unknown Rx vitamin B12 500 mcg-folic acid 400 1 tab PO DAILY 02/08/22 03/19/24 Unknown History mcg tablet roflumilast 250 mcg tablet 250 mcg PO DAILY 11/15/22 03/19/24 Unknown History aspirin 81 mg tablet,delayed 81 mg PO DAILY #60 tabs 12/13/22 03/19/24 Unknown Rx release atorvastatin 80 mg tablet 80 mg PO DAILY #30 tabs 12/13/22 03/19/24 Unknown Rx clopidogrel 75 mg tablet 75 mg PO DAILY #60 tabs 12/13/22 03/19/24 Unknown Rx isosorbide dinitrate 10 mg tablet 10 mg PO BID #60 tabs 12/13/22 03/19/24 Unknown Rx losartan 25 mg tablet 25 mg PO DAILY #60 tabs 12/13/22 03/19/24 Unknown Rx bisacodyl 5 mg tablet,delayed 20 mg PO BID 03/18/24 03/18/24 1 Day Ago History release ~03/17/24 docusate sodium 100 mg capsule 200 mg PO BID 03/19/24 03/19/24 03/18/24 History (Colace) amoxicillin 875 mg-potassium 1 tab PO BID #6 tabs 03/20/24 Unknown Rx clavulanate 125 mg tablet ipratropium 0.5 mg-albuterol 3 mg 3 ml inhalation Q6H PRN shortness 03/20/24 Unknown Rx (2.5 mg base)/3 mL nebulization of breath or wheezing #90 mL soln metoprolol tartrate 25 mg tablet 25 mg PO BID@0900,2100 #120 tabs 03/20/24 Unknown Rx Allergies Allergy/AdvReac Type Severity Reaction Status Date / Time tetracycline Allergy ALGY-Rash Verified 04/01/24 13:04 PFSH Acute 2 PFSH: Medical History (Updated 04/01/24 @ 17:59 by Julio Salguero MD) Non-ST elevation PA (NSTEMI) Acute exacerbation of chronic obstructive airways disease Leukocytosis COVID-19 Incomplete bladder emptying Arthritis Hypertension COPD (chronic obstructive pulmonary disease) Peripheral arterial disease Bilateral inguinal hernia without obstruction or gangrene Atherosclerotic heart disease of [place] coronary artery with unstable angina pectoris Acute respiratory failure with hypoxia and hypercapnia Elevated troponin COPD with acute exacerbation Pneumonia Acute respiratory failure with hypoxemia Acute exacerbation of chronic obstructive airways disease Community acquired pneumonia Scrotal hernia BPH loc w urin obs/LUTS Congestive heart failure due to cardiomyopathy Ischemic cardiomyopathy H/O macrocytic anemia Anemia CAD (coronary artery disease) Oxygen dependent Pulmonary hypertension Hyperlipidemia Surgical History History of coronary artery stent placement Hx of CABG Family History Father , AT 94 Cancer Mother , AT 83 Heart disease Social History Smoking and tobacco/nicotine status: former use of tobacco/nicotine (7-8 years ago) Alcohol intake: former Substance/Drug Use: never Marital status: Single Current occupational status: retired and disabled Vitals/I&O/Wt Last Vital Signs Temp 97.6 F 04/01/24 12:57 Pulse 110 H 04/01/24 15:30 Resp 21 H 04/01/24 15:30 BP 141/78 04/01/24 15:30 Pulse Ox 96 04/01/24 15:30 O2 Del Method Nasal Cannula 04/01/24 13:35 O2 Flow Rate 5 04/01/24 13:35 Weight last 48 hrs Weight 54.431 kg Physical Exam 2 Const: COMMON NORMALS: patient oriented x3 and alert GENERAL APPEARANCE: c ooperative and frail appearing ORIENTATION/CONSCIOUSNESS: Yes awake HENMT: COMMON NORMALS: oropharynx normal Neck/C-Spine: COMMON NORMALS: no JVD Resp: AUSCULTATION: diminished lung sounds Cardio: COMMON NORMALS: no JVD, regular rhythm, S1 normal heart sound present, S2 normal heart sound present and No murmurs present (Cardio) RHYTHM: regular rhythm HEART SOUNDS: S1 normal heart sound present and S2 normal heart sound present GI: COMMON NORMALS: Normal to inspection, nondistended, normoactive bowel sounds present, Soft to palpation and non-tender PALPATION: Yes Soft to palpation Extremity: COMMON NORMALS: no joint enlargement and no pedal edema Neuro: COMMON NORMALS: patient oriented x3 and moves all extremities S ENSORIUM/ORIENTATION: Yes alert Skin: COMMON NORMALS: no rashes or lesions noted GENERAL SKIN EXAM: no rashes or lesions noted Data 04/01/24 13:27 04/01/24 13:27 A&P Assessment and plan (1) Acute on chronic hypoxic respiratory failure: Acute on chronic hypoxic respiratory failure, saturations down into low 80s with minimal exertion, on usual home oxygen, tachypnea, tachycardia, generalized weakness, normally on 4.5 L. Requiring 5 L in ER. With sinus tachycardia, elevated D-dimer. Noted new worsening leukocytosis 14.25. Afebrile. Minimal dry cough. Not much phlegm production. Has had some central substernal chest pain which she states has been there for a long time. Baseline troponin elevated. NT proBNP about twice compared to last value in February. Chest x-ray with hyperinflation and emphysema, right midlung zone infiltrates. Possible pneumonia, with recent hospitalization, possible hospital-acquired pneumonia, will empirically treat with Zosyn, linezolid for now. Monitor for risk of agranulocytosis with linezolid. Recently treated for COVID-19. Will obtain respiratory viral panel in case of other infection. Possible long COVID/fibrosis sequela. At risk of DVT. Reviewed vitals, CBC, CMP, ER note, discussed with ER provider. D-dimer obtained, reviewed, abnormal. With elevated troponin, NSTEMI currently started on anticoagulation with heparin as per discussion with patient and ER provider. Monitor with heparin drip with risk of bleeding. Monitor PTTs. Monitor for any bleeding he denies any recent bleeding, no hematochezia, melena, hematuria, etc. Additional workup with NSTEMI and history of cardiomyopathy, reassess TTE. Assess lower extremity duplex. Depending on further needs for additional cardiac workup consider CT angiogram prior to discontinuation of anticoagulation/discharge. With advanced emphysema, at baseline 4.5 L of oxygen, worsening functional capacity, considered less aggressive measures, he has never spoken to anybody about consideration of hospice care and is not interested at current time, but depending on how he recovers he may think about hearing more about it. Similarly he understands that he is at high risk of mortality, complication, further respiratory failure. He did not particularly enjoy being on BiPAP in the past, would really like to avoid it if possible, but would try it if it was necessary states it felt like he was going to make his head explode . He otherwise wants to be full code. In case he could not make his own decisions he names kylah Dalton [facility] as his surrogate decision-maker. He does not have his contact information with him. (2) Non-ST elevation PA (NSTEMI): With reporting chronic chest pain, central, substernal, not changed by exertion or breathing. Reports he has had it for a very long time . Noted baseline troponin elevated 137. EKG on my interpretation with sinus tachycardia, LVH, without obvious sign of acute PA pending official interpretation. Obtain TTE. Complete troponin EKG series. Additionally possible PE, anticoagulation as above. Continue aspirin, Plavix, beta-mahnaz, statin. Monitor telemetry with risk of arrhythmia. (3) Elevated d-dimer: Possible PE with dyspnea, desaturation with minimal exertion, sinus tachycardia, abnormal D-dimer, recent COVID-19. Anticoagulation as above. Obtain lower extremity duplex. For now CT angiogram not yet obtained, pending reassessment and further cardiac workup reassessment and further cardiac workup needs, in case requiring angiogram. Consider further evaluation with CTA prior to discontinuation of anticoagulation/discharge. (4) Goals of care, counseling/discussion: With advanced emphysema, at baseline 4.5 L of oxygen, worsening functional capacity, considered less aggressive measures, he has never spoken to anybody about consideration of hospice care and is not interested at current time, but depending on how he recovers he may think about hearing more about it. Similarly he understands that he is at high risk of mortality, complication, further respiratory failure. He did not particularly enjoy being on BiPAP in the past, would really like to avoid it if possible, but would try it if it was necessary states it felt like he was going to make his head explode . He otherwise wants to be full code. In case he could not make his own decisions he names kylah Dalton [facility] as his surrogate decision-maker. He does not have his contact information with him. Case management consultation. PT evaluation. He may consider going to penitentiary, but would rather return home. Plan COPD, normally on 4 and half liters of oxygen, CAD, CABG, stenting, balloon angioplasty, Continue aspirin, Plavix, statin, beta-mahnaz. Isosorbide. peripheral arterial disease, Continue antiplatelets, statin. CHF, NT-proBNP is twice prior value, but currently does not appear in decompensated CHF. Continue losartan. Not on a diuretic. Reassess volume status. pulmonary hypertension, HTN, Continue losartan, isosorbide dinitrate, metoprolol. HLD, Continue atorvastatin arthritis, BPH, Continue Flomax Attestations 2 Medical Necessity Statement*: Admission of over 2 midnights anticipated for assessment and management of acute hypoxic respiratory failure on chronic respiratory failure, NSTEMI, possible PE in a gentleman with underlying chronic respiratory failure, COPD, recent COVID- 19 infection and other comorbidities as above. Diagnoses Acute on chronic hypoxic respiratory failure J96.21 Non-ST elevation PA (NSTEMI) I21.4 Elevated d-dimer R79.89 Goals of care, counseling/discussion Z71.89
--- NOTE | 2024-04-01 17:42 | USR_ITS ---
PROCEDURE INFORMATION: Exam: US Duplex Lower Extremity Veins, Bilateral Exam date and time: 04/01/2024 6:48 PM Age: 78 years old Clinical indication: Screening exam; Assess for dvt TECHNIQUE: Imaging protocol: Real-time duplex ultrasound of the bilateral extremities with 2-D banda scale, color Doppler flow and spectral waveform analysis including responses to compression and other maneuvers (when performed) with image documentation. Complete exam focused on the lower extremity veins. COMPARISON: CT abdomen pelvis w con* [id number] 01/19/2022 12:36 AM FINDINGS: Right deep veins: Unremarkable. The common femoral, femoral, proximal profunda femoral and popliteal veins are patent without thrombus. Normal Doppler waveforms. Normal compressibility and/or augmentation response. Interrogated posterior tibial and peroneal veins are patent. Left deep veins: Unremarkable. The common femoral, femoral, proximal profunda femoral and popliteal veins are patent without thrombus. Normal Doppler waveforms. Normal compressibility and/or augmentation response. Interrogated posterior tibial and peroneal veins are patent. Superficial veins: Greater saphenous veins at the saphenofemoral junctions are patent bilaterally without thrombus. Soft tissues: Unremarkable. US/[place] [id number] IMPRESSION: No evidence of deep vein thrombosis.
--- NOTE | 2024-04-01 18:12 | PC.NURSE ---
pt has large hernia in groin, states he has had it approx 5 years-non operative
[2024-04-01] MEDS: clopidogrel 75 mg Tablet PO (18:16)
[2024-04-01] MEDS: isosorbide dinitrate 20 mg Tablet 10 MG PO (18:21)
[2024-04-01] MEDS: nitroglycerin 0.4 mg sublingual Tablet SUBLINGUAL (18:47)
[2024-04-01] MEDS: heparin 5,000 unit/mL INJ 1 mL IVP (18:49)
[2024-04-01] MEDS: heparin drip 25,000 UNIT/500 ML PREMIX 15 UNIT IV (18:55)
--- NOTE | 2024-04-01 19:34 | PC.NURSE ---
at approx. 1830 pt c/o of chest pain. pt stated that the cp is the same as he gets at home and he takes nitro at home. got verbal order for nitro from anjali. also informed pt only had 1 iv and he stated to start heparin drip first.
[2024-04-01 19:54] LABS: Troponin 5 6HR Delta -27.8 ng/L (0-12)
[2024-04-01 19:55] LABS: Troponin 5 6HR 109.2 ng/L (0-15)
[2024-04-01] MEDS: methylPREDNISolone sod succ 125 mg/2 mL INJ 60 MG IVP (20:22)
[2024-04-01] MEDS: metoprolol tartrate 25 mg Tablet 12.5 MG PO (20:23)
[2024-04-01] MEDS: atorvastatin 40 mg Tablet 80 MG PO (20:23)
[2024-04-01] MEDS: tamsulosin 0.4 mg Capsule PO (20:23)
[2024-04-01] MEDS: ipratropium-albuterol 3 mL Neb INHALATION (20:24)
--- NOTE | 2024-04-01 20:30 | ECG_ITS ---
[facility] Test Date: 2024-04-01 Pat Name: Sherwin Dalton Department: Room: 262 Gender: Male [employer]: : 1945 Requested By: Armond Dillon Order Number: [id number] Tripathi MD: Catrachito Otero M.D. Measurements Intervals [place] Rate: 107 P: 72 AR: 140 QRS: 53 QRSD: 84 T: 89 QT: 351 QTc: 470 Interpretive Statements SINUS TACHYCARDIA LEFT VENTRICULAR HYPERTROPHY AND ST-T CHANGE [VOLTAGE CRITERIA PLUS ST/T ABNORMALITY] Compared to ECG 04/01/2024 16:37:35 Myocardial infarct finding no longer present ST (T wave) deviation still present Electronically Signed On 04-02-2024 12:10:22 CDT by Catrachito Otero M.D. [id number]
[2024-04-01] MEDS: linezolid premix 600 MG/300 ML PREMIX 300 MG IV (20:33)
[2024-04-01] MEDS: saline nasal spray 44mL Btl 1 SPRAY NASAL (21:56)
[2024-04-01] MEDS: piperacillin-tazobactam 3.375 GM in sodium chloride 0.9% (plus) 50 ML IV (21:57)
[2024-04-01 22:47] LABS: Adenovirus Not Detected (NOT DETECT); Chlamydia Pneumoniae Not Detected (NOT DETECT); Coronavirus 229E,HKU1,NL63,OC4 Not Detected (NOT DETECT); Human Metapneumovirus Not Detected (NOT DETECT); Human Rhinovirus/Enterovirus Not Detected (NOT DETECT); Influenza A Not Detected (NOT DETECT); Influenza A H1 Not Detected (NOT DETECT); Influenza A H1-2009 Not Detected (NOT DETECT); Influenza A H3 Not Detected (NOT DETECT); Influenza B Not Detected (NOT DETECT); Mycoplasma Pneumoniae Not Detected (NOT DETECT); Parainfluenza Virus Type 1 Not Detected (NOT DETECT); Parainfluenza Virus Type 2 Not Detected (NOT DETECT); Parainfluenza Virus Type 3 Not Detected (NOT DETECT); Parainfluenza Virus Type 4 Not Detected (NOT DETECT); Respiratory Syncytial Virus A Not Detected (NOT DETECT); Respiratory Syncytial Virus B Not Detected (NOT DETECT)
[2024-04-01 22:53] LABS: SARS-COV-2 Detected (NOT DETECT)
[2024-04-02] VITALS (20 sets, daily range): BP systolic 113–147; BP diastolic 53–68; PULSE 82–121; RESP 16–20; TEMP 36.3–36.8; O2SAT 90–96
[2024-04-02] MEDS: methylPREDNISolone sod succ 125 mg/2 mL INJ 60 MG IVP ×2 (01:13→06:04)
[2024-04-02 01:20] LABS: Hematocrit 31.7 % (37-53); Lymphocytes # 0.4 10^3/uL (0.8-4.8); Lymphocytes % 4.7 %; Mean Corpuscular HGB Conc 29.7 g/dL (30-55); Mean Corpuscular Hemoglobin 32.6 pg (27-33); Mean Corpuscular Volume 110.1 fl (82-101); Mean Platelet Volume 10.4 fL (7.4-10.4); Monocytes # 0.1 10^3/uL (0.2-0.9); Monocytes % 1.2 %; Neutrophils # 8.74 10^3/uL (1.8-7.7); Neutrophils % 93.7 %; Nucleated Red Blood Cells % 0 %; Platelet Count 159 10^3/cmm (157-399); Red Blood Count 2.88 10^6/uL (3.85-5.65); Red Cell Distribution Width 13.6 % (12.1-15.1); White Blood Count 9.33 10^3/uL (3.29-11.43)
[2024-04-02 01:31] LABS: Partial Thromboplastin Time 45.9 SECONDS (23.9-36.7)
[2024-04-02 01:40] LABS: Alanine Aminotransferase 12 U/L (0-41); Albumin Level 3.5 g/dL (3.5-5.2); Alkaline Phosphatase 46 U/L (40-130); Anion Gap 15.7 (5-19); Aspartate Amino Transferase 14 U/L (0-40); Blood Urea Nitrogen 21 mg/dL (8-23); Calcium 8.8 mg/dL (8.5-10.5); Carbon Dioxide 30 mmol/L (22-29); Chloride 102 mmol/L (98-107); Creatinine Clr Calc Pharmacy 56.3953; Globulin 2.9 g/dL (1.3-4.6); Glucose 134 mg/dL (65-115); Osmolality Calculated 301 mOsm/kg (285-295); Potassium 4.7 mmol/L (3.5-5.1); Sodium 143 mmol/L (136-145); Total Bilirubin 0.3 mg/dL (0.15-1.2); Total Protein 6.4 g/dL (6.6-8.7)
[2024-04-02] MEDS: heparin drip 25,000 UNIT/500 ML PREMIX 16 UNIT IV (01:44)
[2024-04-02] MEDS: heparin 5,000 unit/mL INJ 1 mL IVP (02:03)
[2024-04-02] MEDS: ipratropium-albuterol 3 mL Neb INHALATION ×4 (02:05→19:46)
[2024-04-02] MEDS: oxyCODONE-APAP 10-325 mg Tablet 1 TAB PO ×4 (03:27→21:38)
--- NOTE | 2024-04-02 06:00 | USCV_ITS ---
Sha Sherwin Age: 78 Gender: M : 1945 Exam Date: 04/02/2024 13:23 Ordering Phys: Julio Salguero MD Technologist: Exam Location: [facility] [place] Indication: low ef BP: 130 / 78 HR: Rhythm: Sinus Technical Quality: Adequate MEASUREMENTS (Male / Female) Normal Values 2D ECHO LV Diastolic Diameter PLAX 5.3 cm 4.2 - 5.9 / 3.9 - 5.3 cm IVS Diastolic Thickness 1.0 cm 0.6 - 1.0 / 0.6 - 0.9 cm IVS Systolic Thickness 1.3 cm LVPW Diastolic Thickness 1.0 cm 0.6 - 1.0 / 0.6 - 0.9 cm LVPW Systolic Thickness 1.6 cm LVOT Diameter 2.0 cm LV Ejection Fraction 2D Teich 54.3 % LV Ejection Fraction MOD 4C 24.6 % LV Ejection Fraction MOD 2C 20.7 % LV Ejection Fraction 2C AL 20.3 % LA Diameter 3.5 cm RA Systolic Volume 4C AL 36.4 ml RA Systolic Volume 4C MOD 34.3 ml Aorta at Sinotubular Diameter 2.9 cm IVC Diameter 1.6 cm M-MODE LA Ao Ratio MM 1.3 AV Cusp Separation MM 2.1 cm FINDINGS Left Ventricle Severe hypokinesia of the mid and apical septum in the anteroseptal segments. Moderate diffuse hypokinesia of the inferolateral wall segments. Left ventricular ejection fraction 25% Right Ventricle The right ventricle is normal in size and function. Right Atrium The right atrium is normal in size. Left Atrium Echodensity in the interatrial septum, may suggest lipomatous dystrophy Mitral Valve Grade 1 prolapse of the anterior mitral leaflet Aortic Valve No gross abnormalities noted . Tricuspid Valve No gross abnormalities noted Pulmonic Valve Pulmonic valve not well visualized. Pericardium Normal pericardium without effusion. Aorta Normal aortic dimensions. IVC The inferior vena cava appears normal. CONCLUSIONS Severe hypokinesia of the mid and apical septum in the anteroseptal segments. Moderate diffuse hypokinesia of the inferolateral wall segments. Left ventricular ejection fraction 25%. Echodensity in the interatrial septum, may suggest lipomatous dystrophy. Grade 1 prolapse of the anterior mitral leaflet. No intracardiac masses No pericardial effusion Compared to the study from 12/02/2022, no significant change in the LV ejection fraction Dr Kalyani Lawrence MD [facility] (Electronically Signed) Final Date: 03 April 2024 18:40 S
[2024-04-02] MEDS: piperacillin-tazobactam 3.375 GM in sodium chloride 0.9% (plus) 50 ML IV ×3 (06:05→23:00)
[2024-04-02] MEDS: nitroglycerin 0.4 mg sublingual Tablet SUBLINGUAL ×3 (06:16→09:06)
[2024-04-02 08:22] LABS: Partial Thromboplastin Time 58.4 SECONDS (23.9-36.7)
[2024-04-02] MEDS: isosorbide dinitrate 20 mg Tablet 10 MG PO ×2 (09:42→18:23)
[2024-04-02] MEDS: aspirin 325 mg Tablet PO (09:42)
[2024-04-02] MEDS: losartan 50 mg Tablet 25 MG PO (09:43)
[2024-04-02] MEDS: clopidogrel 75 mg Tablet PO (09:43)
[2024-04-02] MEDS: metoprolol tartrate 25 mg Tablet 12.5 MG PO ×2 (10:01→21:31)
[2024-04-02] MEDS: levoFLOXacin 750 mg Tablet PO (10:01)
[2024-04-02] MEDS: linezolid premix 600 MG/300 ML PREMIX 300 MG IV ×2 (10:02→21:33)
[2024-04-02 10:18] LABS: Estmated Average Glucose 94; Hemoglobin A1C 4.9 % (4.0-6.0)
[2024-04-02 10:33] LABS: Procalcitonin 0.06 ng/mL (0-0.5); Thyroid Stimulating Hormone 0.24 uIU/mL (0.27-4.20); Vitamin B12 719 pg/mL (232-1245)
[2024-04-02 10:44] LABS: Iron 26 ug/dL (59-158); Percent Saturation 10.8 % (20-50); Total Iron Binding Capacity 239 mcg/dl; Unsaturated Iron Binding 213 ug/dL (112-347)
[2024-04-02 11:30] LABS: Free T4 Free Thyroxine 1.23 ng/dL (0.82-1.77); T3 Free 1.9 PG/ML (2.0-4.4)
[2024-04-02] MEDS: methylPREDNISolone sod succ 125 mg/2 mL INJ 40 MG IVP ×2 (11:53→18:23)
[2024-04-02] MEDS: remdesivir 200 MG in sodium chloride 0.9% (100 ml) 60 ML 100 MG IV (11:54)
[2024-04-02] MEDS: enoxaparin 60 mg/0.6 mL Syringe 50 MG SUBCUT (13:52)
--- NOTE | 2024-04-02 14:20 | P.PN_ITS ---
Vitals/I&O/Wt Last Vital Signs Temp 98.0 F 04/02/24 11:42 Pulse 84 04/02/24 13:27 Resp 16 04/02/24 13:27 BP 115/59 04/02/24 11:42 Pulse Ox 95 04/02/24 13:27 O2 Del Method Nasal Cannula 04/02/24 13:27 O2 Flow Rate 5 04/02/24 13:27 FiO2 5 04/02/24 11:42 04/01/24 04/02/24 04/02/24 22:59 06:59 14:59 Intake Total 780 / 780 152.25 / 932.25 1190 / 1190 Output Total 200 / 200 Balance 580 / 580 152.25 / 732.25 1190 / 1190 Weight last 48 hrs Weight 53.694 kg Weight 53.252 kg Weight 54.431 kg Physical Exam 2 Const: COMMON NORMALS: patient oriented x3 and alert GENERAL APPEARANCE: c ooperative and frail appearing ORIENTATION/CONSCIOUSNESS: Yes awake HENMT: COMMON NORMALS: oropharynx normal Neck/C-Spine: COMMON NORMALS: no JVD Resp: AUSCULTATION: diminished lung sounds Cardio: COMMON NORMALS: no JVD, regular rhythm, S1 normal heart sound present, S2 normal heart sound present and No murmurs present (Cardio) RHYTHM: regular rhythm HEART SOUNDS: S1 normal heart sound present and S2 normal heart sound present GI: COMMON NORMALS: Normal to inspection, nondistended, normoactive bowel sounds present, Soft to palpation and non-tender PALPATION: Yes Soft to palpation Extremity: COMMON NORMALS: no joint enlargement and no pedal edema Neuro: COMMON NORMALS: patient oriented x3 and moves all extremities S ENSORIUM/ORIENTATION: Yes alert Skin: COMMON NORMALS: no rashes or lesions noted GENERAL SKIN EXAM: no rashes or lesions noted Data 04/02/24 01:07 04/02/24 01:07 A&P Assessment and plan (1) Acute on chronic hypoxic respiratory failure: Acute on chronic hypoxic respiratory failure. Multifactorial. COPD exacerbation in settings of COVID-19 along with acute on chronic systolic and diastolic congestive heart failure. Oxygen supplementation keeping saturation over 88%. (2) COVID-19: Hypoxia secondary to COVID-19 pneumonia: Mild to moderate disease. Oxygen supplementation keeping saturation over 88%. As patient also has significant emphysema currently on Solu-Medrol. For now we will continue but with a lower dose of 40 mg IV every 8 hours Start on remdesivir to finish a 5-day course. DuoNeb every 6 hour, budesonide twice daily Pulmonary toilet with incentive spirometry flutter valve. We will monitor inflammatory markers including CRP every 48 hours. D-dimer mildly elevated to 1.48. CTA done on 03/19 negative for pulmonary embolism. PE so far less likely but patient already on full dose anticoagulation with concern for non-ST elevation [place]. Check sputum culture, procalcitonin, urine Legionella, bacterial antigen, blood culture. Cannot rule out underlying pneumonia. Sputum culture in the past positive for stenotrophomonas. Sensitivities appreciated. For now continue with linezolid and Zosyn. Add Levaquin. MRSA swab sent. If negative will discontinue linezolid. Given hypoxia will try to keep patient as negative as possible. Check echocardiogram. Lasix as per fluid status. Strict input output charting, daily weights. (3) Congestive heart failure due to cardiomyopathy: Echocardiogram done recently shows an EF of 30 to 35%. Fluid restriction to less than 1500 cc. Strict input output charting, daily weights. (4) Non-ST elevation AZ (NSTEMI): History of ischemic cardiomyopathy in the past. Last echocardiogram showed an EF of 30 to 35%. In past medical management was decided after discussion with the patient. As per patient he was told he cannot go cardiac angiogram through bilateral groin given history of significant bilateral inguinal hernia. Appreciate troponin cycled for now. Patient chest pain-free. Will confirm with cardiology if angiogram is possible through the radial. If possible we will plan for further workup of ACS with cardiac stress test. Patient is agreeable. Check A1c, lipid panel. Aspirin 81 mg daily, atorvastatin 80 mg daily. Continue with metoprolol 12.5 mg twice daily. Switch to full dose Lovenox 1 mg/kg body weight every 12 hourly. Will plan to continue treatment for overall 3 days. Echocardiogram ordered in the ER. (5) Goals of care, counseling/discussion: With advanced emphysema, at baseline 4.5 L of oxygen, worsening functional capacity, considered less aggressive measures, he has never spoken to anybody about consideration of hospice care and is not interested at current time, but depending on how he recovers he may think about hearing more about it. Similarly he understands that he is at high risk of mortality, complication, further respiratory failure. He did not particularly enjoy being on BiPAP in the past, would really like to avoid it if possible, but would try it if it was necessary states it felt like he was going to make his head explode . He otherwise wants to be full code. In case he could not make his own decisions he names grandson Tawny Dalton of [place] as his surrogate decision-maker or his son Tuan Dalton. Tried calling Tuan on [phone] but unfortunately not able to get in touch. Unable to leave message as phone is not set up for the same. Patient would like to talk to his son and grandson before making the DPOA. Case management consultation. PT evaluation. He may consider going to senior care, but would rather return home. (6) Hypertension: Goal blood pressure less than 140/90 mmHg. Blood pressure is at goal for now. Continue with home dose of isosorbide dinitrate, losartan, metoprolol. Will uptitrate as for goal blood pressures. Plan COPD, normally on 4.5 liters of oxygen. CODE STATUS: Discussed in detail with the patient. He would like to remain full code for now. Cardiac diet Protonix for PUD prophylaxis Full dose Lovenox will be sufficient for DVT prophylaxis Attestations 2 Medical Necessity Statement*: Requires further hospitalization for management of acute on chronic hypoxic respiratory failure in setting of COPD exacerbation, COVID-19, acute on chronic congestive heart failure in setting of ischemic cardiomyopathy, non-ST elevation [place] Diagnoses Acute on chronic hypoxic respiratory failure J96.21 COVID-19 U07.1 Congestive heart failure due to cardiomyopathy I50.9; I42.9 Non-ST elevation [place] (NSTEMI) I21.4 Goals of care, counseling/discussion Z71.89 Hypertension I10
[2024-04-02] MEDS: budesonide 0.5 mg/2 mL Neb INHALATION (19:46)
[2024-04-02] MEDS: tamsulosin 0.4 mg Capsule PO (21:31)
[2024-04-02] MEDS: atorvastatin 40 mg Tablet 80 MG PO (21:31)
[2024-04-03] VITALS (18 sets, daily range): BP systolic 112–148; BP diastolic 20–73; PULSE 64–118; RESP 16–20; TEMP 36.3–36.7; O2SAT 90–96
[2024-04-03] MEDS: nitroglycerin 0.4 mg sublingual Tablet SUBLINGUAL ×2 (00:21→06:07)
[2024-04-03 00:48] LABS: Charge for UA Resulting for Rev
[2024-04-03 01:23] LABS: Add Urine Culture? No; Bacteria Urine TRACE /hpf; Bilirubin Urine Neg (Negative); Blood Urine Neg (Negative); Glucose Urine UA Norm (Normal); Ketones Urine Negative (Negative); Leukocyte Esterase Urine Negative (Negative); Mucus Urine 1+ /hpf; Nitrate Urine Negative (Negative); Protein Urine 1+ (Negative); Specific Gravity, Urine 1.015 (1.005-1.030); Squamous Epithelial Cell Urine 0-4 /hpf (0-5); Urine Appearance Clear (CLEAR); Urine Color Yellow (Yellow); Urobilinogen Urine Neg (Negative); WBC Urine 0-4 /hpf (0-5); pH Urine 6 (5-7)
[2024-04-03] MEDS: enoxaparin 60 mg/0.6 mL Syringe 50 MG SUBCUT ×2 (01:28→12:03)
[2024-04-03] MEDS: ipratropium-albuterol 3 mL Neb INHALATION ×2 (02:44→08:57)
[2024-04-03] MEDS: methylPREDNISolone sod succ 125 mg/2 mL INJ 40 MG IVP ×3 (03:12→21:33)
[2024-04-03] MEDS: oxyCODONE-APAP 10-325 mg Tablet 1 TAB PO ×4 (03:13→21:31)
[2024-04-03 05:30] LABS: Basophils % 0.1 %; Hematocrit 32.2 % (37-53); Lymphocytes # 0.6 10^3/uL (0.8-4.8); Lymphocytes % 4.2 %; Mean Corpuscular HGB Conc 29.8 g/dL (30-55); Mean Corpuscular Hemoglobin 32.2 pg (27-33); Mean Corpuscular Volume 108.1 fl (82-101); Mean Platelet Volume 10.7 fL (7.4-10.4); Monocytes # 0.7 10^3/uL (0.2-0.9); Monocytes % 4.5 %; Neutrophils # 13.49 10^3/uL (1.8-7.7); Neutrophils % 90.8 %; Nucleated Red Blood Cells % 0 %; Platelet Count 179 10^3/cmm (157-399); Red Blood Count 2.98 10^6/uL (3.85-5.65); Red Cell Distribution Width 13.4 % (12.1-15.1); White Blood Count 14.86 10^3/uL (3.29-11.43)
[2024-04-03 05:52] LABS: Alanine Aminotransferase 10 U/L (0-41); Albumin Level 3.2 g/dL (3.5-5.2); Alkaline Phosphatase 40 U/L (40-130); Aspartate Amino Transferase 14 U/L (0-40); Blood Urea Nitrogen 21 mg/dL (8-23); Calcium 8.7 mg/dL (8.5-10.5); Carbon Dioxide 32 mmol/L (22-29); Chloride 100 mmol/L (98-107); Creatinine Clr Calc Pharmacy 56.8634; Globulin 2.7 g/dL (1.3-4.6); Glucose 97 mg/dL (65-115); Osmolality Calculated 295 mOsm/kg (285-295); Sodium 141 mmol/L (136-145); Total Bilirubin 0.3 mg/dL (0.15-1.2); Total Protein 5.9 g/dL (6.6-8.7)
[2024-04-03 05:53] LABS: Cholesterol 127 mg/dL (0-200); HDL Cholesterol 53 mg/dL (60-100); LDL Cholesterol Calculated 56 mg/dL (50-129); Magnesium 1.9 mg/dL (1.7-2.3); Triglycerides 92 mg/dL (0-150); VLDL Cholestrol Calculation 18 mg/dL (0-30)
[2024-04-03 06:13] LABS: Folate Level 17.4 ng/mL (4.5-32.2)
[2024-04-03] MEDS: levoFLOXacin 750 mg Tablet PO (06:16)
[2024-04-03] MEDS: piperacillin-tazobactam 3.375 GM in sodium chloride 0.9% (plus) 50 ML IV ×3 (06:16→21:32)
[2024-04-03] MEDS: budesonide 0.5 mg/2 mL Neb INHALATION ×2 (08:57→19:47)
--- NOTE | 2024-04-03 09:15 | XRR_ITS ---
PROCEDURE INFORMATION: Exam: XR Chest Exam date and time: 04/03/2024 9:31 AM Age: 78 years old Clinical indication: Shortness of breath; Prior surgery; Surgery date: 6+ months; Surgery type: Cabg; Additional info: Hypoxia TECHNIQUE: Imaging protocol: Radiologic exam of the chest. Views: 1 view. COMPARISON: 1. CR (CHEST, ) 03/18/2024 5:32 AM 2. CR (CHEST, ) 02/28/2024 1:[address] angio chest PE protcl [id number] 03/19/2024 6:26 PM 4. CR (CHEST, ) 04/01/2024 1:45 PM FINDINGS: Lungs: Emphysematous disease. Pulmonary scarring in the mid/upper right lung towards the periphery again noted similar to prior exams. Pleural spaces: No pneumothorax. No large pleural effusion. Heart/Mediastinum: Postsurgical changes in the mediastinum. Diaphragm: Mild central elevation of the diaphragm again noted similar to prior exam with prominent air-filled bowel loops again noted. Bones/joints: Median sternotomy wires noted. Chronic appearing posterior right rib fractures. XR/XR chest 1V portable [id number] IMPRESSION: 1. Emphysematous disease. 2. Pulmonary scarring in the mid/upper right lung towards the periphery again noted similar to prior exams.
--- NOTE | 2024-04-03 09:15 | ECG_ITS ---
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 Measurements Intervals [place] Rate: 123 P: 81 MA: 152 QRS: 45 QRSD: 86 T: 165 QT: 291 QTc: 416 Interpretive Statements SINUS TACHYCARDIA LEFT VENTRICULAR HYPERTROPHY AND ST-T CHANGE [VOLTAGE CRITERIA PLUS ST/T ABNORMALITY] Compared to ECG 04/01/2024 20:30:19 No significant changes Electronically Signed On 04-03-2024 23:29:22 CDT by Kalyani Lawrence M.D. [id number]
[2024-04-03] MEDS: clopidogrel 75 mg Tablet PO (09:23)
[2024-04-03] MEDS: aspirin 81 mg EC Tablet PO (09:23)
[2024-04-03] MEDS: losartan 50 mg Tablet 25 MG PO (09:23)
[2024-04-03] MEDS: isosorbide dinitrate 20 mg Tablet 10 MG PO (09:38)
[2024-04-03] MEDS: metoprolol tartrate 25 mg Tablet 12.5 MG PO ×2 (09:38→21:35)
[2024-04-03] MEDS: linezolid premix 600 MG/300 ML PREMIX 300 MG IV (09:39)
[2024-04-03 10:24] LABS: Troponin(5th) Baseline 95 ng/L (0-15)
--- NOTE | 2024-04-03 10:45 | PM.PN ---
Subjective Subjective: No acute vents overnight. Today morning patient has been complaining of occasional chest pain. He states he is been having chest pain even on getting up from bed. Denies any nausea vomiting, headache. Remains on 2 to 3 L of oxygen supplementation. Slightly tachycardic. Vitals/I&O/Wt Last Vital Signs Temp 97.7 F 04/03/24 08:47 Pulse 118 H 04/03/24 09:13 Resp 19 H 04/03/24 08:47 BP 128/73 04/03/24 08:47 Pulse Ox 91 04/03/24 08:47 O2 Del Method Nasal Cannula 04/03/24 08:47 O2 Flow Rate 4 04/03/24 08:00 FiO2 5 04/02/24 11:42 04/02/24 04/03/24 04/03/24 22:59 06:59 14:59 Intake Total 570 / 1760 50 / 1810 170 / 170 Output Total 200 / 200 Balance 570 / 1760 -150 / 1610 170 / 170 Weight last 48 hrs Weight 53.694 kg Weight 53.694 kg Weight 53.252 kg Weight 54.431 kg Physical Exam Const: COMMON NORMALS: patient oriented x3 and alert GENERAL APPEARANCE: cooperative and frail appearing ORIENTATION/CONSCIOUSNESS: Yes awake HENMT: COMMON NORMALS: oropharynx normal Neck/C-Spine: COMMON NORMALS: no JVD Resp: AUSCULTATION: diminished lung sounds Cardio: COMMON NORMALS: no JVD, regular rhythm, S1 normal heart sound present, S2 normal heart sound present and No murmurs present (Cardio) RHYTHM: regular rhythm HEART SOUNDS: S1 normal heart sound present and S2 normal heart sound present GI: COMMON NORMALS: Normal to inspection, nondistended, normoactive bowel sounds present, Soft to palpation and non-tender PALPATION: Yes Soft to palpation Extremity: COMMON NORMALS: no joint enlargement and no pedal edema Neuro: COMMON NORMALS: patient oriented x3 and moves all extremities SENSORIUM/ORIENTATION: Yes alert Skin: COMMON NORMALS: no rashes or lesions noted GENERAL SKIN EXAM: no rashes or lesions noted Quick SOFA Score: Respiratory Rate: 22 Blood Pressure: 128/73 [place] Coma Scale: 15 qSOFA Score: 1 If qSOFA score 2 or greater, continue: PaO2/FiO2 Ratio (mmHg): 250 Blood Pressure Mean: 91 Bilirubin (mg/dl): 0.3 Platelets (x10?/ml): 179 Creatinine (mg/dl): 0.5 SOFA Score: 2 Evaluation: Current stage of sepsis: sepsis Sepsis stage criteria used: [facility] Sep-1 and Sepsis-3 Crystalloid fluids: no fluids ordered Reasons: heart failure Blood cultures ordered: Yes Possible source: pulmonary Focused Exam: Vital signs: Temp Pulse Resp BP Pulse Ox O2 Del Method O2 Flow Rate 04/03/24 09:13 118 H 04/03/24 08:47 97.7 F 95 19 H 128/73 91 Nasal Cannula 04/03/24 08:00 112 H 18 92 Nasal Cannula 4 04/03/24 04:00 97.3 F L 84 19 H 136/66 90 Room Air 04/03/24 03:13 16 04/03/24 02:49 108 H 18 94 Nasal Cannula 4 04/03/24 02:44 108 H 18 92 Nasal Cannula 4 04/03/24 00:00 97.6 F 108 H 18 112/20 92 Room Air Respiratory exam: diminished lung sounds Cardiovascular exam: regular rhythm, S1 normal heart sound and S2 normal heart sound Skin exam: no rashes or lesions identified Date exam was performed: 04/03/24 Time exam was performed: 10:47 Sepsis Screen No Definite Risk 04/01/24 15:30 Respiratory Rate 19 breaths/min H (12 - 18) 04/03/24 08:47 Blood Pressure 128/73 mmHg 04/03/24 08:47 [place] Coma Scale Score 15 04/01/24 16:47 Quick SOFA Score 0 04/01/24 15:30 SOFA Score: ABG PO2/FiO2 Ratio 195 04/01/24 13:25 [place] Coma Scale Score 15 04/01/24 16:47 Blood Pressure Mean 91 mmHg 04/03/24 08:47 Total Bilirubin 0.3 mg/dL (0.15-1.2) 04/03/24 05:19 Platelet Count 179 10^3/cmm (157-399) 04/03/24 05:19 Creatinine 0.5 mg/dL (0.7-1.2) L 04/03/24 05:19 Data 04/03/24 05:19 04/03/24 05:19 Micro: Microbiology 04/03/24 00:34 Bacterial Antigens - Final Urine Kidney 04/03/24 00:34 Legionella Urinary Antigen - Final Urine,Voided A&P Assessment and plan (1) Acute on chronic hypoxic respiratory failure: Acute on chronic hypoxic respiratory failure. Multifactorial. COPD exacerbation in settings of COVID-19 along with acute on chronic systolic and diastolic congestive heart failure. Oxygen supplementation keeping saturation over 88%. (2) COVID-19: Hypoxia secondary to COVID-19 pneumonia: Mild to moderate disease. Oxygen supplementation keeping saturation over 88%. As patient also has significant emphysema currently on Solu-Medrol. Continue with Solu-Medrol 40 mg every 8 hours. Continue with remdesivir to finish a 5-day course. Switch to ipratropium and Xopenex because of tachycardia every 6 hour, budesonide twice daily Pulmonary toilet with incentive spirometry flutter valve. We will monitor inflammatory markers including CRP every 48 hours. D-dimer mildly elevated to 1.48. CTA done on 03/19 negative for pulmonary embolism. PE so far less likely but patient already on full dose anticoagulation with concern for non-ST elevation SD. Sputum culture pending, urine Legionella, bacterial antigen troponin negative. Cannot rule out underlying pneumonia. Sputum culture in the past positive for stenotrophomonas. Sensitivities appreciated. For now continue with linezolid and Zosyn, Levaquin. MRSA swab sent. If negative will discontinue linezolid. Given hypoxia will try to keep patient as negative as possible. Repeat limited echocardiogram pending. Appreciate last echocardiogram with a EF of 30 to 35%. Will plan to keep patient net negative. IV Lasix 40 mg one-time. Cortez catheterization. Strict input output charting, daily weights. (3) Congestive heart failure due to cardiomyopathy: Echocardiogram done recently shows an EF of 30 to 35%. Fluid restriction to less than 1500 cc. Strict input output charting, daily weights. Patient slightly more short of breath today. Check chest x-ray. IV Lasix 20 mg one-time. (4) Non-ST elevation SD (NSTEMI): History of ischemic cardiomyopathy in the past. Last echocardiogram showed an EF of 30 to 35%. In past medical management was decided after discussion with the patient. As per patient he was told he cannot go cardiac angiogram through bilateral groin given history of significant bilateral inguinal hernia. Appreciate troponin cycled for now. Patient complaining of angina today. States he takes isosorbide dinitrate 20 mg twice daily at home. Will increase the dose to 20 mg to match home dose. Only on 12.5 of metoprolol. States in the past with higher dose of metoprolol he would have lower blood pressures. Discussed in detail with interventional cardiology. Given frailty and the patient, significant bilateral inguinal hernia, CABG in the past, emphysema and COVID for now plan would be to continue with medical management unless patient has significant chest pain or hemodynamic instability. Patient agreeable. Given chest pain. Will repeat troponin cycled. Appreciate A1c, lipid panel. Aspirin 81 mg daily, atorvastatin 80 mg daily. Continue with metoprolol 12.5 mg twice daily. Uptitrate over the next 24 hours the patient's blood pressures remained stable and he remains tachycardic. Continue with full dose Lovenox 1 mg/kg body weight every 12 hourly. Will plan to continue treatment for overall 3 days. Echocardiogram ordered in the ER. (5) Goals of care, counseling/discussion: With advanced emphysema, at baseline 4.5 L of oxygen, worsening functional capacity, considered less aggressive measures, he has never spoken to anybody about consideration of hospice care and is not interested at current time, but depending on how he recovers he may think about hearing more about it. Similarly he understands that he is at high risk of mortality, complication, further respiratory failure. He did not particularly enjoy being on BiPAP in the past, would really like to avoid it if possible, but would try it if it was necessary states it felt like he was going to make his head explode . He otherwise wants to be full code. In case he could not make his own decisions he names grandson Tawny Dalton of [place] as his surrogate decision-maker or his son Tuan Dalton. Discussed all the above in detail with patient's son Mr. Dickerson over the phone. He is agreeable to make medical decisions if and when needed. He is also going to talk to patient's grandson. 04/03: Again discussed the frail nature of patient's health in setting of comorbidities, significant emphysema congestive heart failure in the past, non-ST ovation SD with ongoing angina for which plan is to maximize medical management. Patient verbalizes understanding and wants to remain full code for now. Case management consultation. PT evaluation. He may consider going to care home, but would rather return home. (6) Hypertension: Goal blood pressure less than 140/90 mmHg. Blood pressure is at goal for now. Continue with home dose of isosorbide dinitrate, losartan, metoprolol. Will uptitrate as for goal blood pressures. Plan COPD, normally on 4.5 liters of oxygen. CODE STATUS: Discussed in detail with the patient. He would like to remain full code for now. Cardiac diet Protonix for PUD prophylaxis Full dose Lovenox will be sufficient for DVT prophylaxis Attestations Medical Necessity Statement*: Requires further hospitalization for management of hypoxic respiratory failure in setting of COVID-19 leading to emphysema exacerbation, congestive heart failure, non-ST ovation SD with unstable angina Diagnoses Acute on chronic hypoxic respiratory failure J96.21 COVID-19 U07.1 Congestive heart failure due to cardiomyopathy I50.9; I42.9 Non-ST elevation SD (NSTEMI) I21.4 Goals of care, counseling/discussion Z71.89 Hypertension I10
[2024-04-03] MEDS: remdesivir 100 MG in sodium chloride 0.9% (100 ml) 80 ML IV (10:49)
--- NOTE | 2024-04-03 11:39 | ECG_ITS ---
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 Measurements Intervals [place] Rate: 113 P: 77 DC: 128 QRS: 48 QRSD: 90 T: 82 QT: 329 QTc: 453 Interpretive Statements SINUS TACHYCARDIA NONSPECIFIC ST & T-WAVE ABNORMALITY ABNORMAL RHYTHM ECG Compared to ECG 04/03/2024 09:50:39 T-wave abnormality now present Left ventricular hypertrophy no longer present ST (T wave) deviation no longer present Electronically Signed On 04-03-2024 23:39:53 CDT by Kalyani Lawrence M.D. [id number]
--- NOTE | 2024-04-03 12:00 | PC.NURSE ---
Called pharmacy and spoke to Juan J, Pharmacist to clarify Lasix 40mg that appeared to be discontinued. Juan J said that the order for 40mg had been canceled and the 20mg of lasix was then ordered.
[2024-04-03] MEDS: FUROsemide 10 mg/mL SDV 2mL 20 MG IVP (12:03)
[2024-04-03 12:16] LABS: Troponin 5 2HR 97.83 ng/L (0-15); Troponin 5 2HR Delta 2.83 ABS# (0-10)
[2024-04-03 12:18] LABS: Methicillin-Resist S.aureu PCR NOT DETECTED (NOT DETECTED)
[2024-04-03] MEDS: ipratropium 0.5 mg/2.5 mL Neb INHALATION ×2 (14:14→19:48)
[2024-04-03] MEDS: levalbuterol 0.63 mg/3 mL Neb INHALATION ×2 (14:14→19:47)
--- NOTE | 2024-04-03 15:15 | ECG_ITS ---
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 Measurements Intervals [place] Rate: 97 P: 74 DC: 166 QRS: 45 QRSD: 90 T: 132 QT: 364 QTc: 464 Interpretive Statements SINUS RHYTHM LEFT VENTRICULAR HYPERTROPHY AND ST-T CHANGE [VOLTAGE CRITERIA PLUS ST/T ABNORMALITY] Compared to ECG 04/03/2024 11:39:25 Left ventricular hypertrophy now present ST (T wave) deviation now present Sinus tachycardia no longer present T-wave abnormality no longer present Electronically Signed On 04-03-2024 23:40:50 CDT by Kalyani Lawrence M.D. [id number]
--- NOTE | 2024-04-03 15:22 | PC.NURSE ---
scan on 929 pain medication did not save error fixed and patient now asking for the next PRN dose
[2024-04-03] MEDS: sennosides-docusate Tablet 1 TAB PO (16:29)
[2024-04-03 17:01] LABS: Troponin 5 6HR Delta 25.2 ng/L (0-12)
[2024-04-03 17:02] LABS: Troponin 5 6HR 120.2 ng/L (0-15)
[2024-04-03] MEDS: atorvastatin 40 mg Tablet PO (21:34)
[2024-04-03] MEDS: isosorbide dinitrate 20 mg Tablet PO (21:34)
[2024-04-03] MEDS: tamsulosin 0.4 mg Capsule PO (21:34)
[2024-04-04] VITALS (15 sets, daily range): BP systolic 114–153; BP diastolic 59–76; PULSE 58–99; RESP 12–22; TEMP 36.5–37.4; O2SAT 90–96; BMI 17.0
[2024-04-04] MEDS: levalbuterol 0.63 mg/3 mL Neb INHALATION ×4 (01:36→19:47)
[2024-04-04] MEDS: ipratropium 0.5 mg/2.5 mL Neb INHALATION ×4 (01:36→19:47)
[2024-04-04] MEDS: enoxaparin 60 mg/0.6 mL Syringe 50 MG SUBCUT ×2 (02:00→14:17)
[2024-04-04] MEDS: oxyCODONE-APAP 10-325 mg Tablet 1 TAB PO ×4 (03:27→22:08)
[2024-04-04] MEDS: methylPREDNISolone sod succ 125 mg/2 mL INJ 40 MG IVP ×3 (03:28→18:09)
[2024-04-04] MEDS: levoFLOXacin 750 mg Tablet PO (05:55)
[2024-04-04] MEDS: piperacillin-tazobactam 3.375 GM in sodium chloride 0.9% (plus) 50 ML IV ×3 (05:55→22:08)
[2024-04-04 06:11] LABS: Basophils % 0.1 %; Hematocrit 35.2 % (37-53); Lymphocytes # 0.5 10^3/uL (0.8-4.8); Lymphocytes % 4.6 %; Mean Corpuscular Hemoglobin 32.8 pg (27-33); Mean Platelet Volume 10.6 fL (7.4-10.4); Monocytes # 0.3 10^3/uL (0.2-0.9); Monocytes % 3.2 %; Neutrophils % 91.8 %; Nucleated Red Blood Cells % 0 %; Platelet Count 194 10^3/cmm (157-399); Red Blood Count 3.32 10^6/uL (3.85-5.65); Red Cell Distribution Width 13.5 % (12.1-15.1); White Blood Count 10.02 10^3/uL (3.29-11.43)
[2024-04-04 06:31] LABS: Alanine Aminotransferase 12 U/L (0-41); Albumin Level 3.5 g/dL (3.5-5.2); Alkaline Phosphatase 41 U/L (40-130); Anion Gap 13.3 (5-19); Aspartate Amino Transferase 18 U/L (0-40); Blood Urea Nitrogen 25 mg/dL (8-23); Calcium 8.7 mg/dL (8.5-10.5); Carbon Dioxide 34 mmol/L (22-29); Chloride 99 mmol/L (98-107); Creatinine Clr Calc Pharmacy 57.1631; Globulin 2.7 g/dL (1.3-4.6); Glucose 106 mg/dL (65-115); Osmolality Calculated 299 mOsm/kg (285-295); Potassium 4.3 mmol/L (3.5-5.1); Sodium 142 mmol/L (136-145); Total Bilirubin 0.3 mg/dL (0.15-1.2); Total Protein 6.2 g/dL (6.6-8.7)
[2024-04-04] MEDS: budesonide 0.5 mg/2 mL Neb INHALATION ×2 (07:46→19:47)
[2024-04-04] MEDS: metoprolol tartrate 25 mg Tablet 12.5 MG PO ×2 (08:20→10:29)
[2024-04-04] MEDS: isosorbide dinitrate 20 mg Tablet PO ×2 (08:20→20:19)
[2024-04-04] MEDS: clopidogrel 75 mg Tablet PO (08:21)
[2024-04-04] MEDS: losartan 50 mg Tablet 25 MG PO (08:21)
[2024-04-04] MEDS: sennosides-docusate Tablet 1 TAB PO ×2 (08:21→16:57)
[2024-04-04] MEDS: aspirin 81 mg EC Tablet PO (08:21)
[2024-04-04 08:49] LABS: ABG PCO2 49.8 mmHg (35-45); ABG PH Result 7.47 (7.35-7.45); Arterial Blood Gas Hematocrit 34.7 % (42-52); Base Excess ABG 10.5 mmol/L (-2.0-2.0); Blood Gas Allen Test Pos; Blood Gas Sample Type Arterial; Carboxyhemoglobin 0.8 %THgb (0.4-20.1); HCO3 ABG 35.8 mmol/L (22-26); HGB O2 Sat 88.5 % (95-100); Ionized Calcium Level - ABG 1.2 mmol/L (1.1-1.4); Methemoglobin 1.3 % (0.4-1.5); Oxygen Saturation ABG 90.4; PO2 ABG 57.8 mmHg (80.0-100.0); Potassium Level - ABG 3.8 mmol/L (3.5-5.0); Total Hemoglobin 11.3 g/dL (14-18)
[2024-04-04 08:51] LABS: Alveolar-Arterial Oxygen Gradi 21.9 mmHg (5-10); Blood Gas Operator Identificat MONRO; Blood Gas Sample Site Radial, left; Oxygen Device NC; PO2 FiO2 Ratio Arterial Blood 144
[2024-04-04] MEDS: magnesium hydroxide 30 mL UDC PO (10:28)
[2024-04-04] MEDS: ranolazine (12HR) 500 mg Tablet PO ×2 (10:29→16:58)
--- NOTE | 2024-04-04 11:02 | P.PN_ITS ---
Subjective 2 Subjective: Patient continues to remain on 4 to 5 L of oxygen supplementation. Continues to have chest pain on minimal exertion. Complaining of chest pain on going from bed to bedside commode for now. Denies any nausea or vomiting. Breathing as per the patient is slightly improved today. Complaining of constipation. Vitals/I&O/Wt Last Vital Signs Temp 97.7 F 04/04/24 08:38 Pulse 97 04/04/24 08:38 Resp 20 H 04/04/24 10:28 BP 137/75 04/04/24 08:38 Pulse Ox 92 04/04/24 10:28 O2 Del Method Nasal Cannula 04/04/24 08:38 O2 Flow Rate 5 04/04/24 07:46 FiO2 5 04/02/24 11:42 04/03/24 04/04/24 04/04/24 22:59 06:59 14:59 Intake Total 650 / 1220 50 / 1270 290 / 290 Output Total 1350 / 1350 450 / 1800 Balance -700 / -130 -400 / -530 290 / 290 Weight last 48 hrs Weight 53.977 kg Weight 53.694 kg Physical Exam 2 Narrative: Sick appearing, tired appearing. Const: COMMON NORMALS: patient oriented x3 and alert GENERAL APPEARANCE: c ooperative and frail appearing ORIENTATION/CONSCIOUSNESS: Yes awake, Yes oriented to person, Yes oriented to place and Yes oriented to time HENMT: COMMON NORMALS: oropharynx normal Neck/C-Spine: COMMON NORMALS: no JVD Resp: AUSCULTATION: diminished lung sounds Cardio: COMMON NORMALS: no JVD, regular rhythm, S1 normal heart sound present, S2 normal heart sound present and No murmurs present (Cardio) RHYTHM: regular rhythm HEART SOUNDS: S1 normal heart sound present and S2 normal heart sound present GI: COMMON NORMALS: Normal to inspection, nondistended, normoactive bowel sounds present, Soft to palpation and non-tender PALPATION: Yes Soft to palpation Extremity: COMMON NORMALS: no joint enlargement and no pedal edema Neuro: COMMON NORMALS: patient oriented x3 and moves all extremities S ENSORIUM/ORIENTATION: Yes alert, Yes oriented to person, Yes oriented to place and Yes oriented to time Skin: COMMON NORMALS: no rashes or lesions noted GENERAL SKIN EXAM: no rashes or lesions noted Urinary Catheter Management: Coude: Cath Placed During This Visit: yes Reason for Continuing Indwelling Catheter: Other Urinary Catheter Date of Insertion: 04/03/24 Urinary Catheter Time of Insertion: 10:49 Data 04/04/24 06:03 04/04/24 06:03 Micro: Microbiology 04/03/24 00:34 Bacterial Antigens - Final Urine Kidney A&P Assessment and plan (1) Acute on chronic hypoxic respiratory failure: Acute on chronic hypoxic respiratory failure. Multifactorial. COPD exacerbation in settings of COVID-19 along with acute on chronic systolic and diastolic congestive heart failure. Oxygen supplementation keeping saturation over 88%. (2) COVID-19: Hypoxia secondary to COVID-19 pneumonia: Mild to moderate disease. Oxygen supplementation keeping saturation over 88%. As patient also has significant emphysema currently on Solu-Medrol. Continue with Solu-Medrol 40 mg every 8 hours. Continue with remdesivir to finish a 5-day course. Switch to ipratropium and Xopenex because of tachycardia every 6 hour, budesonide twice daily Pulmonary toilet with incentive spirometry flutter valve. We will monitor inflammatory markers including CRP every 48 hours. D-dimer mildly elevated to 1.48. CTA done on 03/19 negative for pulmonary embolism. PE so far less likely but patient already on full dose anticoagulation with concern for non-ST elevation AL. Sputum culture pending, urine Legionella, bacterial antigen troponin negative. Cannot rule out underlying pneumonia. Sputum culture in the past positive for stenotrophomonas. Sensitivities appreciated. For now continue with linezolid and Zosyn, Levaquin. MRSA swab sent. If negative will discontinue linezolid. Given hypoxia will try to keep patient as negative as possible. Repeat limited echocardiogram shows EF down to 25% with global LV hypokinesia, severe hypokinesia of mid and apical septum moderate hypokinesia of inferior lateral aguirre. Start on oral Lasix 20 mg daily. Monitor for acute kidney injury or contraction alkalosis. Cortez catheterization. Strict input output charting, daily weights. (3) Congestive heart failure due to cardiomyopathy: Appreciate repeat echocardiogram with EF around 25%. Fluid restriction to less than 1500 cc. Strict input output charting, daily weights. 20 mg oral Lasix daily. Continue with home dose of losartan. Increasing metoprolol. (4) Non-ST elevation [place] (NSTEMI): History of ischemic cardiomyopathy in the past. In past medical management was decided after discussion with the patient. As per patient he was told he cannot go cardiac angiogram through bilateral groin given history of significant bilateral inguinal hernia. Continues to have significant angina. Continue with isosorbide dinitrate 20 mg twice daily, increase metoprolol to 25 mg twice daily. Add Ranexa 500 mg oral twice daily. Discussed in detail with cardiology. Will consult. Given frailty and the patient, significant bilateral inguinal hernia, CABG in the past, emphysema and COVID for now plan would be to continue with medical management unless patient has significant chest pain or hemodynamic instability. Appreciate repeat troponin cycled. Appreciate A1c, lipid panel. Aspirin 81 mg daily, atorvastatin 80 mg daily. Continue with metoprolol 12.5 mg twice daily. Uptitrate over the next 24 hours the patient's blood pressures remained stable and he remains tachycardic. Continue with full dose Lovenox 1 mg/kg body weight every 12 hourly. Will plan to continue treatment for overall 3 days. (5) Goals of care, counseling/discussion: With advanced emphysema, at baseline 4.5 L of oxygen, worsening functional capacity, considered less aggressive measures, he has never spoken to anybody about consideration of hospice care and is not interested at current time, but depending on how he recovers he may think about hearing more about it. Similarly he understands that he is at high risk of mortality, complication, further respiratory failure. He did not particularly enjoy being on BiPAP in the past, would really like to avoid it if possible, but would try it if it was necessary states it felt like he was going to make his head explode . He otherwise wants to be full code. In case he could not make his own decisions he names grandson Tawny Dalton of [place] as his surrogate decision-maker or his son Tuan Dalton. Discussed all the above in detail with patient's son Mr. Dickerson over the phone. He is agreeable to make medical decisions if and when needed. He is also going to talk to patient's grandson. 04/03: Again discussed the frail nature of patient's health in setting of comorbidities, significant emphysema congestive heart failure in the past, non- ST ovation AL with ongoing angina for which plan is to maximize medical management. Patient verbalizes understanding and wants to remain full code for now. 04/04: Patient continues to have significant angina on minimal exertion. Discussed in detail with the patient that unfortunately patient is almost on maximum medical therapy. Also discussed that he is at a high risk of adverse outcomes with possible cardiac angiogram given history of CABG, significant bilateral inguinal hernia. Discussed most likely he will need to have angiogram through radial if possible. Will consult cardiology for further recommendations. Given his frailty, baseline 4 to 5 L ox supplementation, baseline EF of 35% which is worsening 25% now discussed goals of care further. Patient verbalizes understanding. He wants to change his CODE STATUS to DNR/DNI. He does not want any heroic measures in case of cardiac arrest or respiratory distress. Conveyed patient's decision to his son Mr. Dickerson over the phone. All the questions were answered. (6) Hypertension: Goal blood pressure less than 140/90 mmHg. Blood pressure is at goal for now. Continue with home dose of isosorbide dinitrate, losartan, metoprolol. Will uptitrate as for goal blood pressures. Plan COPD, normally on 4.5 liters of oxygen. CODE STATUS: Discussed in detail with the patient. He would like to remain full code for now. Cardiac diet Protonix for PUD prophylaxis Full dose Lovenox will be sufficient for DVT prophylaxis Aggressive bowel regimen. Attestations 2 Medical Necessity Statement*: Requires further hospitalization for management of significant unstable angina in a patient admitted with non-ST elevation AL, ischemic cardiomyopathy with EF of 25%, COVID-19, hypoxic respiratory failure Diagnoses Acute on chronic hypoxic respiratory failure J96.21 COVID-19 U07.1 Congestive heart failure due to cardiomyopathy I50.9; I42.9 Non-ST elevation AL (NSTEMI) I21.4 Goals of care, counseling/discussion Z71.89 Hypertension I10
[2024-04-04] MEDS: remdesivir 100 MG in sodium chloride 0.9% (100 ml) 80 ML IV (11:05)
--- NOTE | 2024-04-04 11:37 | P.CONIM_ITS ---
Providers/Reason For Consult 2 Consulting Physician/Specialty*: Catrachito Otero MD/ Cardiology Reason for Consult*: Chest pain/ troponin elevation Requesting Physician: Dr Tarango Attending Physician: Shawn Tarango MD Primary Care Provider: Pawel Ordoñez History of Present Illness History of Present Illness Sherwin Dalton is a 78 year old male with past medical history of ischemic cardiomyopathy, history of CABG who was admitted to hospital with respiratory distress. Patient has recent COVID, COPD exacerbation. Also has fluid overload. Limited echo showed severely reduced LV systolic function which is stable compared to before. His cardiac enzymes on day of admission were elevated at 137 but have not trended up significantly. In the past medical therapy has been opted secondary to lack of good arterial access. Patient has very large bilateral inguinal hernias. Also patient mentions that several years ago attempts at coronary interventions were unsuccessful. Patient is requiring supplemental oxygen. Has occasional chest discomfort episodes. Review of Systems 2 Const: Denies: fever(s), chills, body aches or malaise ENMT: Denies: throat pain Card: Reports: chest pain and dyspnea on exertion; Denies: edema or pre-syncope Resp: Reports: dyspnea and non-productive cough (mild); Denies: productive cough, change in phlegm color or hemoptysis GI: Denies: abdominal pain, nausea, vomiting, diarrhea, constipation, hematochezia or melena : Denies: flank pain, difficulty urinating, urinary frequency or hematuria Musc: Denies: back pain, joint swelling or joint redness Skin/Breast: Denies: rash or new lesions Neuro: Denies: headache(s) Medications/Allergies Home Medications Medication Instructions Recorded Confirmed Last Taken Type oxycodone-acetaminophen 10 mg-325 1 tab PO Q6H PRN Pain 01/16/22 04/02/24 04/01/24 History mg tablet nitroglycerin 0.4 mg sublingual 0.4 mg sublingual Q5M PRN chest 01/20/22 04/02/24 Unknown Rx tablet pain 30 days #10 tabs tamsulosin 0.4 mg capsule 0.4 mg PO .at bedtime #30 caps 02/08/22 04/02/24 03/31/24 Rx vitamin B12 500 mcg-folic acid 400 1 tab PO DAILY 02/08/22 04/02/24 04/01/24 History mcg tablet aspirin 81 mg tablet,delayed 81 mg PO DAILY #60 tabs 12/13/22 04/02/24 04/01/24 Rx release atorvastatin 80 mg tablet 80 mg PO DAILY #30 tabs 12/13/22 04/02/24 03/31/24 Rx clopidogrel 75 mg tablet 75 mg PO DAILY #60 tabs 12/13/22 04/02/24 04/01/24 Rx isosorbide dinitrate 10 mg tablet 10 mg PO BID #60 tabs 12/13/22 04/02/24 04/01/24 Rx losartan 25 mg tablet 25 mg PO DAILY #60 tabs 12/13/22 04/02/24 04/01/24 Rx bisacodyl 5 mg tablet,delayed 20 mg PO BID 03/18/24 04/02/24 04/01/24 History release docusate sodium 100 mg capsule 200 mg PO BID 03/19/24 04/02/24 04/01/24 History (Colace) ipratropium 0.5 mg-albuterol 3 mg 3 ml inhalation Q6H PRN shortness 03/20/24 04/02/24 Unknown Rx (2.5 mg base)/3 mL nebulization of breath or wheezing #90 mL soln metoprolol tartrate 25 mg tablet 25 mg PO BID@0900,2100 #120 tabs 03/20/24 04/02/24 04/01/24 Rx roflumilast 500 mcg tablet 500 mcg PO DAILY 04/02/24 04/02/24 04/01/24 History spironolactone 25 mg tablet 25 mg PO DAILY 04/02/24 04/02/24 04/01/24 History Allergies Allergy/AdvReac Type Severity Reaction Status Date / Time tetracycline Allergy ALGY-Rash Verified 04/01/24 13:04 Current Medications Generic Name Dose Route Start Last Admin Trade Name Freq PRN Reason Stop Dose Admin Aspirin 81 mg 04/03/24 09:00 04/04/24 08:21 Aspirin 81 Mg Ec Tablet PO 81 mg DAILY JESSICA Administration Atorvastatin Calcium 40 mg 04/03/24 21:00 04/03/24 21:34 Atorvastatin 40 Mg Tablet PO 40 mg BEDTIME JESSICA Administration Budesonide 0.5 mg 04/02/24 20:00 04/04/24 07:46 Budesonide 0.5 Mg/2 Ml Neb INHALATION 0.5 mg BID.RESPIRATORY JESSICA Administration Clopidogrel Bisulfate 75 mg 04/01/24 17:45 04/04/24 08:21 Clopidogrel 75 Mg Tablet PO 75 mg DAILY JESSICA Administration Enoxaparin Sodium 50 mg 04/02/24 13:00 04/04/24 02:00 Enoxaparin 60 Mg/0.6 Ml Syringe SUBCUT 50 mg Q12H JESSICA Administration Piperacillin Sod/Tazobactam 50 mls @ 12.5 mls/hr 04/01/24 22:00 04/04/24 10:16 Sod 3.375 gm/ Sodium Chloride IV Infused Q8H JESSICA Infusion Protocol Remdesivir 100 mg/ Sodium 100 mls @ 100 mls/hr 04/03/24 10:30 04/04/24 11:05 Chloride IV 04/06/24 11:29 100 mls/hr Q24H JESSICA Administration Ipratropium Huson 0.5 mg 04/03/24 14:00 04/04/24 07:46 Ipratropium 0.5 Mg/2.5 Ml Neb INHALATION 0.5 mg Q6H.RESP JESSICA Administration Isosorbide Dinitrate 20 mg 04/03/24 20:00 04/04/24 08:20 Isosorbide Dinitrate 20 Mg Tablet PO 20 mg 0800,1999 JESSICA Administration Levalbuterol HCl 0.63 mg 04/03/24 14:00 04/04/24 07:46 Levalbuterol 0.63 Mg/3 Ml Neb INHALATION 0.63 mg Q6H.RESP JESSICA Administration Levofloxacin 750 mg 04/02/24 09:42 04/04/24 05:55 Levofloxacin 750 Mg Tablet PO 750 mg DAILY@0600 JESSICA Administration Protocol Losartan Potassium 25 mg 04/02/24 09:00 04/04/24 08:21 Losartan 50 Mg Tablet PO 25 mg DAILY JESSICA Administration Magnesium Hydroxide 30 ml 04/04/24 09:30 04/04/24 10:28 Magnesium Hydroxide 30 Ml Udc PO 30 ml DAILY JESSICA Administration Methylprednisolone Sodium Succinate 40 mg 04/02/24 11:00 04/04/24 10:29 Methylprednisolone Sod Succ 125 Mg/2 Ml Inj IVP 40 mg Q8H JESSICA Administration Metoprolol Tartrate 25 mg 04/04/24 09:00 04/04/24 09:04 Metoprolol Tartrate 25 Mg Tablet PO Not Given BID@0900,2100 JESSICA Nitroglycerin 0.4 mg 04/01/24 18:37 04/03/24 06:07 Nitroglycerin 0.4 Mg Sublingual Tablet SUBLINGUAL 0.4 mg Q5M PRN Administration CHEST PAIN Oxycodone/Acetaminophen 1 tab 04/01/24 20:11 04/04/24 10:28 Oxycodone-Apap 10-325 Mg Tablet PO 1 tab Q6H PRN Administration MODERATE PAIN Ranolazine 500 mg 04/04/24 09:20 04/04/24 10:29 Ranolazine (12hr) 500 Mg Tablet PO 500 mg BID JESSICA Administration Senna/Docusate Sodium 1 tab 04/03/24 18:00 04/04/24 08:21 Sennosides-Docusate Tablet PO 1 tab BID JESSICA Administration Sodium Chloride 1 spray 04/01/24 20:49 04/01/24 21:56 Saline Nasal Seanor 44ml Btl NASAL 1 spray PRN PRN Administration DRYNESS Tamsulosin HCl 0.4 mg 04/01/24 21:00 04/03/24 21:34 Tamsulosin 0.4 Mg Capsule PO 0.4 mg BEDTIME JESSICA Administration PFSH Acute 2 PFSH: Medical History (Updated 04/02/24 @ 14:24 by Shawn Tarango MD) COVID-19 Hypertension Non-ST elevation MA (NSTEMI) Acute exacerbation of chronic obstructive airways disease Leukocytosis Incomplete bladder emptying Arthritis COPD (chronic obstructive pulmonary disease) Peripheral arterial disease Bilateral inguinal hernia without obstruction or gangrene Atherosclerotic heart disease of [place] coronary artery with unstable angina pectoris Acute respiratory failure with hypoxia and hypercapnia Elevated troponin COPD with acute exacerbation Pneumonia Acute respiratory failure with hypoxemia Acute exacerbation of chronic obstructive airways disease Community acquired pneumonia Scrotal hernia BPH loc w urin obs/LUTS Ischemic cardiomyopathy H/O macrocytic anemia Anemia CAD (coronary artery disease) Oxygen dependent Pulmonary hypertension Hyperlipidemia Surgical History History of coronary artery stent placement Hx of CABG Family History Father , AT 94 Cancer Mother , AT 83 Heart disease Social History Smoking and tobacco/nicotine status: former use of tobacco/nicotine (7-8 years ago) Alcohol intake: former Substance/Drug Use: never Marital status: Single Current occupational status: retired and disabled Vitals/I&O/Wt Last Vital Signs Temp 97.7 F 04/04/24 08:38 Pulse 97 04/04/24 08:38 Resp 20 H 04/04/24 10:28 BP 137/75 04/04/24 08:38 Pulse Ox 92 04/04/24 10:28 O2 Del Method Nasal Cannula 04/04/24 08:38 O2 Flow Rate 5 04/04/24 07:46 FiO2 5 04/02/24 11:42 04/03/24 04/04/24 04/04/24 22:59 06:59 14:59 Intake Total 650 / 1220 50 / 1270 290 / 290 Output Total 1350 / 1350 450 / 1800 Balance -700 / -130 -400 / -530 290 / 290 Weight last 48 hrs Weight 119 lb Weight 118 lb 6 oz Physical Exam 2 Narrative: GENERAL: Patient is alert, awake and oriented x3. [] NECK: No jugular vein distension. [] HEENT: No cyanosis. No icterus. No pallor. [] HEART: Regular S1 and S2. No murmur, rub or gallop. [] LUNGS: Diminished air entry CENTRAL NERVOUS SYSTEM: Grossly nonfocal. [] EXTREMITIES: Lower extremities with 1+ edema bilaterally. Urinary Catheter Management: Coude: Cath Placed During This Visit: yes Reason for Continuing Indwelling Catheter: Other Urinary Catheter Date of Insertion: 04/03/24 Urinary Catheter Time of Insertion: 10:49 Data 04/07/24 00:48 04/07/24 00:48 Micro: Microbiology 04/03/24 00:34 Bacterial Antigens - Final Urine Kidney A&P Assessment and plan (1) Elevated troponin: (2) Congestive heart failure due to cardiomyopathy: (3) Hypertension: (4) COVID-19: (5) Acute on chronic hypoxic respiratory failure: Plan Patient has complex cardiac history. Has severe LV dysfunction. Troponins were elevated but have not significantly trended up. No active chest pain at this time. After detailed discussion with the patient, shared decision made to proceed with continued medical therapy. Can add Ranexa 500 mg twice daily. Continue long acting nitrates. Based on his symptoms we can uptitrate these. Continue dual antiplatelet therapy. Thank you for involving us with care of this patient. We will continue to follow. Please call with questions. Consult Attestations 2 Medical Necessity Statement: Care expected to cross 2 midnights. Coding Level of Care Code Acute Code for [facility] Fwd Diagnoses Elevated troponin R79.89 Congestive heart failure due to cardiomyopathy I50.9; I42.9 Hypertension I10 COVID-19 U07.1 Acute on chronic hypoxic respiratory failure J96.21
[2024-04-04] MEDS: FUROsemide 20 mg Tablet PO (12:26)
--- NOTE | 2024-04-04 12:45 | PC.SOCIAL ---
IMM Update pg 2 of IMM updated and reviewed w/ patient. Copy placed in chart and copy dated, initialed and placed in chart.
[2024-04-04] MEDS: bisacodyl 10 mg Supp PR (16:21)
[2024-04-04] MEDS: tamsulosin 0.4 mg Capsule PO (20:19)
[2024-04-04] MEDS: atorvastatin 40 mg Tablet PO (20:19)
[2024-04-04] MEDS: metoprolol tartrate 25 mg Tablet PO (20:20)
[2024-04-05] VITALS (13 sets, daily range): BP systolic 104–124; BP diastolic 60–68; PULSE 70–90; RESP 16–22; TEMP 36.4–36.8; O2SAT 88–96
[2024-04-05] MEDS: enoxaparin 60 mg/0.6 mL Syringe 50 MG SUBCUT ×2 (01:41→13:11)
[2024-04-05] MEDS: levalbuterol 0.63 mg/3 mL Neb INHALATION ×4 (02:03→20:02)
[2024-04-05] MEDS: ipratropium 0.5 mg/2.5 mL Neb INHALATION ×4 (02:03→20:02)
[2024-04-05] MEDS: methylPREDNISolone sod succ 125 mg/2 mL INJ 40 MG IVP (03:57)
[2024-04-05] MEDS: oxyCODONE-APAP 10-325 mg Tablet 1 TAB PO ×4 (03:59→22:13)
[2024-04-05 04:58] LABS: Basophils % 0.1 %; Hematocrit 35.1 % (37-53); Lymphocytes # 1.1 10^3/uL (0.8-4.8); Lymphocytes % 10.5 %; Mean Corpuscular HGB Conc 30.5 g/dL (30-55); Mean Corpuscular Hemoglobin 32.5 pg (27-33); Mean Corpuscular Volume 106.7 fl (82-101); Mean Platelet Volume 10.5 fL (7.4-10.4); Monocytes % 9.5 %; Neutrophils # 8.24 10^3/uL (1.8-7.7); Neutrophils % 79.6 %; Nucleated Red Blood Cells % 0 %; Platelet Count 191 10^3/cmm (157-399); Red Blood Count 3.29 10^6/uL (3.85-5.65); Red Cell Distribution Width 13.2 % (12.1-15.1); White Blood Count 10.35 10^3/uL (3.29-11.43)
[2024-04-05] MEDS: levoFLOXacin 750 mg Tablet PO (05:10)
[2024-04-05] MEDS: piperacillin-tazobactam 3.375 GM in sodium chloride 0.9% (plus) 50 ML IV ×3 (05:10→22:13)
[2024-04-05 05:21] LABS: Alanine Aminotransferase 13 U/L (0-41); Albumin Level 3.3 g/dL (3.5-5.2); Alkaline Phosphatase 39 U/L (40-130); Anion Gap 11.2 (5-19); Aspartate Amino Transferase 19 U/L (0-40); Blood Urea Nitrogen 29 mg/dL (8-23); Calcium 8.6 mg/dL (8.5-10.5); Carbon Dioxide 34 mmol/L (22-29); Chloride 100 mmol/L (98-107); Creatinine Clr Calc Pharmacy 57.1631; Globulin 2.7 g/dL (1.3-4.6); Glucose 111 mg/dL (65-115); Osmolality Calculated 299 mOsm/kg (285-295); Potassium 4.2 mmol/L (3.5-5.1); Sodium 141 mmol/L (136-145); Total Bilirubin 0.3 mg/dL (0.15-1.2)
[2024-04-05 05:26] LABS: Magnesium 2.3 mg/dL (1.7-2.3)
[2024-04-05 06:34] LABS: Glucose Point of Care 144 mg/dL (70-110)
[2024-04-05] MEDS: budesonide 0.5 mg/2 mL Neb INHALATION ×2 (07:36→20:02)
[2024-04-05] MEDS: magnesium hydroxide 30 mL UDC PO (08:36)
[2024-04-05] MEDS: losartan 50 mg Tablet 25 MG PO (08:37)
[2024-04-05] MEDS: metoprolol tartrate 25 mg Tablet PO (08:37)
[2024-04-05] MEDS: FUROsemide 20 mg Tablet PO (08:37)
[2024-04-05] MEDS: aspirin 81 mg EC Tablet PO (08:37)
[2024-04-05] MEDS: isosorbide dinitrate 20 mg Tablet PO (08:37)
[2024-04-05] MEDS: clopidogrel 75 mg Tablet PO (08:37)
[2024-04-05] MEDS: sennosides-docusate Tablet 1 TAB PO ×2 (08:37→18:31)
[2024-04-05] MEDS: ranolazine (12HR) 500 mg Tablet PO (08:37)
[2024-04-05 08:46] LABS: Erythrocyte Sedimentation Rate 19 mm/hr (0-10)
[2024-04-05 09:00] LABS: C Reactive Protein 5.2 mg/L (0.0-4.9)
[2024-04-05] MEDS: remdesivir 100 MG in sodium chloride 0.9% (100 ml) 80 ML IV (10:40)
--- NOTE | 2024-04-05 13:21 | P.PN_ITS ---
Subjective 2 Subjective: No acute events overnight. Today morning patient states he is feeling better. Breathing is stable. States chest pain is better as well. Able to move in bed without having any further chest pain. Down to 4 L. Denies any nausea, ting, headache. Continues to complain of constipation. Vitals/I&O/Wt Last Vital Signs Temp 97.9 F 04/05/24 11:50 Pulse 81 04/05/24 13:11 Resp 18 04/05/24 13:11 BP 118/68 04/05/24 11:50 Pulse Ox 90 04/05/24 13:11 O2 Del Method Nasal Cannula 04/05/24 13:11 O2 Flow Rate 4 04/05/24 13:11 FiO2 5 04/02/24 11:42 04/04/24 04/05/24 04/05/24 22:59 06:59 14:59 Intake Total 50 / 920 50 / 970 240 / 240 Output Total 430 / 430 Balance -380 / 490 50 / 540 240 / 240 Weight last 48 hrs Weight 53.977 kg Weight 53.977 kg Physical Exam 2 Narrative: Sick appearing, tired appearing. Const: COMMON NORMALS: patient oriented x3 and alert GENERAL APPEARANCE: c ooperative and frail appearing ORIENTATION/CONSCIOUSNESS: Yes awake, Yes oriented to person, Yes oriented to place and Yes oriented to time HENMT: COMMON NORMALS: oropharynx normal Neck/C-Spine: COMMON NORMALS: no JVD Resp: AUSCULTATION: diminished lung sounds Cardio: COMMON NORMALS: no JVD, regular rhythm, S1 normal heart sound present, S2 normal heart sound present and No murmurs present (Cardio) RHYTHM: regular rhythm HEART SOUNDS: S1 normal heart sound present and S2 normal heart sound present GI: COMMON NORMALS: Normal to inspection, nondistended, normoactive bowel sounds present, Soft to palpation and non-tender PALPATION: Yes Soft to palpation Extremity: COMMON NORMALS: no joint enlargement and no pedal edema Neuro: COMMON NORMALS: patient oriented x3 and moves all extremities S ENSORIUM/ORIENTATION: Yes alert, Yes oriented to person, Yes oriented to place and Yes oriented to time Skin: COMMON NORMALS: no rashes or lesions noted GENERAL SKIN EXAM: no rashes or lesions noted Urinary Catheter Management: Coude: Cath Placed During This Visit: yes Reason for Continuing Indwelling Catheter: Other Urinary Catheter Date of Insertion: 04/03/24 Urinary Catheter Time of Insertion: 10:49 Data 04/05/24 04:50 04/05/24 04:50 A&P Assessment and plan (1) Acute on chronic hypoxic respiratory failure: Acute on chronic hypoxic respiratory failure. Multifactorial. COPD exacerbation in settings of COVID-19 along with acute on chronic systolic and diastolic congestive heart failure. Oxygen supplementation keeping saturation over 88%. (2) COVID-19: Hypoxia secondary to COVID-19 pneumonia: Mild to moderate disease. Oxygen supplementation keeping saturation over 88%. As patient also has significant emphysema currently on Solu-Medrol. Continue with Solu-Medrol 40 mg every 8 hours. Continue with remdesivir to finish a 5-day course. Switch to ipratropium and Xopenex because of tachycardia every 6 hour, budesonide twice daily Pulmonary toilet with incentive spirometry flutter valve. We will monitor inflammatory markers including CRP every 48 hours. D-dimer mildly elevated to 1.48. CTA done on 03/19 negative for pulmonary embolism. PE so far less likely but patient already on full dose anticoagulation with concern for non-ST elevation NM. Sputum culture pending, urine Legionella, bacterial antigen troponin negative. Cannot rule out underlying pneumonia. Sputum culture in the past positive for stenotrophomonas. Sensitivities appreciated. For now continue with linezolid and Zosyn, Levaquin. MRSA swab sent. If negative will discontinue linezolid. Given hypoxia will try to keep patient as negative as possible. Repeat limited echocardiogram shows EF down to 25% with global LV hypokinesia, severe hypokinesia of mid and apical septum moderate hypokinesia of inferior lateral aguirre. Start on oral Lasix 20 mg daily. Monitor for acute kidney injury or contraction alkalosis. [place] catheterization. Strict input output charting, daily weights. (3) Congestive heart failure due to cardiomyopathy: Appreciate repeat echocardiogram with EF around 25%. Fluid restriction to less than 1500 cc. Strict input output charting, daily weights. 20 mg oral Lasix daily. Continue with home dose of losartan. Increasing metoprolol. (4) Non-ST elevation NM (NSTEMI): History of ischemic cardiomyopathy in the past. In past medical management was decided after discussion with the patient. As per patient he was told he cannot go cardiac angiogram through bilateral groin given history of significant bilateral inguinal hernia. Continues to have significant angina. Continue with isosorbide dinitrate 20 mg twice daily, increase metoprolol to 25 mg twice daily. Add Ranexa 500 mg oral twice daily. Discussed in detail with cardiology. Will consult. Given frailty and the patient, significant bilateral inguinal hernia, CABG in the past, emphysema and COVID for now plan would be to continue with medical management unless patient has significant chest pain or hemodynamic instability. Appreciate repeat troponin cycled. Appreciate A1c, lipid panel. Aspirin 81 mg daily, atorvastatin 80 mg daily. Continue with metoprolol 12.5 mg twice daily. Uptitrate over the next 24 hours the patient's blood pressures remained stable and he remains tachycardic. Continue with full dose Lovenox 1 mg/kg body weight every 12 hourly. Will plan to continue treatment for overall 3 days. (5) Goals of care, counseling/discussion: With advanced emphysema, at baseline 4.5 L of oxygen, worsening functional capacity, considered less aggressive measures, he has never spoken to anybody about consideration of hospice care and is not interested at current time, but depending on how he recovers he may think about hearing more about it. Similarly he understands that he is at high risk of mortality, complication, further respiratory failure. He did not particularly enjoy being on BiPAP in the past, would really like to avoid it if possible, but would try it if it was necessary states it felt like he was going to make his head explode . He otherwise wants to be full code. In case he could not make his own decisions he names grandson Tawny Dalton of [place] as his surrogate decision-maker or his son Tuan Dalton. Discussed all the above in detail with patient's son Mr. Dickerson over the phone. He is agreeable to make medical decisions if and when needed. He is also going to talk to patient's grandson. 04/03: Again discussed the frail nature of patient's health in setting of comorbidities, significant emphysema congestive heart failure in the past, non- ST ovation NM with ongoing angina for which plan is to maximize medical management. Patient verbalizes understanding and wants to remain full code for now. 04/04: Patient continues to have significant angina on minimal exertion. Discussed in detail with the patient that unfortunately patient is almost on maximum medical therapy. Also discussed that he is at a high risk of adverse outcomes with possible cardiac angiogram given history of CABG, significant bilateral inguinal hernia. Discussed most likely he will need to have angiogram through radial if possible. Will consult cardiology for further recommendations. Given his frailty, baseline 4 to 5 L ox supplementation, baseline EF of 35% which is worsening 25% now discussed goals of care further. Patient verbalizes understanding. He wants to change his CODE STATUS to DNR/DNI. He does not want any heroic measures in case of cardiac arrest or respiratory distress. Conveyed patient's decision to his son Mr. Dickerson over the phone. All the questions were answered. (6) Hypertension: Goal blood pressure less than 140/90 mmHg. Blood pressure is at goal for now. Continue with home dose of isosorbide dinitrate, losartan, metoprolol. Will uptitrate as for goal blood pressures. Plan COPD, normally on 4.5 liters of oxygen. CODE STATUS: Discussed in detail with the patient. He would like to remain full code for now. Cardiac diet Protonix for PUD prophylaxis Full dose Lovenox will be sufficient for DVT prophylaxis Aggressive bowel regimen. Plan for the day: Continue with IV remdesivir. Last dose on 04/06. Isolation precautions can be removed. Wean Solu-Medrol to 40 mg IV every 12 hourly. Recheck CRP and ESR along with D-dimer. Angina improving. Continue with current dose of isosorbide dinitrate, metoprolol. Increase dose of Ranexa to 1000 mg twice daily. Continue with aspirin, Plavix, statin, beta-mahnaz. Appreciate cardiology recommendation. Out of bed to chair. Aggressive bowel regimen. Will plan for enema if not responding by afternoon. Patient does have EF of 25%. Continue with oral Lasix 20 mg daily. Patient developing mild contraction alkalosis. Creatinine stable BUN slightly trending up. Plan to continue with Lasix today. Hold off from tomorrow and monitor BMP. Continue with fluid restriction. Strict input and output charting. Attestations 2 Medical Necessity Statement*: Requires further hospitalization for management of unstable angina in setting of post CABG, EF of 25%, hypoxic respiratory failure in setting of COVID-19 Diagnoses Acute on chronic hypoxic respiratory failure J96.21 COVID-19 U07.1 Congestive heart failure due to cardiomyopathy I50.9; I42.9 Non-ST elevation NM (NSTEMI) I21.4 Goals of care, counseling/discussion Z71.89 Hypertension I10
--- NOTE | 2024-04-05 17:09 | PM.PN ---
Subjective Subjective: Patient's chest pain symptoms are controlled. His main complaints today is constipation. Vitals/I&O/Wt Last Vital Signs Temp 98.2 F 04/05/24 15:13 Pulse 74 04/05/24 15:13 Resp 16 04/05/24 15:13 BP 112/65 04/05/24 15:13 Pulse Ox 95 04/05/24 15:13 O2 Del Method Nasal Cannula 04/05/24 15:13 O2 Flow Rate 5 04/05/24 15:13 FiO2 5 04/02/24 11:42 04/05/24 04/05/24 04/05/24 06:59 14:59 22:59 Intake Total 50 / 970 240 / 240 Balance 50 / 540 240 / 240 Weight last 48 hrs Weight 119 lb Weight 119 lb Physical Exam Narrative: GENERAL: Patient is alert, awake and oriented x3. [] NECK: No jugular vein distension. [] HEENT: No cyanosis. No icterus. No pallor. [] HEART: Regular S1 and S2. No murmur, rub or gallop. [] LUNGS: Diminished air entry CENTRAL NERVOUS SYSTEM: Grossly nonfocal. [] EXTREMITIES: Lower extremities with 1+ edema bilaterally. Urinary Catheter Management: Coude: Cath Placed During This Visit: yes Reason for Continuing Indwelling Catheter: Other Urinary Catheter Date of Insertion: 04/03/24 Urinary Catheter Time of Insertion: 10:49 Data 04/07/24 00:48 04/07/24 00:48 A&P Assessment and plan (1) Elevated troponin: (2) Congestive heart failure due to cardiomyopathy: (3) Hypertension: (4) COVID-19: (5) Acute on chronic hypoxic respiratory failure: Plan Patient is stable from cardiac standpoint. Continue dual antiplatelet therapy. Continue antianginal medicines including metoprolol, long-acting nitrate and ranexa. Can uptitate as his BP tolerates and based on blood pressure. Thank you for involving us with care of this patient. We will continue to follow. Please call with questions. Attestations Medical Necessity Statement*: Care expected to cross 2 midnights. Coding Level of Care Code Acute Code for [facility] Fwd Diagnoses Elevated troponin R79.89 Congestive heart failure due to cardiomyopathy I50.9; I42.9 Hypertension I10 COVID-19 U07.1 Acute on chronic hypoxic respiratory failure J96.21
[2024-04-05] MEDS: methylPREDNISolone sod succ 40 mg/mL INJ IVP (18:31)
[2024-04-05] MEDS: ranolazine (12HR) 500 mg Tablet 1000 MG PO (18:31)
--- NOTE | 2024-04-05 19:16 | PC.NURSE ---
i assumed care of this pt at approx. 1730.
[2024-04-05] MEDS: atorvastatin 40 mg Tablet PO (21:06)
[2024-04-05] MEDS: tamsulosin 0.4 mg Capsule PO (21:06)
[2024-04-06] VITALS (19 sets, daily range): BP systolic 115–132; BP diastolic 61–76; PULSE 74–95; RESP 16–20; TEMP 36.1–37; O2SAT 88–100
[2024-04-06] MEDS: enoxaparin 60 mg/0.6 mL Syringe 50 MG SUBCUT ×2 (00:51→13:07)
[2024-04-06] MEDS: levalbuterol 0.63 mg/3 mL Neb INHALATION ×4 (02:24→19:51)
[2024-04-06] MEDS: ipratropium 0.5 mg/2.5 mL Neb INHALATION ×4 (02:24→19:51)
[2024-04-06] MEDS: piperacillin-tazobactam 3.375 GM in sodium chloride 0.9% (plus) 50 ML IV ×2 (05:17→14:43)
[2024-04-06] MEDS: oxyCODONE-APAP 10-325 mg Tablet 1 TAB PO ×3 (05:18→17:55)
[2024-04-06] MEDS: methylPREDNISolone sod succ 40 mg/mL INJ IVP (05:18)
[2024-04-06] MEDS: levoFLOXacin 750 mg Tablet PO (05:18)
[2024-04-06 05:24] LABS: Basophils % 0.1 %; Hematocrit 37.2 % (37-53); Lymphocytes # 0.6 10^3/uL (0.8-4.8); Lymphocytes % 6.5 %; Mean Corpuscular HGB Conc 30.6 g/dL (30-55); Mean Corpuscular Hemoglobin 33.2 pg (27-33); Mean Corpuscular Volume 108.5 fl (82-101); Mean Platelet Volume 10.4 fL (7.4-10.4); Monocytes # 0.5 10^3/uL (0.2-0.9); Monocytes % 5.3 %; Neutrophils % 87.6 %; Nucleated Red Blood Cells % 0 %; Platelet Count 166 10^3/cmm (157-399); Red Blood Count 3.43 10^6/uL (3.85-5.65); Red Cell Distribution Width 13.2 % (12.1-15.1); White Blood Count 8.79 10^3/uL (3.29-11.43)
[2024-04-06 05:44] LABS: Alanine Aminotransferase 19 U/L (0-41); Albumin Level 3.3 g/dL (3.5-5.2); Alkaline Phosphatase 43 U/L (40-130); Anion Gap 11.6 (5-19); Aspartate Amino Transferase 23 U/L (0-40); Blood Urea Nitrogen 29 mg/dL (8-23); Calcium 8.3 mg/dL (8.5-10.5); Carbon Dioxide 35 mmol/L (22-29); Chloride 100 mmol/L (98-107); Creatinine Clr Calc Pharmacy 57.1631; Globulin 2.5 g/dL (1.3-4.6); Glucose 193 mg/dL (65-115); Osmolality Calculated 305 mOsm/kg (285-295); Potassium 4.6 mmol/L (3.5-5.1); Sodium 142 mmol/L (136-145); Total Bilirubin 0.3 mg/dL (0.15-1.2); Total Protein 5.8 g/dL (6.6-8.7)
[2024-04-06] MEDS: clopidogrel 75 mg Tablet PO (08:16)
[2024-04-06] MEDS: aspirin 81 mg EC Tablet PO (08:16)
[2024-04-06] MEDS: sennosides-docusate Tablet 1 TAB PO ×2 (08:16→17:55)
[2024-04-06] MEDS: isosorbide dinitrate 20 mg Tablet PO ×2 (08:16→20:36)
[2024-04-06] MEDS: ranolazine (12HR) 500 mg Tablet 1000 MG PO ×2 (08:17→17:55)
[2024-04-06] MEDS: losartan 50 mg Tablet 25 MG PO (08:18)
[2024-04-06] MEDS: metoprolol tartrate 25 mg Tablet PO ×2 (08:18→20:36)
[2024-04-06] MEDS: budesonide 0.5 mg/2 mL Neb INHALATION ×2 (08:42→19:51)
--- NOTE | 2024-04-06 10:04 | PC.SOCIAL ---
IMM Update pg 2 of IMM Updated and reviewed w/ patient. Copy provided and copy dated, initialed and placed in chart.
[2024-04-06] MEDS: remdesivir 100 MG in sodium chloride 0.9% (100 ml) 80 ML IV (10:40)
--- NOTE | 2024-04-06 12:59 | P.PN_ITS ---
Subjective 2 Subjective: No acute events overnight. Patient did respond to enema yesterday and had a bowel movement yesterday in the evening. Patient states he is feeling stable. Denies any further chest pain at rest. Remains on 5 L of oxygen supplementation to maintain saturation at 90. Did have mild hypotension last night for which dose of metoprolol and isosorbide were withheld. Vitals/I&O/Wt Last Vital Signs Temp 97.5 F L 04/06/24 11:21 Pulse 88 04/06/24 11:21 Resp 18 04/06/24 11:22 BP 116/70 04/06/24 11:21 Pulse Ox 90 04/06/24 11:21 O2 Del Method Nasal Cannula 04/06/24 08:46 O2 Flow Rate 6 04/06/24 11:21 FiO2 5 04/02/24 11:42 04/05/24 04/06/24 04/06/24 22:59 06:59 14:59 Intake Total 290 / 530 410 / 940 386 / 386 Output Total 850 / 850 200 / 1050 Balance -560 / -320 210 / -110 386 / 386 Weight last 48 hrs Weight 53.977 kg Weight 53.977 kg Physical Exam 2 Narrative: Sick appearing, tired appearing. Const: COMMON NORMALS: patient oriented x3 and alert GENERAL APPEARANCE: c ooperative and frail appearing ORIENTATION/CONSCIOUSNESS: Yes awake, Yes oriented to person, Yes oriented to place and Yes oriented to time HENMT: COMMON NORMALS: oropharynx normal Neck/C-Spine: COMMON NORMALS: no JVD Resp: AUSCULTATION: diminished lung sounds Cardio: COMMON NORMALS: no JVD, regular rhythm, S1 normal heart sound present, S2 normal heart sound present and No murmurs present (Cardio) RHYTHM: regular rhythm HEART SOUNDS: S1 normal heart sound present and S2 normal heart sound present GI: COMMON NORMALS: Normal to inspection, nondistended, normoactive bowel sounds present, Soft to palpation and non-tender PALPATION: Yes Soft to palpation Extremity: COMMON NORMALS: no joint enlargement and no pedal edema Neuro: COMMON NORMALS: patient oriented x3 and moves all extremities S ENSORIUM/ORIENTATION: Yes alert, Yes oriented to person, Yes oriented to place and Yes oriented to time Skin: COMMON NORMALS: no rashes or lesions noted GENERAL SKIN EXAM: no rashes or lesions noted Urinary Catheter Management: Coude: Cath Placed During This Visit: yes Reason for Continuing Indwelling Catheter: Acute Urinary Retention or Obstruction Urinary Catheter Date of Insertion: 04/03/24 Urinary Catheter Time of Insertion: 10:49 Data 04/06/24 04:59 04/06/24 04:59 A&P Assessment and plan (1) Acute on chronic hypoxic respiratory failure: Acute on chronic hypoxic respiratory failure. Multifactorial. COPD exacerbation in settings of COVID-19 along with acute on chronic systolic and diastolic congestive heart failure. Oxygen supplementation keeping saturation over 88%. (2) COVID-19: Hypoxia secondary to COVID-19 pneumonia: Mild to moderate disease. Oxygen supplementation keeping saturation over 88%. As patient also has significant emphysema currently on Solu-Medrol. Continue with Solu-Medrol 40 mg every 8 hours. Continue with remdesivir to finish a 5-day course. Switch to ipratropium and Xopenex because of tachycardia every 6 hour, budesonide twice daily Pulmonary toilet with incentive spirometry flutter valve. We will monitor inflammatory markers including CRP every 48 hours. D-dimer mildly elevated to 1.48. CTA done on 03/19 negative for pulmonary embolism. PE so far less likely but patient already on full dose anticoagulation with concern for non-ST elevation LA. Sputum culture pending, urine Legionella, bacterial antigen troponin negative. Cannot rule out underlying pneumonia. Sputum culture in the past positive for stenotrophomonas. Sensitivities appreciated. For now continue with linezolid and Zosyn, Levaquin. MRSA swab sent. If negative will discontinue linezolid. Given hypoxia will try to keep patient as negative as possible. Repeat limited echocardiogram shows EF down to 25% with global LV hypokinesia, severe hypokinesia of mid and apical septum moderate hypokinesia of inferior lateral aguirre. Start on oral Lasix 20 mg daily. Monitor for acute kidney injury or contraction alkalosis. Cortez catheterization. Strict input output charting, daily weights. (3) Congestive heart failure due to cardiomyopathy: Appreciate repeat echocardiogram with EF around 25%. Fluid restriction to less than 1500 cc. Strict input output charting, daily weights. 20 mg oral Lasix daily. Continue with home dose of losartan. Increasing metoprolol. (4) Non-ST elevation LA (NSTEMI): History of ischemic cardiomyopathy in the past. In past medical management was decided after discussion with the patient. As per patient he was told he cannot go cardiac angiogram through bilateral groin given history of significant bilateral inguinal hernia. Continues to have significant angina. Continue with isosorbide dinitrate 20 mg twice daily, increase metoprolol to 25 mg twice daily. Add Ranexa 500 mg oral twice daily. Discussed in detail with cardiology. Will consult. Given frailty and the patient, significant bilateral inguinal hernia, CABG in the past, emphysema and COVID for now plan would be to continue with medical management unless patient has significant chest pain or hemodynamic instability. Appreciate repeat troponin cycled. Appreciate A1c, lipid panel. Aspirin 81 mg daily, atorvastatin 80 mg daily. Continue with metoprolol 12.5 mg twice daily. Uptitrate over the next 24 hours the patient's blood pressures remained stable and he remains tachycardic. Continue with full dose Lovenox 1 mg/kg body weight every 12 hourly. Will plan to continue treatment for overall 3 days. (5) Goals of care, counseling/discussion: With advanced emphysema, at baseline 4.5 L of oxygen, worsening functional capacity, considered less aggressive measures, he has never spoken to anybody about consideration of hospice care and is not interested at current time, but depending on how he recovers he may think about hearing more about it. Similarly he understands that he is at high risk of mortality, complication, further respiratory failure. He did not particularly enjoy being on BiPAP in the past, would really like to avoid it if possible, but would try it if it was necessary states it felt like he was going to make his head explode . He otherwise wants to be full code. In case he could not make his own decisions he names grandson Tawny Dalton of [place] as his surrogate decision-maker or his son Tuan Dalton. Discussed all the above in detail with patient's son Mr. Dickerson over the phone. He is agreeable to make medical decisions if and when needed. He is also going to talk to patient's grandson. 04/03: Again discussed the frail nature of patient's health in setting of comorbidities, significant emphysema congestive heart failure in the past, non- ST ovation LA with ongoing angina for which plan is to maximize medical management. Patient verbalizes understanding and wants to remain full code for now. 04/04: Patient continues to have significant angina on minimal exertion. Discussed in detail with the patient that unfortunately patient is almost on maximum medical therapy. Also discussed that he is at a high risk of adverse outcomes with possible cardiac angiogram given history of CABG, significant bilateral inguinal hernia. Discussed most likely he will need to have angiogram through radial if possible. Will consult cardiology for further recommendations. Given his frailty, baseline 4 to 5 L ox supplementation, baseline EF of 35% which is worsening 25% now discussed goals of care further. Patient verbalizes understanding. He wants to change his CODE STATUS to DNR/DNI. He does not want any heroic measures in case of cardiac arrest or respiratory distress. Conveyed patient's decision to his son Mr. Dickerson over the phone. All the questions were answered. (6) Hypertension: Goal blood pressure less than 140/90 mmHg. Blood pressure is at goal for now. Continue with home dose of isosorbide dinitrate, losartan, metoprolol. Will uptitrate as for goal blood pressures. Plan COPD, normally on 4.5 liters of oxygen. CODE STATUS: Discussed in detail with the patient. He would like to remain full code for now. Cardiac diet Protonix for PUD prophylaxis Full dose Lovenox will be sufficient for DVT prophylaxis Aggressive bowel regimen. Plan for the day: Last day of IV remdesivir and Zosyn today. Appreciate vitals and blood work. Continue with steroids for now. Wean to Solu-Medrol 40 mg IV daily. Will switch to oral dexamethasone to finish a 10-day course of steroids tomorrow. Isolation precautions removed. Goal blood pressure less than 140/90 mmhg with mean over 65. Hold off on any further losartan. Hold off on Lasix for now. Continue with current dose of metoprolol, isosorbide dinitrate, Ranexa 1000 mg twice daily. Out of bed to chair. Monitor urine output. Continue with Levaquin to finish a 7-day course with last dose on 04/09. Discharge plan: Can plan to discharge home with home health within next 24 hours if patient remains hemodynamically stable and on stable oxygen supplementation. Attestations 2 Medical Necessity Statement*: Requires further hospitalization for management of unstable angina in setting of non-ST elevation LA, cardiomyopathy with EF 25%, hypoxic respiratory failure in setting of COVID-19 while safe discharge planning is sought. Diagnoses Acute on chronic hypoxic respiratory failure J96.21 COVID-19 U07.1 Congestive heart failure due to cardiomyopathy I50.9; I42.9 Non-ST elevation LA (NSTEMI) I21.4 Goals of care, counseling/discussion Z71.89 Hypertension I10
[2024-04-06] MEDS: fluticasone nasal spray 16gm Btl 1 SPRAY NASAL (17:55)
--- NOTE | 2024-04-06 20:05 | P.PN_ITS ---
Subjective 2 Subjective: Patient staying chest pain free. Vitals/I&O/Wt Last Vital Signs Temp 97.4 F L 04/06/24 19:30 Pulse 80 04/06/24 19:51 Resp 18 04/06/24 19:51 BP 115/62 04/06/24 19:30 Pulse Ox 99 04/06/24 19:51 O2 Del Method High Flow Nasal Cannula 04/06/24 19:51 O2 Flow Rate 8 04/06/24 19:51 FiO2 5 04/02/24 11:42 04/06/24 04/06/24 04/06/24 06:59 14:59 22:59 Intake Total 410 / 940 622 / 622 50 / 672 Output Total 200 / 1050 Balance 210 / -110 622 / 622 50 / 672 Weight last 48 hrs Weight 119 lb Weight 119 lb Physical Exam 2 Narrative: GENERAL: Patient is alert, awake and oriented x3. [] NECK: No jugular vein distension. [] HEENT: No cyanosis. No icterus. No pallor. [] HEART: Regular S1 and S2. No murmur, rub or gallop. [] LUNGS: Diminished air entry CENTRAL NERVOUS SYSTEM: Grossly nonfocal. [] EXTREMITIES: Lower extremities with 1+ edema bilaterally. Urinary Catheter Management: Coude: Cath Placed During This Visit: yes Reason for Continuing Indwelling Catheter: Acute Urinary Retention or Obstruction Urinary Catheter Date of Insertion: 04/03/24 Urinary Catheter Time of Insertion: 10:49 Data 04/07/24 00:48 04/07/24 00:48 A&P Assessment and plan (1) Elevated troponin: (2) Congestive heart failure due to cardiomyopathy: (3) Hypertension: (4) COVID-19: (5) Acute on chronic hypoxic respiratory failure: Plan Patient is chest pain-free. Continue current antianginal medicines. (held secondary to hypotension, can resume as BP improved) Thank you for involving us with care of this patient. Please call with questions. Attestations 2 Medical Necessity Statement*: Care expected to cross 2 midnights. Coding Level of Care Code Acute Code for [facility] Fwd Diagnoses Elevated troponin R79.89 Congestive heart failure due to cardiomyopathy I50.9; I42.9 Hypertension I10 COVID-19 U07.1 Acute on chronic hypoxic respiratory failure J96.21
[2024-04-06] MEDS: magnesium hydroxide 30 mL UDC PO (20:36)
[2024-04-06] MEDS: atorvastatin 40 mg Tablet PO (20:36)
[2024-04-06] MEDS: tamsulosin 0.4 mg Capsule PO (20:36)
[2024-04-07] VITALS (22 sets, daily range): BP systolic 94–139; BP diastolic 53–75; PULSE 6–101; RESP 12–22; TEMP 36.4–36.8; O2SAT 87–97
--- NOTE | 2024-04-07 00:14 | XRR_ITS ---
PROCEDURE INFORMATION: Exam: XR Chest Exam date and time: 04/07/2024 12:23 AM Age: 78 years old Clinical indication: Shortness of breath; Prior surgery; Surgery date: 6+ months; Surgery type: Cabg; Patient HX: Persistent hypoxia TECHNIQUE: Imaging protocol: Radiologic exam of the chest. Views: 1 view. COMPARISON: CR XR chest 1V portable [id number] 04/03/2024 9:31 AM FINDINGS: Lungs: Emphysematous changes again noted. Pulmonary hyperinflation. Similar scarring in the mid and upper right lung. Mildly coarsened interstitial markings of the lung bases, likely atelectasis. Pleural spaces: Unremarkable. No pleural effusion. No pneumothorax. Heart/Mediastinum: Unremarkable. No cardiomegaly. Vasculature: Atherosclerotic aortic calcifications. Diaphragm: Similar central elevation of the diaphragm with air-filled bowel loops inferiorly. Bones/joints: Post median sternotomy and CABG. Chronic posterior right rib fractures. XR/XR chest 1V portable [id number] IMPRESSION: Little interval change.
[2024-04-07] MEDS: methylPREDNISolone sod succ 125 mg/2 mL INJ IVP (00:30)
[2024-04-07] MEDS: FUROsemide 10 mg/mL SDV 2mL 20 MG IVP ×2 (00:36→17:18)
[2024-04-07] MEDS: enoxaparin 60 mg/0.6 mL Syringe 50 MG SUBCUT ×2 (00:36→13:53)
[2024-04-07 00:54] LABS: Basophils % 0.1 %; Eosinophils % 0.3 %; Hematocrit 36.3 % (37-53); Lymphocytes # 1.3 10^3/uL (0.8-4.8); Lymphocytes % 11.9 %; Mean Corpuscular Hemoglobin 32.2 pg (27-33); Mean Corpuscular Volume 107.4 fl (82-101); Mean Platelet Volume 10.3 fL (7.4-10.4); Monocytes # 1.2 10^3/uL (0.2-0.9); Monocytes % 11.3 %; Neutrophils # 8.28 10^3/uL (1.8-7.7); Neutrophils % 75.8 %; Nucleated Red Blood Cells % 0 %; Platelet Count 197 10^3/cmm (157-399); Red Blood Count 3.38 10^6/uL (3.85-5.65); Red Cell Distribution Width 13.3 % (12.1-15.1); White Blood Count 10.92 10^3/uL (3.29-11.43)
[2024-04-07 01:15] LABS: Alanine Aminotransferase 16 U/L (0-41); Albumin Level 3.3 g/dL (3.5-5.2); Alkaline Phosphatase 44 U/L (40-130); Anion Gap 10.4 (5-19); Aspartate Amino Transferase 16 U/L (0-40); Blood Urea Nitrogen 29 mg/dL (8-23); Calcium 8.4 mg/dL (8.5-10.5); Carbon Dioxide 36 mmol/L (22-29); Chloride 97 mmol/L (98-107); Creatinine Clr Calc Pharmacy 57.1631; Globulin 2.5 g/dL (1.3-4.6); Glucose 128 mg/dL (65-115); Osmolality Calculated 295 mOsm/kg (285-295); Potassium 4.4 mmol/L (3.5-5.1); Sodium 139 mmol/L (136-145); Total Bilirubin 0.3 mg/dL (0.15-1.2); Total Protein 5.8 g/dL (6.6-8.7)
[2024-04-07 01:25] LABS: NT Pro B Type Natriuretic Pept 1198 pg/mL (0-450)
[2024-04-07] MEDS: oxyCODONE-APAP 10-325 mg Tablet 1 TAB PO ×4 (01:43→22:11)
--- NOTE | 2024-04-07 01:59 | PC.NURSE ---
At approximately 0006 called to pt room per [employer] for eval of O2 sat. Pt was on 8 l/m n/c O2, w/O2 sat 75%. Pt denied dyspnea/SOB. Oxygen titrated to 10 l/m via n/c, and RT called. O2 increased to 75%. RT increased O2 to 12 l/m and pt changed to nonrebreather. Physician notified of change in status. NO received and noted. Pt O2 stabilized to 88% and was switched back to n/c. Pt placed on con't pulse ox for monitoring. IVP Lasix and solu-medrol administered per physician orders. Pt currently stable. Labs and x-ray obtained per physician orders.
[2024-04-07] MEDS: levalbuterol 0.63 mg/3 mL Neb INHALATION ×4 (02:18→20:32)
[2024-04-07] MEDS: ipratropium 0.5 mg/2.5 mL Neb INHALATION ×4 (02:18→20:32)
[2024-04-07] MEDS: levoFLOXacin 750 mg Tablet PO (06:23)
[2024-04-07] MEDS: sennosides-docusate Tablet 1 TAB PO ×2 (07:59→17:18)
[2024-04-07] MEDS: aspirin 81 mg EC Tablet PO (07:59)
[2024-04-07] MEDS: clopidogrel 75 mg Tablet PO (07:59)
[2024-04-07] MEDS: fluticasone nasal spray 16gm Btl 1 SPRAY NASAL (07:59)
[2024-04-07] MEDS: ranolazine (12HR) 500 mg Tablet 1000 MG PO ×2 (07:59→17:18)
[2024-04-07] MEDS: methylPREDNISolone sod succ 40 mg/mL INJ IVP ×2 (08:00→17:18)
[2024-04-07] MEDS: magnesium hydroxide 30 mL UDC PO (08:00)
[2024-04-07] MEDS: budesonide 0.5 mg/2 mL Neb INHALATION ×2 (08:15→20:32)
--- NOTE | 2024-04-07 08:17 | P.PN_ITS ---
Subjective 2 Subjective: Staying chest pain free. Vitals/I&O/Wt Last Vital Signs Temp 97.5 F L 04/07/24 08:00 Pulse 77 04/07/24 08:00 Resp 15 04/07/24 04:00 BP 113/58 04/07/24 08:00 Pulse Ox 90 04/07/24 08:00 O2 Del Method Nasal Cannula 04/07/24 08:00 O2 Flow Rate 10 04/07/24 02:24 FiO2 5 04/02/24 11:42 04/06/24 04/07/24 04/07/24 22:59 06:59 14:59 Intake Total 287 / 909 0 / 909 Output Total 1100 / 1100 Balance 287 / 909 -1100 / -191 Weight last 48 hrs Weight 123 lb 8 oz Weight 119 lb Physical Exam 2 Narrative: GENERAL: Patient is alert, awake and oriented x3. [] NECK: No jugular vein distension. [] HEENT: No cyanosis. No icterus. No pallor. [] HEART: Regular S1 and S2. No murmur, rub or gallop. [] LUNGS: Diminished air entry CENTRAL NERVOUS SYSTEM: Grossly nonfocal. [] EXTREMITIES: Lower extremities with 1+ edema bilaterally. Urinary Catheter Management: Coude: Cath Placed During This Visit: yes Reason for Continuing Indwelling Catheter: Acute Urinary Retention or Obstruction Urinary Catheter Date of Insertion: 04/03/24 Urinary Catheter Time of Insertion: 10:49 Data 04/07/24 00:48 04/07/24 00:48 A&P Assessment and plan (1) Elevated troponin: (2) Congestive heart failure due to cardiomyopathy: (3) Hypertension: (4) COVID-19: (5) Acute on chronic hypoxic respiratory failure: Plan Stable from cardiac standpoint. Continue antianginal medicines and dual antiplatelet therapy. Thank you for involving us with care of this patient. Please call with questions. Attestations 2 Medical Necessity Statement*: Care expected to cross 2 midnights. Coding Level of Care Code Acute Code for g Fwd Diagnoses Elevated troponin R79.89 Congestive heart failure due to cardiomyopathy I50.9; I42.9 Hypertension I10 COVID-19 U07.1 Acute on chronic hypoxic respiratory failure J96.21
--- NOTE | 2024-04-07 09:31 | PC.NURSE ---
Medication Education: Pt requesting Oxycodone-APAP 10-325 mg for pain. This nurse educated pt on possible side effects to his current respiratory status. Pt stated, It was that nose spray that made me have my episode last night. Pt became upset and called his son on the phone. The son called the nurse's station very upset due to this nurse not giving pt pain mediation at the time of pt's request due to pt's vital signs. Continuous pulse ox attached to pt's forehead and reading oxygen saturation of 88% on 10 L NC, pulse 88, and blood pressure 113/64. Pt educated once again on side effects of Oxycodone-APAP 10-325 mg and his current respiratory status. Pt stated, I don't give a damn, I'm going to anyway. Dr. Tarango notified
[2024-04-07] MEDS: isosorbide dinitrate 20 mg Tablet PO ×2 (09:43→20:49)
--- NOTE | 2024-04-07 14:54 | P.PN_ITS ---
Subjective 2 Subjective: Overnight patient had episode of desaturation with saturation going down to low 60s. Today morning he is on 10 L of oxygen supplementation saturating high 80s. Patient is awake and alert. Complaining of difficulty in breathing and asking for pain medications. Vitals/I&O/Wt Last Vital Signs Temp 97.6 F 04/07/24 12:00 Pulse 89 04/07/24 13:32 Resp 18 04/07/24 13:20 BP 134/73 04/07/24 12:00 Pulse Ox 90 04/07/24 13:30 O2 Del Method Nasal Cannula 04/07/24 13:30 O2 Flow Rate 10 04/07/24 13:30 FiO2 5 04/02/24 11:42 04/06/24 04/07/24 04/07/24 22:59 06:59 14:59 Intake Total 287 / 909 0 / 909 240 / 240 Output Total 1100 / 1100 Balance 287 / 909 -1100 / -191 240 / 240 Weight last 48 hrs Weight 56.019 kg Weight 53.977 kg Physical Exam 2 Narrative: Sick appearing, tired appearing. Const: COMMON NORMALS: patient oriented x3 and alert GENERAL APPEARANCE: c ooperative and frail appearing ORIENTATION/CONSCIOUSNESS: Yes awake, Yes oriented to person, Yes oriented to place and Yes oriented to time HENMT: COMMON NORMALS: oropharynx normal Neck/C-Spine: COMMON NORMALS: no JVD Resp: AUSCULTATION: diminished lung sounds Cardio: COMMON NORMALS: no JVD, regular rhythm, S1 normal heart sound present, S2 normal heart sound present and No murmurs present (Cardio) RHYTHM: regular rhythm HEART SOUNDS: S1 normal heart sound present and S2 normal heart sound present GI: COMMON NORMALS: Normal to inspection, nondistended, normoactive bowel sounds present, Soft to palpation and non-tender PALPATION: Yes Soft to palpation Extremity: COMMON NORMALS: no joint enlargement and no pedal edema Neuro: COMMON NORMALS: patient oriented x3 and moves all extremities S ENSORIUM/ORIENTATION: Yes alert, Yes oriented to person, Yes oriented to place and Yes oriented to time Skin: COMMON NORMALS: no rashes or lesions noted GENERAL SKIN EXAM: no rashes or lesions noted Urinary Catheter Management: Coude: Cath Placed During This Visit: yes Reason for Continuing Indwelling Catheter: Acute Urinary Retention or Obstruction Urinary Catheter Date of Insertion: 04/03/24 Urinary Catheter Time of Insertion: 10:49 Data 04/07/24 00:48 04/07/24 00:48 A&P Assessment and plan (1) Acute on chronic hypoxic respiratory failure: Acute on chronic hypoxic respiratory failure. Multifactorial. COPD exacerbation in settings of COVID-19 along with acute on chronic systolic and diastolic congestive heart failure. Overnight decompensated as apparently his oxygen line was kinked. Currently on 10 L of oxygen supplementation. Appreciate chest x-ray, proBNP. Received IV Lasix 20 mg. Repeat 20 mg Lasix along with acetazolamide 250 mg one-time. Continue with nebulization treatment. Changed to ipratropium and Xopenex every 4 hours. Oxygen supplementation keeping saturation over 88%. If going higher than 10 L will prefer to put patient on heated high flow. Increase Solu-Medrol back to 40 mg IV twice daily. (2) COVID-19: Hypoxia secondary to COVID-19 pneumonia: Mild to moderate disease. Oxygen supplementation keeping saturation over 88%. As patient also has significant emphysema currently on Solu-Medrol. Continue with Solu-Medrol 40 mg every 8 hours. Continue with remdesivir to finish a 5-day course. Switch to ipratropium and Xopenex because of tachycardia every 6 hour, budesonide twice daily Pulmonary toilet with incentive spirometry flutter valve. We will monitor inflammatory markers including CRP every 48 hours. D-dimer mildly elevated to 1.48. CTA done on 03/19 negative for pulmonary embolism. PE so far less likely but patient already on full dose anticoagulation with concern for non-ST elevation NJ. Sputum culture pending, urine Legionella, bacterial antigen troponin negative. Cannot rule out underlying pneumonia. Sputum culture in the past positive for stenotrophomonas. Sensitivities appreciated. For now continue with linezolid and Zosyn, Levaquin. MRSA swab sent. If negative will discontinue linezolid. Given hypoxia will try to keep patient as negative as possible. Repeat limited echocardiogram shows EF down to 25% with global LV hypokinesia, severe hypokinesia of mid and apical septum moderate hypokinesia of inferior lateral aguirre. Start on oral Lasix 20 mg daily. Monitor for acute kidney injury or contraction alkalosis. Cortez catheterization. Strict input output charting, daily weights. (3) Congestive heart failure due to cardiomyopathy: Appreciate repeat echocardiogram with EF around 25%. Fluid restriction to less than 1500 cc. Strict input output charting, daily weights. 20 mg oral Lasix daily. Continue with home dose of losartan. Increasing metoprolol. (4) Non-ST elevation NJ (NSTEMI): History of ischemic cardiomyopathy in the past. In past medical management was decided after discussion with the patient. As per patient he was told he cannot go cardiac angiogram through bilateral groin given history of significant bilateral inguinal hernia. Continues to have significant angina. Continue with isosorbide dinitrate 20 mg twice daily, increase metoprolol to 25 mg twice daily. Add Ranexa 500 mg oral twice daily. Discussed in detail with cardiology. Will consult. Given frailty and the patient, significant bilateral inguinal hernia, CABG in the past, emphysema and COVID for now plan would be to continue with medical management unless patient has significant chest pain or hemodynamic instability. Appreciate repeat troponin cycled. Appreciate A1c, lipid panel. Aspirin 81 mg daily, atorvastatin 80 mg daily. Continue with metoprolol 12.5 mg twice daily. Uptitrate over the next 24 hours the patient's blood pressures remained stable and he remains tachycardic. Continue with full dose Lovenox 1 mg/kg body weight every 12 hourly. Will plan to continue treatment for overall 3 days. (5) Goals of care, counseling/discussion: With advanced emphysema, at baseline 4.5 L of oxygen, worsening functional capacity, considered less aggressive measures, he has never spoken to anybody about consideration of hospice care and is not interested at current time, but depending on how he recovers he may think about hearing more about it. Similarly he understands that he is at high risk of mortality, complication, further respiratory failure. He did not particularly enjoy being on BiPAP in the past, would really like to avoid it if possible, but would try it if it was necessary states it felt like he was going to make his head explode . He otherwise wants to be full code. In case he could not make his own decisions he names grandson Tawny Dalton of [place] as his surrogate decision-maker or his son Tuan Dalton. Discussed all the above in detail with patient's son Mr. Dickerson over the phone. He is agreeable to make medical decisions if and when needed. He is also going to talk to patient's grandson. 04/03: Again discussed the frail nature of patient's health in setting of comorbidities, significant emphysema congestive heart failure in the past, non- ST ovation NJ with ongoing angina for which plan is to maximize medical management. Patient verbalizes understanding and wants to remain full code for now. 04/04: Patient continues to have significant angina on minimal exertion. Discussed in detail with the patient that unfortunately patient is almost on maximum medical therapy. Also discussed that he is at a high risk of adverse outcomes with possible cardiac angiogram given history of CABG, significant bilateral inguinal hernia. Discussed most likely he will need to have angiogram through radial if possible. Will consult cardiology for further recommendations. Given his frailty, baseline 4 to 5 L ox supplementation, baseline EF of 35% which is worsening 25% now discussed goals of care further. Patient verbalizes understanding. He wants to change his CODE STATUS to DNR/DNI. He does not want any heroic measures in case of cardiac arrest or respiratory distress. Conveyed patient's decision to his son Mr. Dickerson over the phone. All the questions were answered. 04/05: Patient had significant respiratory compromise overnight going into respiratory failure. Currently on 10 L. Had armando and detailed goals of care discussion with patient and patient's son/Tuan at bedside. We discussed even after maximum medical therapy possible for COPD, COVID-19 and non-ST elevation NJ patient unfortunately at baseline has multiple comorbidities and has minimal reserve because of which on minimal compromise he decompensated quite a bit and is still trying to catch up even after 10 hours. Discussed about possible transition to hospice as he is not improving on maximal medical therapy for over a week given his baseline significant comorbidities. Both patient and family verbalizes understanding. Family would like to transfer patient to a higher center for the last ditch effort. We did discuss in detail that even after transfer is excepted it is highly possible that he might not be able to transfer because of very poor respiratory status and he might be declined transfer because of the same. Patient and family verbalized understanding. They would want to initiate transfer while they discussed amongst each other further about possible transition to hospice. (6) Hypertension: Goal blood pressure less than 140/90 mmHg. Blood pressure is at goal for now. Continue with home dose of isosorbide dinitrate, losartan, metoprolol. Will uptitrate as for goal blood pressures. Plan COPD, normally on 4.5 liters of oxygen. CODE STATUS: Discussed in detail with the patient. He would like to remain full code for now. Cardiac diet Protonix for PUD prophylaxis Full dose Lovenox will be sufficient for DVT prophylaxis Aggressive bowel regimen. Attestations 2 Medical Necessity Statement*: Requires further hospitalization for management of respiratory failure in setting of COPD, COVID-19, non-ST elevation NJ with ischemic cardiomyopathy and EF of 25% Diagnoses Acute on chronic hypoxic respiratory failure J96.21 COVID-19 U07.1 Congestive heart failure due to cardiomyopathy I50.9; I42.9 Non-ST elevation NJ (NSTEMI) I21.4 Goals of care, counseling/discussion Z71.89 Hypertension I10
[2024-04-07 16:02] LABS: ABG PH Result 7.45 (7.35-7.45); Alveolar-Arterial Oxygen Gradi 2.5 mmHg (5-10); Arterial Blood Gas Hematocrit 33.5 % (42-52); Base Excess ABG 16.7 mmol/L (-2.0-2.0); Blood Gas Operator Identificat GD; Blood Gas Sample Site Brachial, right; Blood Gas Sample Type Arterial; Carboxyhemoglobin 0.7 %THgb (0.4-20.1); HCO3 ABG 43.3 mmol/L (22-26); HGB O2 Sat 86.3 % (95-100); Ionized Calcium Level - ABG 1.1 mmol/L (1.1-1.4); Methemoglobin 1.1 % (0.4-1.5); Oxygen Device NC; Oxygen Saturation ABG 87.9; Potassium Level - ABG 4.8 mmol/L (3.5-5.0); Total Hemoglobin 10.9 g/dL (14-18)
[2024-04-07 16:04] LABS: ABG PCO2 62.4 mmHg (35-45)
[2024-04-07] MEDS: acetaZOLAMIDE 250 mg Tablet PO (17:18)
[2024-04-07] MEDS: metoprolol tartrate 25 mg Tablet PO (20:49)
[2024-04-07] MEDS: atorvastatin 40 mg Tablet PO (20:49)
[2024-04-07] MEDS: tamsulosin 0.4 mg Capsule PO (20:50)
--- NOTE | 2024-04-07 21:22 | PC.NURSE ---
Received call from [facility] transfer center for updates on pt condition. Updates provided. No beds are currently available in cardiac icu at [facility], transfer center will call back tomorrow to get more updates.
[2024-04-08] VITALS (84 sets, daily range): BP systolic 72–142; BP diastolic 40–85; PULSE 72–104; RESP 12–31; TEMP 36–36.6; O2SAT 85–100
[2024-04-08] MEDS: levalbuterol 0.63 mg/3 mL Neb INHALATION ×6 (00:22→20:44)
[2024-04-08] MEDS: ipratropium 0.5 mg/2.5 mL Neb INHALATION ×6 (00:22→20:44)
[2024-04-08] MEDS: enoxaparin 60 mg/0.6 mL Syringe 50 MG SUBCUT ×2 (00:26→12:57)
--- NOTE | 2024-04-08 02:05 | PC.NURSE ---
Pt's son Tuan notified of pt transferring to ICU.
--- NOTE | 2024-04-08 02:11 | PC.NURSE ---
Report given to INSULATING MACHINE OPERATOR, RT called for transport.
[2024-04-08] MEDS: norepinephrine 4 MG/250 ML BAG 30 MG IV (02:51)
[2024-04-08 05:57] LABS: Basophils % 0.1 %; Eosinophils % 0.1 %; Hematocrit 42.7 % (37-53); Mean Corpuscular HGB Conc 30.4 g/dL (30-55); Mean Corpuscular Hemoglobin 32.6 pg (27-33); Mean Platelet Volume 10.3 fL (7.4-10.4); Monocytes # 1.7 10^3/uL (0.2-0.9); Monocytes % 10.4 %; Neutrophils # 13.19 10^3/uL (1.8-7.7); Neutrophils % 82.9 %; Nucleated Red Blood Cells % 0 %; Platelet Count 264 10^3/cmm (157-399); Red Blood Count 3.99 10^6/uL (3.85-5.65); Red Cell Distribution Width 13.2 % (12.1-15.1)
[2024-04-08 06:15] LABS: Alanine Aminotransferase 17 U/L (0-41); Albumin Level 4.1 g/dL (3.5-5.2); Alkaline Phosphatase 54 U/L (40-130); Anion Gap 13.9 (5-19); Aspartate Amino Transferase 16 U/L (0-40); Blood Urea Nitrogen 36 mg/dL (8-23); Calcium 8.7 mg/dL (8.5-10.5); Carbon Dioxide 35 mmol/L (22-29); Chloride 92 mmol/L (98-107); Creatinine Clr Calc Pharmacy 51.7747; Globulin 2.6 g/dL (1.3-4.6); Glucose 129 mg/dL (65-115); Osmolality Calculated 292 mOsm/kg (285-295); Potassium 4.9 mmol/L (3.5-5.1); Sodium 136 mmol/L (136-145); Total Bilirubin 0.5 mg/dL (0.15-1.2); Total Protein 6.7 g/dL (6.6-8.7)
[2024-04-08] MEDS: levoFLOXacin 750 mg Tablet 500 MG PO (06:23)
--- NOTE | 2024-04-08 07:20 | PC.NURSE ---
Fan noted in pt's rpm. Pt stated he has had that since last Tuesday in his room upstairs.
[2024-04-08] MEDS: budesonide 0.5 mg/2 mL Neb INHALATION ×2 (08:07→20:44)
[2024-04-08] MEDS: magnesium hydroxide 30 mL UDC PO (08:38)
[2024-04-08] MEDS: fluticasone nasal spray 16gm Btl 1 SPRAY NASAL ×2 (08:39→18:17)
[2024-04-08] MEDS: methylPREDNISolone sod succ 40 mg/mL INJ IVP ×2 (08:40→18:09)
[2024-04-08] MEDS: sennosides-docusate Tablet 1 TAB PO ×2 (08:41→18:09)
[2024-04-08] MEDS: clopidogrel 75 mg Tablet PO (08:41)
[2024-04-08] MEDS: acetaZOLAMIDE 250 mg Tablet PO (08:41)
[2024-04-08] MEDS: acetaminophen 325 mg Tablet 650 MG PO (08:41)
[2024-04-08] MEDS: aspirin 81 mg EC Tablet PO (08:41)
[2024-04-08] MEDS: ranolazine (12HR) 500 mg Tablet 1000 MG PO ×2 (08:42→18:09)
--- NOTE | 2024-04-08 09:25 | P.PN_ITS ---
Subjective 2 Subjective: Patient is feeling better. No chest pain. Vitals/I&O/Wt Last Vital Signs Temp 97.2 F L 04/08/24 08:00 Pulse 72 04/08/24 08:12 Resp 17 04/08/24 08:12 BP 120/61 04/08/24 08:00 Pulse Ox 98 04/08/24 08:12 O2 Del Method Heated High Flow 04/08/24 08:07 O2 Flow Rate 55 04/08/24 08:12 FiO2 50 04/08/24 08:12 04/07/24 04/08/24 04/08/24 22:59 06:59 14:59 Intake Total 175 / 415 111.625 / 526.625 Output Total 1125 / 1125 550 / 1675 Balance -950 / -710 -438.375 / -1148.375 Weight last 48 hrs Weight 121 lb 4.068 oz Weight 123 lb 8 oz Physical Exam 2 Narrative: GENERAL: Patient is alert, awake and oriented x3. [] NECK: No jugular vein distension. [] HEENT: No cyanosis. No icterus. No pallor. [] HEART: Regular S1 and S2. No murmur, rub or gallop. [] LUNGS: Diminished air entry CENTRAL NERVOUS SYSTEM: Grossly nonfocal. [] EXTREMITIES: Lower extremities with 1+ edema bilaterally. Urinary Catheter Management: Coude: Cath Placed During This Visit: yes Reason for Continuing Indwelling Catheter: Acute Urinary Retention or Obstruction Urinary Catheter Date of Insertion: 04/03/24 Urinary Catheter Time of Insertion: 10:49 Data 04/09/24 03:16 04/09/24 03:16 A&P Assessment and plan (1) Elevated troponin: (2) Congestive heart failure due to cardiomyopathy: (3) Hypertension: (4) COVID-19: (5) Acute on chronic hypoxic respiratory failure: Plan Patient had respiratory status worsening yesterday and was transferred to ICU. Feeling better. Plan for transfer to ICU. His main complaints are of lower back pain Continue dual antiplatelet therapy and anti anginal medications. Thank you for involving us with care of this patient. Please call with questions. Attestations 2 Medical Necessity Statement*: Care expected to cross 2 midnights. Coding Level of Care Code Acute Code for [facility] Diagnoses Elevated troponin R79.89 Congestive heart failure due to cardiomyopathy I50.9; I42.9 Hypertension I10 COVID-19 U07.1 Acute on chronic hypoxic respiratory failure J96.21
[2024-04-08] MEDS: morphine 4 mg/mL SDV 1 mL 1 MG IVP (10:19)
[2024-04-08] MEDS: HYDROcodone-acetaminophen 5-325 mg Tablet 1 TAB PO ×2 (12:58→21:06)
--- NOTE | 2024-04-08 13:33 | PM.PN ---
Subjective Subjective: Overnight patient had episode of hypotension with blood pressure dropping down to 70s systolics. He was started on Levophed drip and transferred to ICU. Today morning on examination he is on 4 of Levophed with mean arterial pressure of 75 on heated high flow of 45 L 50% saturating in high 90s. Complaining of pain. Denies any nausea, ting, headache. Vitals/I&O/Wt Last Vital Signs Temp 97.2 F L 04/08/24 08:00 Pulse 82 04/08/24 12:06 Resp 20 H 04/08/24 12:06 BP 140/69 04/08/24 10:30 Pulse Ox 92 04/08/24 12:06 O2 Del Method Heated High Flow 04/08/24 12:04 O2 Flow Rate 50 04/08/24 12:06 FiO2 45 04/08/24 12:06 04/07/24 04/08/24 04/08/24 22:59 06:59 14:59 Intake Total 175 / 415 111.625 / 526.625 368.75 / 368.75 Output Total 1125 / 1125 550 / 1675 Balance -950 / -710 -438.375 / -1148.375 368.75 / 368.75 Weight last 48 hrs Weight 55 kg Weight 56.019 kg Physical Exam Narrative: Sick appearing, tired appearing. Const: COMMON NORMALS: patient oriented x3 and alert GENERAL APPEARANCE: cooperative and frail appearing ORIENTATION/CONSCIOUSNESS: Yes awake, Yes oriented to person, Yes oriented to place and Yes oriented to time HENMT: COMMON NORMALS: oropharynx normal Neck/C-Spine: COMMON NORMALS: no JVD Resp: AUSCULTATION: diminished lung sounds Cardio: COMMON NORMALS: no JVD, regular rhythm, S1 normal heart sound present, S2 normal heart sound present and No murmurs present (Cardio) RHYTHM: regular rhythm HEART SOUNDS: S1 normal heart sound present and S2 normal heart sound present GI: COMMON NORMALS: Normal to inspection, nondistended, normoactive bowel sounds present, Soft to palpation and non-tender PALPATION: Yes Soft to palpation Extremity: COMMON NORMALS: no joint enlargement and no pedal edema Neuro: COMMON NORMALS: patient oriented x3 and moves all extremities SENSORIUM/ORIENTATION: Yes alert, Yes oriented to person, Yes oriented to place and Yes oriented to time Skin: COMMON NORMALS: no rashes or lesions noted GENERAL SKIN EXAM: no rashes or lesions noted Urinary Catheter Management: Coude: Cath Placed During This Visit: yes Reason for Continuing Indwelling Catheter: Acute Urinary Retention or Obstruction Urinary Catheter Date of Insertion: 04/03/24 Urinary Catheter Time of Insertion: 10:49 Data 04/08/24 05:49 04/08/24 05:49 A&P Assessment and plan (1) Cardiogenic shock: Goal blood pressure less than 140/90 mmHg with mean over 65. Currently on Levophed drip. Wean Levophed drip according to mean arterial pressure. Hold off on beta-mahnaz and isosorbide for now. Will have to change oxycodone to [place] 5 mg every 8 hours as needed. (2) Acute on chronic hypoxic respiratory failure: Acute on chronic hypoxic respiratory failure. Multifactorial. COPD exacerbation in settings of COVID-19 along with acute on chronic systolic and diastolic congestive heart failure. Currently on heated high flow. Continue nebulization treatment with ipratropium and Xopenex every 4 hours, Pulmicort twice daily. Oxygen supplementation keeping saturation over 88%. Continue with Solu-Medrol 40 mg IV twice daily. Holding off on diuretics because of hypotension. Patient seems euvolemic for now. (3) COVID-19: Hypoxia secondary to COVID-19 pneumonia: Mild to moderate disease. Oxygen supplementation keeping saturation over 88%. Complete the course of remdesivir. Solu-Medrol 40 mg every 12 hourly for now given advanced COPD and emphysema. Pulm better with incentive spirometry and flutter valve. Nebulization treatment as above We will monitor inflammatory markers including CRP every 48 hours. D-dimer mildly elevated to 1.48. CTA done on 03/19 negative for pulmonary embolism. PE so far less likely but patient already on full dose anticoagulation because of non-ST elevation HI. Sputum culture recently grew out stenotrophomonas. Currently negative urine Legionella, bacterial antigen. Cannot rule out underlying pneumonia. Sputum culture in the past positive for stenotrophomonas. Sensitivities appreciated. Patient has finished off the course of antibiotics with IV Zosyn. Last dose of Levaquin on 04/09. Appreciate x-ray without any consolidation for now. Patient has remained afebrile. Hold off on starting any further antibiotics. Mild leukocytosis most likely in setting of steroids. Given hypoxia will try to keep patient as negative as possible. Repeat limited echocardiogram shows EF down to 25% with global LV hypokinesia, severe hypokinesia of mid and apical septum moderate hypokinesia of inferior lateral aguirre. Holding diuretics because of hypotension for now. [place] catheterization. Strict input output charting, daily weights. (4) Congestive heart failure due to cardiomyopathy: Appreciate repeat echocardiogram with EF around 25%. Fluid restriction to less than 1500 cc. Strict input output charting, daily weights. 20 mg oral Lasix daily. Continue with home dose of losartan. Increasing metoprolol. (5) Non-ST elevation HI (NSTEMI): History of ischemic cardiomyopathy in the past. In past medical management was decided after discussion with the patient. As per patient he was told he cannot go cardiac angiogram through bilateral groin given history of significant bilateral inguinal hernia. Continues to have significant angina. Continue with isosorbide dinitrate 20 mg twice daily, increase metoprolol to 25 mg twice daily. Add Ranexa 500 mg oral twice daily. Discussed in detail with cardiology. Will consult. Given frailty and the patient, significant bilateral inguinal hernia, CABG in the past, emphysema and COVID for now plan would be to continue with medical management unless patient has significant chest pain or hemodynamic instability. Appreciate repeat troponin cycled. Appreciate A1c, lipid panel. Aspirin 81 mg daily, atorvastatin 80 mg daily. Continue with metoprolol 12.5 mg twice daily. Uptitrate over the next 24 hours the patient's blood pressures remained stable and he remains tachycardic. Continue with full dose Lovenox 1 mg/kg body weight every 12 hourly. Will plan to continue treatment for overall 3 days. (6) Goals of care, counseling/discussion: With advanced emphysema, at baseline 4.5 L of oxygen, worsening functional capacity, considered less aggressive measures, he has never spoken to anybody about consideration of hospice care and is not interested at current time, but depending on how he recovers he may think about hearing more about it. Similarly he understands that he is at high risk of mortality, complication, further respiratory failure. He did not particularly enjoy being on BiPAP in the past, would really like to avoid it if possible, but would try it if it was necessary states it felt like he was going to make his head explode . He otherwise wants to be full code. In case he could not make his own decisions he names kylah Dalton [facility] as his surrogate decision-maker or his son Tuan Dalton. Discussed all the above in detail with patient's son Mr. Dickerson over the phone. He is agreeable to make medical decisions if and when needed. He is also going to talk to patient's grandson. 04/03: Again discussed the frail nature of patient's health in setting of comorbidities, significant emphysema congestive heart failure in the past, non-ST ovation HI with ongoing angina for which plan is to maximize medical management. Patient verbalizes understanding and wants to remain full code for now. 04/04: Patient continues to have significant angina on minimal exertion. Discussed in detail with the patient that unfortunately patient is almost on maximum medical therapy. Also discussed that he is at a high risk of adverse outcomes with possible cardiac angiogram given history of CABG, significant bilateral inguinal hernia. Discussed most likely he will need to have angiogram through radial if possible. Will consult cardiology for further recommendations. Given his frailty, baseline 4 to 5 L ox supplementation, baseline EF of 35% which is worsening 25% now discussed goals of care further. Patient verbalizes understanding. He wants to change his CODE STATUS to DNR/DNI. He does not want any heroic measures in case of cardiac arrest or respiratory distress. Conveyed patient's decision to his son Mr. Dickerson over the phone. All the questions were answered. 04/07: Patient had significant respiratory compromise overnight going into respiratory failure. Currently on 10 L. Had armando and detailed goals of care discussion with patient and patient's son/Tuan at bedside. We discussed even after maximum medical therapy possible for COPD, COVID-19 and non-ST elevation HI patient unfortunately at baseline has multiple comorbidities and has minimal reserve because of which on minimal compromise he decompensated quite a bit and is still trying to catch up even after 10 hours. Discussed about possible transition to hospice as he is not improving on maximal medical therapy for over a week given his baseline significant comorbidities. Both patient and family verbalizes understanding. Family would like to transfer patient to a higher center for the last ditch effort. We did discuss in detail that even after transfer is excepted it is highly possible that he might not be able to transfer because of very poor respiratory status and he might be declined transfer because of the same. Patient and family verbalized understanding. They would want to initiate transfer while they discussed amongst each other further about possible transition to hospice. 04/08: Discussed with the patient that unfortunately he is in cardiogenic shock now and because of that I will not be able to give him his Imdur and pain medications because those medications will also drop his blood pressures further. Again discussed that unfortunately the medical treatment for now is not making him better. Patient wants to wait for his grandson and son who will be at hospital by 6 PM in the evening to make further decisions. He also has a lot of questions with hospice. (7) Hypertension: Goal blood pressure less than 140/90 mmHg. Blood pressure is at goal for now. Continue with home dose of isosorbide dinitrate, losartan, metoprolol. Will uptitrate as for goal blood pressures. Plan COPD, normally on 4.5 liters of oxygen. CODE STATUS: Discussed in detail with the patient. He would like to remain full code for now. Cardiac diet Protonix for PUD prophylaxis Full dose Lovenox will be sufficient for DVT prophylaxis Aggressive bowel regimen. Attestations Medical Necessity Statement*: Requires further hospitalization for management of cardiogenic shock, ischemic cardiomyopathy with EF 25%, CHF, respiratory failure in setting of COPD exacerbation, COVID-19 while further goals of care are discussed Critical Care Time: The high probability of a clinically significant, sudden or life threatening deterioration of the patient's Cardiac, pulmonary system(s) required my full and direct attention, intervention and personal management. The critical care time is as shown. This time is in addition to time spent performing any reported procedures but includes the following: [x] Data and vital sign review and interpretation [x] Patient assessment, examination and intervention [x] Documentation [x] Medication orders and management Critical Care Time (min): 80 Coding Level of Care Code Critical Care >/= 30 minutes Critical care time (in minutes): 80 The high probability of a clinically significant, sudden or life threatening deterioration, as referenced in this documentation, required my full and direct attention, intervention and personal management. The critical care time shown is in addition to time spent performing any reported separately billable procedures and includes the following: [x] Data and vital sign review and interpretation [x] Patient assessment, examination and intervention [x] Medication orders and management [x] Patient/Family updates as able [x] Care Coordination and Documentation. Diagnoses Cardiogenic shock R57.0 Acute on chronic hypoxic respiratory failure J96.21 COVID-19 U07.1 Congestive heart failure due to cardiomyopathy I50.9; I42.9 Non-ST elevation HI (NSTEMI) I21.4 Goals of care, counseling/discussion Z71.89 Hypertension I10
--- NOTE | 2024-04-08 19:27 | PC.NURSE ---
Shift summary: Pt has rested in bed throughout the shift. He complained of back, hip and leg pain today. He would only allow staff to reposition him occasionally. Levophed gtt decreased to 2mcg/min. O2 use: Heated high flow now at 45 liters 41%. He has a very poor appetite, he drank Ensure for breakfast and lunch. He ate 2 berries off his tray for dinner. He is compliant with flid restrictions. 825ml of urine output noted this shift.
[2024-04-08] MEDS: norepinephrine 4 MG/250 ML BAG 7.5 MG IV (19:48)
[2024-04-08] MEDS: atorvastatin 40 mg Tablet PO (21:06)
[2024-04-08] MEDS: tamsulosin 0.4 mg Capsule PO (21:06)
[2024-04-08] MEDS: bisacodyl 10 mg Supp PR (21:07)
[2024-04-09] VITALS (59 sets, daily range): BP systolic 78–141; BP diastolic 50–85; PULSE 80–115; RESP 14–27; TEMP 36.2–36.7; O2SAT 85–100; BMI 16.0
[2024-04-09] MEDS: levalbuterol 0.63 mg/3 mL Neb INHALATION ×7 (00:12→23:38)
[2024-04-09] MEDS: ipratropium 0.5 mg/2.5 mL Neb INHALATION ×7 (00:12→23:38)
[2024-04-09] MEDS: lidocaine 5% Patch 1 PATCH TOPICAL ×3 (01:04→20:40)
[2024-04-09] MEDS: enoxaparin 60 mg/0.6 mL Syringe 50 MG SUBCUT ×2 (01:05→13:36)
[2024-04-09 04:15] LABS: Basophils % 0.1 %; Hematocrit 42.8 % (37-53); Lymphocytes # 0.5 10^3/uL (0.8-4.8); Lymphocytes % 3.7 %; Mean Corpuscular HGB Conc 30.4 g/dL (30-55); Mean Corpuscular Hemoglobin 32.1 pg (27-33); Mean Corpuscular Volume 105.7 fl (82-101); Mean Platelet Volume 10.8 fL (7.4-10.4); Monocytes # 0.9 10^3/uL (0.2-0.9); Monocytes % 6.3 %; Neutrophils # 12.66 10^3/uL (1.8-7.7); Neutrophils % 89.2 %; Nucleated Red Blood Cells % 0 %; Platelet Count 210 10^3/cmm (157-399); Red Blood Count 4.05 10^6/uL (3.85-5.65); Red Cell Distribution Width 13.3 % (12.1-15.1); White Blood Count 14.19 10^3/uL (3.29-11.43)
[2024-04-09 04:40] LABS: Alanine Aminotransferase 14 U/L (0-41); Albumin Level 3.8 g/dL (3.5-5.2); Alkaline Phosphatase 51 U/L (40-130); Anion Gap 15.8 (5-19); Aspartate Amino Transferase 14 U/L (0-40); Blood Urea Nitrogen 35 mg/dL (8-23); Calcium 8.9 mg/dL (8.5-10.5); Carbon Dioxide 29 mmol/L (22-29); Chloride 94 mmol/L (98-107); Creatinine Clr Calc Pharmacy 58.2465; Globulin 3.1 g/dL (1.3-4.6); Glucose 133 mg/dL (65-115); Osmolality Calculated 288 mOsm/kg (285-295); Potassium 4.8 mmol/L (3.5-5.1); Sodium 134 mmol/L (136-145); Total Bilirubin 0.4 mg/dL (0.15-1.2); Total Protein 6.9 g/dL (6.6-8.7)
[2024-04-09] MEDS: HYDROcodone-acetaminophen 5-325 mg Tablet 1 TAB PO ×3 (06:28→21:28)
[2024-04-09] MEDS: budesonide 0.5 mg/2 mL Neb INHALATION ×2 (08:05→19:59)
[2024-04-09] MEDS: ranolazine (12HR) 500 mg Tablet 1000 MG PO ×2 (08:50→17:36)
[2024-04-09] MEDS: aspirin 81 mg EC Tablet PO (08:50)
[2024-04-09] MEDS: clopidogrel 75 mg Tablet PO (08:50)
[2024-04-09] MEDS: sennosides-docusate Tablet 1 TAB PO ×2 (08:50→17:36)
[2024-04-09] MEDS: acetaZOLAMIDE 250 mg Tablet PO (08:50)
[2024-04-09] MEDS: magnesium hydroxide 30 mL UDC PO (08:51)
[2024-04-09] MEDS: methylPREDNISolone sod succ 40 mg/mL INJ IVP ×2 (08:51→17:35)
--- NOTE | 2024-04-09 11:11 | PC.SOCIAL ---
IMM Update pg 2 of [facility] udpated and reviewed w/ patient. Copy provided and copy dated, initialed and placed in chart.
--- NOTE | 2024-04-09 13:01 | PM.PN ---
Subjective Subjective: No acute events overnight. Patient's Levophed drip was turned off. Today morning examination he is laying comfortably in bed on 35 L 40 L oxygen. Saturating more than 90%. Seen with family at bedside. Also had a detailed family discussion with grandson over the phone. Overnight patient did get a bed at [facility] but he declined to go as he wanted to discuss further with his family members before transfer. Vitals/I&O/Wt Last Vital Signs Temp 97.3 F L 04/09/24 09:06 Pulse 110 H 04/09/24 11:24 Resp 18 04/09/24 11:22 BP 134/74 04/09/24 10:00 Pulse Ox 95 04/09/24 11:22 O2 Del Method Heated High Flow 04/09/24 11:22 O2 Flow Rate 40 04/09/24 11:22 FiO2 43 04/09/24 11:22 04/08/24 04/09/24 04/09/24 22:59 06:59 14:59 Intake Total 403.375 / 1047.125 43.375 / 1090.500 240 / 240 Output Total 825 / 825 950 / 1775 Balance -421.625 / 222.125 -906.625 / -684.500 240 / 240 Weight last 48 hrs Weight 50.5 kg Weight 50.5 kg Weight 55 kg Physical Exam Narrative: Sick appearing, tired appearing. Const: COMMON NORMALS: patient oriented x3 and alert GENERAL APPEARANCE: cooperative and frail appearing ORIENTATION/CONSCIOUSNESS: Yes awake, Yes oriented to person, Yes oriented to place and Yes oriented to time HENMT: COMMON NORMALS: oropharynx normal Neck/C-Spine: COMMON NORMALS: no JVD Resp: AUSCULTATION: diminished lung sounds Cardio: COMMON NORMALS: no JVD, regular rhythm, S1 normal heart sound present, S2 normal heart sound present and No murmurs present (Cardio) RHYTHM: regular rhythm HEART SOUNDS: S1 normal heart sound present and S2 normal heart sound present GI: COMMON NORMALS: Normal to inspection, nondistended, normoactive bowel sounds present, Soft to palpation and non-tender PALPATION: Yes Soft to palpation Extremity: COMMON NORMALS: no joint enlargement and no pedal edema Neuro: COMMON NORMALS: patient oriented x3 and moves all extremities SENSORIUM/ORIENTATION: Yes alert, Yes oriented to person, Yes oriented to place and Yes oriented to time Skin: COMMON NORMALS: no rashes or lesions noted GENERAL SKIN EXAM: no rashes or lesions noted Urinary Catheter Management: Coude: Cath Placed During This Visit: yes Reason for Continuing Indwelling Catheter: Accurate Measurement of Urinary Output in Critically Ill Patients Urinary Catheter Date of Insertion: 04/03/24 Urinary Catheter Time of Insertion: 10:49 Data 04/09/24 03:16 04/09/24 03:16 A&P Assessment and plan (1) Cardiogenic shock: Goal blood pressure less than 140/90 mmHg with mean over 65. Levophed drip weaned off at night. Continue to monitor blood pressures. Change [place] to 5 mg every 6 hours as needed. (2) Non-ST elevation MN (NSTEMI): History of ischemic cardiomyopathy in the past. In past medical management was decided after discussion with the patient. As per patient he was told he cannot go cardiac angiogram through bilateral groin given history of significant bilateral inguinal hernia. Continues to have significant angina. Continue with isosorbide dinitrate 20 mg twice daily, increase metoprolol to 25 mg twice daily. Add Ranexa 500 mg oral twice daily. Discussed in detail with cardiology. Will consult. Given frailty and the patient, significant bilateral inguinal hernia, CABG in the past, emphysema and COVID for now plan would be to continue with medical management unless patient has significant chest pain or hemodynamic instability. Appreciate repeat troponin cycled. Appreciate A1c, lipid panel. Aspirin 81 mg daily, atorvastatin 80 mg daily. Patient not in cardiogenic shock anymore. Restart metoprolol 25 mg twice daily. Holding off on isosorbide dinitrate for now. If hemodynamics remain stable for next 24 hours will restart. Holding off on diuretics. Continue with Ranexa 1000 mg twice daily. Patient has been on full dose of Lovenox for over a week now. Will transition over to prophylactic dose of Lovenox from today. (3) Acute on chronic hypoxic respiratory failure: Acute on chronic hypoxic respiratory failure. Multifactorial. COPD exacerbation in settings of COVID-19 along with acute on chronic systolic and diastolic congestive heart failure. Currently on heated high flow. Continue nebulization treatment with ipratropium and Xopenex every 4 hours, Pulmicort twice daily. Oxygen supplementation keeping saturation over 88%. Continue with Solu-Medrol 40 mg IV twice daily. Holding off on diuretics because of hypotension. Patient seems euvolemic for now. (4) COVID-19: Hypoxia secondary to COVID-19 pneumonia: Mild to moderate disease. Oxygen supplementation keeping saturation over 88%. Complete the course of remdesivir. Solu-Medrol 40 mg every 12 hourly for now given advanced COPD and emphysema. Pulm better with incentive spirometry and flutter valve. Nebulization treatment as above We will monitor inflammatory markers including CRP every 48 hours. D-dimer mildly elevated to 1.48. CTA done on 03/19 negative for pulmonary embolism. PE so far less likely but patient already on full dose anticoagulation because of non-ST elevation MN. Sputum culture recently grew out stenotrophomonas. Currently negative urine Legionella, bacterial antigen. Cannot rule out underlying pneumonia. Sputum culture in the past positive for stenotrophomonas. Sensitivities appreciated. Patient has finished off the course of antibiotics with IV Zosyn. Last dose of Levaquin on 04/09. Appreciate x-ray without any consolidation for now. Patient has remained afebrile. Hold off on starting any further antibiotics. Mild leukocytosis most likely in setting of steroids. Given hypoxia will try to keep patient as negative as possible. Repeat limited echocardiogram shows EF down to 25% with global LV hypokinesia, severe hypokinesia of mid and apical septum moderate hypokinesia of inferior lateral aguirre. Holding diuretics because of hypotension for now. [place] catheterization. Strict input output charting, daily weights. (5) Congestive heart failure due to cardiomyopathy: Appreciate repeat echocardiogram with EF around 25%. Fluid restriction to less than 1500 cc. Strict input output charting, daily weights. 20 mg oral Lasix daily. Continue with home dose of losartan. Increasing metoprolol. (6) Goals of care, counseling/discussion: With advanced emphysema, at baseline 4.5 L of oxygen, worsening functional capacity, considered less aggressive measures, he has never spoken to anybody about consideration of hospice care and is not interested at current time, but depending on how he recovers he may think about hearing more about it. Similarly he understands that he is at high risk of mortality, complication, further respiratory failure. He did not particularly enjoy being on BiPAP in the past, would really like to avoid it if possible, but would try it if it was necessary states it felt like he was going to make his head explode . He otherwise wants to be full code. In case he could not make his own decisions he names grandson Tawny Dalton of [place] as his surrogate decision-maker or his son Tuan [place]. Discussed all the above in detail with patient's son Mr. Dickerson over the phone. He is agreeable to make medical decisions if and when needed. He is also going to talk to patient's grandson. 04/03: Again discussed the frail nature of patient's health in setting of comorbidities, significant emphysema congestive heart failure in the past, non-ST elevation MN with ongoing angina for which plan is to maximize medical management. Patient verbalizes understanding and wants to remain full code for now. 04/04: Patient continues to have significant angina on minimal exertion. Discussed in detail with the patient that unfortunately patient is almost on maximum medical therapy. Also discussed that he is at a high risk of adverse outcomes with possible cardiac angiogram given history of CABG, significant bilateral inguinal hernia. Discussed most likely he will need to have angiogram through radial if possible. Will consult cardiology for further recommendations. Given his frailty, baseline 4 to 5 L ox supplementation, baseline EF of 35% which is worsening 25% now discussed goals of care further. Patient verbalizes understanding. He wants to change his CODE STATUS to DNR/DNI. He does not want any heroic measures in case of cardiac arrest or respiratory distress. Conveyed patient's decision to his son Mr. Dickerson over the phone. All the questions were answered. 04/07: Patient had significant respiratory compromise overnight going into respiratory failure. Currently on 10 L. Had armando and detailed goals of care discussion with patient and patient's son/Tuan at bedside. We discussed even after maximum medical therapy possible for COPD, COVID-19 and non-ST elevation MN patient unfortunately at baseline has multiple comorbidities and has minimal reserve because of which on minimal compromise he decompensated quite a bit and is still trying to catch up even after 10 hours. Discussed about possible transition to hospice as he is not improving on maximal medical therapy for over a week given his baseline significant comorbidities. Both patient and family verbalizes understanding. Family would like to transfer patient to a higher center for the last ditch effort. We did discuss in detail that even after transfer is excepted it is highly possible that he might not be able to transfer because of very poor respiratory status and he might be declined transfer because of the same. Patient and family verbalized understanding. They would want to initiate transfer while they discussed amongst each other further about possible transition to hospice. 04/08: Discussed with the patient that unfortunately he is in cardiogenic shock now and because of that I will not be able to give him his Imdur and pain medications because those medications will also drop his blood pressures further. Again discussed that unfortunately the medical treatment for now is not making him better. Patient wants to wait for his grandson and son who will be at hospital by 6 PM in the evening to make further decisions. He also has a lot of questions with hospice. 04/09: Patient refused to go to [facility] overnight even though he get a bed at around 3 AM. Had detailed discussion with son Tuan over at the bedside and grandson said over the phone. We discussed again about his comorbidities, clinical illness at this moment including severe respiratory failure, ischemic cardiomyopathy with EF of 25%, cardiogenic shock. Discussed about options of transfer to [facility] for further management and possible cardiac angiogram if he is able to make the journey versus transition to hospice as unfortunately current treatment is not helping him and unfortunately his quality of life will remain poor going forward moreover currently he is on 40 L of oxygen. Patient does not want to be transferred. He would like to discuss further with hospice and make further decisions. (7) Hypertension: Goal blood pressure less than 140/90 mmHg. Blood pressure is at goal for now. Continue with home dose of isosorbide dinitrate, losartan, metoprolol. Will uptitrate as for goal blood pressures. Plan COPD, normally on 4.5 liters of oxygen. CODE STATUS: Discussed in detail with the patient. He would like to remain full code for now. Cardiac diet Protonix for PUD prophylaxis Full dose Lovenox will be sufficient for DVT prophylaxis Aggressive bowel regimen. Attestations Medical Necessity Statement*: Requires further hospitalization for management of non-ST elevation MN, ischemic cardiomyopathy, respiratory failure in setting of cardiogenic shock, congestive heart failure, COVID-19 80 COPD exacerbation [place] further goals of care discussions are done Diagnoses Cardiogenic shock R57.0 Non-ST elevation MN (NSTEMI) I21.4 Acute on chronic hypoxic respiratory failure J96.21 COVID-19 U07.1 Congestive heart failure due to cardiomyopathy I50.9; I42.9 Goals of care, counseling/discussion Z71.89 Hypertension I10
[2024-04-09] MEDS: morphine 4 mg/mL SDV 1 mL 1 MG IVP (13:35)
[2024-04-09] MEDS: glycerin adult supp 1 EACH PR (14:06)
[2024-04-09] MEDS: Fleet Enema 133 mL Enema PR (16:49)
--- NOTE | 2024-04-09 17:46 | PC.NURSE ---
Patient still unable to make decision on plan of care. Declined transfer to [place]. Dr. Tarango aware. Patient also very concerned with bowel habits, requests suppository and enema, patient also doesn't want to take a lot of food in, so he doesn't become constipated.
[2024-04-09] MEDS: atorvastatin 40 mg Tablet PO (20:40)
[2024-04-09] MEDS: tamsulosin 0.4 mg Capsule PO (20:40)
[2024-04-09] MEDS: metoprolol tartrate 25 mg Tablet PO (20:40)
[2024-04-10] VITALS (30 sets, daily range): BP systolic 77–142; BP diastolic 55–88; PULSE 20–95; RESP 15–22; TEMP 36.4–37.1; O2SAT 83–99; BMI 16.0
[2024-04-10] MEDS: HYDROcodone-acetaminophen 5-325 mg Tablet 1 TAB PO ×4 (03:31→21:35)
[2024-04-10 04:13] LABS: Basophils % 0.1 %; Hematocrit 43.4 % (37-53); Lymphocytes # 0.5 10^3/uL (0.8-4.8); Lymphocytes % 3.4 %; Mean Corpuscular HGB Conc 31.1 g/dL (30-55); Mean Corpuscular Hemoglobin 32.3 pg (27-33); Mean Corpuscular Volume 103.8 fl (82-101); Mean Platelet Volume 10.8 fL (7.4-10.4); Monocytes # 1.1 10^3/uL (0.2-0.9); Monocytes % 7.5 %; Neutrophils # 12.32 10^3/uL (1.8-7.7); Neutrophils % 88.3 %; Nucleated Red Blood Cells % 0 %; Platelet Count 236 10^3/cmm (157-399); Red Blood Count 4.18 10^6/uL (3.85-5.65); Red Cell Distribution Width 13.4 % (12.1-15.1); White Blood Count 13.97 10^3/uL (3.29-11.43)
[2024-04-10] MEDS: ipratropium 0.5 mg/2.5 mL Neb INHALATION ×5 (04:19→20:47)
[2024-04-10] MEDS: levalbuterol 0.63 mg/3 mL Neb INHALATION ×5 (04:19→20:47)
[2024-04-10 04:39] LABS: Alanine Aminotransferase 13 U/L (0-41); Albumin Level 4.1 g/dL (3.5-5.2); Alkaline Phosphatase 57 U/L (40-130); Anion Gap 17.5 (5-19); Aspartate Amino Transferase 13 U/L (0-40); Blood Urea Nitrogen 43 mg/dL (8-23); Calcium 8.9 mg/dL (8.5-10.5); Carbon Dioxide 29 mmol/L (22-29); Chloride 94 mmol/L (98-107); Creatinine Clr Calc Pharmacy 47.5386; Globulin 3.2 g/dL (1.3-4.6); Glucose 151 mg/dL (65-115); Osmolality Calculated 296 mOsm/kg (285-295); Potassium 4.5 mmol/L (3.5-5.1); Sodium 136 mmol/L (136-145); Total Bilirubin 0.4 mg/dL (0.15-1.2); Total Protein 7.3 g/dL (6.6-8.7)
--- NOTE | 2024-04-10 07:45 | PM.PN ---
Subjective Subjective: Patient is feeling better. No chest pain. Vitals/I&O/Wt Last Vital Signs Temp 98.1 F 04/10/24 04:00 Pulse 75 04/10/24 06:00 Resp 17 04/10/24 06:00 BP 128/65 04/10/24 06:00 Pulse Ox 93 04/10/24 06:00 O2 Del Method Nasal Cannula 04/10/24 06:00 O2 Flow Rate 5 04/10/24 06:00 FiO2 40 04/09/24 15:27 04/09/24 04/10/24 04/10/24 22:59 06:59 14:59 Intake Total 282 / 642 222 / 864 Output Total 500 / 500 350 / 850 Balance -218 / 142 -128 / 14 Weight last 48 hrs Weight 111 lb 6.746 oz Weight 111 lb 6.746 oz Weight 111 lb 5.335 oz Weight 111 lb 5.335 oz Physical Exam Narrative: GENERAL: Patient is alert, awake and oriented x3. [] NECK: No jugular vein distension. [] HEENT: No cyanosis. No icterus. No pallor. [] HEART: Regular S1 and S2. No murmur, rub or gallop. [] LUNGS: Diminished air entry CENTRAL NERVOUS SYSTEM: Grossly nonfocal. [] EXTREMITIES: Lower extremities with 1+ edema bilaterally. Urinary Catheter Management: Coude: Cath Placed During This Visit: yes Reason for Continuing Indwelling Catheter: Accurate Measurement of Urinary Output in Critically Ill Patients Urinary Catheter Date of Insertion: 04/03/24 Urinary Catheter Time of Insertion: 10:49 Data 04/11/24 04:20 04/11/24 04:20 A&P Assessment and plan (1) Elevated troponin: (2) Congestive heart failure due to cardiomyopathy: (3) Hypertension: (4) COVID-19: (5) Acute on chronic hypoxic respiratory failure: Plan Patient refused to transfer to [place]. Feeling better. Off pressors. Oxygen requirement has improved. Continue management antianginal medicines and dual platelet therapy. Thank you for involving us with care of this patient. Please call with questions. Attestations Medical Necessity Statement*: Care expected to cross 2 midnights Coding Level of Care Code Acute Code for [facility] Fwd Diagnoses Elevated troponin R79.89 Congestive heart failure due to cardiomyopathy I50.9; I42.9 Hypertension I10 COVID-19 U07.1 Acute on chronic hypoxic respiratory failure J96.21
[2024-04-10] MEDS: budesonide 0.5 mg/2 mL Neb INHALATION ×2 (08:52→20:47)
[2024-04-10] MEDS: magnesium hydroxide 30 mL UDC PO (09:39)
[2024-04-10] MEDS: methylPREDNISolone sod succ 40 mg/mL INJ IVP (09:39)
[2024-04-10] MEDS: ranolazine (12HR) 500 mg Tablet 1000 MG PO ×2 (09:39→18:07)
[2024-04-10] MEDS: metoprolol tartrate 25 mg Tablet PO ×2 (09:40→21:34)
[2024-04-10] MEDS: aspirin 81 mg EC Tablet PO (09:40)
[2024-04-10] MEDS: lidocaine 5% Patch 1 PATCH TOPICAL ×2 (09:40→21:35)
[2024-04-10] MEDS: clopidogrel 75 mg Tablet PO (09:40)
[2024-04-10] MEDS: sennosides-docusate Tablet 1 TAB PO ×2 (09:40→18:07)
[2024-04-10] MEDS: sodium chloride 0.9% 1,000 ML 50 ML IV (09:48)
--- NOTE | 2024-04-10 12:16 | PC.OT ---
PER HEART TO HEART ROUNDS; DR HUGO WITH D/C FROM [facility] DUE TO LACK OF PATIENT PARTICIPATION. D/C [facility]
--- NOTE | 2024-04-10 12:46 | P.PN_ITS ---
Subjective 2 Subjective: Today morning seen in ICU with kylah bah at bedside. Patient denies of having any nausea, vomiting, headache. Down to 5 L of oxygen supplementation saturating at 90%. Blood pressures occasionally low overnight. Today morning on examination blood pressure stable while in bed but on sitting up at the edge of the bed going down to 70 systolics with patient feeling dizzy. Vitals/I&O/Wt Last Vital Signs Temp 98.7 F 04/10/24 08:00 Pulse 90 04/10/24 10:00 Resp 22 H 04/10/24 10:00 BP 129/68 04/10/24 10:00 Pulse Ox 95 04/10/24 10:00 O2 Del Method High Flow Nasal Cannula 04/10/24 08:52 O2 Flow Rate 2.5 04/10/24 08:52 FiO2 40 04/09/24 15:27 04/09/24 04/10/24 04/10/24 22:59 06:59 14:59 Intake Total 282 / 642 222 / 864 Output Total 500 / 500 350 / 850 Balance -218 / 142 -128 / 14 Weight last 48 hrs Weight 50.54 kg Weight 50.54 kg Weight 50.5 kg Weight 50.5 kg Physical Exam 2 Narrative: Sick appearing, tired appearing. Const: COMMON NORMALS: patient oriented x3 and alert GENERAL APPEARANCE: c ooperative and frail appearing ORIENTATION/CONSCIOUSNESS: Yes awake, Yes oriented to person, Yes oriented to place and Yes oriented to time HENMT: COMMON NORMALS: oropharynx normal Neck/C-Spine: COMMON NORMALS: no JVD Resp: AUSCULTATION: diminished lung sounds Cardio: COMMON NORMALS: no JVD, regular rhythm, S1 normal heart sound present, S2 normal heart sound present and No murmurs present (Cardio) RHYTHM: regular rhythm HEART SOUNDS: S1 normal heart sound present and S2 normal heart sound present GI: COMMON NORMALS: Normal to inspection, nondistended, normoactive bowel sounds present, Soft to palpation and non-tender PALPATION: Yes Soft to palpation Extremity: COMMON NORMALS: no joint enlargement and no pedal edema Neuro: COMMON NORMALS: patient oriented x3 and moves all extremities S ENSORIUM/ORIENTATION: Yes alert, Yes oriented to person, Yes oriented to place and Yes oriented to time Skin: COMMON NORMALS: no rashes or lesions noted GENERAL SKIN EXAM: no rashes or lesions noted Urinary Catheter Management: Coude: Cath Placed During This Visit: yes Reason for Continuing Indwelling Catheter: Accurate Measurement of Urinary Output in Critically Ill Patients Urinary Catheter Date of Insertion: 04/03/24 Urinary Catheter Time of Insertion: 10:49 Data 04/10/24 03:26 04/10/24 03:26 A&P Assessment and plan (1) Cardiogenic shock: Goal blood pressure less than 140/90 mmHg with mean over 65. Levophed drip weaned off at night. Continue to monitor blood pressures. Change Davis to 5 mg every 6 hours as needed. (2) Non-ST elevation VA (NSTEMI): History of ischemic cardiomyopathy in the past. In past medical management was decided after discussion with the patient. As per patient he was told he cannot go cardiac angiogram through bilateral groin given history of significant bilateral inguinal hernia. Continues to have significant angina. Continue with isosorbide dinitrate 20 mg twice daily, increase metoprolol to 25 mg twice daily. Add Ranexa 500 mg oral twice daily. Discussed in detail with cardiology. Will consult. Given frailty and the patient, significant bilateral inguinal hernia, CABG in the past, emphysema and COVID for now plan would be to continue with medical management unless patient has significant chest pain or hemodynamic instability. Appreciate repeat troponin cycled. Appreciate A1c, lipid panel. Aspirin 81 mg daily, atorvastatin 80 mg daily. Patient not in cardiogenic shock anymore. Restart metoprolol 25 mg twice daily. Holding off on isosorbide dinitrate for now. If hemodynamics remain stable for next 24 hours will restart. Holding off on diuretics. Continue with Ranexa 1000 mg twice daily. Patient has been on full dose of Lovenox for over a week now. Will transition over to prophylactic dose of Lovenox from today. (3) Acute on chronic hypoxic respiratory failure: Acute on chronic hypoxic respiratory failure. Multifactorial. COPD exacerbation in settings of COVID-19 along with acute on chronic systolic and diastolic congestive heart failure. Currently on heated high flow. Continue nebulization treatment with ipratropium and Xopenex every 4 hours, Pulmicort twice daily. Oxygen supplementation keeping saturation over 88%. Continue with Solu-Medrol 40 mg IV twice daily. Holding off on diuretics because of hypotension. Patient seems euvolemic for now. (4) COVID-19: Hypoxia secondary to COVID-19 pneumonia: Mild to moderate disease. Oxygen supplementation keeping saturation over 88%. Complete the course of remdesivir. Solu-Medrol 40 mg every 12 hourly for now given advanced COPD and emphysema. Pulm better with incentive spirometry and flutter valve. Nebulization treatment as above We will monitor inflammatory markers including CRP every 48 hours. D-dimer mildly elevated to 1.48. CTA done on 03/19 negative for pulmonary embolism. PE so far less likely but patient already on full dose anticoagulation because of non-ST elevation VA. Sputum culture recently grew out stenotrophomonas. Currently negative urine Legionella, bacterial antigen. Cannot rule out underlying pneumonia. Sputum culture in the past positive for stenotrophomonas. Sensitivities appreciated. Patient has finished off the course of antibiotics with IV Zosyn. Last dose of Levaquin on 04/09. Appreciate x-ray without any consolidation for now. Patient has remained afebrile. Hold off on starting any further antibiotics. Mild leukocytosis most likely in setting of steroids. Given hypoxia will try to keep patient as negative as possible. Repeat limited echocardiogram shows EF down to 25% with global LV hypokinesia, severe hypokinesia of mid and apical septum moderate hypokinesia of inferior lateral aguirre. Holding diuretics because of hypotension for now. Cortez catheterization. Strict input output charting, daily weights. (5) Congestive heart failure due to cardiomyopathy: Appreciate repeat echocardiogram with EF around 25%. Fluid restriction to less than 1500 cc. Strict input output charting, daily weights. 20 mg oral Lasix daily. Continue with home dose of losartan. Increasing metoprolol. (6) Goals of care, counseling/discussion: With advanced emphysema, at baseline 4.5 L of oxygen, worsening functional capacity, considered less aggressive measures, he has never spoken to anybody about consideration of hospice care and is not interested at current time, but depending on how he recovers he may think about hearing more about it. Similarly he understands that he is at high risk of mortality, complication, further respiratory failure. He did not particularly enjoy being on BiPAP in the past, would really like to avoid it if possible, but would try it if it was necessary states it felt like he was going to make his head explode . He otherwise wants to be full code. In case he could not make his own decisions he names grandson Tawny Dalton of [place] as his surrogate decision-maker or his son Tuan [place]. Discussed all the above in detail with patient's son Mr. Dickerson over the phone. He is agreeable to make medical decisions if and when needed. He is also going to talk to patient's grandson. 04/03: Again discussed the frail nature of patient's health in setting of comorbidities, significant emphysema congestive heart failure in the past, non- ST elevation VA with ongoing angina for which plan is to maximize medical management. Patient verbalizes understanding and wants to remain full code for now. 04/04: Patient continues to have significant angina on minimal exertion. Discussed in detail with the patient that unfortunately patient is almost on maximum medical therapy. Also discussed that he is at a high risk of adverse outcomes with possible cardiac angiogram given history of CABG, significant bilateral inguinal hernia. Discussed most likely he will need to have angiogram through radial if possible. Will consult cardiology for further recommendations. Given his frailty, baseline 4 to 5 L ox supplementation, baseline EF of 35% which is worsening 25% now discussed goals of care further. Patient verbalizes understanding. He wants to change his CODE STATUS to DNR/DNI. He does not want any heroic measures in case of cardiac arrest or respiratory distress. Conveyed patient's decision to his son Mr. Dickerson over the phone. All the questions were answered. 04/07: Patient had significant respiratory compromise overnight going into respiratory failure. Currently on 10 L. Had armando and detailed goals of care discussion with patient and patient's son/Tuan at bedside. We discussed even after maximum medical therapy possible for COPD, COVID-19 and non-ST elevation VA patient unfortunately at baseline has multiple comorbidities and has minimal reserve because of which on minimal compromise he decompensated quite a bit and is still trying to catch up even after 10 hours. Discussed about possible transition to hospice as he is not improving on maximal medical therapy for over a week given his baseline significant comorbidities. Both patient and family verbalizes understanding. Family would like to transfer patient to a higher center for the last ditch effort. We did discuss in detail that even after transfer is excepted it is highly possible that he might not be able to transfer because of very poor respiratory status and he might be declined transfer because of the same. Patient and family verbalized understanding. They would want to initiate transfer while they discussed amongst each other further about possible transition to hospice. 04/08: Discussed with the patient that unfortunately he is in cardiogenic shock now and because of that I will not be able to give him his Imdur and pain medications because those medications will also drop his blood pressures further. Again discussed that unfortunately the medical treatment for now is not making him better. Patient wants to wait for his grandson and son who will be at hospital by 6 PM in the evening to make further decisions. He also has a lot of questions with hospice. 04/09: Patient refused to go to [facility] overnight even though he get a bed at around 3 AM. Had detailed discussion with son Tuan over at the bedside and grandson said over the phone. We discussed again about his comorbidities, clinical illness at this moment including severe respiratory failure, ischemic cardiomyopathy with EF of 25%, cardiogenic shock. Discussed about options of transfer to [facility] for further management and possible cardiac angiogram if he is able to make the journey versus transition to hospice as unfortunately current treatment is not helping him and unfortunately his quality of life will remain poor going forward moreover currently he is on 40 L of oxygen. Patient does not want to be transferred. He would like to discuss further with hospice and make further decisions. (7) Hypertension: Goal blood pressure less than 140/90 mmHg. Blood pressure is at goal for now. Continue with home dose of isosorbide dinitrate, losartan, metoprolol. Will uptitrate as for goal blood pressures. Plan COPD, normally on 4.5 liters of oxygen. CODE STATUS: DNR/DNI Cardiac diet Protonix for PUD prophylaxis Full dose Lovenox will be sufficient for DVT prophylaxis Aggressive bowel regimen. Plan for the day: Continue nebulization treatment. Oxygen supplementation keeping saturation over 88%. Continue with aspirin, Plavix, statin, metoprolol 25 mg twice daily. Holding off on isosorbide dinitrate because of episodes of hypotension. Patient is dehydrated because of poor oral intake. BUN slightly elevated today. Start on gentle IV hydration with normal saline at 50 cc/h for overall 500 cc. Watch for fluid overload. If patient tolerates the fluid well he can most likely continue with gentle IV hydration. Wean Solu-Medrol to 40 mg IV daily. Continue with Ranexa 1 g twice daily. Patient does have mild hematuria. Most likely in setting of pulled Cortez catheter. Check CPK. For now as hemoglobin is stable we will continue with Plavix and Lovenox given significant unstable angina earlier in this admission. If hemoglobin drops can discontinue Lovenox. Patient and family agreeable. Again had long goals of care discussion with patient and family at bedside. Patient declined transfer to [place] yesterday. Patient is still not sure about hospice as he is looking for 24/7 care but he is will not be able to get that through hospice care. Discussed unfortunately he might not qualify for SNF as he is not able to participate with physical therapy. Discussed with him that he is getting close to discharge as he is as stable he is going to get given his significant comorbidities and poor health. Patient is going to think further and would let us know about her discharge plan. For now discharge plan is home with home health with or without hospice. Transfer to [facility]. Attestations 2 Medical Necessity Statement*: Requires further hospitalization for management of hypoxic respiratory failure, unstable angina in a patient with non-ST elevation VA, ischemic cardiomyopathy, resolving cardiogenic shock, emphysema worsening due to COVID-19 Diagnoses Cardiogenic shock R57.0 Non-ST elevation VA (NSTEMI) I21.4 Acute on chronic hypoxic respiratory failure J96.21 COVID-19 U07.1 Congestive heart failure due to cardiomyopathy I50.9; I42.9 Goals of care, counseling/discussion Z71.89 Hypertension I10
[2024-04-10] MEDS: enoxaparin 40 mg/0.4 mL Syringe SUBCUT (12:48)
[2024-04-10 13:40] LABS: Creatine Phosphokinase 15 U/L (39-308)
[2024-04-10] MEDS: fluticasone nasal spray 16gm Btl 1 SPRAY NASAL (18:08)
[2024-04-10] MEDS: tamsulosin 0.4 mg Capsule PO (21:35)
[2024-04-10] MEDS: atorvastatin 40 mg Tablet PO (21:35)
[2024-04-10] MEDS: bisacodyl 10 mg Supp PR (21:35)
[2024-04-11] VITALS (12 sets, daily range): BP systolic 104–147; BP diastolic 59–74; PULSE 64–90; RESP 17–19; TEMP 36.6–36.9; O2SAT 90–96
[2024-04-11] MEDS: ipratropium 0.5 mg/2.5 mL Neb INHALATION ×5 (00:53→19:39)
[2024-04-11] MEDS: levalbuterol 0.63 mg/3 mL Neb INHALATION ×5 (00:53→19:39)
[2024-04-11] MEDS: HYDROcodone-acetaminophen 5-325 mg Tablet 1 TAB PO ×4 (03:55→22:06)
[2024-04-11 04:51] LABS: Basophils % 0.1 %; Hematocrit 40.1 % (37-53); Lymphocytes # 0.9 10^3/uL (0.8-4.8); Mean Corpuscular HGB Conc 30.9 g/dL (30-55); Mean Corpuscular Hemoglobin 32.6 pg (27-33); Mean Corpuscular Volume 105.5 fl (82-101); Mean Platelet Volume 10.6 fL (7.4-10.4); Monocytes # 1.7 10^3/uL (0.2-0.9); Monocytes % 10.9 %; Neutrophils % 82.2 %; Nucleated Red Blood Cells % 0 %; Platelet Count 220 10^3/cmm (157-399); Red Cell Distribution Width 13.8 % (12.1-15.1); White Blood Count 15.09 10^3/uL (3.29-11.43)
[2024-04-11 05:14] LABS: Alanine Aminotransferase 11 U/L (0-41); Albumin Level 3.7 g/dL (3.5-5.2); Alkaline Phosphatase 52 U/L (40-130); Anion Gap 11.1 (5-19); Aspartate Amino Transferase 13 U/L (0-40); Blood Urea Nitrogen 38 mg/dL (8-23); Calcium 8.8 mg/dL (8.5-10.5); Carbon Dioxide 32 mmol/L (22-29); Chloride 100 mmol/L (98-107); Creatinine Clr Calc Pharmacy 53.5233; Globulin 2.5 g/dL (1.3-4.6); Glucose 95 mg/dL (65-115); Osmolality Calculated 295 mOsm/kg (285-295); Potassium 5.1 mmol/L (3.5-5.1); Sodium 138 mmol/L (136-145); Total Bilirubin 0.4 mg/dL (0.15-1.2); Total Protein 6.2 g/dL (6.6-8.7)
[2024-04-11] MEDS: budesonide 0.5 mg/2 mL Neb INHALATION ×2 (07:47→19:39)
--- NOTE | 2024-04-11 09:00 | PC.NURSE ---
While assisting Mabel Coleman RN with turning/repositioning patient, it was noted that patient now has a small open area to his left buttock. Upon assessment, wound is clean and edges are well attached. Patient continues to have stage I to surrounding area and to large area of sacrum. Order obtained from Dr. Dow to cleanse wound and apply Optifoam gentle. Dressing applied and patient repositioned. Mabel Coleman and myself provided patient education on current wound status and plan for preventing worsening (repositioning and dressing changes). He verbalizes understanding. Patient supported with pillows bilaterally at this time.
--- NOTE | 2024-04-11 09:02 | P.PN_ITS ---
Subjective 2 Subjective: Patient had episode of desaturation when he walked and sat up in the chair. No chest pain. Vitals/I&O/Wt Last Vital Signs Temp 98.2 F 04/11/24 07:38 Pulse 77 04/11/24 07:47 Resp 18 04/11/24 07:47 BP 147/74 04/11/24 07:38 Pulse Ox 91 04/11/24 07:47 O2 Del Method High Flow Nasal Cannula 04/11/24 07:47 O2 Flow Rate 4 04/11/24 07:47 FiO2 40 04/09/24 15:27 04/10/24 04/11/24 04/11/24 22:59 06:59 14:59 Intake Total 1480.000 / 1480.000 480 / 1960.000 Output Total 500 / 500 Balance 1480.000 / 1480.000 -20 / 1460.000 Weight last 48 hrs Weight 111 lb 8 oz Weight 111 lb 6.746 oz Weight 111 lb 6.746 oz Physical Exam 2 Narrative: GENERAL: Patient is alert, awake and oriented x3. [] NECK: No jugular vein distension. [] HEENT: No cyanosis. No icterus. No pallor. [] HEART: Regular S1 and S2. No murmur, rub or gallop. [] LUNGS: Diminished air entry CENTRAL NERVOUS SYSTEM: Grossly nonfocal. [] EXTREMITIES: Lower extremities with 1+ edema bilaterally. Urinary Catheter Management: Coude: Cath Placed During This Visit: yes Reason for Continuing Indwelling Catheter: Accurate Measurement of Urinary Output in Critically Ill Patients Urinary Catheter Date of Insertion: 04/03/24 Urinary Catheter Time of Insertion: 10:49 Data 04/12/24 04:00 04/12/24 04:00 A&P Assessment and plan (1) Elevated troponin: (2) Congestive heart failure due to cardiomyopathy: (3) Hypertension: (4) COVID-19: (5) Acute on chronic hypoxic respiratory failure: Plan Stable from cardiac standpoint. His respiratory status intermittently gets worse. Continue dual antiplatelet therapy and Ranexa. Thank you for involving us with care of this patient. Please call with questions. Attestations 2 Medical Necessity Statement*: Care expected to cross 2 midnights. Coding Level of Care Code Acute Code for [facility] Fwd Diagnoses Elevated troponin R79.89 Congestive heart failure due to cardiomyopathy I50.9; I42.9 Hypertension I10 COVID-19 U07.1 Acute on chronic hypoxic respiratory failure J96.21
[2024-04-11] MEDS: magnesium hydroxide 30 mL UDC PO (09:16)
[2024-04-11] MEDS: ranolazine (12HR) 500 mg Tablet 1000 MG PO ×2 (09:16→17:45)
[2024-04-11] MEDS: clopidogrel 75 mg Tablet PO (09:17)
[2024-04-11] MEDS: methylPREDNISolone sod succ 40 mg/mL INJ IVP (09:17)
[2024-04-11] MEDS: aspirin 81 mg EC Tablet PO (09:17)
[2024-04-11] MEDS: sennosides-docusate Tablet 1 TAB PO ×2 (09:17→17:45)
[2024-04-11] MEDS: lidocaine 5% Patch 1 PATCH TOPICAL (09:27)
[2024-04-11] MEDS: metoprolol tartrate 25 mg Tablet PO ×2 (10:11→22:07)
--- NOTE | 2024-04-11 11:33 | PM.DCS ---
Discharge Providers Date of Admission: 04/01/24 14:38 Date of Discharge: April 11, 2024 Attending Provider at Admission: Julio Salguero Attending Provider at Discharge: Kimberly Dow MD Primary Care Provider: Pawel Ordoñez Diagnoses at Discharge Discharge Diagnosis (1) Elevated troponin: Status: Acute (2) Congestive heart failure due to cardiomyopathy: Status: Acute (3) Hypertension: Status: Acute (4) COVID-19: Status: Acute (5) Acute on chronic hypoxic respiratory failure: Status: Acute Reason for Visit Reason for Visit: SOB Physical Exam Urinary Catheter Management: Coude: Cath Placed During This Visit: yes Reason for Continuing Indwelling Catheter: Accurate Measurement of Urinary Output in Critically Ill Patients Urinary Catheter Date of Insertion: 04/03/24 Urinary Catheter Time of Insertion: 10:49 Discharge Data Studies Completed and Pending Completed Studies During Hospitalization Category Date Time Status CXRP [XR chest 1V portable [id number]] Routine Exams 04/07/24 00:14 Completed XR chest 1V portable [id number] Routine Exams 04/03/24 09:15 Completed XR chest 1V portable [id number] Stat Exams 04/01/24 13:15 [place] [id number] Routine Ultrasound 04/01/24 17:42 Completed CV. echo limited [id number] Routine Ultrasound 04/02/24 06:00 Completed Pending at discharge Category Date Time Status Sputum Culture and Gram Stain Routine Lab 04/01/24 17:39 Uncollected Radiology Impressions Venous Duplex 04/01/24 17:42 IMPRESSION: No evidence of deep vein thrombosis. Chest X-Ray 04/07/24 00:14 IMPRESSION: Little interval change. Laboratory Results WBC 15.09 10^3/uL (3.29-11.43) H 04/11/24 04:20 RBC 3.80 10^6/uL (3.85-5.65) L 04/11/24 04:20 Hgb 12.40 g/dL (11.27-16.99) 04/11/24 04:20 Hct 40.1 % (37-53) 04/11/24 04:20 MCV 105.5 fl (82-101) H 04/11/24 04:20 MCH 32.6 pg (27-33) 04/11/24 04:20 MCHC 30.9 g/dL (30-55) 04/11/24 04:20 RDW 13.8 % (12.1-15.1) 04/11/24 04:20 Plt Count 220 10^3/cmm (157-399) 04/11/24 04:20 MPV 10.6 fL (7.4-10.4) H 04/11/24 04:20 Neut % (Auto) 82.2 % 04/11/24 04:20 Lymph % (Auto) 6.0 % 04/11/24 04:20 [place] % (Auto) 10.9 % 04/11/24 04:20 Eos % (Auto) 0.0 % 04/11/24 04:20 Baso % (Auto) 0.1 % 04/11/24 04:20 Neut # (Auto) 12.40 10^3/uL (1.8-7.7) H 04/11/24 04:20 Lymph # (Auto) 0.9 10^3/uL (0.8-4.8) 04/11/24 04:20 [place] # (Auto) 1.7 10^3/uL (0.2-0.9) H 04/11/24 04:20 Eos # (Auto) 0.0 10^3/uL (0.0-0.8) 04/11/24 04:20 Baso # (Auto) 0.0 10^3/uL (0.0-0.1) 04/11/24 04:20 Nucleated RBC % (auto) 0 % 04/11/24 04:20 Nucleated RBCs # 0.0 /100WBC 04/11/24 04:20 ESR 19 mm/hr (0-10) H 04/05/24 04:50 APTT 58.4 SECONDS (23.9-36.7) H 04/02/24 08:02 D-Dimer 1.30 ug/mLFEU (0-0.59) H 04/05/24 04:50 Specimen Type Arterial 04/07/24 15:45 Sample Site Brachial, right 04/07/24 15:45 ABG pH 7.45 (7.35-7.45) 04/07/24 15:45 ABG pCO2 62.4 mmHg (35-45) H* 04/07/24 15:45 ABG pO2 56.0 mmHg (80.0-100.0) L 04/07/24 15:45 ABG PO2/FiO2 Ratio 144 04/04/24 08:38 ABG HCO3 43.3 mmol/L (22-26) H 04/07/24 15:45 ABG O2 Saturation 87.9 04/07/24 15:45 ABG Base Excess 16.7 mmol/L (-2.0-2.0) H 04/07/24 15:45 Mohit Test N/a 04/07/24 15:45 A-a O2 Gradient 2.5 mmHg (5-10) L 04/07/24 15:45 Hematocrit 33.5 % (42-52) L 04/07/24 15:45 Hgb O2 Saturation 86.3 % (95-100) L 04/07/24 15:45 Carboxyhemoglobin 0.7 %THgb (0.4-20.1) 04/07/24 15:45 Methemoglobin 1.1 % (0.4-1.5) 04/07/24 15:45 Total Hemoglobin 10.9 g/dL (14-18) L 04/07/24 15:45 Sodium 137.0 mmol/L (131-143) 04/07/24 15:45 Potassium 4.8 mmol/L (3.5-5.0) 04/07/24 15:45 Glucose 146.0 mg/dL (70-115) H 04/07/24 15:45 Ionized Calcium 1.1 mmol/L (1.1-1.4) 04/07/24 15:45 O2 Delivery Device Nc 04/07/24 15:45 O2 Liters/Min 10.0 % 04/07/24 15:45 FiO2 40.0 % 04/04/24 08:38 Life Sciences Director ID Gd 04/07/24 15:45 Sodium 138 mmol/L (136-145) 04/11/24 04:20 Potassium 5.1 mmol/L (3.5-5.1) 04/11/24 04:20 Chloride 100 mmol/L (98-107) 04/11/24 04:20 Carbon Dioxide 32 mmol/L (22-29) H 04/11/24 04:20 Anion Gap 11.1 (5-19) 04/11/24 04:20 BUN 38 mg/dL (8-23) H 04/11/24 04:20 Creatinine 0.7 mg/dL (0.7-1.2) 04/11/24 04:20 GFR Calculation Not Reportable 04/11/24 04:20 Glucose 95 mg/dL (65-115) 04/11/24 04:20 POC Glucose 144 mg/dL (70-110) H 04/05/24 06:30 Estimat Average Glucose 94 04/02/24 01:07 Hemoglobin A1c 4.9 % (4.0-6.0) 04/02/24 01:07 Calculated Osmolality 295 mOsm/kg (285-295) 04/11/24 04:20 Lactic Acid 2.0 mmol/L (0.5-2.2) 04/01/24 13:27 Calcium 8.8 mg/dL (8.5-10.5) 04/11/24 04:20 Magnesium 2.3 mg/dL (1.7-2.3) 04/05/24 04:50 Iron 26 ug/dL (59-158) L 04/02/24 01:07 TIBC 239 mcg/dl 04/02/24 01:07 % Saturation 10.8 % (20-50) L 04/02/24 01:07 Unsat Iron Binding 213 ug/dL (112-347) 04/02/24 01:07 Total Bilirubin 0.4 mg/dL (0.15-1.2) 04/11/24 04:20 AST 13 U/L (0-40) 04/11/24 04:20 ALT 11 U/L (0-41) 04/11/24 04:20 Alkaline Phosphatase 52 U/L (40-130) 04/11/24 04:20 Creatine Kinase 15 U/L (39-308) L 04/10/24 03:26 Troponin T Baseline 95 ng/L (0-15) H 04/03/24 09:50 Troponin T 120 Minute 97.83 ng/L (0-15) H 04/03/24 11:52 Delta Troponin T 2.83 ABS# (0-10) 04/03/24 11:52 Troponin T Hi Sens 6Hr 120.2 ng/L (0-15) H 04/03/24 16:00 Troponin T Hi Sens 6Hr Delta 25.2 ng/L (0-12) H* 04/03/24 16:00 C-Reactive Protein 5.2 mg/L (0.0-4.9) H 04/05/24 04:50 NT-Pro-B Natriuret Pep 1198 pg/mL (0-450) H 04/07/24 00:48 Total Protein 6.2 g/dL (6.6-8.7) L 04/11/24 04:20 Albumin 3.7 g/dL (3.5-5.2) 04/11/24 04:20 Globulin 2.5 g/dL (1.3-4.6) 04/11/24 04:20 Triglycerides 92 mg/dL (0-150) 04/03/24 05:19 Cholesterol 127 mg/dL (0-200) 04/03/24 05:19 LDL Cholesterol, Calc 56 mg/dL (50-129) 04/03/24 05:19 Total VLDL Cholesterol 18 mg/dL (0-30) 04/03/24 05:19 HDL Cholesterol 53 mg/dL (60-100) L 04/03/24 05:19 Cholesterol/HDL Ratio 2.40 mg/dL (1.0-5.00) 04/03/24 05:19 Vitamin B12 719 pg/mL (232-1245) 04/02/24 01:07 Folate 17.4 ng/mL (4.5-32.2) 04/03/24 05:19 Procalcitonin 0.06 ng/mL (0-0.5) 04/02/24 01:07 TSH 0.24 uIU/mL (0.27-4.20) L 04/02/24 01:07 Free T4 1.23 ng/dL (0.82-1.77) 04/02/24 01:07 Free T3 1.9 PG/ML (2.0-4.4) L 04/02/24 01:07 Urine Color Yellow (Yellow) 04/03/24 00:34 Urine Appearance Clear (CLEAR) 04/03/24 00:34 Urine pH 6 (5-7) 04/03/24 00:34 Ur Specific [place] 1.015 (1.005-1.030) 04/03/24 00:34 Urine Protein 1+ (Negative) H 04/03/24 00:34 Urine Glucose (UA) Norm (Normal) 04/03/24 00:34 Urine Ketones Negative (Negative) 04/03/24 00:34 Urine Blood Neg (Negative) 04/03/24 00:34 Urine Nitrate Negative (Negative) 04/03/24 00:34 Urine Bilirubin Neg (Negative) 04/03/24 00:34 Urine Urobilinogen Neg mg/dL (Negative) 04/03/24 00:34 Ur Leukocyte Esterase Negative (Negative) 04/03/24 00:34 Urine WBC 0-4 /hpf (0-5) H 04/03/24 00:34 Ur Squamous Epith Cells 0-4 /hpf (0-5) H 04/03/24 00:34 Amorphous Sediment Not Reportable 04/03/24 00:34 Urine Bacteria Trace /hpf (NONE) 04/03/24 00:34 Urine Mucus 1+ /hpf 04/03/24 00:34 Adenovirus (PCR) Not detected (NOT DETECT) 04/01/24 20:35 C. pneumoniae DNA (PCR) Not detected (NOT DETECT) 04/01/24 20:35 Coronavirus 229E (PCR) Not detected (NOT DETECT) 04/01/24 20:35 Human Metapneumovir PCR Not detected (NOT DETECT) 04/01/24 20:35 Influenza A (H1) PCR Not detected (NOT DETECT) 04/01/24 20:35 Influ A (H1/09) PCR Not detected (NOT DETECT) 04/01/24 20:35 Influenza A (H3) PCR Not detected (NOT DETECT) 04/01/24 20:35 Influenza Type A (PCR) Not detected (NOT DETECT) 04/01/24 20:35 Influenza Type B (PCR) Not detected (NOT DETECT) 04/01/24 20:35 M. pneumoniae (PCR) Not detected (NOT DETECT) 04/01/24 20:35 Parainfluenza 1 (PCR) Not detected (NOT DETECT) 04/01/24 20:35 Parainfluenza 2 (PCR) Not detected (NOT DETECT) 04/01/24 20:35 Parainfluenza 3 (PCR) Not detected (NOT DETECT) 04/01/24 20:35 Parainfluenza 4 (PCR) Not detected (NOT DETECT) 04/01/24 20:35 RSV Type A (PCR) Not detected (NOT DETECT) 04/01/24 20:35 RSV Type B (PCR) Not detected (NOT DETECT) 04/01/24 20:35 Entero/Rhino (PCR) Not detected (NOT DETECT) 04/01/24 20:35 SARS-CoV-2 (PCR) Detected (NOT DETECT) A 04/01/24 20:35 MRSA (PCR) Not detected (NOT DETECTED) 04/01/24 01:20 Vitals Last Vital Signs Temp 98.2 F 04/11/24 07:38 Pulse 77 04/11/24 07:47 Resp 18 04/11/24 07:47 BP 147/74 04/11/24 07:38 Pulse Ox 91 04/11/24 07:47 O2 Del Method High Flow Nasal Cannula 04/11/24 07:47 O2 Flow Rate 4 04/11/24 07:47 FiO2 40 04/09/24 15:27 Discharge Plan Discharge Patient Disposition: Home Condition: Stable Prescriptions: No Action vitamin X88-sbeay acid 500-400 mcg tablet 1 tab PO DAILY Rx Instructions: administer with a meal tamsulosin 0.4 mg capsule 0.4 mg PO .at bedtime Qty: 30 12RF oxycodone-acetaminophen 10-325 mg tablet 1 tab PO Q6H PRN (Reason: Pain) nitroglycerin 0.4 mg tablet, sublingual 0.4 mg sublingual Q5M PRN (Reason: chest pain) 30 Days Qty: 10 0RF Rx Instructions: do not exceed 3 doses per episode losartan 25 mg tablet 25 mg PO DAILY Qty: 60 3RF atorvastatin 80 mg tablet 80 mg PO DAILY Qty: 30 0RF clopidogrel 75 mg tablet 75 mg PO DAILY Qty: 60 3RF aspirin 81 mg tablet,delayed release (DR/EC) 81 mg PO DAILY Qty: 60 3RF isosorbide dinitrate 10 mg tablet 10 mg PO BID Qty: 60 2RF Rx Instructions: allow nitrate-free interval of 12-14 hrs per 24-hr period bisacodyl 5 mg Tablet,Delayed Release (Dr/Ec) 20 mg PO BID docusate sodium [Colace] 100 mg Capsule 200 mg PO BID metoprolol tartrate 25 mg Tablet 25 mg PO BID@0900,2100 Qty: 120 3RF ipratropium-albuterol 0.5 mg-3 mg(2.5 mg base)/3 mL solution for nebulization 3 ml inhalation Q6H PRN (Reason: shortness of breath or wheezing) Qty: 90 3RF spironolactone 25 mg tablet 25 mg PO DAILY roflumilast 500 mcg tablet 500 mcg PO DAILY Referrals: Pawel Ordoñez [Primary Care Provider] - Patient Instructions: Opioid Safety Coding Level of Care Code Acute Code for Chg Fwd Diagnoses Elevated troponin R79.89 Congestive heart failure due to cardiomyopathy I50.9; I42.9 Hypertension I10 COVID-19 U07.1 Acute on chronic hypoxic respiratory failure J96.21
--- NOTE | 2024-04-11 11:44 | P.PN_ITS ---
Subjective 2 Subjective: Patient seen this morning. History of early decongestion. Had a long discussion with patient regarding hospice, home health versus going home and he states he understands his condition but is not ready for hospice at this time. He states he has help at home. His son helps him. He would like to go home despite knowing he needs help. He is not interested in home health at this time. Patient states that his insurance does not cover more than 3 visits and he does not have money to pay for more. He is understanding is while he is on hospice he will not be able to have his breathing treatments or other medications. He states he was also told he is not allowed to go back to the hospital. Initially patient stated he wants to go home and after he goes home he will decide regarding hospice and go talk to his primary care doctor regarding further decision making. He was set up in the chair and he desaturated down to mid 80s and became slightly short of breath. Patient realizes he is weak and states he is not ready to go home today. He will be thinking about hospice at this point. Of note patient has declined a second opinion and further possibility of angiogram at [facility]. Apparently there was a bed available and patient declined to get transferred at the last minute. I discussed this with him this morning as well he states there is no point and he knows he is nearing the end. Will readdress patient's concerns in the morning and continue to monitor patient in hospital today. Vitals/I&O/Wt Last Vital Signs Temp 98.2 F 04/11/24 07:38 Pulse 77 04/11/24 07:47 Resp 18 04/11/24 07:47 BP 147/74 04/11/24 07:38 Pulse Ox 91 04/11/24 07:47 O2 Del Method High Flow Nasal Cannula 04/11/24 07:47 O2 Flow Rate 4 04/11/24 07:47 FiO2 40 04/09/24 15:27 04/10/24 04/11/24 04/11/24 22:59 06:59 14:59 Intake Total 1480.000 / 1480.000 480 / 1960.000 Output Total 500 / 500 Balance 1480.000 / 1480.000 -20 / 1460.000 Weight last 48 hrs Weight 50.576 kg Weight 50.54 kg Weight 50.54 kg Physical Exam 2 Narrative: Sick appearing, tired appearing. Const: COMMON NORMALS: patient oriented x3 and alert GENERAL APPEARANCE: c ooperative and frail appearing ORIENTATION/CONSCIOUSNESS: Yes awake, Yes oriented to person, Yes oriented to place and Yes oriented to time HENMT: COMMON NORMALS: oropharynx normal Neck/C-Spine: COMMON NORMALS: no JVD Resp: AUSCULTATION: diminished lung sounds OTHER: Does have a rattle when he coughs. Cardio: COMMON NORMALS: no JVD, regular rhythm, S1 normal heart sound present, S2 normal heart sound present and No murmurs present (Cardio) RHYTHM: regular rhythm HEART SOUNDS: S1 normal heart sound present and S2 normal heart sound present GI: COMMON NORMALS: Normal to inspection, nondistended, normoactive bowel sounds present, Soft to palpation and non-tender PALPATION: Yes Soft to palpation Extremity: COMMON NORMALS: no joint enlargement and no pedal edema Neuro: COMMON NORMALS: patient oriented x3 and moves all extremities S ENSORIUM/ORIENTATION: Yes alert, Yes oriented to person, Yes oriented to place and Yes oriented to time Skin: COMMON NORMALS: no rashes or lesions noted GENERAL SKIN EXAM: no rashes or lesions noted Urinary Catheter Management: Coude: Cath Placed During This Visit: yes Reason for Continuing Indwelling Catheter: Accurate Measurement of Urinary Output in Critically Ill Patients Urinary Catheter Date of Insertion: 04/03/24 Urinary Catheter Time of Insertion: 10:49 Data 04/11/24 04:20 04/11/24 04:20 A&P Assessment and plan (1) Cardiogenic shock: Goal blood pressure less than 140/90 mmHg with mean over 65. Levophed drip weaned off at night. Continue to monitor blood pressures. Change [place] to 5 mg every 6 hours as needed. (2) Non-ST elevation NV (NSTEMI): History of ischemic cardiomyopathy in the past. In past medical management was decided after discussion with the patient. As per patient he was told he cannot go cardiac angiogram through bilateral groin given history of significant bilateral inguinal hernia. Continues to have significant angina. Continue with isosorbide dinitrate 20 mg twice daily, increase metoprolol to 25 mg twice daily. Add Ranexa 500 mg oral twice daily. Discussed in detail with cardiology. Will consult. Given frailty and the patient, significant bilateral inguinal hernia, CABG in the past, emphysema and COVID for now plan would be to continue with medical management unless patient has significant chest pain or hemodynamic instability. Appreciate repeat troponin cycled. Appreciate A1c, lipid panel. Aspirin 81 mg daily, atorvastatin 80 mg daily. Patient not in cardiogenic shock anymore. Restart metoprolol 25 mg twice daily. Holding off on isosorbide dinitrate for now. If hemodynamics remain stable for next 24 hours will restart. Holding off on diuretics. Continue with Ranexa 1000 mg twice daily. Patient has been on full dose of Lovenox for over a week now. Will transition over to prophylactic dose of Lovenox from today. (3) Acute on chronic hypoxic respiratory failure: Acute on chronic hypoxic respiratory failure. Multifactorial. COPD exacerbation in settings of COVID-19 along with acute on chronic systolic and diastolic congestive heart failure. Currently on heated high flow. Continue nebulization treatment with ipratropium and Xopenex every 4 hours, Pulmicort twice daily. Oxygen supplementation keeping saturation over 88%. Continue with Solu-Medrol 40 mg IV twice daily. Holding off on diuretics because of hypotension. Patient seems euvolemic for now. (4) COVID-19: Hypoxia secondary to COVID-19 pneumonia: Mild to moderate disease. Oxygen supplementation keeping saturation over 88%. Complete the course of remdesivir. Solu-Medrol 40 mg every 12 hourly for now given advanced COPD and emphysema. Pulm better with incentive spirometry and flutter valve. Nebulization treatment as above We will monitor inflammatory markers including CRP every 48 hours. D-dimer mildly elevated to 1.48. CTA done on 03/19 negative for pulmonary embolism. PE so far less likely but patient already on full dose anticoagulation because of non-ST elevation NV. Sputum culture recently grew out stenotrophomonas. Currently negative urine Legionella, bacterial antigen. Cannot rule out underlying pneumonia. Sputum culture in the past positive for stenotrophomonas. Sensitivities appreciated. Patient has finished off the course of antibiotics with IV Zosyn. Last dose of Levaquin on 04/09. Appreciate x-ray without any consolidation for now. Patient has remained afebrile. Hold off on starting any further antibiotics. Mild leukocytosis most likely in setting of steroids. Given hypoxia will try to keep patient as negative as possible. Repeat limited echocardiogram shows EF down to 25% with global LV hypokinesia, severe hypokinesia of mid and apical septum moderate hypokinesia of inferior lateral aguirre. Holding diuretics because of hypotension for now. Cortez catheterization. Strict input output charting, daily weights. (5) Congestive heart failure due to cardiomyopathy: Appreciate repeat echocardiogram with EF around 25%. Fluid restriction to less than 1500 cc. Strict input output charting, daily weights. 20 mg oral Lasix daily. Continue with home dose of losartan. Increasing metoprolol. (6) Goals of care, counseling/discussion: With advanced emphysema, at baseline 4.5 L of oxygen, worsening functional capacity, considered less aggressive measures, he has never spoken to anybody about consideration of hospice care and is not interested at current time, but depending on how he recovers he may think about hearing more about it. Similarly he understands that he is at high risk of mortality, complication, further respiratory failure. He did not particularly enjoy being on BiPAP in the past, would really like to avoid it if possible, but would try it if it was necessary states it felt like he was going to make his head explode . He otherwise wants to be full code. In case he could not make his own decisions he names grandson Tanwy Dalton of [place] as his surrogate decision-maker or his son Tuan Dalton. Discussed all the above in detail with patient's son Mr. Dickerson over the phone. He is agreeable to make medical decisions if and when needed. He is also going to talk to patient's grandson. 04/03: Again discussed the frail nature of patient's health in setting of comorbidities, significant emphysema congestive heart failure in the past, non- ST elevation NV with ongoing angina for which plan is to maximize medical management. Patient verbalizes understanding and wants to remain full code for now. 04/04: Patient continues to have significant angina on minimal exertion. Discussed in detail with the patient that unfortunately patient is almost on maximum medical therapy. Also discussed that he is at a high risk of adverse outcomes with possible cardiac angiogram given history of CABG, significant bilateral inguinal hernia. Discussed most likely he will need to have angiogram through radial if possible. Will consult cardiology for further recommendations. Given his frailty, baseline 4 to 5 L ox supplementation, baseline EF of 35% which is worsening 25% now discussed goals of care further. Patient verbalizes understanding. He wants to change his CODE STATUS to DNR/DNI. He does not want any heroic measures in case of cardiac arrest or respiratory distress. Conveyed patient's decision to his son Mr. Dickerson over the phone. All the questions were answered. 04/07: Patient had significant respiratory compromise overnight going into respiratory failure. Currently on 10 L. Had armando and detailed goals of care discussion with patient and patient's son/Tuan at bedside. We discussed even after maximum medical therapy possible for COPD, COVID-19 and non-ST elevation NV patient unfortunately at baseline has multiple comorbidities and has minimal reserve because of which on minimal compromise he decompensated quite a bit and is still trying to catch up even after 10 hours. Discussed about possible transition to hospice as he is not improving on maximal medical therapy for over a week given his baseline significant comorbidities. Both patient and family verbalizes understanding. Family would like to transfer patient to a higher center for the last ditch effort. We did discuss in detail that even after transfer is excepted it is highly possible that he might not be able to transfer because of very poor respiratory status and he might be declined transfer because of the same. Patient and family verbalized understanding. They would want to initiate transfer while they discussed amongst each other further about possible transition to hospice. 04/08: Discussed with the patient that unfortunately he is in cardiogenic shock now and because of that I will not be able to give him his Imdur and pain medications because those medications will also drop his blood pressures further. Again discussed that unfortunately the medical treatment for now is not making him better. Patient wants to wait for his grandson and son who will be at hospital by 6 PM in the evening to make further decisions. He also has a lot of questions with hospice. 04/09: Patient refused to go to [facility] overnight even though he get a bed at around 3 AM. Had detailed discussion with son Tuan over at the bedside and grandson said over the phone. We discussed again about his comorbidities, clinical illness at this moment including severe respiratory failure, ischemic cardiomyopathy with EF of 25%, cardiogenic shock. Discussed about options of transfer to [facility] for further management and possible cardiac angiogram if he is able to make the journey versus transition to hospice as unfortunately current treatment is not helping him and unfortunately his quality of life will remain poor going forward moreover currently he is on 40 L of oxygen. Patient does not want to be transferred. He would like to discuss further with hospice and make further decisions. (7) Hypertension: Goal blood pressure less than 140/90 mmHg. Blood pressure is at goal for now. Continue with home dose of isosorbide dinitrate, losartan, metoprolol. Will uptitrate as for goal blood pressures. Plan COPD, normally on 4.5 liters of oxygen. CODE STATUS: DNR/DNI Cardiac diet Protonix for PUD prophylaxis Full dose Lovenox will be sufficient for DVT prophylaxis Aggressive bowel regimen. Plan for the day: Continue nebulization treatment. Oxygen supplementation keeping saturation over 88%. Continue with aspirin, Plavix, statin, metoprolol 25 mg twice daily. Holding off on isosorbide dinitrate because of episodes of hypotension. Patient is dehydrated because of poor oral intake. BUN slightly elevated today. Start on gentle IV hydration with normal saline at 50 cc/h for overall 500 cc. Watch for fluid overload. If patient tolerates the fluid well he can most likely continue with gentle IV hydration. Wean Solu-Medrol to 40 mg IV daily. Continue with Ranexa 1 g twice daily. Patient does have mild hematuria. Most likely in setting of pulled Cortez catheter. Check CPK. For now as hemoglobin is stable we will continue with Plavix and Lovenox given significant unstable angina earlier in this admission. If hemoglobin drops can discontinue Lovenox. Patient and family agreeable. Again had long goals of care discussion with patient and family at bedside. Patient declined transfer to [facility] yesterday. Patient is still not sure about hospice as he is looking for 07/03 care but he is will not be able to get that through hospice care. Discussed unfortunately he might not qualify for SNF as he is not able to participate with physical therapy. Discussed with him that he is getting close to discharge as he is as stable he is going to get given his significant comorbidities and poor health. Patient is going to think further and would let us know about her discharge plan. For now discharge plan is home with home health with or without hospice. Transfer to [facility]. 04/11: Please see subjective portion of this note. At this point patient is severely deconditioned and is still thinking about hospice versus home health versus home. They would like to keep his breathing treatments and medications for comfort which I have assured the patient will not be taken away regardless of what decision he makes. He also would like to have the ability to come back to the hospital when and if he gets sick. We had a long discussion regarding what hospice entails and patient is still deciding on which way to go. Continue current treatment in the hospital and readdress above concerns tomorrow. Will hold off on discharge today. Attestations 2 Medical Necessity Statement*: Requires further hospitalization for management of hypoxic respiratory failure, unstable angina in a patient with non-ST elevation NV, ischemic cardiomyopathy, resolving cardiogenic shock, emphysema worsening due to COVID-19 Diagnoses Cardiogenic shock R57.0 Non-ST elevation NV (NSTEMI) I21.4 Acute on chronic hypoxic respiratory failure J96.21 COVID-19 U07.1 Congestive heart failure due to cardiomyopathy I50.9; I42.9 Goals of care, counseling/discussion Z71.89 Hypertension I10
[2024-04-11] MEDS: enoxaparin 40 mg/0.4 mL Syringe SUBCUT (14:50)
[2024-04-11] MEDS: tamsulosin 0.4 mg Capsule PO (22:05)
[2024-04-11] MEDS: atorvastatin 40 mg Tablet PO (22:06)
[2024-04-12] VITALS (13 sets, daily range): BP systolic 109–125; BP diastolic 56–67; PULSE 65–87; RESP 16–24; TEMP 36.4–36.7; O2SAT 88–98
[2024-04-12] MEDS: ipratropium 0.5 mg/2.5 mL Neb INHALATION ×4 (00:19→11:14)
[2024-04-12] MEDS: levalbuterol 0.63 mg/3 mL Neb INHALATION ×4 (00:19→11:14)
[2024-04-12] MEDS: ipratropium-albuterol 3 mL Neb INHALATION (00:19)
[2024-04-12] MEDS: oxyCODONE-APAP 10-325 mg Tablet 1 TAB PO ×2 (01:03→07:57)
[2024-04-12 04:26] LABS: Basophils % 0.2 %; Eosinophils % 0.1 %; Hematocrit 37.7 % (37-53); Mean Corpuscular HGB Conc 31.3 g/dL (30-55); Mean Corpuscular Hemoglobin 32.4 pg (27-33); Mean Corpuscular Volume 103.6 fl (82-101); Mean Platelet Volume 10.5 fL (7.4-10.4); Monocytes # 2.1 10^3/uL (0.2-0.9); Monocytes % 10.6 %; Neutrophils # 16.38 10^3/uL (1.8-7.7); Neutrophils % 83.5 %; Nucleated Red Blood Cells % 0 %; Platelet Count 199 10^3/cmm (157-399); Red Blood Count 3.64 10^6/uL (3.85-5.65); Red Cell Distribution Width 13.6 % (12.1-15.1); White Blood Count 19.59 10^3/uL (3.29-11.43)
[2024-04-12 04:29] LABS: Blood Urea Nitrogen 31 mg/dL (8-23); Calcium 8.3 mg/dL (8.5-10.5); Carbon Dioxide 33 mmol/L (22-29); Chloride 97 mmol/L (98-107); Creatinine Clr Calc Pharmacy 53.5614; Glucose 123 mg/dL (65-115); Magnesium 2.5 mg/dL (1.7-2.3); Osmolality Calculated 288 mOsm/kg (285-295); Sodium 135 mmol/L (136-145)
[2024-04-12 04:31] LABS: Anion Gap 9.1 (5-19); Potassium 4.1 mmol/L (3.5-5.1)
[2024-04-12] MEDS: ranolazine (12HR) 500 mg Tablet 1000 MG PO (07:56)
[2024-04-12] MEDS: magnesium hydroxide 30 mL UDC PO (07:56)
[2024-04-12] MEDS: atorvastatin 40 mg Tablet PO (07:57)
[2024-04-12] MEDS: clopidogrel 75 mg Tablet PO (07:57)
[2024-04-12] MEDS: sennosides-docusate Tablet 1 TAB PO (07:57)
[2024-04-12] MEDS: metoprolol tartrate 25 mg Tablet PO (07:57)
[2024-04-12] MEDS: aspirin 81 mg EC Tablet PO (07:58)
[2024-04-12] MEDS: methylPREDNISolone sod succ 40 mg/mL INJ IVP (08:00)
[2024-04-12] MEDS: budesonide 0.5 mg/2 mL Neb INHALATION (08:07)
--- NOTE | 2024-04-12 08:45 | P.PN_ITS ---
Subjective 2 Subjective: No chest pain. Patient has decided to be discharged with hospice. Vitals/I&O/Wt Last Vital Signs Temp 97.6 F 04/12/24 07:56 Pulse 83 04/12/24 08:32 Resp 16 04/12/24 08:10 BP 125/56 04/12/24 07:56 Pulse Ox 95 04/12/24 08:10 O2 Del Method High Flow Nasal Cannula 04/12/24 08:10 O2 Flow Rate 4 04/12/24 08:10 FiO2 40 04/09/24 15:27 04/11/24 04/12/24 04/12/24 22:59 06:59 14:59 Intake Total 100 / 100 Output Total 150 / 150 300 / 450 Balance -50 / -50 -300 / -350 Weight last 48 hrs Weight 111 lb 8 oz Weight 111 lb 8 oz Physical Exam 2 Narrative: GENERAL: Patient is alert, awake and oriented x3. [] NECK: No jugular vein distension. [] HEENT: No cyanosis. No icterus. No pallor. [] HEART: Regular S1 and S2. No murmur, rub or gallop. [] LUNGS: Diminished air entry CENTRAL NERVOUS SYSTEM: Grossly nonfocal. [] EXTREMITIES: Lower extremities with 1+ edema bilaterally. Urinary Catheter Management: Coude: Cath Placed During This Visit: yes Reason for Continuing Indwelling Catheter: Accurate Measurement of Urinary Output in Critically Ill Patients Urinary Catheter Date of Insertion: 04/03/24 Urinary Catheter Time of Insertion: 10:49 Data 04/12/24 04:00 04/12/24 04:00 A&P Assessment and plan (1) Elevated troponin: (2) Congestive heart failure due to cardiomyopathy: (3) Hypertension: (4) COVID-19: (5) Acute on chronic hypoxic respiratory failure: Plan Patient is chest pain free. Plan for discharge with hospice. Continue dual antiplatelet therapy, metoprolol and ranexa. Thank you for involving us with care of this patient. Please call with questions. Attestations 2 Medical Necessity Statement*: Care expected to cross 2 midnights. Coding Level of Care Code Acute Code for [facility] Fwd Diagnoses Elevated troponin R79.89 Congestive heart failure due to cardiomyopathy I50.9; I42.9 Hypertension I10 COVID-19 U07.1 Acute on chronic hypoxic respiratory failure J96.21
--- NOTE | 2024-04-12 09:54 | P.DS_ITS ---
Discharge Providers Date of Admission: 04/01/24 14:38 Date of Discharge: April 12, 2024 Attending Provider at Admission: Julio Salguero Attending Provider at Discharge: Kimberly Dow MD Primary Care Provider: Pawel Ordoñez Diagnoses at Discharge Discharge Diagnosis (1) Elevated troponin: Status: Resolved (2) Congestive heart failure due to cardiomyopathy: Status: Acute (3) Hypertension: Status: Acute (4) COVID-19: Status: Acute (5) Acute on chronic hypoxic respiratory failure: Status: Acute Reason for Visit Reason for Visit: SOB Hospital Course Hospital Course Please see progress notes for further details. Patient was initially admitted and was treated for cardiogenic genic shock during hospitalization, cardiology was on board. He did also complete treatment for COVID-19 with steroids and and nebulization. Patient continues to have significant angina on minimal exertion. Patient has been maximized on medical therapy. He is at high risk for adverse outcomes with possible cardiac angiogram given history of CABG, significant bilateral inguinal hernia. Patient was offered transfer to [facility] for potential angiogram however after a bed was available patient declined to get transferred at the last minute. He stated he wanted to change his CODE STATUS to DNR/DNI and did not want any heroic measures. Thereafter patient was quite ill minded regarding further management and wanted to go home. Refused senior care facility placement as well. Eventually patient decided to go home with hospice. He would like to keep his breathing treatments and his medications. He also wanted to make sure he can come back to the hospital when and if he wanted to and he was assured he may able to do that. At this time however he would like to go home with hospice services. Case management was notified and referral was placed. Patient discharged home in fair condition. Physical Exam Narrative: Sick appearing, tired appearing. Const: COMMON NORMALS: patient oriented x3 and alert GENERAL APPEARANCE: cooperative and frail appearing ORIENTATION/CONSCIOUSNESS: Yes awake, Yes oriented to person, Yes oriented to place and Yes oriented to time HENMT: COMMON NORMALS: oropharynx normal Resp: AUSCULTATION: diminished lung sounds OTHER: Does have a rattle when he coughs. Cardio: COMMON NORMALS: regular rhythm, S1 normal heart sound present, S2 normal heart sound present and No murmurs present (Cardio) RHYTHM: regular rhythm HEART SOUNDS: S1 normal heart sound present and S2 normal heart sound present GI: COMMON NORMALS: Normal to inspection, nondistended, normoactive bowel sounds present, Soft to palpation and non-tender PALPATION: Yes Soft to palpation Extremity: COMMON NORMALS: no joint enlargement and no pedal edema Neuro: COMMON NORMALS: patient oriented x3 and moves all extremities SENSORIUM/ORIENTATION: Yes alert, Yes oriented to person, Yes oriented to place and Yes oriented to time Skin: COMMON NORMALS: no rashes or lesions noted GENERAL SKIN EXAM: no rashes or lesions noted Urinary Catheter Management: Coude: Cath Placed During This Visit: yes Reason for Continuing Indwelling Catheter: Accurate Measurement of Urinary Output in Critically Ill Patients Urinary Catheter Date of Insertion: 04/03/24 Urinary Catheter Time of Insertion: 10:49 Discharge Data Studies Completed and Pending Completed Studies During Hospitalization Category Date Time Status CXRP [XR chest 1V portable [id number]] Routine Exams 04/07/24 00:14 Completed XR chest 1V portable [id number] Routine Exams 04/03/24 09:15 Completed XR chest 1V portable [id number] Stat Exams 04/01/24 13:15 [place] [id number] Routine Ultrasound 04/01/24 17:42 Completed CV. echo limited [id number] Routine Ultrasound 04/02/24 06:00 Completed Pending at discharge Category Date Time Status Sputum Culture and Gram Stain Routine Lab 04/01/24 17:39 Uncollected Radiology Impressions Venous Duplex 04/01/24 17:42 IMPRESSION: No evidence of deep vein thrombosis. Chest X-Ray 04/07/24 00:14 IMPRESSION: Little interval change. Laboratory Results WBC 19.59 10^3/uL (3.29-11.43) H 04/12/24 04:00 RBC 3.64 10^6/uL (3.85-5.65) L 04/12/24 04:00 Hgb 11.80 g/dL (11.27-16.99) 04/12/24 04:00 Hct 37.7 % (37-53) 04/12/24 04:00 MCV 103.6 fl (82-101) H 04/12/24 04:00 MCH 32.4 pg (27-33) 04/12/24 04:00 MCHC 31.3 g/dL (30-55) 04/12/24 04:00 RDW 13.6 % (12.1-15.1) 04/12/24 04:00 Plt Count 199 10^3/cmm (157-399) 04/12/24 04:00 MPV 10.5 fL (7.4-10.4) H 04/12/24 04:00 Neut % (Auto) 83.5 % 04/12/24 04:00 Lymph % (Auto) 5.0 % 04/12/24 04:00 [place] % (Auto) 10.6 % 04/12/24 04:00 Eos % (Auto) 0.1 % 04/12/24 04:00 Baso % (Auto) 0.2 % 04/12/24 04:00 Neut # (Auto) 16.38 10^3/uL (1.8-7.7) H 04/12/24 04:00 Lymph # (Auto) 1.0 10^3/uL (0.8-4.8) 04/12/24 04:00 [place] # (Auto) 2.1 10^3/uL (0.2-0.9) H 04/12/24 04:00 Eos # (Auto) 0.0 10^3/uL (0.0-0.8) 04/12/24 04:00 Baso # (Auto) 0.0 10^3/uL (0.0-0.1) 04/12/24 04:00 Nucleated RBC % (auto) 0 % 04/12/24 04:00 Nucleated RBCs # 0.0 /100WBC 04/12/24 04:00 ESR 19 mm/hr (0-10) H 04/05/24 04:50 APTT 58.4 SECONDS (23.9-36.7) H 04/02/24 08:02 D-Dimer 1.30 ug/mLFEU (0-0.59) H 04/05/24 04:50 Specimen Type Arterial 04/07/24 15:45 Sample Site Brachial, right 04/07/24 15:45 ABG pH 7.45 (7.35-7.45) 04/07/24 15:45 ABG pCO2 62.4 mmHg (35-45) H* 04/07/24 15:45 ABG pO2 56.0 mmHg (80.0-100.0) L 04/07/24 15:45 ABG PO2/FiO2 Ratio 144 04/04/24 08:38 ABG HCO3 43.3 mmol/L (22-26) H 04/07/24 15:45 ABG O2 Saturation 87.9 04/07/24 15:45 ABG Base Excess 16.7 mmol/L (-2.0-2.0) H 04/07/24 15:45 Mohit Test N/a 04/07/24 15:45 A-a O2 Gradient 2.5 mmHg (5-10) L 04/07/24 15:45 Hematocrit 33.5 % (42-52) L 04/07/24 15:45 Hgb O2 Saturation 86.3 % (95-100) L 04/07/24 15:45 Carboxyhemoglobin 0.7 %THgb (0.4-20.1) 04/07/24 15:45 Methemoglobin 1.1 % (0.4-1.5) 04/07/24 15:45 Total Hemoglobin 10.9 g/dL (14-18) L 04/07/24 15:45 Sodium 137.0 mmol/L (131-143) 04/07/24 15:45 Potassium 4.8 mmol/L (3.5-5.0) 04/07/24 15:45 Glucose 146.0 mg/dL (70-115) H 04/07/24 15:45 Ionized Calcium 1.1 mmol/L (1.1-1.4) 04/07/24 15:45 O2 Delivery Device Nc 04/07/24 15:45 O2 Liters/Min 10.0 % 04/07/24 15:45 FiO2 40.0 % 04/04/24 08:38 Software Sales Representative ID [id number] 04/07/24 15:45 Sodium 135 mmol/L (136-145) L 04/12/24 04:00 Potassium 4.1 mmol/L (3.5-5.1) 04/12/24 04:00 Chloride 97 mmol/L (98-107) L 04/12/24 04:00 Carbon Dioxide 33 mmol/L (22-29) H 04/12/24 04:00 Anion Gap 9.1 (5-19) 04/12/24 04:00 BUN 31 mg/dL (8-23) H 04/12/24 04:00 Creatinine 0.6 mg/dL (0.7-1.2) L 04/12/24 04:00 GFR Calculation Not Reportable 04/12/24 04:00 Glucose 123 mg/dL (65-115) H 04/12/24 04:00 POC Glucose 144 mg/dL (70-110) H 04/05/24 06:30 Estimat Average Glucose 94 04/02/24 01:07 Hemoglobin A1c 4.9 % (4.0-6.0) 04/02/24 01:07 Calculated Osmolality 288 mOsm/kg (285-295) 04/12/24 04:00 Lactic Acid 2.0 mmol/L (0.5-2.2) 04/01/24 13:27 Calcium 8.3 mg/dL (8.5-10.5) L 04/12/24 04:00 Magnesium 2.5 mg/dL (1.7-2.3) H 04/12/24 04:00 Iron 26 ug/dL (59-158) L 04/02/24 01:07 TIBC 239 mcg/dl 04/02/24 01:07 % Saturation 10.8 % (20-50) L 04/02/24 01:07 Unsat Iron Binding 213 ug/dL (112-347) 04/02/24 01:07 Total Bilirubin 0.4 mg/dL (0.15-1.2) 04/11/24 04:20 AST 13 U/L (0-40) 04/11/24 04:20 ALT 11 U/L (0-41) 04/11/24 04:20 Alkaline Phosphatase 52 U/L (40-130) 04/11/24 04:20 Creatine Kinase 15 U/L (39-308) L 04/10/24 03:26 Troponin T Baseline 95 ng/L (0-15) H 04/03/24 09:50 Troponin T 120 Minute 97.83 ng/L (0-15) H 04/03/24 11:52 Delta Troponin T 2.83 ABS# (0-10) 04/03/24 11:52 Troponin T Hi Sens 6Hr 120.2 ng/L (0-15) H 04/03/24 16:00 Troponin T Hi Sens 6Hr Delta 25.2 ng/L (0-12) H* 04/03/24 16:00 C-Reactive Protein 5.2 mg/L (0.0-4.9) H 04/05/24 04:50 NT-Pro-B Natriuret Pep 1198 pg/mL (0-450) H 04/07/24 00:48 Total Protein 6.2 g/dL (6.6-8.7) L 04/11/24 04:20 Albumin 3.7 g/dL (3.5-5.2) 04/11/24 04:20 Globulin 2.5 g/dL (1.3-4.6) 04/11/24 04:20 Triglycerides 92 mg/dL (0-150) 04/03/24 05:19 Cholesterol 127 mg/dL (0-200) 04/03/24 05:19 LDL Cholesterol, Calc 56 mg/dL (50-129) 04/03/24 05:19 Total VLDL Cholesterol 18 mg/dL (0-30) 04/03/24 05:19 HDL Cholesterol 53 mg/dL (60-100) L 04/03/24 05:19 Cholesterol/HDL Ratio 2.40 mg/dL (1.0-5.00) 04/03/24 05:19 Vitamin B12 719 pg/mL (232-1245) 04/02/24 01:07 Folate 17.4 ng/mL (4.5-32.2) 04/03/24 05:19 Procalcitonin 0.06 ng/mL (0-0.5) 04/02/24 01:07 TSH 0.24 uIU/mL (0.27-4.20) L 04/02/24 01:07 Free T4 1.23 ng/dL (0.82-1.77) 04/02/24 01:07 Free T3 1.9 PG/ML (2.0-4.4) L 04/02/24 01:07 Urine Color Yellow (Yellow) 04/03/24 00:34 Urine Appearance Clear (CLEAR) 04/03/24 00:34 Urine pH 6 (5-7) 04/03/24 00:34 Ur Specific [place] 1.015 (1.005-1.030) 04/03/24 00:34 Urine Protein 1+ (Negative) H 04/03/24 00:34 Urine Glucose (UA) Norm (Normal) 04/03/24 00:34 Urine Ketones Negative (Negative) 04/03/24 00:34 Urine Blood Neg (Negative) 04/03/24 00:34 Urine Nitrate Negative (Negative) 04/03/24 00:34 Urine Bilirubin Neg (Negative) 04/03/24 00:34 Urine Urobilinogen Neg mg/dL (Negative) 04/03/24 00:34 Ur Leukocyte Esterase Negative (Negative) 04/03/24 00:34 Urine WBC 0-4 /hpf (0-5) H 04/03/24 00:34 Ur Squamous Epith Cells 0-4 /hpf (0-5) H 04/03/24 00:34 Amorphous Sediment Not Reportable 04/03/24 00:34 Urine Bacteria Trace /hpf (NONE) 04/03/24 00:34 Urine Mucus 1+ /hpf 04/03/24 00:34 Adenovirus (PCR) Not detected (NOT DETECT) 04/01/24 20:35 C. pneumoniae DNA (PCR) Not detected (NOT DETECT) 04/01/24 20:35 Coronavirus 229E (PCR) Not detected (NOT DETECT) 04/01/24 20:35 Human Metapneumovir PCR Not detected (NOT DETECT) 04/01/24 20:35 Influenza A (H1) PCR Not detected (NOT DETECT) 04/01/24 20:35 Influ A (H1/09) PCR Not detected (NOT DETECT) 04/01/24 20:35 Influenza A (H3) PCR Not detected (NOT DETECT) 04/01/24 20:35 Influenza Type A (PCR) Not detected (NOT DETECT) 04/01/24 20:35 Influenza Type B (PCR) Not detected (NOT DETECT) 04/01/24 20:35 M. pneumoniae (PCR) Not detected (NOT DETECT) 04/01/24 20:35 Parainfluenza 1 (PCR) Not detected (NOT DETECT) 04/01/24 20:35 Parainfluenza 2 (PCR) Not detected (NOT DETECT) 04/01/24 20:35 Parainfluenza 3 (PCR) Not detected (NOT DETECT) 04/01/24 20:35 Parainfluenza 4 (PCR) Not detected (NOT DETECT) 04/01/24 20:35 RSV Type A (PCR) Not detected (NOT DETECT) 04/01/24 20:35 RSV Type B (PCR) Not detected (NOT DETECT) 04/01/24 20:35 Entero/Rhino (PCR) Not detected (NOT DETECT) 04/01/24 20:35 SARS-CoV-2 (PCR) Detected (NOT DETECT) A 04/01/24 20:35 MRSA (PCR) Not detected (NOT DETECTED) 04/01/24 01:20 Vitals Last Vital Signs Temp 97.6 F 04/12/24 07:56 Pulse 83 04/12/24 08:32 Resp 16 04/12/24 08:10 BP 125/56 04/12/24 07:56 Pulse Ox 95 04/12/24 08:10 O2 Del Method High Flow Nasal Cannula 04/12/24 08:10 O2 Flow Rate 4 04/12/24 08:10 FiO2 40 04/09/24 15:27 Discharge Plan Discharge Patient Disposition: Hospice - Home Condition: Fair Prescriptions: New ranolazine 500 mg Tablet Extended Release 12 Hr 1,000 mg PO BID Qty: 60 0RF prednisone 20 mg tablet 20 mg PO BID 3 Days Qty: 6 0RF Continued vitamin U48-hohfo acid 500-400 mcg tablet 1 tab PO DAILY Rx Instructions: administer with a meal tamsulosin 0.4 mg capsule 0.4 mg PO .at bedtime Qty: 30 12RF oxycodone-acetaminophen 10-325 mg tablet 1 tab PO Q6H PRN (Reason: Pain) nitroglycerin 0.4 mg tablet, sublingual 0.4 mg sublingual Q5M PRN (Reason: chest pain) 30 Days Qty: 10 0RF Rx Instructions: do not exceed 3 doses per episode atorvastatin 80 mg tablet 80 mg PO DAILY Qty: 30 0RF clopidogrel 75 mg tablet 75 mg PO DAILY Qty: 60 3RF aspirin 81 mg tablet,delayed release (DR/EC) 81 mg PO DAILY Qty: 60 3RF bisacodyl 5 mg Tablet,Delayed Release (Dr/Ec) 20 mg PO BID docusate sodium [Colace] 100 mg Capsule 200 mg PO BID metoprolol tartrate 25 mg Tablet 25 mg PO BID@0900,2100 Qty: 120 3RF ipratropium-albuterol 0.5 mg-3 mg(2.5 mg base)/3 mL solution for nebulization 3 ml inhalation Q6H PRN (Reason: shortness of breath or wheezing) Qty: 90 3RF roflumilast 500 mcg tablet 500 mcg PO DAILY Discontinued losartan 25 mg tablet 25 mg PO DAILY Qty: 60 3RF isosorbide dinitrate 10 mg tablet 10 mg PO BID Qty: 60 2RF Rx Instructions: allow nitrate-free interval of 12-14 hrs per 24-hr period spironolactone 25 mg tablet 25 mg PO DAILY Discharge Orders: Discharge Order (Routine); Ordered 04/12/24 Ordered By: Kimberly Dow Referrals: [facility] [Outside] Pawel Ordoñez [Primary Care Provider] - 04/13/24 2:20 pm Discharge Diet: Cardiac Discharge Activity: As per PT/OT instructions and Oxygen as instructed Patient Instructions: Prednisone (By mouth), Ranolazine (By mouth), Hospice Care (GEN) Discharge Attestations Time Spent in Discharge Care*: greater than 30 min Quality Metrics Clinical Quality Measures [ No reported AMI, CVA or VTE this stay] Coding Level of Care Code Acute Code for Chg Fwd Diagnoses Elevated troponin R79.89 Congestive heart failure due to cardiomyopathy I50.9; I42.9 Hypertension I10 COVID-19 U07.1 Acute on chronic hypoxic respiratory failure J96.21
== END 2024-04-12 12:52 | disposition hospice, home (50) | DRG 177 ==
LOC: ER 14:51 → MEDSURG 15:21 → ICU 04-08 03:11 → MEDSURG 04-10 13:32
PROVIDERS: Student in an Organized Health Care Education/Training Program; Admitting Provider Internal Medicine; Emergency Provider Emergency Medicine; PCP Family Medicine; Visit Provider Internal Medicine
DX: U07.1 COVID-19 (principal); I50.23 Acute on chronic systolic (congestive) heart failure; J12.82 Pneumonia due to coronavirus disease 2019; J96.21 Acute and chronic respiratory failure with hypoxia; R57.0 Cardiogenic shock; J44.1 Chronic obstructive pulmonary disease with (acute) exacerbation; J43.9 Emphysema, unspecified; I25.10 Atherosclerotic heart disease of native coronary artery without angina pectoris; I73.9 Peripheral vascular disease, unspecified; I11.0 Hypertensive heart disease with heart failure; I27.20 Pulmonary hypertension, unspecified; E78.5 Hyperlipidemia, unspecified; M19.90 Unspecified osteoarthritis, unspecified site; N40.1 Benign prostatic hyperplasia with lower urinary tract symptoms; R39.14 Feeling of incomplete bladder emptying; I25.5 Ischemic cardiomyopathy; Z66 Do not resuscitate; I95.9 Hypotension, unspecified; K59.00 Constipation, unspecified; K40.20 Bilateral inguinal hernia, without obstruction or gangrene, not specified as recurrent; E87.70 Fluid overload, unspecified; Z99.81 Dependence on supplemental oxygen; Z79.82 Long term (current) use of aspirin; Z79.02 Long term (current) use of antithrombotics/antiplatelets; Z95.5 Presence of coronary angioplasty implant and graft; Z95.1 Presence of aortocoronary bypass graft; Z87.891 Personal history of nicotine dependence; Z87.01 Personal history of pneumonia (recurrent); I25.2 Old myocardial infarction
CPT/HCPCS: 36415; 36416; 36600; 51702; 71045; 80048; 80051; 80053; 80061; 81003; 81015; 82330; 82550; 82607; 82746; 82805; 82962; 83036; 83540; 83550; 83605; 83735; 83880; 84145; 84439; 84443; 84481; 84484; 85025; 85378; 85651; 85730; 86140; 86403; 87449; 87486; 87581; 87633; 87641; 93005; 93308; 93970; 94640; 94664; 94760; 96372; 96374; 96376; 97161; 97165; 97535; 99285; J0248; J1644; J1650; J1940; J2020; J2270; J2543; J2919; J7030; J7614; J7626; J7644